=== PATIENT | female | born 1950 | race Caucasian/White ===

== ENCOUNTER → 2017-12-08 13:24 | Outpatient (CLI) | payer MEDICARE, OTHER, SELFPAY ==
--- NOTE | 2017-12-08 | DI.MG.S_ITS ---
BILATERAL DIGITAL SCREENING MAMMOGRAM 3D/2D WITH CAD: 12/08/2017 CLINICAL: Routine screening. Comparison is made to exams dated: 09/15/2016 mammogram, 09/04/2015 mammogram, and 08/25/2014 mammogram - [facility]. There are scattered fibroglandular elements in both breasts. Current study was also evaluated with a Computer Aided Detection (CAD) system. There is architectural distortion in the right breast middle depth medial region seen on the craniocaudal view only. Finding is seen only on tomography. No other significant masses, calcifications, or other findings are seen in either breast. IMPRESSION: INCOMPLETE: NEEDS ADDITIONAL IMAGING EVALUATION The architectural distortion in the right breast is indeterminate. Additional views with possible ultrasound are recommended. This exam was interpreted at Station ID: [id number]. NOTE: For mammograms, a report in lay terms will be sent to the patient. Approximately 15% of breast malignancies will not be visualized mammographically. In the management of a palpable breast mass, a negative mammogram must not discourage biopsy of a clinically suspicious lesion. Electronically Signed By: Dianne Emmanuel M.D. lk/:12/08/2017 14:24:10 letter sent: Additional Imaging Needed ACR BI-RADS Category 0: Incomplete [id number]
== END ==
PROVIDERS: Family Provider Nurse Practitioner Family; PCP Nurse Practitioner Family; Visit Provider Nurse Practitioner Family
DX: Z12.31 Encounter for screening mammogram for malignant neoplasm of breast (principal); R92.8 Other abnormal and inconclusive findings on diagnostic imaging of breast
CPT/HCPCS: 77063; 77067

== ENCOUNTER → 2017-12-28 14:38 | Outpatient (CLI) | payer MEDICARE, OTHER, SELFPAY ==
--- NOTE | 2017-12-28 | DI.MG.S_ITS ---
UNILATERAL RIGHT DIGITAL DIAGNOSTIC MAMMOGRAM 3D/2D WITH ADDITIONAL VIEWS: 12/28/2017 CLINICAL: Additional evaluation requested from prior study. Comparison is made to exams dated: 12/08/2017 mammogram - [facility], 09/15/2016 mammogram, and 09/04/2015 mammogram - [facility]. There are scattered fibroglandular elements in the right breast. There is a 5 mm oval low density mass with a circumscribed margin in the right breast anterior depth medial region seen on the craniocaudal view only. Finding is seen only on tomography. No other significant masses or calcifications are seen in the breast. IMPRESSION: INCOMPLETE: NEEDS ADDITIONAL IMAGING EVALUATION The 5 mm oval low density mass in the right breast is indeterminate. An ultrasound is recommended. This exam was interpreted at Station ID: [id number]. NOTE: For mammograms, a report in lay terms will be sent to the patient. Approximately 15% of breast malignancies will not be visualized mammographically. In the management of a palpable breast mass, a negative mammogram must not discourage biopsy of a clinically suspicious lesion. Electronically Signed By: Melquiades kaur/daija:12/28/2017 16:18:05 ACR BI-RADS Category 0: Incomplete [id number]
== END ==
PROVIDERS: Family Provider Nurse Practitioner Family; PCP Nurse Practitioner Family; Visit Provider Nurse Practitioner Family
DX: R92.8 Other abnormal and inconclusive findings on diagnostic imaging of breast (principal); N63.10 Unspecified lump in the right breast, unspecified quadrant
CPT/HCPCS: 77065; G0279

== ENCOUNTER → 2018-01-01 10:19 | Outpatient (CLI) | payer MEDICARE, OTHER, SELFPAY ==
--- NOTE | 2018-01-01 | DI.US.S_ITS ---
ULTRASOUND OF RIGHT BREAST: 01/01/2018 CLINICAL: Patient returns today to evaluate a focal asymmetry in the right breast. Comparison is made to exams dated: 12/28/2017 mammogram and 12/08/2017 mammogram - [facility]. Color flow ultrasound of the right breast was performed. Lipscomb scale images of the real-time examination were reviewed. Prior mammographic finding is no longer seen right breast. IMPRESSION: NEGATIVE There is no sonographic evidence of malignancy. A 1 year screening mammogram is recommended. This exam was interpreted at Station ID: [id number]. Electronically Signed By: Melquiades kaur/daija:01/01/2018 15:19:18 Entry: - 01/01/2018 15:19:18 letter sent: Normal Exam Ultrasound BI-RADS: 1 Negative
== END ==
PROVIDERS: Family Provider Nurse Practitioner Family; PCP Nurse Practitioner Family; Visit Provider Nurse Practitioner Family
DX: R92.8 Other abnormal and inconclusive findings on diagnostic imaging of breast (principal)
CPT/HCPCS: 76642

== ENCOUNTER → 2018-01-25 11:15 | Outpatient (CLI) | payer MEDICARE, OTHER, SELFPAY ==
[2018-01-25 13:44] LABS: Estimated Glomerular Filt Rate > 60.0 mL/min (>60)
== END ==
PROVIDERS: PCP Nurse Practitioner Family; Visit Provider Psychiatry & Neurology Neurology
DX: G35 Multiple sclerosis (principal)
CPT/HCPCS: 36415; 82565

== ENCOUNTER → 2018-01-26 16:23 | Outpatient (CLI) | payer MEDICARE, OTHER, SELFPAY ==
--- NOTE | 2018-01-26 | DI.MRI.S_ITS ---
PROCEDURE: MR THORACIC SPINE WO/W CON INDICATIONS: Multiple sclerosis. TECHNIQUE: Noncontrast sagittal T1 spin echo and T2 fast spin echo, sagittal STIR, axial T1 and T2 fast spin echo through the thoracic spine. After the administration of contrast, axial and sagittal T1 spin echo with fat saturation through the thoracic spine. COMPARISON: [facility], , MR CERVICAL SPINE WO/W CON, 01/26/2018, 16:56. FINDINGS: Image quality: Excellent. Alignment and curvature: There is normal bony alignment. Marrow: Marrow is of normal overall signal. No acute vertebral body compression fractures. Spinal cord: There is a focus of T2 hyperintensity in the lower cervical cord at the level of the C7. A possible T2 hyperintense lesion is noted in the thoracic cord at the level of T7-T8. Visualized thoracic cord is of normal signal and size. No definitive abnormal enhancement but motion artifacts on postcontrast images are present. Paraspinous soft tissues: No paravertebral masses or abnormal enhancement. Miscellaneous: There is degenerative disc disease with loss of disc height and posterior disc bulge. Central canal and foramina appear patent. IMPRESSION: 1. T2 hyperintense lesions at C7 and possibly T7-T8 consistent with multiple sclerosis. No definitive enhancing lesions. 3. Degenerative disc disease in the thoracic spine. No central canal stenosis. Dictated by: Lloyd Huerta M.D. on 01/29/2018 at 8:42 Transcribed by: ALLEN on 01/29/2018 at 8:45 Approved by: Lloyd Huerta M.D. on 01/29/2018 at 10:54
--- NOTE | 2018-01-26 | DI.MRI.S_ITS ---
PROCEDURE: MR HEAD/BRAIN WO/W CON INDICATIONS: 67-year-old woman with multiple sclerosis. TECHNIQUE: Noncontrast sagittal and axial FLAIR, axial and coronal T2 fast spin echo, axial VIBE, axial gradient echo, axial diffusion and ADC through the brain. After the administration of contrast, axial and coronal VIBE with fat saturation through the brain. COMPARISON: None. FINDINGS: Image quality: Excellent. CSF spaces: Ventricles are normal in size and shape. Basal cisterns are patent. No extra-axial fluid collections. Brain: There are multiple foci of T2/FLAIR hyperintensity in periventricular white matter involving corpus callosum with configuration/distribution consistent with multiple sclerosis. There is a white matter lesion in the upper cervical cord at level of C1. No enhancing lesions are present No intracranial bleeds or mass effects. Lipscomb-white matter interface appears intact. No abnormal intracranial enhancement. Diffusion weighted images show no acute ischemic insults. Brainstem appears normal. Normal intravascular flow voids are present. Skull and face: Calvarial marrow signal is normal. Orbits appear normal. Sinuses: Mastoids are clear. An air-fluid level is noted in the right sphenoid sinus. There is a mucous retention cyst in the left maxillary sinus. Mild mucosal thickening in the right ethmoid sinus. IMPRESSION: 1. Multiple foci of T2/FLAIR hyperintensity in periventricular white matter involving corpus callosum with configuration/distribution consistent with multiple sclerosis. No enhancing lesions are identified. 2. A white matter lesion in the upper cervical cord at level of C1 consistent with a MS plaque. 3. Paranasal sinus disease. Dictated by: Lloyd Huerta M.D. on 01/29/2018 at 8:34 Transcribed by: ALLEN on 01/29/2018 at 8:36 Approved by: Lloyd Huerta M.D. on 01/29/2018 at 10:34
--- NOTE | 2018-01-26 | DI.MRI.S_ITS ---
PROCEDURE: MR CERVICAL SPINE WO/W CON INDICATIONS: MS TECHNIQUE: Noncontrast sagittal T1 spin echo and T2 fast spin echo, sagittal STIR, sagittal PD fast spin echo, foraminal oblique sagittal T2 fast spin echo, axial gradient echo or T2 fast spin echo through the cervical spine. After the administration of contrast, sagittal and axial T1 spin echo with fat saturation through the cervical spine. COMPARISON: None. FINDINGS: Image quality: There are motion artifacts. Alignment and curvature: There is normal bony alignment. Marrow: Marrow demonstrates normal overall signal. Spinal cord: There are multiple foci of T2 hyperintensity involving the cervical cord at level of C1, C3-C4 and C7, consistent with MS plaques. There is a probable lesion at level C4-C5. On post contrast images, no abnormal intramedullary enhancement. No cerebellar tonsillar herniation. Paraspinous soft tissues: No paravertebral masses or suspicious enhancement. C2-C3: Preserved disc height. Mild disc desiccation. There is mild posterior disc bulge. The central canal is patent. No foraminal stenosis. C3-C4: Mild loss of disc height and disc desiccation. There is broad posterior disc bulge. Mild bilateral facet arthropathy. The central canal is patent. No foraminal stenosis. C4-C5: Moderate loss of disc height and disc desiccation. There is broad posterior disc bulge and disc ossified complex. Mild bilateral facet arthropathy. The central canal is mildly narrowed. Moderate to severe right and mild left foraminal stenosis. C5-C6: Meofoiby-gt-joddel loss of disc height and disc desiccation. There is broad posterior disc bulge and disc ossified complex. The central canal is mildly narrowed. Moderate right and mild left foraminal stenosis. C6-C7: Ahduedcw-ic-jpjjof loss of disc height and disc desiccation. There is broad posterior disc bulge and disc ossified complex. The central canal is mildly narrowed. Moderate foraminal stenosis bilaterally. C7-T1: Normal appearance. IMPRESSION: 1. Multiple MS plaques in the cervical cord at level of C1, C3-C4 and C7, and a probable mass plaque at C4-C5. No enhancing lesions are present. 2. Multilevel degenerative disc disease and facet arthropathy as described. 3. Mild central canal stenosis as described. 4. Multilevel foraminal stenosis as described. Dictated by: Lloyd Huerta M.D. on 01/29/2018 at 8:36 Transcribed by: ALLEN on 01/29/2018 at 8:42 Approved by: Lloyd Huerta M.D. on 01/29/2018 at 10:42
== END ==
PROVIDERS: Family Provider Nurse Practitioner Family; PCP Nurse Practitioner Family; Visit Provider Psychiatry & Neurology Neurology
DX: G35 Multiple sclerosis (principal); M47.9 Spondylosis, unspecified
CPT/HCPCS: 70553; 72156; 72157; A9579

== ENCOUNTER → 2018-02-01 09:38 | Outpatient (CLI) | payer MEDICARE, OTHER, SELFPAY | PROVIDERS: Family Provider Nurse Practitioner Family; PCP Nurse Practitioner Family; Visit Provider Nurse Practitioner Family | DX: R20.2 Paresthesia of skin (principal) | CPT/HCPCS: 95886; 95911 ==

== ENCOUNTER → 2018-04-16 11:31 | Outpatient (CLI) | payer MEDICARE, OTHER, SELFPAY ==
[2018-04-16 12:57] LABS: Vitamin D 25 Hydroxy (D3) 35.7 ng/mL (30.0-100.0)
== END ==
PROVIDERS: Family Provider Nurse Practitioner Family; PCP Family Medicine; Visit Provider Family Medicine
DX: G35 Multiple sclerosis (principal)
CPT/HCPCS: 36415; 82306

== ENCOUNTER → 2018-04-20 14:09 | Outpatient (CLI) | payer MEDICARE, OTHER, SELFPAY ==
--- NOTE | 2018-04-20 14:10 | DI.RAD.S_ITS ---
This blank DEXA report has been sent in error by the PACS system. The correct and complete report will be forthcoming in 1-2 days. Thank you for your patience and understanding. Dictated by: Sandro Callahan M.D. on 04/20/2018 at 14:56 Approved by: Sandro Callahan M.D. on 04/20/2018 at 14:56
== END ==
PROVIDERS: PCP Family Medicine; Visit Provider Family Medicine
DX: M85.851 Other specified disorders of bone density and structure, right thigh (principal); Z78.0 Asymptomatic menopausal state; Z87.891 Personal history of nicotine dependence
CPT/HCPCS: 77080

== ENCOUNTER → 2018-08-23 08:53 | Outpatient (CLI) | payer MEDICARE, OTHER, SELFPAY ==
[2018-08-23 09:21] LABS: Hematocrit 41.2 % (36-46); Hemoglobin 13.9 g/dL (12.0-16.0); Mean Corpuscular HGB Conc 33.7 % (30-36); Mean Corpuscular Hemoglobin 32.1 PG (26-34); Mean Corpuscular Volume 95.3 fL (80-100); Platelet Count 247 X10^3/uL (150-400); Red Blood Cell Count 4.33 X10^6/uL (4.0-5.2); Red Cell Distribution Width 13.8 % (11.6-14.8); White Blood Cell Count 9.4 X10^3/uL (4.5-11.0)
[2018-08-23 09:35] LABS: Alanine Aminotransferase 26 IU/L (9-52); Albumin 4.4 g/dL (3.5-5.0); Albumin Globulin Ratio 1.3 (1.0-2.8); Alkaline Phosphatase 94 U/L (38-126); Aspartate Aminotransferase 25 IU/L (14-36); Bilirubin Total 0.6 mg/dL (0.2-1.3); Blood Urea Nitrogen 18 mg/dL (7-17); Calcium 9.9 mg/dL (8.4-10.2); Carbon Dioxide 32 mmol/L (22-32); Chloride 99 mmol/L (98-107); Cholesterol 199 mg/dL (140-199); Estimated Glomerular Filt Rate > 60.0 mL/min (>60); Globulin 3.5 g/dL (1.7-4.1); Glucose 102 mg/dL (80-110); HDL Cholesterol 59 mg/dL (40-60); HEMOLYSIS < 15 (0-50); LDL Cholesterol Calculated 125 mg/dL (<100); Potassium 4.2 mmol/L (3.4-5.1); Sodium 139 mmol/L (137-145); Total Protein 7.9 g/dL (6.3-8.2); Triglycerides 76 mg/dL (35-150)
[2018-08-23 09:50] LABS: Neutrophils Absolute Manual 4700 /uL (3000-5900); RBC Morphology Normal Morphology; Total Cells Counted 100
[2018-08-23 10:36] LABS: Vitamin D 25 Hydroxy (D3) 33.5 ng/mL (30.0-100.0)
[2018-08-23 10:43] LABS: Thyroid Stimulating Hormone 1.84 uIU/mL (0.47-4.68)
== END ==
PROVIDERS: PCP Family Medicine; Visit Provider Family Medicine
DX: G35 Multiple sclerosis (principal); I10 Essential (primary) hypertension; Z86.19 Personal history of other infectious and parasitic diseases; M85.80 Other specified disorders of bone density and structure, unspecified site
CPT/HCPCS: 36415; 80053; 80061; 82306; 84443; 85025

== ENCOUNTER → 2018-10-17 14:43 | Outpatient (CLI) | payer MEDICARE, OTHER, SELFPAY ==
--- NOTE | 2018-10-17 | DI.US.S_ITS ---
PROCEDURE: US PELVIC COMPLETE INDICATIONS: ABDOMINAL BLOATING TECHNIQUE: Real-time scanning was performed of the pelvic organs, with image documentation. Additional endovaginal scanning was necessary due to incomplete visualization of the adnexal and endometrial structures by transabdominal scanning. COMPARISON: None. FINDINGS: Transabdominal scanning: There is a likely extrarenal pelvis seen on the left. The kidneys demonstrate potential nonobstructing stones, the largest on the right measuring 6 mm in the largest measuring 5 mm. No pathologic free abdominal or pelvic fluid. Endovaginal scanning: Uterus: Uterus is normal in size at 6.1 x 3.3 x 3.7 cm. The endometrium measures 5 mm in combined thickness. A trace amount of fluid can be seen along the endometrial stripe. There is a 1 cm likely intramural fibroid seen on the right anteriorly. Ovaries: The right ovary measures 2.4 x 1.4 x 1.2 cm. The left ovary measures 2.1 x 1 x 1.1 cm. within the left ovary, there are 2 hypoechoic structures seen, with the largest measuring up to 1.2 cm. These are attributed to small cysts or paraovarian cysts. No adnexal masses are seen. IMPRESSION: The endometrial stripe measures at the upper limits of normal for a postmenopausal woman at 5 mm. Likely benign cysts are seen involving the left ovary. Apparent bilateral nonobstructing kidney stones are seen. A prominent left extrarenal pelvis can be seen. Dictated by: Pablo Keller M.D. on 10/17/2018 at 16:32 Approved by: Pablo Keller M.D. on 10/17/2018 at 16:35
== END ==
PROVIDERS: PCP Internal Medicine; Visit Provider Internal Medicine
DX: R14.0 Abdominal distension (gaseous) (principal); N83.202 Unspecified ovarian cyst, left side; N20.0 Calculus of kidney
CPT/HCPCS: 76830; 76856

== ENCOUNTER → 2018-10-24 09:06 | Outpatient (CLI) | payer MEDICARE, OTHER, SELFPAY ==
--- NOTE | 2018-10-24 | DI.US.S_ITS ---
PROCEDURE: US RENAL COMPLETE INDICATIONS: HISTORY OF KIDNEY STONES TECHNIQUE: Real-time scanning was performed of the kidneys and bladder, with image documentation. COMPARISON: None. FINDINGS: Kidneys: Kidneys are normal in size. Right kidney measures 11.9 cm long; left kidney measures 10.9 cm long. Right renal cortical thickness is 1.0 cm; left renal cortical thickness is 1.4 cm. On the right, approximately 3 right renal calculi measuring up to 8mm in size at the inferior pole. No hydronephrosis. On the left, multiple, approximately 3 left renal calculi measuring up to 11 mm. Moderate left hydronephrosis. At the superior pole there is also a hyperechoic lesion measuring 1.4 x 1.3 x 1.4 cm demonstrating echogenic appearance and no definite intra-vascularity. Presumed left extrarenal pelvis. Bladder: Pre-void bladder volume is 170 mL. Post-void residual is 111 mL. Pre-void images demonstrate no intraluminal masses or stones. On pre-void images, both of the ureteral jets are noted with color Doppler interrogation. (Of note, ureteral jets may not be detectable in up to 25% of cases due to insufficient differences in specific gravity between ureteral and bladder urine). Miscellaneous: No free pelvic fluid. IMPRESSION: Multiple bilateral nephrolithiasis. Moderate left hydronephrosis. No evidence of right-sided urinary obstruction. Echogenic lesion involving upper pole left kidney, possibly angiomyolipoma although technically indeterminate and given the absence of any comparison studies recommend continued ultrasound surveillance in 6 months, to exclude malignant possibilities. Dictated by: Denys Fam M.D. on 10/24/2018 at 11:37 Approved by: Denys Fam M.D. on 10/24/2018 at 12:01
== END ==
PROVIDERS: PCP Internal Medicine; Visit Provider Urology
DX: N13.2 Hydronephrosis with renal and ureteral calculous obstruction (principal); Z87.442 Personal history of urinary calculi
CPT/HCPCS: 76770

== ENCOUNTER → 2018-10-29 13:10 | Outpatient (CLI) | payer MEDICARE, OTHER, SELFPAY ==
--- NOTE | 2018-10-29 13:32 | DI.CT.S_ITS ---
PROCEDURE: CT KIDNEY URETER BLADDER (KUB) INDICATIONS: Right flank pain TECHNIQUE: Noncontrast 5 mm thick sections acquired from the diaphragms to the symphysis. 5 mm thick coronal and sagittal reformats were then performed. For radiation dose reduction, the following was used: automated exposure control, adjustment of mA and/or kV according to patient size. COMPARISON: [facility], , RENAL COMPLETE, 10/24/2018, 9:25. FINDINGS: Image quality: Excellent. Lung bases: Lung bases are clear. Heart size is normal. Urinary system: Both kidneys are normal in size. There are bilateral nonobstructive kidney stones ranging in size from 2 mm to 6 mm involving the upper, middle third and lower third collecting systems of each kidney. The left kidney shows a mild hydronephrosis pattern but without hydroureter, and the appearance is suggestive of a chronic ureteropelvic junction stenosis as the underlying cause. No hydronephrosis or perinephric fat stranding. Both ureters appear non-dilated throughout their expected courses. Bladder wall thickness is normal; no calcified bladder stones. Other solid organs: Liver is normal in size. Gallbladder is partially contracted. Pancreas is normal in contours. Spleen is normal in size. No adrenal nodules. Peritoneum and bowel: Unenhanced bowel loops demonstrate normal wall thickness and caliber. No free fluid or air. Nodes and vessels: No retroperitoneal or mesenteric adenopathy by size criteria. Aorta and inferior vena cava are normal in caliber. Abdominal wall: No ventral hernias. Pelvis: No free pelvic fluid. No inguinal hernias or adenopathy. Bones: No suspicious bony lesions. No vertebral body compression fractures. IMPRESSION: Bilateral renal collecting system calculi are present none of which appear obstructed, ranging in size from 2 millimeters to 6 mm. These do not appear obstructive, and yet there is mild hydronephrosis involving the left kidney which by appearance is likely due to a ureteropelvic junction stenosis. Dictated by: Coleman Vera M.D. on 10/29/2018 at 14:33 Approved by: Coleman Vera M.D. on 10/29/2018 at 14:38
== END ==
PROVIDERS: PCP Internal Medicine; Visit Provider Urology
DX: N20.0 Calculus of kidney (principal); N13.30 Unspecified hydronephrosis; R10.9 Unspecified abdominal pain
CPT/HCPCS: 74176

== ENCOUNTER → 2018-11-22 15:31 | Outpatient (CLI) | payer MEDICARE, OTHER, SELFPAY | PROVIDERS: PCP Internal Medicine; Visit Provider Internal Medicine | DX: R14.0 Abdominal distension (gaseous) (principal) | CPT/HCPCS: 86677 ==

== ENCOUNTER → 2018-11-26 07:43 | Outpatient (CLI) | payer MEDICARE, OTHER, SELFPAY ==
--- NOTE | 2018-11-26 | DI.NM.S_ITS ---
PROCEDURE: NM GASTRIC EMPTYING STUDY RADIOPHARMACEUTICAL: 37 mCi Tc-99m sulfur colloid in an egg sandwich. INDICATIONS: ABDOMINAL BLOATING TECHNIQUE: A Tc-99m labeled sulfur colloid labeled egg sandwich or oatmeal was served to the patient. Anterior and posterior planar images of the abdomen were obtained at 0 minutes and 30 minutes, then at hourly intervals up to 4 hours. The patient was upright and ambulating during the interval. COMPARISON: [facility], CT, CT KIDNEY URETER BLADDER (KUB), 10/29/2018, 13:24. FINDINGS: The stomach has normal size, morphology, and position. There is normal emptying of solid gastric contents from the stomach by visual inspection. No gastroesophageal reflux is visualized. The percentage of tracer retained at specific time points are as follows: Time point Percent gastric retention Normal range 30 minutes 68% 70% or more 1 hour 30% 30% to 90% 2 hours 10% 60% or less IMPRESSION: 1. Normal gastric emptying study without evidence of gastroparesis. Dictated by: Kristopher Chawla M.D. on 11/26/2018 at 16:14 Approved by: Kristopher Chawla M.D. on 11/26/2018 at 16:15
== END ==
PROVIDERS: PCP Internal Medicine; Visit Provider Internal Medicine
DX: R14.0 Abdominal distension (gaseous) (principal)
CPT/HCPCS: 78264; A9541

== ENCOUNTER → 2018-11-29 08:09 | Outpatient (CLI) | payer MEDICARE, OTHER, SELFPAY | PROVIDERS: PCP Internal Medicine; Visit Provider Internal Medicine | DX: R19.7 Diarrhea, unspecified (principal) | CPT/HCPCS: 87493 ==

== ENCOUNTER → 2018-12-04 15:06 | Outpatient (CLI) | payer MEDICARE, OTHER, SELFPAY | PROVIDERS: PCP Internal Medicine; Visit Provider Internal Medicine | DX: R19.7 Diarrhea, unspecified (principal) | CPT/HCPCS: 36415; 83516 ==

== ENCOUNTER → 2018-12-05 08:51 | Outpatient (CLI) | payer MEDICARE, OTHER, SELFPAY ==
[2018-12-05 11:33] LABS: Occult Blood 1 Negative (Negative); Occult Blood 2 Negative (Negative); Occult Blood 3 Negative (Negative)
[2018-12-11 13:56] LABS: H. Pylori Antigen Stool NOT DETECTED
== END ==
PROVIDERS: PCP Internal Medicine; Visit Provider Internal Medicine
DX: A04.8 Other specified bacterial intestinal infections (principal); R19.7 Diarrhea, unspecified
CPT/HCPCS: 82270; 82710; 86677; 87045; 87177; 87205; 87493; 87899

== ENCOUNTER → 2018-12-24 13:06 | Outpatient (CLI) | payer MEDICARE, OTHER, SELFPAY ==
--- NOTE | 2018-12-24 | DI.MG.S_ITS ---
BILATERAL DIGITAL SCREENING MAMMOGRAM 3D/2D WITH CAD: 12/24/2018 CLINICAL: Routine screening. Comparison is made to exams dated: 12/28/2017 mammogram, 12/08/2017 mammogram - [facility], and 09/15/2016 mammogram - [facility]. There are scattered fibroglandular elements in both breasts. Current study was also evaluated with a Computer Aided Detection (CAD) system. No significant masses, calcifications, or other findings are seen in either breast. There has been no significant interval change. IMPRESSION: NEGATIVE There is no mammographic evidence of malignancy. A 1 year screening mammogram is recommended. This exam was interpreted at Station ID: [id number]. NOTE: For mammograms, a report in lay terms will be sent to the patient. Approximately 15% of breast malignancies will not be visualized mammographically. In the management of a palpable breast mass, a negative mammogram must not discourage biopsy of a clinically suspicious lesion. Electronically Signed By: Conner alas/daija:12/24/2018 16:24:33 letter sent: Normal Exam ACR BI-RADS Category 1: Negative [id number]
== END ==
PROVIDERS: PCP Internal Medicine; Visit Provider Internal Medicine
DX: Z12.31 Encounter for screening mammogram for malignant neoplasm of breast (principal)
CPT/HCPCS: 77063; 77067

== ENCOUNTER → 2019-04-11 09:11 | Outpatient (CLI) | payer MEDICARE, OTHER, SELFPAY ==
--- NOTE | 2019-04-11 | DI.US.S_ITS ---
PROCEDURE: US RENAL COMPLETE INDICATIONS: KIDNEY STONES TECHNIQUE: Real-time scanning was performed of the kidneys and bladder, with image documentation. COMPARISON: [facility], CT, CT KIDNEY URETER BLADDER (KUB), 10/29/2018, 13:24. [facility], US, US RENAL COMPLETE, 10/24/2018, 9:25. FINDINGS: Kidneys: Kidneys are normal in size. Right kidney measures 11.8 cm long; left kidney measures 11.3 cm long. Right renal cortical thickness is 1.1 cm; left renal cortical thickness is 1.5 cm. Renal cortical echotexture is normal. No hydronephrosis bilateral nonobstructing renal calcifications present largest measuring 7 mm on the right and 10 mm on the left. Cortical based echogenic mass again visualized in the superior pole of the left kidney not significantly changed measuring 1.7 x 1.4 x 1.6 cm compared to 1.4 x 1.3 x 1.4 cm on prior exam. No suspicious solid mass lesions. Bladder: Pre-void bladder volume is 309 mL. Post-void residual is 117 mL. Pre-void images demonstrate no intraluminal masses or stones. On pre-void images, bilateral ureteral jets are noted with color Doppler interrogation. (Of note, ureteral jets may not be detectable in up to 25% of cases due to insufficient differences in specific gravity between ureteral and bladder urine). Miscellaneous: No free pelvic fluid. IMPRESSION: 1. 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 2. Bilateral nonobstructing renal calcifications redemonstrated. Dictated by: Theo VENTURA Interpreted: Denys Fam MD on 04/11/2019 at 10:54 Approved by: Denys Fam M.D. on 04/11/2019 at 14:00
[2019-04-11 10:26] LABS: Add Manual Diff / Slide Review NO; Basophils Absolute Auto 100 /uL (0-100); Basophils Percent Auto 0.6 % (0-2); Eosinophils Absolute Auto 200 /uL (0-450); Eosinophils Percent Auto 2.5 % (2-4); Hematocrit 38.7 % (36-46); Hemoglobin 13.3 g/dL (12.0-16.0); Lymphocytes Absolute Auto 2100 /uL (1100-4500); Lymphocytes Percent Auto 26.9 % (25-40); Mean Corpuscular HGB Conc 34.4 % (30-36); Mean Corpuscular Hemoglobin 32.5 PG (26-34); Mean Corpuscular Volume 94.6 fL (80-100); Monocytes Absolute Auto 700 /uL (0-900); Monocytes Percent Auto 9.3 % (3-14); Neutrophils Absolute Auto 4700 /uL (1500-7000); Neutrophils Percent Auto 60.7 % (50-75); Platelet Count 228 X10^3/uL (150-400); Red Cell Distribution Width 13.2 % (11.6-14.8); White Blood Cell Count 7.8 X10^3/uL (4.5-11.0)
[2019-04-11 10:52] LABS: Alanine Aminotransferase 28 IU/L (9-52); Albumin 4.1 g/dL (3.5-5.0); Albumin Globulin Ratio 1.4 (1.0-2.8); Alkaline Phosphatase 100 U/L (38-126); Aspartate Aminotransferase 26 IU/L (14-36); Bilirubin Total 0.6 mg/dL (0.2-1.3); Blood Urea Nitrogen 28 mg/dL (7-17); Calcium 9.8 mg/dL (8.4-10.2); Carbon Dioxide 30 mmol/L (22-32); Chloride 101 mmol/L (98-107); Estimated Glomerular Filt Rate 55.5 mL/min (>60); Glucose 75 mg/dL (80-110); HEMOLYSIS < 15 (0-50); Potassium 4.4 mmol/L (3.4-5.1); Sodium 139 mmol/L (137-145); Total Protein 7.1 g/dL (6.3-8.2)
[2019-04-11 12:29] LABS: TSH w/ Reflex to FT4 1.51 uIU/mL (0.47-4.68)
== END ==
PROVIDERS: PCP Internal Medicine; Visit Provider Internal Medicine
DX: N20.0 Calculus of kidney (principal); N28.89 Other specified disorders of kidney and ureter; I10 Essential (primary) hypertension; E03.9 Hypothyroidism, unspecified; R14.0 Abdominal distension (gaseous); E66.9 Obesity, unspecified; Z68.35 Body mass index [BMI] 35.0-35.9, adult
CPT/HCPCS: 36415; 76770; 80053; 84443; 85025

== ENCOUNTER → 2019-06-07 07:45 | Outpatient (CLI) | payer MEDICARE, OTHER, SELFPAY ==
--- NOTE | 2019-06-07 08:43 | P.PCN_ITS ---
Cardiac Stress Test Report Referral & Results Date Patient Seen: 06/07/19 Time Patient Seen: 08:30 Requesting provider: Melany Albert Indication: Tachy arrhythmia Rest ECG: Sinus tachycardia Procedure Note: Today following both written and verbal informed consent the patient was exercised according to a standard [place] protocol patient went for a total of 6 minutes achieving a maximum heart rate of 135 maximum systolic blood pressure of 178. This is approximately 7 METs. Exercise was terminated at this point because of fatigue. Patient was also given Cardiolite through a previously started Hep-Lock IV by the nuclear reactor operator approximately 1 minute prior to the cessation of exercise. No signs or symptoms of angina. No change in rhythm. BIN 0% on sedentary scale. Impression: Low probability for ischemia. Will await perfusion imaging. Please note: Actual ECG tracings can be found in the PACS system.
--- NOTE | 2019-06-14 15:28 | DI.NM.S_ITS ---
DATE OF SERVICE: 06/07/2019 PROCEDURE: Exercise perfusion study. INDICATION: Shortness of breath, hypertension. RADIOPHARMACEUTICAL: 26.9 mCi technetium-99m Myoview IV was injected at stress, and 23.5 mCi technetium-99m Myoview IV was injected at rest. CARDIAC STRESS: Patient underwent exercise perfusion study under the supervision of an attending staff. She walked on [place] protocol for 6 minutes 4 seconds and achieved 99% of target heart rate, 7 METS of work load, normal blood pressure response, and functional aerobic impairment of 5%. Patient felt fatigued. No angina symptoms. Baseline EKG revealed sinus rhythm. Stress EKG did not reveal any convincing ischemic changes. There were no significant arrhythmias. Baseline artifact seen as repeated. RAW DATA: The breast shadow was seen. GATED STUDY: Resting LV ejection fraction 88% and stress LV ejection fraction 95% without any obvious wall motion abnormalities. Resting end-diastolic volume 80 mL. No transient ischemic dilatation. TID ratio 0.82, which is within normal limits. Lung/heart ratio 0.29, which is within normal limits. MYOCARDIAL PERFUSION SCAN: Stress supine, resting supine, and stress prone images were compared to each other. Resting supine images revealed minimally decreased perfusion of apex; however, stress supine and stress prone images revealed normal myocardial perfusion. CONCLUSION: I will call this study a normal myocardial perfusion study. No significant ischemic EKG changes. Patient walked on [place] protocol for 6 minutes and 4 seconds. Functional aerobic impairment +5%. No significant arrhythmias. Normal hemodynamic response. Overall, this is a low-risk myocardial perfusion study. Bettie Murdock - MANAGER BILINGUAL/fn/kv doc#: [id number]/job#: [id number] dd: 06/10/2019 16:44:00 dt: 06/11/2019 04:32:00 DICTATING MD/COPIES TO: Wallace Muller MD COPIES MNE: JESUS
== END ==
PROVIDERS: PCP Internal Medicine; Visit Provider Internal Medicine
DX: R00.0 Tachycardia, unspecified (principal)
CPT/HCPCS: 78452; 93016; 93017; 93018; A9502

== ENCOUNTER 2019-08-15 01:22 | Emergency (ER) | payer MEDICARE, OTHER, SELFPAY ==
[2019-08-15 01:25] VITALS: BP 152/89; PULSE 96; RESP 16; TEMP 36.5; O2SAT 97; BMI 36.8
--- NOTE | 2019-08-15 01:38 | ED.ALLEREA ---
HPI - Allergic Reaction General Chief complaint: Allergic Reaction Stated complaint: took medication/hive on left leg Time Seen by Provider: 08/15/19 01:38 Source: patient Mode of arrival: Family Vehicle History of Present Illness HPI narrative: 69-year-old woman with a history of intermittent headaches and hypertension. She has used butalbital Tylenol Cafergot compounds in the past with success to treat her headaches. She recently got a refill of this medication and noted that there is a substitution of some type. After taking the new medication at midnight tonight she noticed increasing itching and hives. Symptoms started within 15 minutes of taking the new medication. She developed moderate size hives over her left knee and some pruritus over her back and upper extremities. She did not have any breathing or respiratory difficulties nor any swelling of the tongue or lips. Related Data Home Medications Medication Instructions Recorded Confirmed Resmed Airsense 10 CPAP #1 ea 01/01/19 01/16/19 Previous Rx's Medication Instructions Recorded losartan 50 mg tablet 50 mg PO DAILY #90 tab 08/17/18 hydrocodone 5 mg-acetaminophen 325 1 tab PO Q6H PRN #7 tab 12/22/18 mg tablet Allergies Allergy/AdvReac Type Severity Reaction Status Date / Time butalbital Allergy Intermediate Hives Verified 08/15/19 01:48 IODINE CONTRAST Allergy Mild HIVES Uncoded 01/16/19 15:31 Review of Systems Review of Systems Narrative: Denies ? fever ? cough ? cold ? chills ? chest pain ? dyspnea ? orthopnea ? wheezing ? abdominal pain ? change to bowel or bladder habits ? nausea vomiting ? Patient History Medical History Allergic rhinitis (Chronic 1951) Ankle pain (Chronic 2009) Chronic back pain (Chronic Unknown) Colon polyps (Resolved 2011) Diverticular disease (Chronic 2011) Foot pain (Chronic ~2018) GERD (gastroesophageal reflux disease) (Chronic Unknown) Gout (Chronic ~1979) Hearing loss (Chronic 2009) Hemorrhoids (Chronic 2011) Hepatitis C (Resolved Unknown) Hypertension (Chronic 1989) Interstitial cystitis (Chronic Unknown) Kidney stones (Resolved 1979) Multiple sclerosis (Chronic 2006) Neck pain (Chronic 1999) Rubella (Resolved ~1952) Shoulder pain (Chronic ~2014) Sleep apnea (Chronic 2015) Thyroid nodule (Resolved 2003) Vertigo (Chronic 2015) Surgical History Anesthesia (Resolved) Hx of breast biopsy (Resolved 1999) Hx of lithotripsy (Resolved Unknown) Hx of tonsillectomy (Resolved Unknown) Family History Unknown No problems noted. Social History marital status: unmarried,single number of children: 0 household members: none lives independently: Yes caregiver/support person: No pets and animals: Yes education level: college Smoking Status: Never smoker second hand exposure: No alcohol intake: never substance use type: does not use Smoking Status: Never smoker alcohol intake frequency: 0-2 drinks per day Substance Use Type: does not use Exam Narrative Exam Narrative: General: Healthy appearing, in no acute distress. Able to give a complete and coherent history. Well-nourished well-developed HEENT: Moist mucous membranes, normal sclera with reactive pupils, Neck: No JVD, supple Respiratory: Lungs are clear to auscultation, no wheezing no rales no rhonchi. Full and symmetrical air movement Cardiac: Regular rate and rhythm no murmurs no bruits Abdomen: Soft nontender good bowel tones, no flank pain Skin: Warm and dry, no rashes. Hives have completely resolved at time of initial ER exam. She still has some pruritus to the hands and upper extremities without significant erythema Neurologic: Grossly neurologically intact with no obvious asymmetries or abnormalities Extremities: No trauma, well perfused Psych: Cooperative, appropriate insight and affect Initial Vital Signs Initial Vital Signs: Vital Signs Temperature 97.7 F 08/15/19 01:25 Pulse Rate 96 H 08/15/19 01:25 Respiratory Rate 16 08/15/19 01:25 Blood Pressure 152/89 H 08/15/19 01:25 Pulse Oximetry 97 08/15/19 01:25 Course Vital Signs Vital signs: Vital Signs - 8 hr 08/15/19 01:25 Temperature 97.7 F Pulse Rate 96 H Respiratory Rate 16 Blood Pressure 152/89 H Pulse Oximetry 97 MDM - Allergic Reaction Differential Diagnosis Differential diagnosis: Likely anaphylaxis, allergic reaction, angioedema, adverse reaction to drug and urticaria Medical Records Attestation: I reviewed the patient's medical records. [facility] Narrative Medical decision making narrative: Allergic reaction to butalbital substituted medication. Symptoms were mild self-limited and have resolved almost entirely at 2:00 a.m.. With shared decision-making, we opted to not treat with any additional medications to avoid any untoward side effects as she was improving dramatically. Reassurance is given, she is safe for home discharge Discharge Plan Departure Patient Disposition: Home Clinical Impression: Allergic reaction to drug Qualifiers: Encounter type: initial encounter Qualified Code(s): T78.40XA - Allergy, unspecified, initial encounter Instructions: DI for Adverse Drug Reaction -- Allergic Activity Restrictions/Additional Instructions: Thank you for coming in tonight. Even though your symptoms have significantly improved I think that the visit was very appropriate. Please consider butalbital as an allergy at this time. Let your other doctors know and please do not take any more of this medication Because your symptoms are so rapidly improving I am not going to suggest any additional medications such as Benadryl or steroids. You will need to talk to your primary care doctor about alternative medications to treat your headache not you can no longer take the butalbital If you notice that your getting worse, developed any shortness of breath, wheezing, chest tightness, feeling that your tongue or lips are swelling please call 911 and return to the emergency department for further evaluation I hope you get a good night's sleep Prescriptions: No Action hydrocodone-acetaminophen [[place]] 5-325 mg tablet 1 tab PO Q6H PRN (Reason: pain) Qty: 7 RF: 0 losartan 50 mg tablet 50 mg PO DAILY Qty: 90 RF: 1 (DME) Resmed Airsense 10 CPAP Qty: 1 RF: 0 Referrals: Melany Albert MD [Primary Care Provider] -
== END 2019-08-15 01:50 | disposition home or self-care (01) ==
PROVIDERS: Emergency Provider Emergency Medicine; PCP Internal Medicine
DX: T78.40XA Allergy, unspecified, initial encounter (principal)
CPT/HCPCS: 99281

== ENCOUNTER → 2019-08-19 10:55 | Outpatient (CLI) | payer MEDICARE, OTHER, SELFPAY ==
--- NOTE | 2019-08-19 | DI.RAD.S_ITS ---
PROCEDURE: XR ABDOMEN 1V INDICATIONS: KIDNEY STONES TECHNIQUE: One view of the abdomen acquired. COMPARISON: [facility], CT, CT KIDNEY URETER BLADDER (KUB), 10/29/2018, 13:24. FINDINGS: Surgical changes and devices: None. Bowel: Bowel gas pattern is normal. Soft tissues: No new suspicious abdominal calcifications, and overlying the expected position of the central renal pelvis on left and also the upper and lower third collecting system on the left and within the middle and lower thirds of the right renal collecting system area calcifications previously present on CT scanning 10/29/18 are again seen.. Visualized solid organ contours appear normal in size. Bones: No suspicious bony lesions. IMPRESSION: Bilateral renal collecting system calculi are likely stable over time considering differences in technique when comparing prior CT scan into the current plain film study. There is a calcification currently measuring approximately 7-8 mm overlying the expected renal pelvis area of the left kidney, and correlation with ultrasound may be warranted if left-sided urinary tract obstruction from this calculus is suspected clinically. Dictated by: Coleman Vera M.D. on 08/19/2019 at 13:07 Approved by: Coleman Vera M.D. on 08/19/2019 at 13:09
== END ==
PROVIDERS: Family Provider Internal Medicine; PCP Internal Medicine; Visit Provider Urology
DX: N20.0 Calculus of kidney (principal)
CPT/HCPCS: 74018

== ENCOUNTER → 2019-08-28 11:10 | Outpatient (CLI) | payer MEDICARE, OTHER, SELFPAY ==
--- NOTE | 2019-08-28 | DI.CT.S_ITS ---
PROCEDURE: CT ABDOMEN PELVIS WO/W CON INDICATIONS: Gross hematuria TECHNIQUE: Optional 5 mm thick noncontrast images acquired from the diaphragm to the symphysis pubis. After the administration of intravenous contrast, 5 mm thick images acquired from the diaphragm to the symphysis pubis after a 10-minute delay. 2 mm thick coronal and sagittal reformats were then performed of the kidneys and ureters. For radiation dose reduction, the following was used: automated exposure control, adjustment of mA and/or kV according to patient size. COMPARISON: [facility], CT, CT KIDNEY URETER BLADDER (KUB), 10/29/2018, 13:24. FINDINGS: Image quality: Excellent. Lung bases: Lung bases are clear. Heart size is normal. Urinary system: Both kidneys are normal in size, without hydronephrosis on pre-contrast images. There is nonobstructive bilateral nephrolithiasis, with scattered calculi measuring approximately 4-6 mm on the right, within the upper, mid and lower right kidney nondistended collecting system. There also is a larger calculus at the lower third collecting system of the left kidney measuring up to 9 mm and having an internal radiodensity of 610 Hounsfield units. No perinephric fat stranding. There is normal bilateral renal enhancement. Renal calyces appear normal in morphology when filled with contrast. Opacified portions of both ureters demonstrate normal caliber. Bladder wall thickness is normal. No calcified bladder stones. There is a duplex collecting system of the left kidney, with an extrarenal pelvis. Other solid organs: Liver is normal in size and enhancement. Gallbladder is partially contracted. Biliary system is non dilated. Pancreas enhances normally. Spleen is normal in size and enhancement. No adrenal nodules. Peritoneum and bowel: Bowel loops demonstrate normal wall thickness and caliber. No free fluid or air. Nodes and vessels: No retroperitoneal or mesenteric adenopathy by size criteria. Aorta and inferior vena cava are normal in size. Abdominal wall: No ventral hernias. Pelvis: No pathologic free pelvic fluid. No inguinal hernias or adenopathy. Bones: No suspicious bony lesions. No vertebral body compression fractures. IMPRESSION: Scattered renal collecting system calculi bilaterally, the largest of which is at the lower third collecting system of the left kidney, but no urinary tract obstruction is found. Incidental note is made of a duplex collecting system at the left kidney, uniting at the level of the left kidney and a single ureter extends inferiorly to the bladder level, normal in appearance, on the left. No ureteral stone is suspected, no bladder calculus is found. Through the urothelium and the renal cortex bilaterally no source of hematuria is seen. The patient experienced a sensation of shortness of breath during the early phase of contrast infusion for this study which was optimized for identifying source of urinary tract hemorrhage. This reduces the quality of imaging of the viscera to a mild degree but the study remains diagnostic for absence of identifiable urothelial or renal cortical mass. Dictated by: Coleman Vera M.D. on 08/28/2019 at 12:24 Approved by: Coleman Vera M.D. on 08/28/2019 at 12:32
== END ==
PROVIDERS: Family Provider Internal Medicine; PCP Internal Medicine; Referring Provider Urology; Visit Provider Urology
DX: R31.0 Gross hematuria (principal); N20.0 Calculus of kidney; R06.02 Shortness of breath
CPT/HCPCS: 74178; Q9967

== ENCOUNTER 2019-08-28 12:03 | Emergency (ER) | payer MEDICARE, OTHER, SELFPAY ==
[2019-08-28 12:04] VITALS: BP 204/124; PULSE 112; RESP 16; O2SAT 99
--- NOTE | 2019-08-28 12:08 | ED.ALLEREA ---
HPI - Allergic Reaction General Chief complaint: Allergic Reaction Stated complaint: Allergic Reaction Time Seen by Provider: 08/28/19 12:08 Source: patient Mode of arrival: Ambulatory Limitations: no limitations History of Present Illness HPI narrative: This is a 69-year-old female who comes to the emergency department with complaint of possible reaction. Patient was having an outpatient CT scan with IV dye to evaluate for painless hematuria. Patient has had a reaction to IV dye in the past had hives, she had a 2nd CT had pre treatment with oral prednisone and tolerated that without issue. Today patient had oral prednisone 50 mg at 10:30 a.m. last night, 4:30 a.m. and then again at 10:00 a.m. followed by 50 mg of oral Benadryl at 10:00 a.m.. Patient states she started to feel little dizzy and unwell and shaky and jittery in the waiting room and when they laid her down for the CT made her feel lightheaded. She stated that when they pushed the it felt warm and flushed and then she started to feel little tight in her throat and jaw she states that they then sat her up and her symptoms resolved within a few minutes. She does not feel like there is any swelling of the tongue or oropharynx. She has not had any rash or hives. She has not had any nausea or vomiting. She denies. She denies chest pain or shortness of breath. She denies any wheezing. She denies any other GI or urinary symptoms at this time. Patient states at this point she is feeling much better and close to normal. Patient does take medication for blood pressure she has had hematuria in the past secondary to kidney stones but had seen Urology and they had wanted her to get CT imaging as she did not pass a stone or have any pain at any point. She states since then hematuria has resolved. Related Data Home Medications Medication Instructions Recorded Confirmed Resmed Airsense 10 CPAP #1 ea 01/01/19 01/16/19 Previous Rx's Medication Instructions Recorded losartan 50 mg tablet 50 mg PO DAILY #90 tab 08/17/18 hydrocodone 5 mg-acetaminophen 325 1 tab PO Q6H PRN #7 tab 12/22/18 mg tablet Allergies Allergy/AdvReac Type Severity Reaction Status Date / Time butalbital Allergy Intermediate Hives Verified 08/15/19 01:48 IODINE CONTRAST Allergy Mild HIVES Uncoded 01/16/19 15:31 Review of Systems Review of Systems ROS Unobtainable: All systems reviewed & are unremarkable except as noted in HPI and below Patient History Medical History Allergic rhinitis (Chronic 1951) Ankle pain (Chronic 2010) Chronic back pain (Chronic Unknown) Colon polyps (Resolved 2011) Diverticular disease (Chronic 2011) Foot pain (Chronic ~2018) GERD (gastroesophageal reflux disease) (Chronic Unknown) Gout (Chronic ~1979) Hearing loss (Chronic 2009) Hemorrhoids (Chronic 2011) Hepatitis C (Resolved Unknown) Hypertension (Chronic 1989) Interstitial cystitis (Chronic Unknown) Kidney stones (Resolved 1979) Multiple sclerosis (Chronic 2006) Neck pain (Chronic 1999) Rubella (Resolved ~1952) Shoulder pain (Chronic ~2014) Sleep apnea (Chronic 2015) Thyroid nodule (Resolved 2003) Vertigo (Chronic 2014) Surgical History Anesthesia (Resolved) Hx of breast biopsy (Resolved 1999) Hx of lithotripsy (Resolved Unknown) Hx of tonsillectomy (Resolved Unknown) Social History marital status: unmarried,single number of children: 0 household members: none lives independently: Yes caregiver/support person: No pets and animals: Yes education level: college Smoking Status: Never smoker second hand exposure: No alcohol intake: never substance use type: does not use Smoking Status: Never smoker alcohol intake frequency: 0-2 drinks per day Substance Use Type: does not use Exam Narrative Exam Narrative: GEN: well nourished, well appearing female, alert and oriented x 3, patient appears to be in mild distress. HEENT: Atraumatic, pupils are equal round reactive to light, extraocular movements are intact, nares are clear. Throat is clear without any exudates, erythema, tonsillar enlargement or uvular deviation, no facial swelling, no swelling of the oropharynx or angioedema. HEART: Regular rate and rhythm without murmur, clicks, rubs. Pulses are equal in upper and lower extremities LUNGS:Lungs clear to auscultation, no wheezes, rales, crackles, chest moves symmetrically, no tachypnea, no accessory muscle use. ABD:bowel sounds normal, soft, non-tender, no guarding, rebound, rigidity, no masses noted, no hepatosplenomegaly :No CVA tenderness MSCL: Non-tender, no muscle atrophy, muscles strength 5/5 upper and lower extremities, full range of motion, normal gait NEURO:CN 2-12 intact, sensation normal SKIN: Rash, no erythema hives. Initial Vital Signs Initial Vital Signs: Vital Signs Pulse Rate 112 H 08/28/19 12:04 Respiratory Rate 16 08/28/19 12:04 Blood Pressure 204/124 H 08/28/19 12:04 Pulse Oximetry 99 08/28/19 12:04 Course Vital Signs Vital signs: Vital Signs - 8 hr 08/28/19 12:04 08/28/19 12:27 08/28/19 13:00 Pulse Rate 112 H 105 H 74 Respiratory Rate 16 18 17 Blood Pressure 204/124 H Blood Pressure [Left Wrist] 179/101 H 143/68 H Pulse Oximetry 99 98 99 MDM - Allergic Reaction MDM Narrative Medical decision making narrative: Discussed with patient may have been a medication reaction she was having symptoms before the CT but plan for observation her symptoms resolved shortly after the CT itself and she has not had any further symptoms or worsening issues. Her blood pressure is slowly improving along with her pulse. Discussed with patient strict return precautions of but my suspicion for allergic reaction is lower as she has not continued to have any symptoms and has not had any intervention. Discharge Plan Departure Patient Disposition: Home Clinical Impression: Medication reaction Discharge Date/Time: 08/28/19 13:19 Instructions: DI for Adverse Drug Reaction -- Other Activity Restrictions/Additional Instructions: Follow up with your physician in the next several days. I would recommend discussing with your physician about any future CT scans with iodine let them know about your experience today there is possibility that this was an allergic reaction although more likely a medication reaction from the medications taken earlier today. Continue home medications as prescribed. Return to the emergency department for recurrent or new symptoms, fevers greater 100.4 F, sudden severe headaches, lightheadedness, passing out, new chest pain or shortness of breath, persistent vomiting, new rashes or skin changes, swelling of the mouth, lips or oropharynx, hoarseness or voice change or any other new or concerning symptoms. Prescriptions: No Action hydrocodone-acetaminophen [[place]] 5-325 mg tablet 1 tab PO Q6H PRN (Reason: pain) Qty: 7 RF: 0 losartan 50 mg tablet 50 mg PO DAILY Qty: 90 RF: 1 (DME) Resmed Airsense 10 CPAP Qty: 1 RF: 0 Referrals: Melany Albert MD [Primary Care Provider] -
[2019-08-28 12:27] VITALS: BP 179/101; PULSE 105; RESP 18; O2SAT 98
[2019-08-28 13:00] VITALS: BP 143/68; PULSE 74; RESP 17; O2SAT 99
== END 2019-08-28 13:19 | disposition home or self-care (01) ==
PROVIDERS: Emergency Provider Emergency Medicine; Family Provider Internal Medicine; PCP Internal Medicine
DX: T78.40XA Allergy, unspecified, initial encounter (principal); T50.905A Adverse effect of unspecified drugs, medicaments and biological substances, initial encounter
CPT/HCPCS: 74178; 99282; 99284; Q9967

== ENCOUNTER → 2019-08-30 15:35 | Outpatient (ROUT) | payer MEDICARE, OTHER, SELFPAY | PROVIDERS: Family Provider Internal Medicine; PCP Internal Medicine; Visit Provider Internal Medicine | DX: R35.0 Frequency of micturition (principal); R31.0 Gross hematuria; N20.0 Calculus of kidney; R06.02 Shortness of breath | CPT/HCPCS: 87086 ==

== ENCOUNTER → 2020-01-16 16:31 | Outpatient (CLI) | payer MEDICARE, OTHER, SELFPAY ==
[2020-01-16 17:47] LABS: Add Manual Diff / Slide Review NO; Basophils Absolute Auto 0 /uL (0-100); Basophils Percent Auto 0.3 % (0-2); Eosinophils Absolute Auto 300 /uL (0-450); Eosinophils Percent Auto 2.6 % (2-4); Hematocrit 38.6 % (36-46); Hemoglobin 13.5 g/dL (12.0-16.0); Lymphocytes Absolute Auto 2500 /uL (1100-4500); Lymphocytes Percent Auto 23.6 % (25-40); Mean Corpuscular Hemoglobin 34.1 PG (26-34); Mean Corpuscular Volume 97.3 fL (80-100); Monocytes Absolute Auto 900 /uL (0-900); Monocytes Percent Auto 8.7 % (3-14); Neutrophils Absolute Auto 6900 /uL (1500-7000); Neutrophils Percent Auto 64.8 % (50-75); Platelet Count 241 X10^3/uL (150-400); Red Blood Cell Count 3.96 X10^6/uL (4.0-5.2); White Blood Cell Count 10.6 X10^3/uL (4.5-11.0)
[2020-01-16 17:51] LABS: Alanine Aminotransferase 25 IU/L (<35); Albumin 4.5 g/dL (3.5-5.0); Albumin Globulin Ratio 1.3 (1.0-2.8); Alkaline Phosphatase 104 U/L (38-126); Aspartate Aminotransferase 28 IU/L (14-36); BUN Creatinine Ratio 27.3 (6-22); Bilirubin Total 0.3 mg/dL (0.2-1.3); Blood Urea Nitrogen 24 mg/dL (7-17); Calcium 10.5 mg/dL (8.4-10.2); Carbon Dioxide 29 mmol/L (22-32); Chloride 100 mmol/L (98-107); Estimated Glomerular Filt Rate > 60.0 mL/min (>60); Globulin 3.4 g/dL (1.7-4.1); Glucose 115 mg/dL (80-110); HEMOLYSIS < 15 (0-50); Sodium 137 mmol/L (137-145); Total Protein 7.9 g/dL (6.3-8.2); Uric Acid 6.5 mg/dL (2.5-6.2)
[2020-01-16 18:07] LABS: Vitamin D 25 Hydroxy (D3) 31.4 ng/mL (30.0-100.0)
[2020-01-16 18:21] LABS: TSH w/ Reflex to FT4 1.74 uIU/mL (0.47-4.68)
[2020-01-17 08:36] LABS: SARS CoV19 IgG Negative (Negative)
== END ==
PROVIDERS: Family Provider Internal Medicine; PCP Internal Medicine; Referring Provider Internal Medicine; Visit Provider Internal Medicine
DX: G35 Multiple sclerosis (principal); E79.0 Hyperuricemia without signs of inflammatory arthritis and tophaceous disease; N20.0 Calculus of kidney; E55.9 Vitamin D deficiency, unspecified; Z03.818 Encounter for observation for suspected exposure to other biological agents ruled out; I10 Essential (primary) hypertension
CPT/HCPCS: 36415; 80053; 82306; 84443; 84550; 85025; 86769

== ENCOUNTER → 2020-02-18 15:17 | Outpatient (ROUT) | payer MEDICARE, OTHER, SELFPAY ==
[2020-02-18 15:37] LABS: BUN Creatinine Ratio 22.7 (6-22); Blood Urea Nitrogen 20 mg/dL (7-17); Calcium 10.5 mg/dL (8.4-10.2); Carbon Dioxide 32 mmol/L (22-32); Chloride 100 mmol/L (98-107); Estimated Glomerular Filt Rate > 60.0 mL/min (>60); Glucose 99 mg/dL (80-110); HEMOLYSIS < 15 (0-50); Potassium 3.9 mmol/L (3.4-5.1); Sodium 138 mmol/L (137-145); Uric Acid 5.4 mg/dL (2.5-6.2)
[2020-02-19 10:35] LABS: Ionized Calcium 5.3 mg/dL (4.5-5.6)
== END ==
PROVIDERS: Family Provider Internal Medicine; PCP Internal Medicine; Visit Provider Internal Medicine
DX: E79.0 Hyperuricemia without signs of inflammatory arthritis and tophaceous disease (principal); E83.52 Hypercalcemia
CPT/HCPCS: 80048; 82330; 84550

== ENCOUNTER → 2020-02-21 08:40 | Outpatient (CLI) | payer MEDICARE, OTHER, SELFPAY ==
--- NOTE | 2020-02-21 | DI.MG.S_ITS ---
BILATERAL DIGITAL DIAGNOSTIC MAMMOGRAM 3D/2D: 02/21/2020 CLINICAL: Left breast pain. Comparison is made to exams dated: 12/24/2018 mammogram, 12/08/2017 mammogram - [facility], and 09/15/2016 mammogram - [facility]. There are scattered fibroglandular elements in both breasts. No significant masses, calcifications, or other findings are seen in either breast. IMPRESSION: INCOMPLETE: NEEDS ADDITIONAL IMAGING EVALUATION There is no abnormality seen in the left breast to correspond with the pain in the upper outer quadrant, however, ultrasound is recommended. This exam was interpreted at Station ID: [id number]. NOTE: For mammograms, a report in lay terms will be sent to the patient. Approximately 15% of breast malignancies will not be visualized mammographically. In the management of a palpable breast mass, a negative mammogram must not discourage biopsy of a clinically suspicious lesion. Electronically Signed By: Kristopher contreras/daija:02/21/2020 09:15:32 ACR BI-RADS Category 0: Incomplete [id number]
--- NOTE | 2020-02-21 | DI.US.S_ITS ---
LIMITED ULTRASOUND OF LEFT BREAST: 02/21/2020 CLINICAL: Lt breast pain. Comparison is made to exams dated: 02/21/2020 mammogram, 12/24/2018 mammogram, 01/01/2018 ultrasound, and 12/08/2017 mammogram - [facility]. Real-time ultrasound of the left breast 2 o'clock region was performed on the area of interest. IMPRESSION: NEGATIVE There is no sonographic evidence of malignancy. There is no abnormality seen in the left breast to correspond with the pain at 2 o'clock, however, clinical followup is recommended. A 1 year screening mammogram is recommended. This exam was interpreted at Station ID: [id number]. Electronically Signed By: Kristopher contreras/daija:02/21/2020 10:30:56 letter sent: Clinical Evaluation Ultrasound BI-RADS: 1 Negative
== END ==
PROVIDERS: Family Provider Internal Medicine; PCP Internal Medicine; Referring Provider Internal Medicine; Visit Provider Internal Medicine
DX: R92.8 Other abnormal and inconclusive findings on diagnostic imaging of breast (principal); N64.4 Mastodynia
CPT/HCPCS: 76642; 77066; G0279

== ENCOUNTER → 2020-04-02 08:55 | Outpatient (CLI) | payer MEDICARE, OTHER, SELFPAY ==
[2020-04-03 07:19] LABS: Parathyroid Hormone Int 34 pg/mL (15-65)
[2020-04-03 10:55] LABS: Ionized Calcium 4.9 mg/dL (4.5-5.6)
== END ==
PROVIDERS: Family Provider Internal Medicine; PCP Internal Medicine; Referring Provider Internal Medicine; Visit Provider Internal Medicine
DX: E83.52 Hypercalcemia (principal)
CPT/HCPCS: 36415; 82330; 83970

== ENCOUNTER → 2020-04-13 07:18 | Outpatient (CLI) | payer MEDICARE, OTHER, SELFPAY ==
--- NOTE | 2020-04-13 | DI.US.S_ITS ---
PROCEDURE: US ABDOMEN COMPLETE INDICATIONS: PAIN; RENAL MASS. TECHNIQUE: Real-time scanning was performed of the abdominal and retroperitoneal organs, with image documentation. COMPARISON: [facility], CT, CT ABDOMEN PELVIS WO/W CON, 08/28/2019, 11:25. [facility], CT, CT KIDNEY URETER BLADDER (KUB), 10/29/2018, 13:24. [facility], CR, XR ABDOMEN 1V, 08/19/2019, 11:01. FINDINGS: Liver: The liver demonstrates normal size. The liver demonstrates generalized increased echogenicity. This decreases ultrasound sensitivity for detection of hepatic masses. Gallbladder: No findings of gallstones or sludge are seen. The gallbladder wall is not thickened, measuring 3 mm or less. No specific pericholecystic fluid is seen. The sonographic Bryant sign is negative. Biliary ducts: Intrahepatic bile ducts are non-dilated. Extrahepatic bile duct caliber measures less than 1 mm. Normal is 6-7 mm or less in diameter, or 10 mm or less post-cholecystectomy. Pancreas: Visualized portions of the pancreas are sonographically normal. Spleen: Spleen is normal in size and homogeneous in echotexture. Kidneys: Kidneys are normal in size and echotexture. Right kidney measures 11.9 cm long; left kidney measures 11 cm long. Bilateral nonobstructing renal stones are seen, which are better demonstrated on the prior CT examination. On the left, there is a nonobstructing stone seen within the renal pelvis of measures up to 1.6 cm. A prominent left renal pelvis can be seen. Moderate left-sided hydronephrosis is seen. Within the cortex of the left kidney, there is a 2.1 x 1.4 x 1.8 cm solid-appearing mass with increased echogenicity. Aorta: Visualized aorta is normal in caliber at less than 3 cm. Iliacs: Proximal common iliac arteries are normal in caliber at less than 2.5 cm. IVC: Intrahepatic inferior vena cava is patent. Miscellaneous: No free abdominal fluid. The prevoid bladder volume is 340 cc. The postvoid bladder volume is 184 cc. Bilateral ureteral jets are seen into the bladder. IMPRESSION: There is moderate left-sided hydronephrosis. Within the dilated left renal pelvis, there is a nonobstructing stone seen. Numerous nonobstructing bilateral renal stones are seen. These are better demonstrated by prior CT. There is a benign fat containing mass involving the cortex of the left kidney, which is also better demonstrated on prior CT. Both ureteral jets are seen into the bladder. Moderate postvoid residual, 184 cc. Dictated by: Pablo Keller M.D. on 04/13/2020 at 9:49 Approved by: Pablo eKller M.D. on 04/13/2020 at 9:55
== END ==
PROVIDERS: Family Provider Internal Medicine; PCP Internal Medicine; Referring Provider Internal Medicine; Visit Provider Internal Medicine
DX: N13.2 Hydronephrosis with renal and ureteral calculous obstruction (principal); N28.89 Other specified disorders of kidney and ureter; R14.0 Abdominal distension (gaseous); R10.11 Right upper quadrant pain
CPT/HCPCS: 76700

== ENCOUNTER → 2020-04-15 09:47 | Outpatient (CLI) | payer MEDICARE, OTHER, SELFPAY | PROVIDERS: Family Provider Internal Medicine; PCP Internal Medicine; Referring Provider Internal Medicine; Visit Provider Internal Medicine | DX: M85.851 Other specified disorders of bone density and structure, right thigh (principal); Z78.0 Asymptomatic menopausal state; Z87.891 Personal history of nicotine dependence | CPT/HCPCS: 77080 ==

== ENCOUNTER → 2020-04-23 15:27 | Outpatient (ROUT) | payer MEDICARE, OTHER, SELFPAY ==
[2020-04-23 15:57] LABS: Alanine Aminotransferase 27 IU/L (<35); Albumin 4.2 g/dL (3.5-5.0); Albumin Globulin Ratio 1.4 (1.0-2.8); Alkaline Phosphatase 106 U/L (38-126); Amylase 49 U/L (30-110); Aspartate Aminotransferase 29 IU/L (14-36); BUN Creatinine Ratio 23.6 (6-22); Bilirubin Total 0.6 mg/dL (0.2-1.3); Blood Urea Nitrogen 21 mg/dL (7-17); Carbon Dioxide 30 mmol/L (22-32); Chloride 100 mmol/L (98-107); Cholesterol 150 mg/dL (140-199); Estimated Glomerular Filt Rate > 60.0 mL/min (>60); Globulin 3.1 g/dL (1.7-4.1); Glucose 91 mg/dL (80-110); HDL Cholesterol 62 mg/dL (40-60); HEMOLYSIS < 15 (0-50); LDL Cholesterol Calculated 77 mg/dL (<100); Lipase 73 U/L (23-300); Sodium 137 mmol/L (137-145); Total Protein 7.3 g/dL (6.3-8.2); Triglycerides 53 mg/dL (35-150)
== END ==
PROVIDERS: Family Provider Internal Medicine; PCP Internal Medicine; Visit Provider Internal Medicine
DX: R10.11 Right upper quadrant pain (principal); R07.9 Chest pain, unspecified
CPT/HCPCS: 80053; 80061; 82150; 83690

== ENCOUNTER → 2020-04-27 07:38 | Outpatient (CLI) | payer MEDICARE, OTHER, SELFPAY ==
--- NOTE | 2020-04-27 | DI.RAD.S_ITS ---
PROCEDURE: XR THORACIC SPINE 3V INDICATIONS: Pain in thoracic spine TECHNIQUE: 3 views of the thoracic spine were acquired. COMPARISON: None. FINDINGS: Bones: No fractures or dislocations. No suspicious bony lesions. Twelve pairs of ribs are noted, and appear intact where visualized. Soft tissues: No paravertebral stripe thickening. IMPRESSION: Mild degenerative disc disease, no trauma found, no subluxation identified. Dictated by: Coleman Vera M.D. on 04/27/2020 at 9:03 Approved by: Coleman Vera M.D. on 04/27/2020 at 9:04
== END ==
PROVIDERS: Family Provider Internal Medicine; PCP Internal Medicine; Referring Provider Internal Medicine; Visit Provider Internal Medicine
DX: M51.34 Other intervertebral disc degeneration, thoracic region (principal)
CPT/HCPCS: 72072

== ENCOUNTER → 2020-10-29 15:02 | Outpatient (ROUT) | payer MEDICARE, OTHER, SELFPAY ==
[2020-10-29 15:55] LABS: Add Manual Diff / Slide Review NO; Basophils Absolute Auto 0 /uL (0-100); Basophils Percent Auto 0.6 % (0-2); Eosinophils Absolute Auto 100 /uL (0-450); Eosinophils Percent Auto 1.7 % (2-4); Hematocrit 37.4 % (36-46); Hemoglobin 12.7 g/dL (12.0-16.0); Lymphocytes Absolute Auto 2400 /uL (1100-4500); Lymphocytes Percent Auto 27.7 % (25-40); Mean Corpuscular Hemoglobin 33.2 PG (26-34); Mean Corpuscular Volume 97.6 fL (80-100); Monocytes Absolute Auto 800 /uL (0-900); Neutrophils Absolute Auto 5200 /uL (1500-7000); Platelet Count 234 X10^3/uL (150-400); Red Blood Cell Count 3.83 X10^6/uL (4.0-5.2); Red Cell Distribution Width 13.3 % (11.6-14.8); White Blood Cell Count 8.5 X10^3/uL (4.5-11.0)
[2020-10-29 16:04] LABS: Alanine Aminotransferase 24 IU/L (<35); Albumin Globulin Ratio 1.3 (1.0-2.8); Alkaline Phosphatase 94 U/L (38-126); Aspartate Aminotransferase 26 IU/L (14-36); BUN Creatinine Ratio 21.4 (6-22); Bilirubin Total 0.3 mg/dL (0.2-1.3); Blood Urea Nitrogen 22 mg/dL (7-17); Calcium 9.9 mg/dL (8.4-10.2); Carbon Dioxide 29 mmol/L (22-32); Chloride 102 mmol/L (98-107); Estimated Glomerular Filt Rate 53.3 mL/min (>60); Globulin 3.2 g/dL (1.7-4.1); Glucose 114 mg/dL (80-110); HEMOLYSIS < 15 (0-50); Potassium 4.3 mmol/L (3.4-5.1); Sodium 138 mmol/L (137-145); Total Protein 7.2 g/dL (6.3-8.2)
[2020-10-29 16:39] LABS: Cancer Antigen 125 < 5.5 U/mL (0-35)
== END ==
PROVIDERS: Family Provider Internal Medicine; PCP Student in an Organized Health Care Education/Training Program; Visit Provider Physician Assistant
DX: R14.0 Abdominal distension (gaseous) (principal); N28.89 Other specified disorders of kidney and ureter; E79.0 Hyperuricemia without signs of inflammatory arthritis and tophaceous disease; I10 Essential (primary) hypertension
CPT/HCPCS: 80053; 84550; 85025; 86304

== ENCOUNTER → 2020-11-10 08:11 | Outpatient (CLI) | payer MEDICARE, OTHER, SELFPAY ==
--- NOTE | 2020-11-10 | DI.US.S_ITS ---
PROCEDURE: US SOFT TISSUE HEAD AND NECK INDICATIONS: SUPRACLAVICAL MASS TECHNIQUE: Real-time scanning was performed of the neck region of interest, with image documentation. COMPARISON: None. FINDINGS: Scanning is performed at the area of clinical concern involving the right supraclavicular region. At this site, no masses are seen. No lipomas or fluid collections can be seen. No enlarged lymph nodes are seen. IMPRESSION: Negative ultrasound. If it would be helpful for clinical management decision making, please consider a dedicated neck protocol CT with IV contrast for further evaluation. Dictated by: Pablo Keller M.D. on 11/10/2020 at 8:20 Approved by: Pablo Keller M.D. on 11/10/2020 at 8:21
== END ==
PROVIDERS: Family Provider Internal Medicine; PCP Physician Assistant; Referring Provider Physician Assistant; Visit Provider Physician Assistant
DX: R22.1 Localized swelling, mass and lump, neck (principal)
CPT/HCPCS: 76536

== ENCOUNTER → 2020-11-19 08:14 | Outpatient (CLI) | payer MEDICARE, OTHER, SELFPAY ==
--- NOTE | 2020-11-19 | DI.MRI.S_ITS ---
PROCEDURE: MR ORBITS FACE NECK WO CON INDICATIONS: Localized swelling, mass and lump, neck TECHNIQUE: Noncontrast sagittal T1 spin echo, axial FLAIR, axial gradient echo, axial diffusion and ADC acquired through the brain. Coronal STIR, thin-slice axial T1 spin echo through the orbits. After the administration of contrast, thin-slice axial and coronal T1 spin echo with fat saturation through the orbits, axial T1 spin echo with fat saturation through the brain. COMPARISON: [facility], , US SOFT TISSUE HEAD AND NECK, 11/10/2020, 8:26. FINDINGS: Image quality: Excellent. Orbits: Globes are symmetrical. The optic nerves are normal in size, without abnormal signal or enhancement. No retrobulbar masses or fat abnormalities. The extra-ocular muscles are normal and symmetric in appearance. Lacrimal glands are normal. Optic chiasm is normal. Periorbital soft tissues appear normal. CSF spaces: Ventricles are normal in size and shape. Basal cisterns are patent. No extra-axial fluid collections. Brain: No intracranial bleeds or mass effects. No abnormal intracranial enhancement. Lipscomb-white matter interface is intact. Diffusion weighted images demonstrate no acute ischemic insults. Pituitary gland appears normal, without sellar or suprasellar masses. Brainstem appears normal. Normal intravascular flow voids are present. Skull, face and neck: Calvarial marrow is normal in signal. No enlarged lymph nodes identified. No mucosal-based masses identified. Oropharynx, nasopharynx and hypopharynx are normal in appearance. True and false vocal cords are normal. Vallecula and piriform sinuses are normal. Sinuses: Mucosal thickening noted in the right sphenoid sinus. The mastoids are clear. IMPRESSION: 1. No abnormal mass identified. 2. No soft tissue inflammation or abscess. 3. No lymphadenopathy based on size criteria. 4. Mucosal thickening in the right sphenoid sinus Dictated by: Tamanna Negrete MD, PhD on 11/19/2020 at 10:26 Approved by: Tamanna Negrete MD, PhD on 11/19/2020 at 10:37
== END ==
PROVIDERS: Family Provider Internal Medicine; PCP Physician Assistant; Referring Provider Physician Assistant; Visit Provider Physician Assistant
DX: R22.1 Localized swelling, mass and lump, neck (principal)
CPT/HCPCS: 70540

== ENCOUNTER 2020-11-20 09:15 | Emergency (ER) | payer MEDICARE, OTHER, SELFPAY ==
--- NOTE | 2020-11-20 09:17 | DI.RAD.S_ITS ---
PROCEDURE: XR CHEST 1V INDICATIONS: chest pain TECHNIQUE: One view of the chest was acquired. COMPARISON: None. FINDINGS: Surgical changes and devices: None. Lungs and pleura: Lungs are clear. No pleural effusions or pneumothorax. Mediastinum: Mediastinal contours appear normal. Heart size is normal. The aorta is tortuous Bones and chest wall: No suspicious bony lesions. Overlying soft tissues appear unremarkable. IMPRESSION: No acute cardiopulmonary abnormality Dictated by: Irving Gay M.D. on 11/20/2020 at 9:34 Approved by: Irving Gay M.D. on 11/20/2020 at 9:35
[2020-11-20 09:22] VITALS: BP 181/86; PULSE 97; RESP 12; TEMP 36.2; O2SAT 100; BMI 36.5
[2020-11-20 09:33] LABS: Add Manual Diff / Slide Review NO; Basophils Absolute Auto 100 /uL (0-100); Basophils Percent Auto 0.8 % (0-2); Eosinophils Absolute Auto 200 /uL (0-450); Eosinophils Percent Auto 2.2 % (2-4); Hematocrit 39.7 % (36-46); Hemoglobin 13.1 g/dL (12.0-16.0); Lymphocytes Absolute Auto 2300 /uL (1100-4500); Lymphocytes Percent Auto 21.8 % (25-40); Mean Corpuscular Hemoglobin 32.1 PG (26-34); Mean Corpuscular Volume 97.4 fL (80-100); Monocytes Absolute Auto 800 /uL (0-900); Monocytes Percent Auto 7.2 % (3-14); Neutrophils Absolute Auto 7100 /uL (1500-7000); Platelet Count 259 X10^3/uL (150-400); Red Blood Cell Count 4.08 X10^6/uL (4.0-5.2); Red Cell Distribution Width 13.6 % (11.6-14.8); White Blood Cell Count 10.5 X10^3/uL (4.5-11.0)
[2020-11-20 09:38] LABS: Prothrombin Time 11.1 SECONDS (10.1-12.7)
[2020-11-20 09:41] LABS: PTT Partial Thromboplastin Tim 33 SECONDS (26.4-36.2)
[2020-11-20 09:42] LABS: Alanine Aminotransferase 26 IU/L (<35); Albumin 4.4 g/dL (3.5-5.0); Albumin Globulin Ratio 1.2 (1.0-2.8); Alkaline Phosphatase 119 U/L (38-126); Aspartate Aminotransferase 29 IU/L (14-36); BUN Creatinine Ratio 27.1 (6-22); Bilirubin Total 0.7 mg/dL (0.2-1.3); Blood Urea Nitrogen 23 mg/dL (7-17); Calcium 9.9 mg/dL (8.4-10.2); Carbon Dioxide 26 mmol/L (22-32); Chloride 102 mmol/L (98-107); Creatine Kinase 54 U/L (30-135); Estimated Glomerular Filt Rate > 60.0 mL/min (>60); Globulin 3.7 g/dL (1.7-4.1); Glucose 111 mg/dL (80-110); HEMOLYSIS 18 (0-50); Lipase 49 U/L (23-300); Potassium 3.2 mmol/L (3.4-5.1); Sodium 138 mmol/L (137-145); Total Protein 8.1 g/dL (6.3-8.2)
[2020-11-20 09:54] LABS: Troponin I < 0.012 ng/mL (0.01-0.034)
--- NOTE | 2020-11-20 10:01 | ED_ITS ---
HPI - Chest Pain General Chief Complaint: Chest Pain Stated Complaint: pain in left shoulder/back/chest Time Seen by Provider: 11/20/20 10:01 Source: patient Mode of arrival: Ambulatory History of Present Illness HPI narrative: 70-year-old woman with a history of reflux and hypertension presents with left upper chest shoulder posterior scapula and axillary pain that started this morning. She got up was going about her usual activities and while she was making her coffee she noticed the pain beginning. It is worse with a deep breath and somewhat positional. Not associated with diaphoresis or dyspnea. She describes no fevers chills cough or recent upper respiratory infections. She does note that she has had some issues with her left shoulder secondary to phone use and positioning and this pain is entirely different from those complaints. She also describes an episode 6 days ago while she was watching TV when her Apple watch indicated that her heart rate was elevated. For approximately 3 hours her heart rate was 100-150 in a regular according to her Apple watch. She did notice that at the 150 rate she could feel the pa lpitations but otherwise the entire event was unremarkable and has not recurred. She reports having a similar episode a number of years ago associated with walking and had a cardiac workup at that time that was reportedly unremarkable. She describes no PE risk factors, immobilization, hormones, known cancers, prior episodes of blood clots. She has had no recent abdominal pain, vomiting, diarrhea, dysuria, flank pain, dizziness or near syncope. Related Data Home Medications Medication Instructions Recorded Confirmed Resmed Airsense 10 CPAP #1 ea 01/01/19 09/23/20 acyclovir 400 mg tablet 400 mg PO DAILY 09/23/20 09/23/20 allopurinol 100 mg tablet 300 mg PO DAILY tab 09/23/20 09/23/20 hydrochlorothiazide 25 mg tablet 25 mg PO DAILY 09/23/20 09/23/20 omeprazole 20 mg tablet,delayed 20 mg PO DAILY 09/23/20 09/23/20 release Previous Rx's Medication Instructions Recorded losartan 50 mg tablet 50 mg PO DAILY #90 tab 08/17/18 Allergies Allergy/AdvReac Type Severity Reaction Status Date / Time butalbital Allergy Intermediate Hives Verified 09/23/20 09:33 Iodinated Contrast Media Allergy Mild Hives Verified 09/23/20 09:33 Review of Systems Review of Systems Narrative: Remainder of complete review of systems is otherwise unremarkable except for that included in the HPI. Patient History Medical History Allergic rhinitis (1951) Ankle pain (2009) Carpal tunnel syndrome (~2018) Chicken pox (~1954) Chronic back pain (Unknown) Colon polyps (2011) Diverticular disease (2011) Foot pain (~2018) GERD (gastroesophageal reflux disease) (Unknown) Gout (~1979) Hearing loss (2009) Hemorrhoids (2011) Hepatitis C (~1979) History of hepatitis C virus infection (07/06/17) Hypertension (1989) Interstitial cystitis (Unknown) Kidney stones (1979) Multiple sclerosis (2006) Neck pain (1999) Osteopenia (~1999) Rubella (~1952) Sleep apnea (2015) Thyroid nodule (2003) Vertigo (2014) Surgical History Anesthesia Hx of breast biopsy (1999) Hx of lithotripsy (Unknown) Hx of tonsillectomy (Unknown) Family History Unknown No problems noted. Social History marital status: unmarried,single number of children: 0 household members: none lives independently: Yes caregiver/support person: No pets and animals: Yes education level: college Smoking Status: Never smoker second hand exposure: No alcohol intake: never substance use type: does not use Smoking Status: Never smoker alcohol intake frequency: 0-2 drinks per day Substance Use Type: does not use Exam Narrative Exam Narrative: General: Healthy appearing, in no acute distress. Able to give a complete and coherent history. Well-nourished well-developed HEENT: Moist mucous membranes, normal sclera with reactive pupils, Neck: No JVD, supple Respiratory: Lungs are clear to auscultation, no wheezing no rales no rhonchi. Full and symmetrical air movement Chest: Tenderness along the left sternal border to palpation. No reproducible tenderness with manipulation of ribcage. Tenderness with deep breathing. Cardiac: Regular rate and rhythm no murmurs no bruits Abdomen: Soft, nontender, good bowel tones, no flank pain Skin: Warm and dry, no rashes Neurologic: Grossly neurologically intact with no obvious asymmetries or abnormalities Extremities: No trauma, well perfused, no lower extremity edema Psych: Cooperative, appropriate insight and affect Initial Vital Signs Initial Vital Signs: Vital Signs Temperature 97.2 F L 11/20/20 09:22 Pulse Rate 97 H 11/20/20 09:22 Respiratory Rate 12 11/20/20 09:22 Blood Pressure 181/86 H 11/20/20 09:22 Pulse Oximetry 100 11/20/20 09:22 Course Orders Ordered: ED Orders 11/20/20 09:17 XR chest 1V Stat 11/20/20 09:20 Complete Blood Count AUTO DIFF Stat Comprehensive Metabolic Panel Stat Lipase Stat Partial Thromboplastin Time Stat Prothrombin Time INR Stat Troponin & CK Cardiac Panel Stat 11/20/20 09:23 EKG-12 Lead Stat Discontinued Medications Ketorolac Tromethamine (Ketorolac 30 Mg/Ml Vial) 15 mg IV NOW ONE Stop: 11/20/20 11:17 Last Admin: 11/20/20 11:24 Dose: 15 mg Documented by: MAL Vital Signs Vital signs: Vital Signs - 8 hr 11/20/20 09:22 11/20/20 11:47 Temperature 97.2 F L Pulse Rate 97 H 79 Respiratory Rate 12 18 Blood Pressure 181/86 H 160/89 H Pulse Oximetry 100 100 MDM - Chest Pain Medical Records Data Attestation: I reviewed the patient's medical records. Lab Data Attestation: I reviewed the patient's lab results. Result diagrams: 11/20/20 09:20 11/20/20 09:20 Labs: Lab Results 11/20/20 11/20/20 11/20/20 Range/Units 09:20 09:20 09:20 WBC 10.5 (4.5-11.0) X10^3/uL RBC 4.08 (4.0-5.2) X10^6/uL Hgb 13.1 (12.0-16.0) g/dL Hct 39.7 (36-46) % MCV 97.4 (80-100) fL MCH 32.1 (26-34) PG MCHC 33.0 (30-36) % RDW 13.6 (11.6-14.8) % Plt Count 259 (150-400) X10^3/uL Neut % (Auto) 68.0 (50-75) % Lymph % (Auto) 21.8 L (25-40) % [place] % (Auto) 7.2 (3-14) % Eos % (Auto) 2.2 (2-4) % Baso % (Auto) 0.8 (0-2) % Neut # (Auto) 7100 H (8657-0512) /uL Lymph # (Auto) 2300 (9721-1529) /uL [place] # (Auto) 800 (0-900) /uL Eos # (Auto) 200 (0-450) /uL Baso # (Auto) 100 (0-100) /uL PT 11.1 (10.1-12.7) SECONDS INR 1.0 (0.9-1.3) APTT 33 (26.4-36.2) SECONDS Sodium 138 (137-145) mmol/L Potassium 3.2 L (3.4-5.1) mmol/L Chloride 102 (98-107) mmol/L Carbon Dioxide 26 (22-32) mmol/L BUN 23 H (7-17) mg/dL Creatinine 0.85 (0.52-1.04) mg/dL Estimated GFR > 60.0 (>60) mL/min BUN/Creatinine Ratio 27.1 H (6-22) Glucose 111 H (80-110) mg/dL Calcium 9.9 (8.4-10.2) mg/dL Total Bilirubin 0.7 (0.2-1.3) mg/dL AST 29 (14-36) IU/L ALT 26 (<35) IU/L Alkaline Phosphatase 119 (38-126) U/L Total Creatine Kinase 54 (30-135) U/L CK-MB (CK-2) TNP CK-MB (CK-2) Rel Index TNP Troponin I < 0.012 (0.01-0.034) ng/mL Total Protein 8.1 (6.3-8.2) g/dL Albumin 4.4 (3.5-5.0) g/dL Globulin 3.7 (1.7-4.1) g/dL Albumin/Globulin Ratio 1.2 (1.0-2.8) Lipase 49 (23-300) U/L Imaging Data Chest x-ray: Radiologist's Impression: FINDINGS: Surgical changes and devices: None. Lungs and pleura: Lungs are clear. No pleural effusions or pneumothorax. Mediastinum: Mediastinal contours appear normal. Heart size is normal. The aorta is tortuous Bones and chest wall: No suspicious bony lesions. Overlying soft tissues appear unremarkable. IMPRESSION: No acute cardiopulmonary abnormality Dictated by: Irving Gay M.D. on 11/20/2020 at 9:34 MDM Narrative Medical decision making narrative: 70-year-old woman with left upper chest and shoulder girdle area pain developing this morning. Positional and pleuritic slightly improved with Toradol. No evidence of acute coronary syndrome, abdominal pain with suggest referred pain to the left shoulder, pneumothorax or pneumonia or pulmonary embolism. Patient is reassured and safe for home discharge Discharge Plan Departure Patient Disposition: Home Clinical Impression: Chest pain, musculoskeletal, Acute costochondritis Instructions: DI for Atypical Chest Pain, DI for Costochondritis Activity Restrictions/Additional Instructions: Thank you for coming in today There is no evidence of acute heart attack or heart attack like syndrome, no pneumonia no pneumothorax and no evidence of pulmonary embolism to explain the pain that you are experiencing. I suspect that there is a component of both pleuritic pain, inflammation around the lining of your lung that hurts when he breathes and costal chondritis. Costochondritis is inflammation along the joints where the ribs woke up to your breast bone Neither of these diagnoses are life-threatening and both will resolve spontaneously. It may take up to a week for the pain to completely subside. Using 400 mg of ibuprofen (2 ivat-hoy-fefyppf pills) and 1 Tylenol every 6 hours can be very helpful in controlling pain. If you have new or worsening symptoms please feel free to return to the ER Prescriptions: No Action losartan 50 mg tablet 50 mg PO DAILY Qty: 90 RF: 1 (DME) Resmed Airsense 10 CPAP Qty: 1 RF: 0 hydrochlorothiazide 25 mg tablet 25 mg PO DAILY RF: 0 allopurinol 100 mg tablet 300 mg PO DAILY RF: 0 acyclovir 400 mg tablet 400 mg PO DAILY RF: 0 omeprazole 20 mg tablet,delayed release (DR/EC) 20 mg PO DAILY RF: 0 Referrals: Daniela Stark PA-C [Primary Care Provider] -
[2020-11-20] MEDS: KETOROLAC 30 MG/ML VIAL 15 MG IV (11:24)
[2020-11-20 11:47] VITALS: BP 160/89; PULSE 79; RESP 18; O2SAT 100
== END 2020-11-20 11:48 | disposition home or self-care (01) ==
PROVIDERS: Emergency Provider Emergency Medicine; Family Provider Internal Medicine; PCP Physician Assistant
DX: R07.89 Other chest pain (principal); M94.0 Chondrocostal junction syndrome [Tietze]; R00.2 Palpitations
CPT/HCPCS: 36415; 71045; 80053; 82550; 83690; 84484; 85025; 85610; 85730; 93005; 96374; 99284; J1885

== ENCOUNTER → 2021-02-05 17:36 | Outpatient (CLI) | payer MEDICARE, OTHER, SELFPAY ==
[2021-02-05 17:54] LABS: Appearance Urine UA CLEAR; Bilirubin Urine UA NEGATIVE (NEGATIVE); Color Urine UA YELLOW; Glucose Urine UA NEGATIVE (Negative); Ketones Urine UA NEGATIVE (NEGATIVE); Leukocyte Esterase Urine UA NEGATIVE (NEGATIVE); Nitrite Urine UA NEGATIVE (Negative); Occult Blood Urine UA TRACE-INTACT (Negative); Protein Urine UA NEGATIVE (Negative); Specific Gravity Urine UA 1.015 (1.000-1.035); Urobilinogen Urine UA 0.2 E.U./dL (0.2)
[2021-02-05 18:03] LABS: pH Urine UA 5.5 (4.5-8.0)
[2021-02-05 18:12] LABS: Bacteria Urine Few (2-10); Culture Indicated Urine Cult Not Indicated; RBC Urine 1-5/HPF (0-5/HPF); Squamous Epithelial Cell Urine 5-10 /HPF (0-5/HPF); Transitional Epi Cells Urine 1-5/HPF (0-5/HPF); WBC Urine 1-5/HPF (0-5/HPF)
== END ==
PROVIDERS: Family Provider Internal Medicine; PCP Physician Assistant; Referring Provider Urology; Visit Provider Urology
DX: R39.9 Unspecified symptoms and signs involving the genitourinary system (principal); R33.9 Retention of urine, unspecified
CPT/HCPCS: 81001

== ENCOUNTER → 2021-05-29 08:09 | Outpatient (CLI) | payer MEDICARE, OTHER, SELFPAY ==
--- NOTE | 2021-05-29 08:10 | DI.MG.S_ITS ---
BILATERAL DIGITAL SCREENING MAMMOGRAM 3D/2D WITH CAD: 05/29/2021 CLINICAL: Routine screening. Comparison is made to exams dated: 02/21/2020 mammogram, 12/24/2018 mammogram, and 12/08/2017 mammogram - Located Within [facility]. There are scattered fibroglandular elements in both breasts. Current study was also evaluated with a Computer Aided Detection (CAD) system. No significant masses, calcifications, or other findings are seen in either breast. There has been no significant interval change. IMPRESSION: NEGATIVE There is no mammographic evidence of malignancy. A 1 year screening mammogram is recommended. This exam was interpreted at Station ID: [id number]. NOTE: For mammograms, a report in lay terms will be sent to the patient. Approximately 15% of breast malignancies will not be visualized mammographically. In the management of a palpable breast mass, a negative mammogram must not discourage biopsy of a clinically suspicious lesion. Electronically Signed By: Kristopher contreras/daija:05/31/2021 08:14:33 letter sent: Normal Exam ACR BI-RADS Category 1: Negative [id number]
== END ==
PROVIDERS: Family Provider Internal Medicine; PCP Physician Assistant; Referring Provider Physician Assistant; Visit Provider Physician Assistant
DX: Z12.31 Encounter for screening mammogram for malignant neoplasm of breast (principal)
CPT/HCPCS: 77063; 77067

== ENCOUNTER → 2021-06-08 07:39 | Outpatient (CLI) | payer MEDICARE, OTHER, SELFPAY ==
--- NOTE | 2021-06-08 | DI.CT.S_ITS ---
PROCEDURE: CT ABDOMEN PELVIS WO CON INDICATIONS: Calculus of kidney TECHNIQUE: After the administration of oral contrast, 5 mm thick sections acquired from the diaphragms to the symphysis. 5 mm coronal and sagittal reformats were performed. For radiation dose reduction, the following was used: automated exposure control, adjustment of mA and/or kV according to patient size. COMPARISON: US, US RENAL COMPLETE, 10/24/2018, 9:25. [facility], CT, CT KIDNEY URETER BLADDER (KUB), 10/29/2018, 13:24. US, US RENAL COMPLETE, 04/11/2019, 9:32. [facility], CT, CT ABDOMEN PELVIS WO/W CON, 08/28/2019, 11:25. FINDINGS: Image quality: Excellent. ABDOMEN: Lung bases: Lung bases are clear. Heart size is normal. Splck-kw-tcbkeaow size hiatal hernia. Solid organs: Liver is normal in size. Hepatic steatosis. Gallbladder is normal. Pancreas is normal in size. Spleen is normal in size. No adrenal nodules. Both kidneys are normal in size. There is a 01 cm fat containing nodule in the superior pole of the left kidney, demonstrating fat attenuation compatible with angiomyolipoma. Bilateral renal calculi. There is a 6 mm stone in the superior pole of the left kidney, obstructing a superior calyx which is dilated. There is also generalized left renal pelviectasis. Partial duplication of the left renal collecting system. There are 4-5 nonobstructive stones in left kidney measuring 1-6 mm. Approximately 8 stones are seen in right kidney measuring 2-6 mm. No right hydronephrosis. Peritoneum and bowel: Bowel loops demonstrate normal wall thickness and caliber. Appendix is normal. No free fluid or air. Nodes and vessels: No retroperitoneal or mesenteric adenopathy by size criteria. There is mesenteric stranding and numerous small mesenteric lymph nodes. Aorta and inferior vena cava are normal in size. Miscellaneous: Small fat containing hernia. PELVIS: Genitourinary: Uterus is normal. Ovaries are unremarkable. No pathological free-fluid in the cul-de-sac. Bladder wall thickness is normal. Miscellaneous: No inguinal hernias or adenopathy. Bones: Mild levocurvature. Moderate degenerative disc disease and severe facet arthropathy in lumbar spine. No suspicious bony lesions. No vertebral body compression fractures. IMPRESSION: 1. Nephrolithiasis bilaterally. 2. 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 There is a 6 mm stone which appears obstructing a superior pole calyx. Generalized renal pelviectasis is present in left kidney. Overall, the appearance is minimally changed from 08/28/2019. To evaluate renal obstruction, radionuclide renogram with Lasix may be helpful. 3. Multiple nonobstructive renal calculi bilaterally. 4. 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 5. Hepatic steatosis. 6. Yywgr-nb-xvldjklm size hiatal hernia. Dictated by: Lloyd Huerta M.D. on 06/08/2021 at 9:24 Approved by: Lloyd Huerta M.D. on 06/08/2021 at 9:42
== END ==
PROVIDERS: Family Provider Internal Medicine; PCP Physician Assistant; Referring Provider Urology; Visit Provider Urology
DX: N20.0 Calculus of kidney (principal); K76.0 Fatty (change of) liver, not elsewhere classified; K44.9 Diaphragmatic hernia without obstruction or gangrene; R59.0 Localized enlarged lymph nodes
CPT/HCPCS: 74176

== ENCOUNTER → 2021-07-09 14:22 | Outpatient (CLI) | payer MEDICARE, OTHER, SELFPAY ==
[2021-07-09 15:09] LABS: Add Manual Diff / Slide Review NO; Basophils Absolute Auto 0 /uL (0-100); Basophils Percent Auto 0.2 % (0-2); Eosinophils Absolute Auto 100 /uL (0-450); Eosinophils Percent Auto 1.1 % (2-4); Hemoglobin 13.1 g/dL (12.0-16.0); Lymphocytes Absolute Auto 2500 /uL (1100-4500); Mean Corpuscular HGB Conc 34.4 % (30-36); Mean Corpuscular Hemoglobin 32.7 PG (26-34); Mean Corpuscular Volume 95.1 fL (80-100); Monocytes Absolute Auto 800 /uL (0-900); Monocytes Percent Auto 9.1 % (3-14); Neutrophils Absolute Auto 4900 /uL (1500-7000); Neutrophils Percent Auto 59.6 % (50-75); Platelet Count 227 X10^3/uL (150-400); Red Blood Cell Count 3.99 X10^6/uL (4.0-5.2); Red Cell Distribution Width 13.5 % (11.6-14.8); White Blood Cell Count 8.3 X10^3/uL (4.5-11.0)
[2021-07-09 15:51] LABS: BUN Creatinine Ratio 20.2 (6-22); Blood Urea Nitrogen 18 mg/dL (7-17); Calcium 10.8 mg/dL (8.4-10.2); Carbon Dioxide 30 mmol/L (22-32); Chloride 101 mmol/L (98-107); Estimated Glomerular Filt Rate > 60.0 mL/min (>60); Glucose 102 mg/dL (80-110); HEMOLYSIS < 15 (0-50); Potassium 4.2 mmol/L (3.4-5.1); Sodium 138 mmol/L (137-145)
[2021-07-09 16:21] LABS: TSH w/ Reflex to FT4 2.33 uIU/mL (0.47-4.68)
== END ==
PROVIDERS: Family Provider Internal Medicine; PCP Physician Assistant; Referring Provider Internal Medicine; Visit Provider Internal Medicine
DX: R00.2 Palpitations (principal)
CPT/HCPCS: 36415; 80048; 84443; 85025

== ENCOUNTER → 2021-07-26 09:46 | Outpatient (CLI) | payer MEDICARE, OTHER, SELFPAY ==
--- NOTE | 2021-08-11 09:21 | P.HOLT.S_ITS ---
Certified Recreational Therapist Report Referral & Results Date Patient Seen: 07/26/21 Requesting provider: Oni Oconnor Indication: Palpitations Duration of monitoring (days): 6 Diary information: There were 2 patient triggered events and 1 patient diary entry. All 3 of these patient events were associated with sinus rhythm only Data: Minimum heart rate identified was 52 beats per minute at 02:23 on 08/01/2021 Maximum sinus heart rate was 141 beats per minute at 14:36 on 07/31/2021 Maximum overall heart rate was 193 beats per minute at 05:09 on 07/29/2021 during a run of nonsustained monomorphic ventricular tachycardia which was 6 beats in duration Less than 1% of identified beats were ventricular or supraventricular ectopic in origin, which would classify them as rare. There was the 1 run of ventricular tachycardia as above There was 1 run of SVT that was 5 beats in duration Impression: 6 day quality assurance monitor final demonstrating a single run of nonsustained monomorphic ventricular tachycardia as above Also 1 single run of SVT Patient events not associated with any dysrhythmia Clinical correlation suggested
== END ==
PROVIDERS: Family Provider Internal Medicine; PCP Physician Assistant; Referring Provider Internal Medicine; Visit Provider Internal Medicine
DX: R00.2 Palpitations (principal)
CPT/HCPCS: 93242; 93244

== ENCOUNTER → 2021-10-01 07:48 | Outpatient (CLI) | payer MEDICARE, OTHER, SELFPAY ==
--- NOTE | 2021-10-01 | DI.ECHO.S_ITS ---
[facility] +---------+ : : [address] : : : : [id number] : : : : Phone: [phone]+ Echocardiogram Report + + :Name: MARIA ISABEL BLANCO Study Date: 10/01/2021 Height: 25 in : :[facility] ReadingLocation: Weight: 443 lb : : Gender: Female BSA: 1.4 m2 : :: 1950 Age: 71 yrs BP: 142/86 mmHg: :Reason For Study: VTACH : : Performed By: Ebenezer Elena : :Referring: KARI PATEL : + + Interpretation Summary 1) Normal left ventricular thickness, size, wall motion, and systolic function (EF 60-65%). 2) Normal right ventricular size and function. 3) Diastolic parameters suggest a pseudonormalization pattern, consistent with probable elevated filling pressures. 4) There is mild aortic regurgitation. 5) No prior Echo available for comparison. Procedure: A two-dimensional transthoracic echocardiogram with color flow and Doppler was performed. The study quality was technically adequate. Images from the parasternal window were difficult to obtain and are suboptimal in quality. There is no prior echocardiogram noted for this patient. The patient was in normal sinus rhythm during the exam. The patient had occasional PVCs during the exam. Left Ventricle: The left ventricle is normal in size. There is normal left ventricular wall thickness. The ejection fraction is estimated to be 60-65%. There are no focal wall motion abnormalities. Diastolic parameters suggest a pseudonormalization pattern, consistent with probable elevated filling pressures. Right Ventricle: The right ventricle is normal in size and function. Atria: The left atrium is moderately dilated. Right atrial size is normal. There is no Doppler evidence for an atrial septal defect. Mitral Valve: There is mild mitral annular calcification. There is trace mitral regurgitation. Aortic Valve: The aortic valve is trileaflet. The aortic valve opens well. There is no aortic valve stenosis. There is mild aortic regurgitation. Tricuspid Valve: The tricuspid valve is normal in structure and function. No tricuspid regurgitation. Pulmonary artery pressures cannot be estimated because of the lack of a measurable TR jet velocity but the IVC suggests a CVP of around 3 mmHg. Pulmonic Valve: The pulmonic valve is not well visualized. There is trace pulmonic regurgitation. Great Vessels: The aortic root is normal size. The ascending aorta is at the upper limits of normal in size. The pulmonary artery is normal size. The IVC is of normal diameter and collapses greater than 50% with a sniff. This suggests a low right atrial pressure of 3 mm Hg. Pericardium/ Pleura There is no pericardial effusion. There is no pleural effusion. MMode/2D Measurements & Calculations LVIDd: 4.4 cm LVOT diam: 2.0 cm LVIDs: 2.4 cm Ao root diam: 3.4 cm FS: 46.6 % asc Aorta Diam: 3.6 cm IVSd: 0.75 cm Ao Arch Diam (Prox Trans): 2.5 cm LVPWd: 0.88 cm LV hensley. diameter/BSA (cm/m^2): 3.2 LV sys. diameter/BSA (cm/m^2): 1.7 LA A2 area: 20.4 cm2 RA long axis: 4.6 cm LA A4 area: 18.7 cm2 RA area: 14.3 cm2 LA length (vol): 5.6 cm RA vol: 37.6 ml LA vol: 57.8 ml RA : 27.3 ml/m2 LA vol index: 41.9 ml/m2 IVC diam: 1.4 cm TAPSE: 2.2 cm Doppler Measurements & Calculations Ao V2 max: 175.0 cm/sec LVOT Max Ray: 131.0 cm/sec Ao V2 mean: 137.5 cm/sec LV V1 max P.9 mmHg Ao max P.2 mmHg LV V1 VTI: 32.0 cm Ao mean P.0 mmHg WILVER(I,D): 2.4 cm2 Ao V2 VTI: 39.8 cm WILVER(V,D): 2.3 cm2 sev ratio: 0.81 WILVER indexed to BSA (cm^2/m^2): 1.8 AI P1/2t: 899.4 msec AI dec slope: 140.5 cm/sec2 MV E max ray: 86.9 cm/sec PA V2 max: 96.7 cm/sec MV A max ray: 102.4 cm/sec PA V2 mean: 67.9 cm/sec MV E/A: 0.85 PA mean P.0 mmHg Med Peak E' Ray: 5.5 cm/sec PA pr(Accel): 29.3 mmHg E/E' med: 15.8 Lat Peak E' Ray: 5.6 cm/sec E/E' lat: 15.5 E/e' average: 15.7 MV dec time: 0.19 sec SV(LVOT): 97.0 ml Reading Physician:11:03 AM
[2021-10-01 09:44] LABS: Add Manual Diff / Slide Review NO; Basophils Absolute Auto 0 /uL (0-100); Basophils Percent Auto 0.3 % (0-2); Eosinophils Absolute Auto 100 /uL (0-450); Eosinophils Percent Auto 0.8 % (2-4); Hematocrit 39.1 % (36-46); Lymphocytes Absolute Auto 1900 /uL (1100-4500); Lymphocytes Percent Auto 23.5 % (25-40); Mean Corpuscular HGB Conc 33.2 % (30-36); Mean Corpuscular Hemoglobin 32.2 PG (26-34); Monocytes Absolute Auto 700 /uL (0-900); Monocytes Percent Auto 8.3 % (3-14); Neutrophils Absolute Auto 5500 /uL (1500-7000); Neutrophils Percent Auto 67.1 % (50-75); Platelet Count 234 X10^3/uL (150-400); Red Blood Cell Count 4.03 X10^6/uL (4.0-5.2); Red Cell Distribution Width 13.1 % (11.6-14.8); White Blood Cell Count 8.1 X10^3/uL (4.5-11.0)
[2021-10-01 10:37] LABS: Magnesium 1.7 mg/dL (1.6-2.3)
[2021-10-01 11:50] LABS: TSH w/ Reflex to FT4 2.13 uIU/mL (0.47-4.68)
== END ==
PROVIDERS: Family Provider Internal Medicine; PCP Physician Assistant; Referring Provider Internal Medicine Cardiovascular Disease; Visit Provider Internal Medicine Cardiovascular Disease
DX: I10 Essential (primary) hypertension (principal); I47.2 Ventricular tachycardia; R00.2 Palpitations; I35.1 Nonrheumatic aortic (valve) insufficiency
CPT/HCPCS: 36415; 83735; 84443; 85025; 93306

== ENCOUNTER → 2021-10-26 09:01 | Outpatient (CLI) | payer MEDICARE, OTHER, SELFPAY ==
[2021-10-26 10:47] LABS: COVID19 -Nasal RAPID Negative (Negative)
== END ==
PROVIDERS: Family Provider Internal Medicine; PCP Physician Assistant; Visit Provider Family Medicine Sleep Medicine
DX: Z20.822 Contact with and (suspected) exposure to COVID-19 (principal)
CPT/HCPCS: 87635; C9803

== ENCOUNTER → 2021-10-28 15:12 | Outpatient (CLI) | payer MEDICARE, OTHER, SELFPAY ==
--- NOTE | 2021-10-28 | DI.NM.S_ITS ---
PROCEDURE: NM EXERCISE TREADMILL NON NUC COMPARISON: None. INDICATIONS: Ventricular tachycardia FINDINGS: The patient exercised for 4 minutes and 14 seconds reaching 4.5 METs, BIN +25%. Target heart rate achieved (108% of maximum predicted heart rate reached). Appropriate BP response to exercise. No angina during the study. No ST change with exercise. Rare PVCs present. IMPRESSION: Low risk, normal treadmill ECG only stress test with reduced exercise capacity (BIN +25%). Target heart rate reached. No angina during the study. Rare PVCs during the study. Dictated by: Chapis Patel MD on 10/28/2021 at 17:10 Approved by: Chapis Patel MD on 10/28/2021 at 17:12
--- NOTE | 2021-10-28 15:50 | PM.TREADMILL ---
Cardiac Stress Test Report Referral & Results Date Patient Seen: 10/28/21 Time Patient Seen: 15:50 Requesting provider: Chapis Patel Indication: Ventricular tachycardia Rest ECG: Sinus rhythm Procedure Note: Standard [place] protocol, 4:14 mins; 4.5 METS Reduced exercise capacity, BIN +25% Normal hemodynamic response to exercise; Accelerated heart rate response to minimal activity No chest pain or anginal symptoms No significant ST changes at peak exercise Rave PVCs Impression: Normal exercise stress test Please note: Actual ECG tracings can be found in the PACS system.
== END ==
PROVIDERS: Family Provider Internal Medicine; PCP Physician Assistant; Referring Provider Internal Medicine Cardiovascular Disease; Visit Provider Internal Medicine Cardiovascular Disease
DX: I47.2 Ventricular tachycardia (principal)
CPT/HCPCS: 93017

== ENCOUNTER → 2021-11-13 07:14 | Outpatient (CLI) | payer MEDICARE, OTHER, SELFPAY ==
[2021-11-13 09:58] LABS: Add Manual Diff / Slide Review NO; Basophils Absolute Auto 0 /uL (0-100); Basophils Percent Auto 0.3 % (0-2); Eosinophils Absolute Auto 100 /uL (0-450); Eosinophils Percent Auto 1.1 % (2-4); Hematocrit 37.9 % (36-46); Hemoglobin 13.2 g/dL (12.0-16.0); Lymphocytes Absolute Auto 2000 /uL (1100-4500); Lymphocytes Percent Auto 26.6 % (25-40); Mean Corpuscular HGB Conc 34.8 % (30-36); Mean Corpuscular Hemoglobin 33.1 PG (26-34); Mean Corpuscular Volume 95.1 fL (80-100); Monocytes Absolute Auto 600 /uL (0-900); Monocytes Percent Auto 8.2 % (3-14); Neutrophils Absolute Auto 4800 /uL (1500-7000); Neutrophils Percent Auto 63.8 % (50-75); Platelet Count 214 X10^3/uL (150-400); Red Blood Cell Count 3.99 X10^6/uL (4.0-5.2); Red Cell Distribution Width 12.8 % (11.6-14.8); White Blood Cell Count 7.5 X10^3/uL (4.5-11.0)
[2021-11-13 10:32] LABS: Alanine Aminotransferase 21 IU/L (<35); Albumin 4.5 g/dL (3.5-5.0); Albumin Globulin Ratio 1.5 (1.0-2.8); Alkaline Phosphatase 101 U/L (38-126); Aspartate Aminotransferase 23 IU/L (14-36); BUN Creatinine Ratio 26.4 (6-22); Bilirubin Total 0.7 mg/dL (0.2-1.3); Blood Urea Nitrogen 28 mg/dL (7-17); Calcium 9.9 mg/dL (8.4-10.2); Carbon Dioxide 29 mmol/L (22-32); Chloride 100 mmol/L (98-107); Estimated Glomerular Filt Rate 57 mL/min (>60); Globulin 3.1 g/dL (1.7-4.1); Glucose 97 mg/dL (80-110); HEMOLYSIS < 15 (0-50); Potassium 4.4 mmol/L (3.4-5.1); Sodium 139 mmol/L (137-145); Total Protein 7.6 g/dL (6.3-8.2)
[2021-11-15 15:40] LABS: Interpretation Negative (Negative)
== END ==
PROVIDERS: Family Provider Internal Medicine; PCP Physician Assistant; Referring Provider Internal Medicine Gastroenterology; Visit Provider Internal Medicine Gastroenterology
DX: R19.5 Other fecal abnormalities (principal); R14.0 Abdominal distension (gaseous)
CPT/HCPCS: 36415; 80053; 83013; 85025

== ENCOUNTER → 2021-11-15 09:16 | Outpatient (CLI) | payer MEDICARE, OTHER, SELFPAY ==
[2021-11-16 14:36] LABS: Fats, Neutral Normal (.); Fats, Total Normal (.)
== END ==
PROVIDERS: Family Provider Internal Medicine; PCP Physician Assistant; Referring Provider Internal Medicine Gastroenterology; Visit Provider Internal Medicine Gastroenterology
DX: R19.5 Other fecal abnormalities (principal)
CPT/HCPCS: 36415; 82705

== ENCOUNTER → 2021-11-22 08:03 | Outpatient (CLI) | payer MEDICARE, OTHER, SELFPAY ==
--- NOTE | 2021-11-22 | DI.US.S_ITS ---
PROCEDURE: US ABDOMEN LIMITED INDICATIONS: RUQ PAIN TECHNIQUE: Real-time scanning was performed of the abdominal and retroperitoneal organs, with image documentation. COMPARISON: [facility], US, US ABDOMEN COMPLETE, 04/13/2020, 7:31. FINDINGS: Liver: Normal size. Increased in echogenicity. Gallbladder: Nondilated. No stones or sludge. Normal gallbladder wall thickness. No pericholecystic fluid. Negative sonographic Bryant's sign. Biliary ducts: Intrahepatic bile ducts are non-dilated. Extrahepatic bile duct caliber measures 3 mm. Normal is 6-7 mm or less in diameter, or 10 mm or less post-cholecystectomy. Pancreas: Visualized portions of the pancreas are sonographically normal. IMPRESSION: 1. No acute cholecystitis. No gallstones. 2. Increased hepatic echogenicity most consistent with hepatic steatosis. Other forms of hepatocellular disease could have similar appearance. Dictated by: Vladislav Bennett M.D. on 11/22/2021 at 9:07 Approved by: Vladislav Bennett M.D. on 11/22/2021 at 9:10
== END ==
PROVIDERS: Family Provider Internal Medicine; PCP Physician Assistant; Referring Provider Internal Medicine Gastroenterology; Visit Provider Internal Medicine Gastroenterology
DX: R10.11 Right upper quadrant pain (principal)
CPT/HCPCS: 76705

== ENCOUNTER → 2021-11-27 07:32 | Outpatient (CLI) | payer MEDICARE, OTHER, SELFPAY ==
[2021-11-27 09:58] LABS: Prothrombin Time 11.2 SECONDS (10.1-12.7)
[2021-11-27 10:25] LABS: HEMOLYSIS < 15 (0-50); Iron 126 ug/dL (37-170)
[2021-11-27 10:36] LABS: Percent Iron Saturation 38 % (15-50); Total Iron Binding Capacity 334 ug/dL (265-497); Transferrin 248 mg/dL (206-381)
[2021-11-27 11:04] LABS: Ferritin 80 ng/mL (11-264)
[2021-11-30 11:50] LABS: Anti Mitochondrial ABY IGG 48.4 Units (0.0-20.0)
[2021-12-01 14:11] LABS: HBsAg Screen Negative (Negative); Hepatitis A Antibody IgM Negative (Negative); Hepatitis B Core Antibody IgM Negative (Negative); Hepatitis C Antibody >11.0 s/co ratio (0.0-0.9); Hepatitis C Quant HCV Not Detected IU/mL (.)
== END ==
PROVIDERS: Family Provider Internal Medicine; PCP Physician Assistant; Referring Provider Internal Medicine Gastroenterology; Visit Provider Internal Medicine Gastroenterology
DX: K74.60 Unspecified cirrhosis of liver (principal); K76.0 Fatty (change of) liver, not elsewhere classified
CPT/HCPCS: 36415; 80074; 82728; 83516; 83540; 83550; 85610

== ENCOUNTER → 2022-03-05 09:48 | Outpatient (CLI) | payer MEDICARE, OTHER, SELFPAY ==
--- NOTE | 2022-03-05 09:53 | DI.CT.S_ITS ---
PROCEDURE: CT KIDNEY URETER BLADDER (KUB) INDICATIONS: KUB TECHNIQUE: Axial sections were acquired from the lung bases to the pubic symphysis. Coronal and sagittal reformats were performed. For radiation dose reduction, the following was used: automated exposure control, adjustment of mA and/or kV according to patient size. COMPARISON: [facility], CT, CT ABDOMEN PELVIS WO CON, 06/08/2021, 8:02. [facility], CT, CT KIDNEY URETER BLADDER (KUB), 10/29/2018, 13:24. [facility], US, US ABDOMEN LIMITED, 11/22/2021, 8:23. FINDINGS: Image quality: Excellent. Lung bases: Unremarkable. There is a moderate hiatal hernia. Heart: No significant findings. URINARY: Right Kidney: There is no hydronephrosis. Several stones are seen within the right kidney, with the largest 3 measurin mm (600 Hounsfield units) 5 mm (600 Hounsfield units) 3 mm (350 Hounsfield units) Right Ureter: No hydroureter. Left Kidney: A portion of the right superior renal pelvis is dilated. Within this dilated pelvis, there is a stone seen that measures 7 mm and 450 Hounsfield units. Within the left kidney, there is an additional nonobstructing stone measuring 500 Hounsfield units and 6 mm. There is also a nonobstructing 7 mm stone inferiorly measuring 550 Hounsfield units. Along the lateral aspect of the left kidney, there is a fat containing lesion along the cortex measuring 11 mm. Left Ureter: No hydroureter. Bladder: Normal wall thickness. No stones. ABDOMEN: Liver: Diffuse fatty liver infiltration is noted. The liver is normal in size and demonstrates no suspicious lesions. Gallbladder: Unremarkable. Biliary ducts: Unremarkable. Pancreas: Unremarkable. Spleen: Unremarkable. Incidental note is made of an accessory splenule along the anterior of the primary spleen. Adrenal Glands: Unremarkable. Stomach and Bowel: Stomach, small bowel loops, and colon are unremarkable. A normal appendix is incidentally noted. Peritoneum: No abnormal intraperitoneal fluid. No free air. Ventral Wall: A mild periumbilical hernia is seen, containing fat. Abdominal Nodes: No enlarged retroperitoneal or mesenteric lymph nodes. Vessels: Aorta and inferior vena cava are normal in size. PELVIS: Pelvic Organs: The uterus appears normal for age. No adnexal masses are seen. Pelvic Nodes: Unremarkable. Miscellaneous: No inguinal hernias are seen. Bones: Age-appropriate bony degenerative changes are seen. IMPRESSION: On the left, there is a likely partially obstructing stone seen within a dilated portion of the left renal pelvis that measures 7 mm. The appearance is not significantly changed compared to 2020. Numerous nonobstructing bilateral renal stones are seen. There is no hydroureter. Incidental note is made of: Moderate hiatal hernia Fatty liver infiltration Accessory splenule Fat containing periumbilical hernia Normal appendix Dictated by: Pablo Keller M.D. on 03/05/2022 at 9:16 Approved by: Pablo Keller M.D. on 03/05/2022 at 9:23
== END ==
PROVIDERS: Family Provider Internal Medicine; PCP Internal Medicine; Referring Provider Urology; Visit Provider Urology
DX: N20.0 Calculus of kidney (principal); K44.9 Diaphragmatic hernia without obstruction or gangrene; K76.0 Fatty (change of) liver, not elsewhere classified; K42.9 Umbilical hernia without obstruction or gangrene
CPT/HCPCS: 74176

== ENCOUNTER 2022-05-03 08:15 | Outpatient (RCR) | payer MEDICARE, OTHER, SELFPAY ==
--- NOTE | 2022-03-02 10:26 | PT.OIE ---
Current Diagnoses Other chronic pain (03/02/22) Sacrococcygeal disorders, not elsewhere classified (03/02/22) Other abnormalities of gait and mobility (03/02/22) Past Medical History (Last Updated 02/18/22 @ 09:42 by Tanvir Worthy MD) Allergic rhinitis (1951) Ankle pain (2009) Carpal tunnel syndrome (~2018) Chicken pox (~1954) Chronic back pain (Unknown) Chronic SI joint pain Colon polyps (2011) Diverticular disease (2011) Essential hypertension Foot pain (~2017) GERD (gastroesophageal reflux disease) (Unknown) Gout (~1979) Hearing loss (2009) Hemorrhoids (2011) Hepatitis C (~1979) Herpesviral infection, unspecified History of hepatitis C virus infection (07/06/17) Hypertension (1989) Interstitial cystitis (Unknown) Kidney stones (1979) Mixed hyperlipidemia Multiple sclerosis (2006) Neck pain (1999) Obesity (BMI 30.0-34.9) Osteopenia (~1999) Primary biliary cirrhosis Rubella (~1952) Sleep apnea (2015) Thyroid nodule (2003) Vertigo (2014) Past Surgical History (Last Reviewed 02/18/22 @ 09:06 by Tanvir Worthy MD) Anesthesia Hx of breast biopsy (1999) Hx of lithotripsy (Unknown) Hx of tonsillectomy (Unknown) Visit Care Team Role Provider Type Tanvir Worthy MD Attending Provider Physician Family Provider Primary Care Provider Referring Provider Specialty: Internal Medicine Address: [address] [place] [address] Email: [email or web address] Physical Therapy Initial Evaluation PT-OP-A Visit Information Start: 03/01/22 18:12 Freq: Status: Active Protocol: Document 03/02/22 07:28 [facility] (Rec: 03/02/22 09:05 [facility] [id number]) Out-Patient Physical Therapy Visit Information Visit Information Visit Type Initial Evaluation Visit Start Time 08:20 Visit Stop Time 09:03 Total Visit Minutes 43 Visit Number 1 Number of CHIEF BUSINESS OFFICER Visits 0 PT-OP-B Current Condition Start: 03/01/22 18:12 Freq: Status: Active Protocol: Document 03/02/22 07:28 [facility] (Rec: 03/02/22 09:05 [facility] [id number]) Current Condition History of Current Condition Onset Date R LBP ~6-8 months (no injury), balance (7-8 years) Current Complaints balance, R SI pain History of Current Condition Pt reports R SI pain and today isn't too bad. Notes it normally hurts when she gets to her car after her walks. When its really bad, it can hurt to sit or move around, but she is still able to do what she needs to. Pt reports balance is an issue but is better the past 2 days as her condition changes. Denies recent falls. She has diagnosis of MS starting in 2009. She was drivign and got real lightheaded and they did a head CT at that time which showed a lot of spots and got the spinal tap and was diagonosised. She is followed by neurologist. Notes she does step to down steps and feels unstable going down curbs. She walks on flat paved trails and does not need AD. She used treking poles when doing forest [place] trails but mostly on flat trails. She does occasionally do [place]. Pt does have osteopenia and notes neck pain and back pain. Pt reports neck has been pretty good lately. She notices it more w/sleeping. Pt did have a few days that she felt like she was going to fall back. Pt reports vertigo w/turning L in bed and cannot lay on L side or w/head turned L. Notes spinning and sometimes nausea. Prior Treatments and Tests PT prior for balance which was helpful Treatment Goals Patient/Caregiver Goals Get rid of R LB pain, have decent balacne, be able to go down stairs reciprocally w/o rail, be able to go down curb feeling comfortable PT-OP-C Subjective Start: 03/01/22 18:12 Freq: Status: Active Protocol: Document 03/02/22 07:28 [facility] (Rec: 03/02/22 09:05 [facility] [id number]) Patient Questionnaires Oswestry Low Back Index Oswestry Score 50 OP-PT Pain Assessment Location LB Pain Location Details R side lumbosacral Intensity 6 Scale Used Numeric (0 - 10) Description Tender,With Movement Frequency Occasional Pain Duration minutes; occasionally lasts longer Variations/Patterns numbness R lat leg (30 year history) Pain Aggravating Factors Sitting Other Pain Aggravating Factors sit in car after walk, step up into car Other Pain Alleviating Factors goes away on its own PT-OP-D Balance Start: 03/01/22 18:12 Freq: Status: Active Protocol: Document 03/02/22 07:28 [facility] (Rec: 03/02/22 09:05 [facility] [id number]) Balance Tests Single Limb Standing Single Limb- Right 1 sec Single Limb- Left 1 sec PT-OP-E Functional Tests Start: 03/01/22 18:12 Freq: Status: Active Protocol: Document 03/02/22 07:28 [facility] (Rec: 03/02/22 09:05 [facility] [id number]) Functional Tests 30 Second Sit to Stand Test Score 9 Comments pushes back of leg sinto chair Dynamic Gait Index (DGI) Score 15/24 Five Times Sit to Stand Test Score 15 sec Comments pushes back of leg sinto chair Functional Gait Assessment Score 11/30 PT-OP-F Manual Assessment Start: 03/01/22 18:12 Freq: Status: Active Protocol: Document 03/02/22 07:28 [facility] (Rec: 03/02/22 09:05 [facility] [id number]) Manual Assessments Soft Tissue Assessment Soft Tissue Mobility Assessment tightness R QL & ES PT-OP-G Mobility & Gait Start: 03/01/22 18:12 Freq: Status: Active Protocol: Document 03/02/22 07:28 [facility] (Rec: 03/02/22 10:10 [facility] [id number]) OP Mobility Evaluation Bed Mobility Rolling cannot roll L d/t getting dizzy OP Gait Assessment Comments Gait Comments Pt amb w/hard foot strike B w/ excessive transverse plane motion & arms slgithly to side for balance often Stair Climbing Evaluation Comments Stair Climbing Comments recip up w/rail, step to down w/rail PT-OP-J Posture/Palpation/Skin Start: 03/01/22 18:12 Freq: Status: Active Protocol: Document 03/02/22 10:25 [facility] (Rec: 03/02/22 10:26 [facility] [id number]) Posture Evaluation Comments Posture Comments R LE ER in standing, R iliac crest higher, equal greater trochanters PT-OP-K Range of Motion Start: 03/01/22 18:12 Freq: Status: Active Protocol: Document 03/02/22 07:28 [facility] (Rec: 03/02/22 09:05 [facility] [id number]) Lumbar Spine Range of Motion Lumbar Spine Active Flexion 80 Extension 80 Lateral Flexion Left 80 Lateral Flexion Right 50 Comments percentage PT-OP-M Strength Start: 03/01/22 18:12 Freq: Status: Active Protocol: Document 03/02/22 07:28 [facility] (Rec: 03/02/22 09:05 [facility] [id number]) Hip Strength Hip Manual Muscle Testing Right Flexion (L2) 4- Good- Extension (S1) 3+ Fair+ Adduction 4- Good- External Rotation 4 Good Internal Rotation 4 Good Comments cannot lay on L side Left Flexion (L2) 3+ Fair+ Extension (S1) 3+ Fair+ External Rotation 4 Good Internal Rotation 4 Good Knee Strength Knee Manual Muscle Testing Right Flexion (S2) 5 Normal Extension (L3) 4 Good Left Flexion (S2) 5 Normal Extension (L3) 4 Good Ankle/Foot Strength Ankle and Foot Manual Muscle Testing Right Dorsiflexion (L4) 4 Good Left Dorsiflexion (L4) 4 Good PT-OP-Q Treatments Start: 03/01/22 18:12 Freq: Status: Active Protocol: Document 03/02/22 07:28 [facility] (Rec: 03/02/22 10:25 [facility] [id number]) Self-Care/Home Management Treatment Education Other Education Discussed balance deficits and why these issues are importance. Discussed how the rolling in bed w/dizziness could be vestibular and could be treated. Discussed strength deficits and edu on pelvis height difference possibly causing pain. PT-OP-T Assessment and Plan Start: 03/01/22 18:12 Freq: Status: Active Protocol: Document 03/02/22 07:28 [facility] (Rec: 03/02/22 09:05 [facility] [id number]) Physical Therapy Assessment Rehab Potential Rehabilitation Potential Good Evaluation Complexity Number of Personal Factors/Comorbidities 3 or More Number of Body Systems Impaired 4 or More Clinical Presentation at Evaluation Evolving Impairments Impairments Activity Tolerance,Balance, Functional Activities, Functional Mobility,Gait,Pain, Posture,ROM,Soft Tissue Mobility,Strength Goals balance Impairment DGI:15 FGA: 11 Short Term Goal (STG) Pt will imrpove score for DGI to to show dec risk for falls STG Duration 05/02/22 Retirement Goal (LTG) Pt will imrpove score for FGA to to show dec risk for falls LTG Duration 06/02/22 pain Retirement Goal (LTG) Pt will report LBP no more than 1-2/10 and no more often than 3x/week LTG Duration 06/02/22 sit to stand Retirement Goal (LTG) Pt will improve 30 sec sit to stand to at least 11 to show dec risk for falls LTG Duration 06/02 strength Short Term Goal (STG) Pt will be consistantly performing HEP for balacnea nd strengthening STG Duration 04/22/22 Retirement Goal (LTG) Pt will score at least 4+/5 on MMT of LEs and at least 3/5 on LPM to show improved stability in order to improve pt's ability to perform tasks safely in community. LTG Duration 06/02/22 steps Short Term Goal (STG) Pt will be able to step down a curb feeling safe w/o LOB. STG Duration 04/12/22 [employer] Medical Sergeant Goal (LTG) Pt will be able to go reciprocally up/down stairs w/ o rail. Assessment Summary Assessment Pt presents w/main c/o of balance affecting her ability to fully function but notes a recent onset of R LBP (around R sacrum) starting about 6 or more months ago w/o unknown onset. She has diagnosis of MS & osteopenia and has done PT for balance in the past w/good results. She has abnormalities of her gait, dec LE strength, impaired balance that likely has affected her back to lead to back pain. D/t uneven levels of pelvis, pain is likely stemming from SIJ dysfunction. Pt would benefit from skilled PT to wrok on balance,g ait, dec pain and LE strength. Pt also noted vertigo when rolling in bed and turning L whcih will require further assessment and treatment and pt would benefit from this in order to improve her balance and gait and dec fall risk. Physical Therapy Plan Frequency and Duration Frequency of Treatment 1-2x/week Duration of Treatment 3 months Plan of Care Start Date 03/02/22 Plan of Care End Date 06/02/22 Therapeutic Interventions Therapeutic Interventions Aquatic Therapy,Balance Training,Gait Training,Home Exercise Program,Joint Mobilizations,Manual Therapy, Neuromuscular Re-education, Orthotic/Prosthetic Management ,Patient/Caregiver Education, Self-Care/Home Management,Soft Tissue Mobilization,Taping, Therapeutic Activities, Therapeutic Exercises, Vestibular Rehabilitation Modalities Cold Pack/Ice Massage,Electric Stimulation,Hot Packs, Infrared Therapy,Traction- Mechanical,Ultrasound Next Visit Focus/Plan Next Note Type Treatment Note Next Visit Plan HEP: sidesteps resisted, tandem or semitandem at counter, squats over chair, supine pelvic tilts & bridges; start balacne work w/pt
--- NOTE | 2022-03-02 10:26 | PT.OPPOC ---
Addendum entered and electronically signed by Mayte Ash, PT 03/02/22 10:28: send POC Original Note: Physical, Occupational & Speech Therapy At [facility] Current Diagnoses Other chronic pain (03/02/22) Sacrococcygeal disorders, not elsewhere classified (03/02/22) Other abnormalities of gait and mobility (03/02/22) Visit Care Team Role Provider Type Tanvir Worthy MD Attending Provider Physician Family Provider Primary Care Provider Referring Provider Specialty: Internal Medicine Address: [address] [place] [address], [facility] Email: [email or web address] Plan Of Care PT-OP-T Assessment and Plan Start: 03/01/22 18:12 Freq: Status: Active Protocol: Document 03/02/22 07:28 [facility] (Rec: 03/02/22 09:05 [facility] [id number]) Physical Therapy Assessment Rehab Potential Rehabilitation Potential Good Evaluation Complexity Number of Personal Factors/Comorbidities 3 or More Number of Body Systems Impaired 4 or More Clinical Presentation at Evaluation Evolving Impairments Impairments Activity Tolerance,Balance, Functional Activities, Functional Mobility,Gait,Pain, Posture,ROM,Soft Tissue Mobility,Strength Goals balance Impairment DGI:15 FGA: 11 Short Term Goal (STG) Pt will imrpove score for DGI to to show dec risk for falls STG Duration 05/02/22 Detention Goal (LTG) Pt will imrpove score for FGA to to show dec risk for falls LTG Duration 06/02/22 pain Glycerin Operator Goal (LTG) Pt will report LBP no more than 1-2/10 and no more often than 3x/week LTG Duration 06/02/22 sit to stand Detention Goal (LTG) Pt will improve 30 sec sit to stand to at least 11 to show dec risk for falls LTG Duration 06/02 strength Short Term Goal (STG) Pt will be consistantly performing HEP for balacnea nd strengthening STG Duration 04/22/22 Detention Goal (LTG) Pt will score at least 4+/5 on MMT of LEs and at least 3/5 on LPM to show improved stability in order to improve pt's ability to perform tasks safely in community. LTG Duration 06/02/22 steps Short Term Goal (STG) Pt will be able to step down a curb feeling safe w/o LOB. STG Duration 04/12/22 Detention Goal (LTG) Pt will be able to go reciprocally up/down stairs w/ o rail. Assessment Summary Assessment Pt presents w/main c/o of balance affecting her ability to fully function but notes a recent onset of R LBP (around R sacrum) starting about 6 or more months ago w/o unknown onset. She has diagnosis of MS & osteopenia and has done PT for balance in the past w/good results. She has abnormalities of her gait, dec LE strength, impaired balance that likely has affected her back to lead to back pain. D/t uneven levels of pelvis, pain is likely stemming from SIJ dysfunction. Pt would benefit from skilled PT to wrok on balance,g ait, dec pain and LE strength. Pt also noted vertigo when rolling in bed and turning L whcih will require further assessment and treatment and pt would benefit from this in order to improve her balance and gait and dec fall risk. Physical Therapy Plan Frequency and Duration Frequency of Treatment 1-2x/week Duration of Treatment 3 months Plan of Care Start Date 03/02/22 Plan of Care End Date 06/02/22 Therapeutic Interventions Therapeutic Interventions Aquatic Therapy,Balance Training,Gait Training,Home Exercise Program,Joint Mobilizations,Manual Therapy, Neuromuscular Re-education, Orthotic/Prosthetic Management ,Patient/Caregiver Education, Self-Care/Home Management,Soft Tissue Mobilization,Taping, Therapeutic Activities, Therapeutic Exercises, Vestibular Rehabilitation Modalities Cold Pack/Ice Massage,Electric Stimulation,Hot Packs, Infrared Therapy,Traction- Mechanical,Ultrasound Next Visit Focus/Plan Next Note Type Treatment Note Next Visit Plan HEP: sidesteps resisted, tandem or semitandem at counter, squats over chair, supine pelvic tilts & bridges; start mary work w/pt Plan of Care Dates Plan of Care Start Date 03/02/22 Plan of Care End Date 06/02/22 Electronically Signed by: Mayte Ash, PT 03/02/22 [id number] If you are in agreement with this Plan of Care, please return a signed and dated copy. I have reviewed this Plan of Care and certify that the skilled therapy services above are required to meet the patient?s needs. Physician Signature Date Printed Name and Credentials Clinical Instructor Signature Printed Name and Credentials
--- NOTE | 2022-03-07 18:10 | PT.OTN ---
Current Diagnoses Other chronic pain (03/07/22) Sacrococcygeal disorders, not elsewhere classified (03/07/22) Other abnormalities of gait and mobility (03/07/22) Physical Therapy Treatment Note PT-OP-A Visit Information Start: 03/01/22 18:12 Freq: Status: Active Protocol: Document 03/07/22 17:29 [facility] (Rec: 03/07/22 18:10 [facility] [id number]) Out-Patient Physical Therapy Visit Information Visit Information Visit Type Treatment Note Visit Start Time 16:52 Visit Stop Time 17:37 Total Visit Minutes 45 Visit Number 2 Number of REEL WINDER Visits 0 PT-OP-B Current Condition Start: 03/01/22 18:12 Freq: Status: Active Protocol: Document 03/02/22 07:28 [facility] (Rec: 03/02/22 09:05 [facility] [id number]) Current Condition History of Current Condition Onset Date R LBP ~6-8 months (no injury), balance (7-8 years) Current Complaints balance, R SI pain History of Current Condition Pt reports R SI pain and today isn't too bad. Notes it normally hurts when she gets to her car after her walks. When its really bad, it can hurt to sit or move around, but she is still able to do what she needs to. Pt reports balance is an issue but is better the past 2 days as her condition changes. Denies recent falls. She has diagnosis of MS starting in 2009. She was drivign and got real lightheaded and they did a head CT at that time which showed a lot of spots and got the spinal tap and was diagonosised. She is followed by neurologist. Notes she does step to down steps and feels unstable going down curbs. She walks on flat paved trails and does not need AD. She used treking poles when doing forest land trails but mostly on flat trails. [place]. Pt does have osteopenia and notes neck pain and back pain. Pt reports neck has been pretty good lately. She notices it more w/sleeping. Pt did have a few days that she felt like she was going to fall back. Pt reports vertigo w/turning L in bed and cannot lay on L side or w/head turned L. Notes spinning and sometimes nausea. Prior Treatments and Tests PT prior for balance which was helpful Treatment Goals Patient/Caregiver Goals Get rid of R LB pain, have decent balacne, be able to go down stairs reciprocally w/o rail, be able to go down curb feeling comfortable PT-OP-C Subjective Start: 03/01/22 18:12 Freq: Status: Active Protocol: Document 03/07/22 17:29 [facility] (Rec: 03/07/22 18:10 [facility] [id number]) OP-PT Subjective Patient Comments Patient Comments Pt reports her R hip/back is bothering her today pretty bad . Notes it was bothering her walking yesterday. PT-OP-D Balance Start: 03/01/22 18:12 Freq: Status: Active Protocol: Document 03/02/22 07:28 [facility] (Rec: 03/02/22 09:05 [facility] [id number]) Balance Tests Single Limb Standing Single Limb- Right 1 sec Single Limb- Left 1 sec PT-OP-E Functional Tests Start: 03/01/22 18:12 Freq: Status: Active Protocol: Document 03/02/22 07:28 [facility] (Rec: 03/02/22 09:05 [facility] [id number]) Functional Tests 30 Second Sit to Stand Test Score 9 Comments pushes back of leg sinto chair Dynamic Gait Index (DGI) Score 15/24 Five Times Sit to Stand Test Score 15 sec Comments pushes back of leg sinto chair Functional Gait Assessment Score 11/30 PT-OP-F Manual Assessment Start: 03/01/22 18:12 Freq: Status: Active Protocol: Document 03/02/22 07:28 [facility] (Rec: 03/02/22 09:05 [facility] [id number]) Manual Assessments Soft Tissue Assessment Soft Tissue Mobility Assessment tightness R QL & ES PT-OP-G Mobility & Gait Start: 03/01/22 18:12 Freq: Status: Active Protocol: Document 03/02/22 07:28 [facility] (Rec: 03/02/22 10:10 [facility] [id number]) OP Mobility Evaluation Bed Mobility Rolling cannot roll L d/t getting dizzy OP Gait Assessment Comments Gait Comments Pt amb w/hard foot strike B w/ excessive transverse plane motion & arms slgithly to side for balance often Stair Climbing Evaluation Comments Stair Climbing Comments recip up w/rail, step to down w/rail PT-OP-J Posture/Palpation/Skin Start: 03/01/22 18:12 Freq: Status: Active Protocol: Document 03/02/22 07:28 [facility] (Rec: 03/02/22 10:26 [facility] [id number]) Posture Evaluation Comments Posture Comments R LE ER in standing, R iliac crest higher, equal greater trochanters PT-OP-K Range of Motion Start: 03/01/22 18:12 Freq: Status: Active Protocol: Document 03/02/22 07:28 [facility] (Rec: 03/02/22 09:05 [facility] [id number]) Lumbar Spine Range of Motion Lumbar Spine Active Flexion 80 Extension 80 Lateral Flexion Left 80 Lateral Flexion Right 50 Comments percentage PT-OP-M Strength Start: 03/01/22 18:12 Freq: Status: Active Protocol: Document 03/02/22 07:28 [facility] (Rec: 03/02/22 09:05 [facility] [id number]) Hip Strength Hip Manual Muscle Testing Right Flexion (L2) 4- Good- Extension (S1) 3+ Fair+ Adduction 4- Good- External Rotation 4 Good Internal Rotation 4 Good Comments cannot lay on L side Left Flexion (L2) 3+ Fair+ Extension (S1) 3+ Fair+ External Rotation 4 Good Internal Rotation 4 Good Knee Strength Knee Manual Muscle Testing Right Flexion (S2) 5 Normal Extension (L3) 4 Good Left Flexion (S2) 5 Normal Extension (L3) 4 Good Ankle/Foot Strength Ankle and Foot Manual Muscle Testing Right Dorsiflexion (L4) 4 Good Left Dorsiflexion (L4) 4 Good PT-OP-Q Treatments Start: 03/01/22 18:12 Freq: Status: Active Protocol: Document 03/07/22 17:29 [facility] (Rec: 03/07/22 18:10 [facility] [id number]) Therapeutic Exercises Supine Exercises stretch Supine Exercise Name piriformis Side bilateral Reps/Minutes 45 sec bridge Supine Exercise Name tilt w/glute squeeze Side bilateral Reps/Minutes 2 Comments stopped d/t HS cramping today pelvic tilts Reps/Minutes 12 Comments cues for breathing Standing Exercises sidesteps Side bilateral Equipment Used lvl 1 Reps/Minutes 20ft Comments cues for foot position, posture & dec dragging foot Manual Therapy Treatment Soft Tissue Mobilization lumbar Body Location R ES Mobilization Type Strumming Intensity/Depth Moderate Body Position Prone glutes Body Location R upper & lat glutes & piriformis Mobilization Type Rolling,Strumming Intensity/Depth Moderate Body Position Prone Comments w/AAROM hip IR/ER Joint Mobilizations innominate Joint R caudal FM sacrum Joint caudal L & L UPA FM hip Joint R Direction on axis ER FM & inf FM PT-OP-T Assessment and Plan Start: 03/01/22 18:12 Freq: Status: Active Protocol: Document 03/07/22 17:29 [facility] (Rec: 03/07/22 18:10 [facility] [id number]) Physical Therapy Assessment Goals balance Impairment DGI:15 FGA: 11 Short Term Goal (STG) Pt will imrpove score for DGI to to show dec risk for falls STG Duration 05/02/22 Flame Burner Goal (LTG) Pt will imrpove score for FGA to to show dec risk for falls LTG Duration 06/02/22 pain Flame Burner Goal (LTG) Pt will report LBP no more than 1-2/10 and no more often than 3x/week LTG Duration 06/02/22 sit to stand Skilled Nursing Goal (LTG) Pt will improve 30 sec sit to stand to at least 11 to show dec risk for falls LTG Duration 06/02 strength Short Term Goal (STG) Pt will be consistantly performing HEP for balacnea nd strengthening STG Duration 04/22/22 Flame Burner Goal (LTG) Pt will score at least 4+/5 on MMT of LEs and at least 3/5 on LPM to show improved stability in order to improve pt's ability to perform tasks safely in community. LTG Duration 06/02/22 steps Short Term Goal (STG) Pt will be able to step down a curb feeling safe w/o LOB. STG Duration 04/12/22 Flame Burner Goal (LTG) Pt will be able to go reciprocally up/down stairs w/ o rail. Assessment Summary Assessment Pt had significantly imrpoved pain in R hip after manual treatment today and went from c/o significant pain to reporting no pain. She had HS cramping w/bridges so held for now. HEP given and pt had no pain w/exercises given. Cues required w/sidesteps though Physical Therapy Plan Next Visit Focus/Plan Next Note Type Treatment Note Next Visit Plan review HEP, add tandem/semi tandem at counter, squats over chair, bridges if able, start balacne work, manual to dec pain
--- NOTE | 2022-03-10 09:01 | PT.OTN ---
Current Diagnoses Other chronic pain (03/10/22) Sacrococcygeal disorders, not elsewhere classified (03/10/22) Other abnormalities of gait and mobility (03/10/22) Physical Therapy Treatment Note PT-OP-A Visit Information Start: 03/01/22 18:12 Freq: Status: Active Protocol: Document 03/10/22 07:40 [facility] (Rec: 03/10/22 09:01 [facility] [id number]) Out-Patient Physical Therapy Visit Information Visit Information Visit Type Treatment Note Visit Start Time 08:18 Visit Stop Time 08:58 Total Visit Minutes 40 Visit Number 3 Number of MOVIE STAR Visits 0 PT-OP-B Current Condition Start: 03/01/22 18:12 Freq: Status: Active Protocol: Document 03/02/22 07:28 [facility] (Rec: 03/02/22 09:05 [facility] [id number]) Current Condition History of Current Condition Onset Date R LBP ~6-8 months (no injury), balance (7-8 years) Current Complaints balance, R SI pain History of Current Condition Pt reports R SI pain and today isn't too bad. Notes it normally hurts when she gets to her car after her walks. When its really bad, it can hurt to sit or move around, but she is still able to do what she needs to. Pt reports balance is an issue but is better the past 2 days as her condition changes. Denies recent falls. She has diagnosis of MS starting in 2009. She was drivign and got real lightheaded and they did a head CT at that time which showed a lot of spots and got the spinal tap and was diagonosised. She is followed by neurologist. Notes she does step to down steps and feels unstable going down curbs. She walks on flat paved trails and does not need AD. She used treking poles when doing forest land trails but mostly on flat trails. [place]. Pt does have osteopenia and notes neck pain and back pain. Pt reports neck has been pretty good lately. She notices it more w/sleeping. Pt did have a few days that she felt like she was going to fall back. Pt reports vertigo w/turning L in bed and cannot lay on L side or w/head turned L. Notes spinning and sometimes nausea. Prior Treatments and Tests PT prior for balance which was helpful Treatment Goals Patient/Caregiver Goals Get rid of R LB pain, have decent balacne, be able to go down stairs reciprocally w/o rail, be able to go down curb feeling comfortable PT-OP-C Subjective Start: 03/01/22 18:12 Freq: Status: Active Protocol: Document 03/10/22 07:40 [facility] (Rec: 03/10/22 09:01 [facility] [id number]) OP-PT Subjective Patient Comments Patient Comments Pt reports a little soreness. The next day was good but wed it got bad. yesterday she was really busy andd didnt get the exercises in. PT-OP-D Balance Start: 03/01/22 18:12 Freq: Status: Active Protocol: Document 03/02/22 07:28 [facility] (Rec: 03/02/22 09:05 [facility] [id number]) Balance Tests Single Limb Standing Single Limb- Right 1 sec Single Limb- Left 1 sec PT-OP-E Functional Tests Start: 03/01/22 18:12 Freq: Status: Active Protocol: Document 03/02/22 07:28 [facility] (Rec: 03/02/22 09:05 [facility] [id number]) Functional Tests 30 Second Sit to Stand Test Score 9 Comments pushes back of leg sinto chair Dynamic Gait Index (DGI) Score 15/24 Five Times Sit to Stand Test Score 15 sec Comments pushes back of leg sinto chair Functional Gait Assessment Score 11/30 PT-OP-F Manual Assessment Start: 03/01/22 18:12 Freq: Status: Active Protocol: Document 03/02/22 07:28 [facility] (Rec: 03/02/22 09:05 [facility] [id number]) Manual Assessments Soft Tissue Assessment Soft Tissue Mobility Assessment tightness R QL & ES PT-OP-G Mobility & Gait Start: 03/01/22 18:12 Freq: Status: Active Protocol: Document 03/02/22 07:28 [facility] (Rec: 03/02/22 10:10 [facility] [id number]) OP Mobility Evaluation Bed Mobility Rolling cannot roll L d/t getting dizzy OP Gait Assessment Comments Gait Comments Pt amb w/hard foot strike B w/ excessive transverse plane motion & arms slgithly to side for balance often Stair Climbing Evaluation Comments Stair Climbing Comments recip up w/rail, step to down w/rail PT-OP-J Posture/Palpation/Skin Start: 03/01/22 18:12 Freq: Status: Active Protocol: Document 03/02/22 07:28 [facility] (Rec: 03/02/22 10:26 [facility] [id number]) Posture Evaluation Comments Posture Comments R LE ER in standing, R iliac crest higher, equal greater trochanters PT-OP-K Range of Motion Start: 03/01/22 18:12 Freq: Status: Active Protocol: Document 03/02/22 07:28 [facility] (Rec: 03/02/22 09:05 [facility] [id number]) Lumbar Spine Range of Motion Lumbar Spine Active Flexion 80 Extension 80 Lateral Flexion Left 80 Lateral Flexion Right 50 Comments percentage PT-OP-M Strength Start: 03/01/22 18:12 Freq: Status: Active Protocol: Document 03/02/22 07:28 [facility] (Rec: 03/02/22 09:05 [facility] [id number]) Hip Strength Hip Manual Muscle Testing Right Flexion (L2) 4- Good- Extension (S1) 3+ Fair+ Adduction 4- Good- External Rotation 4 Good Internal Rotation 4 Good Comments cannot lay on L side Left Flexion (L2) 3+ Fair+ Extension (S1) 3+ Fair+ External Rotation 4 Good Internal Rotation 4 Good Knee Strength Knee Manual Muscle Testing Right Flexion (S2) 5 Normal Extension (L3) 4 Good Left Flexion (S2) 5 Normal Extension (L3) 4 Good Ankle/Foot Strength Ankle and Foot Manual Muscle Testing Right Dorsiflexion (L4) 4 Good Left Dorsiflexion (L4) 4 Good PT-OP-Q Treatments Start: 03/01/22 18:12 Freq: Status: Active Protocol: Document 03/10/22 07:40 [facility] (Rec: 03/10/22 09:01 [facility] [id number]) Gym Equipment Shuttle Balance blue clips Comments fwd: WBOS, NBOS, staggered stance B side: WBOS & NBOS Therapeutic Exercises Supine Exercises LTR Side bilateral Reps/Minutes 10 Comments cues for comfortable range & core use stretch Supine Exercise Name piriformis Side bilateral Reps/Minutes 45 sec pelvic tilts Reps/Minutes 12 Comments cues for breathing & pelvis only not upper body Standing Exercises squats Side bilateral Reps/Minutes 15 Comments over chair mini sidesteps Side bilateral Equipment Used lvl 1 Reps/Minutes 20ft Comments cues for foot position, posture & dec dragging foot Manual Therapy Treatment Soft Tissue Mobilization lumbar Body Location R ES/QL Mobilization Type Strumming Intensity/Depth Moderate Body Position Prone glutes Body Location R upper & lat glutes & piriformis Mobilization Type Rolling,Strumming Intensity/Depth Moderate Body Position Prone Comments w/AAROM hip IR/ER Neuro Re-Education Treatment Balance Activities tandem Details B trials PT-OP-T Assessment and Plan Start: 03/01/22 18:12 Freq: Status: Active Protocol: Document 03/10/22 07:40 [facility] (Rec: 03/10/22 09:01 [facility] [id number]) Physical Therapy Assessment Goals balance Impairment DGI:15 FGA: 11 Short Term Goal (STG) Pt will imrpove score for DGI to to show dec risk for falls STG Duration 05/02/22 Plastics Heat Welder Goal (LTG) Pt will imrpove score for FGA to to show dec risk for falls LTG Duration 06/02/22 pain Fpc Goal (LTG) Pt will report LBP no more than 1-2/10 and no more often than 3x/week LTG Duration 06/02/22 sit to stand Fpc Goal (LTG) Pt will improve 30 sec sit to stand to at least 11 to show dec risk for falls LTG Duration 06/02 strength Short Term Goal (STG) Pt will be consistantly performing HEP for balacnea nd strengthening STG Duration 04/22/22 Plastics Heat Welder Goal (LTG) Pt will score at least 4+/5 on MMT of LEs and at least 3/5 on LPM to show improved stability in order to improve pt's ability to perform tasks safely in community. LTG Duration 06/02/22 steps Short Term Goal (STG) Pt will be able to step down a curb feeling safe w/o LOB. STG Duration 04/12/22 Plastics Heat Welder Goal (LTG) Pt will be able to go reciprocally up/down stairs w/ o rail. Assessment Summary Assessment Pt requried a lot of cues w/ exercises for comfortable range and educated on the point of exercises. Challenged by balance activtiies. Physical Therapy Plan Next Visit Focus/Plan Next Note Type Treatment Note Next Visit Plan cont to review exercises as needed and advance strength, mobility and balance
--- NOTE | 2022-03-14 09:01 | PT.OTN ---
Current Diagnoses Other chronic pain (03/14/22) Sacrococcygeal disorders, not elsewhere classified (03/14/22) Other abnormalities of gait and mobility (03/14/22) Physical Therapy Treatment Note PT-OP-A Visit Information Start: 03/01/22 18:12 Freq: Status: Active Protocol: Document 03/14/22 08:16 AMB (Rec: 03/14/22 08:38 AMB [id number]) Out-Patient Physical Therapy Visit Information Visit Information Visit Type Treatment Note Visit Start Time 08:15 Visit Stop Time 09:00 Total Visit Minutes 45 Visit Number 4 PT-OP-B Current Condition Start: 03/01/22 18:12 Freq: Status: Active Protocol: Document 03/02/22 07:28 [facility] (Rec: 03/02/22 09:05 [facility] [id number]) Current Condition History of Current Condition Onset Date R LBP ~6-8 months (no injury), balance (7-8 years) Current Complaints balance, R SI pain History of Current Condition Pt reports R SI pain and today isn't too bad. Notes it normally hurts when she gets to her car after her walks. When its really bad, it can hurt to sit or move around, but she is still able to do what she needs to. Pt reports balance is an issue but is better the past 2 days as her condition changes. Denies recent falls. She has diagnosis of MS starting in 2009. She was drivign and got real lightheaded and they did a head CT at that time which showed a lot of spots and got the spinal tap and was diagonosised. She is followed by neurologist. Notes she does step to down steps and feels unstable going down curbs. She walks on flat paved trails and does not need AD. She used treking poles when doing forest land trails but mostly on flat trails. She [place]. Pt does have osteopenia and notes neck pain and back pain. Pt reports neck has been pretty good lately. She notices it more w/sleeping. Pt did have a few days that she felt like she was going to fall back. Pt reports vertigo w/turning L in bed and cannot lay on L side or w/head turned L. Notes spinning and sometimes nausea. Prior Treatments and Tests PT prior for balance which was helpful Treatment Goals Patient/Caregiver Goals Get rid of R LB pain, have decent balacne, be able to go down stairs reciprocally w/o rail, be able to go down curb feeling comfortable PT-OP-C Subjective Start: 03/01/22 18:12 Freq: Status: Active Protocol: Document 03/14/22 08:16 AMB (Rec: 03/14/22 08:38 AMB [id number]) OP-PT Subjective Patient Comments Patient Comments 7-8 years -- severe vertigo when on vacation had spinning, gave meclizine. 1 minute. Turning head to the left to look at TV increases dizziness . PT-OP-D Balance Start: 03/01/22 18:12 Freq: Status: Active Protocol: Document 03/02/22 07:28 [facility] (Rec: 03/02/22 09:05 [facility] [id number]) Balance Tests Single Limb Standing Single Limb- Right 1 sec Single Limb- Left 1 sec PT-OP-E Functional Tests Start: 03/01/22 18:12 Freq: Status: Active Protocol: Document 03/02/22 07:28 [facility] (Rec: 03/02/22 09:05 [facility] [id number]) Functional Tests 30 Second Sit to Stand Test Score 9 Comments pushes back of leg sinto chair Dynamic Gait Index (DGI) Score 15/24 Five Times Sit to Stand Test Score 15 sec Comments pushes back of leg sinto chair Functional Gait Assessment Score 11/30 PT-OP-F Manual Assessment Start: 03/01/22 18:12 Freq: Status: Active Protocol: Document 03/02/22 07:28 [facility] (Rec: 03/02/22 09:05 [facility] [id number]) Manual Assessments Soft Tissue Assessment Soft Tissue Mobility Assessment tightness R QL & ES PT-OP-G Mobility & Gait Start: 03/01/22 18:12 Freq: Status: Active Protocol: Document 03/02/22 07:28 [facility] (Rec: 03/02/22 10:10 [facility] [id number]) OP Mobility Evaluation Bed Mobility Rolling cannot roll L d/t getting dizzy OP Gait Assessment Comments Gait Comments Pt amb w/hard foot strike B w/ excessive transverse plane motion & arms slgithly to side for balance often Stair Climbing Evaluation Comments Stair Climbing Comments recip up w/rail, step to down w/rail PT-OP-J Posture/Palpation/Skin Start: 03/01/22 18:12 Freq: Status: Active Protocol: Document 03/02/22 07:28 [facility] (Rec: 03/02/22 10:26 [facility] [id number]) Posture Evaluation Comments Posture Comments R LE ER in standing, R iliac crest higher, equal greater trochanters PT-OP-K Range of Motion Start: 03/01/22 18:12 Freq: Status: Active Protocol: Document 03/02/22 07:28 [facility] (Rec: 03/02/22 09:05 [facility] [id number]) Lumbar Spine Range of Motion Lumbar Spine Active Flexion 80 Extension 80 Lateral Flexion Left 80 Lateral Flexion Right 50 Comments percentage PT-OP-M Strength Start: 03/01/22 18:12 Freq: Status: Active Protocol: Document 03/02/22 07:28 [facility] (Rec: 03/02/22 09:05 [facility] [id number]) Hip Strength Hip Manual Muscle Testing Right Flexion (L2) 4- Good- Extension (S1) 3+ Fair+ Adduction 4- Good- External Rotation 4 Good Internal Rotation 4 Good Comments cannot lay on L side Left Flexion (L2) 3+ Fair+ Extension (S1) 3+ Fair+ External Rotation 4 Good Internal Rotation 4 Good Knee Strength Knee Manual Muscle Testing Right Flexion (S2) 5 Normal Extension (L3) 4 Good Left Flexion (S2) 5 Normal Extension (L3) 4 Good Ankle/Foot Strength Ankle and Foot Manual Muscle Testing Right Dorsiflexion (L4) 4 Good Left Dorsiflexion (L4) 4 Good PT-OP-Q Treatments Start: 03/01/22 18:12 Freq: Status: Active Protocol: Document 03/14/22 08:55 AMB (Rec: 03/14/22 09:00 AMB [id number]) Canalithic Repositioning BPPV Treatment [place] Affected Canal(s) L Reps 1 PT-OP-T Assessment and Plan Start: 03/01/22 18:12 Freq: Status: Active Protocol: Document 03/14/22 08:55 AMB (Rec: 03/14/22 09:00 AMB [id number]) Physical Therapy Assessment Assessment Summary Assessment Pt showed torsional nystagmus with L Grayling-Hallpike, strong response. Only performed [place] maneuver once due to pt tolerance. Will reassess next week, gave handout on post manuever precautions. Physical Therapy Plan Next Visit Focus/Plan Next Note Type Treatment Note Next Visit Plan Recheck Ted blue to review exercises as needed and advance strength, mobility and balance
--- NOTE | 2022-03-16 10:30 | PT.OTN ---
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 Notes it normally hurts when she gets to her car after her walks. When its really bad, it can hurt to sit or move around, but she is still able to do what she needs to. Pt reports balance is an issue but is better the past 2 days as her condition changes. Denies recent falls. She has diagnosis of MS starting in 2009. She was drivign and got real lightheaded and they did a head CT at that time which showed a lot of spots and got the spinal tap and was diagonosised. She is followed by neurologist. Notes she does step to down steps and feels unstable going down curbs. She walks on flat paved trails and does not need AD. She used treking poles when doing forest land trails but mostly on flat trails. [place]. Pt does have osteopenia and notes neck pain and back pain. Pt reports neck has been pretty good lately. She notices it more w/sleeping. Pt did have a few days that she felt like she was going to fall back. Pt reports vertigo w/turning L in bed and cannot lay on L side or w/head turned L. Notes spinning and sometimes nausea. Prior Treatments and Tests PT prior for balance which was helpful Treatment Goals Patient/Caregiver Goals Get rid of R LB pain, have decent balacne, be able to go down stairs reciprocally w/o rail, be able to go down curb feeling comfortable PT-OP-C Subjective Start: 03/01/22 18:12 Freq: Status: Active Protocol: Document 03/16/22 09:47 SP (Rec: 03/16/22 10:34 SP [id number]) OP-PT Subjective Patient Comments Patient Comments Pt reported dizziness got little better after last tx, did as instructed propping upright and posturing mobility . She kept low brandon ADLs as instructed. PT-OP-D Balance Start: 03/01/22 18:12 Freq: Status: Active Protocol: Document 03/02/22 07:28 [facility] (Rec: 03/02/22 09:05 [facility] [id number]) Balance Tests Single Limb Standing Single Limb- Right 1 sec Single Limb- Left 1 sec PT-OP-E Functional Tests Start: 03/01/22 18:12 Freq: Status: Active Protocol: Document 03/02/22 07:28 [facility] (Rec: 03/02/22 09:05 [facility] [id number]) Functional Tests 30 Second Sit to Stand Test Score 9 Comments pushes back of leg sinto chair Dynamic Gait Index (DGI) Score 15/24 Five Times Sit to Stand Test Score 15 sec Comments pushes back of leg sinto chair Functional Gait Assessment Score 11/30 PT-OP-F Manual Assessment Start: 03/01/22 18:12 Freq: Status: Active Protocol: Document 03/02/22 07:28 [facility] (Rec: 03/02/22 09:05 [facility] [id number]) Manual Assessments Soft Tissue Assessment Soft Tissue Mobility Assessment tightness R QL & ES PT-OP-G Mobility & Gait Start: 03/01/22 18:12 Freq: Status: Active Protocol: Document 03/02/22 07:28 [facility] (Rec: 03/02/22 10:10 [facility] [id number]) OP Mobility Evaluation Bed Mobility Rolling cannot roll L d/t getting dizzy OP Gait Assessment Comments Gait Comments Pt amb w/hard foot strike B w/ excessive transverse plane motion & arms slgithly to side for balance often Stair Climbing Evaluation Comments Stair Climbing Comments recip up w/rail, step to down w/rail PT-OP-J Posture/Palpation/Skin Start: 03/01/22 18:12 Freq: Status: Active Protocol: Document 03/02/22 07:28 [facility] (Rec: 03/02/22 10:26 [facility] [id number]) Posture Evaluation Comments Posture Comments R LE ER in standing, R iliac crest higher, equal greater trochanters PT-OP-K Range of Motion Start: 03/01/22 18:12 Freq: Status: Active Protocol: Document 03/02/22 07:28 [facility] (Rec: 03/02/22 09:05 [facility] [id number]) Lumbar Spine Range of Motion Lumbar Spine Active Flexion 80 Extension 80 Lateral Flexion Left 80 Lateral Flexion Right 50 Comments percentage PT-OP-M Strength Start: 03/01/22 18:12 Freq: Status: Active Protocol: Document 03/02/22 07:28 [facility] (Rec: 03/02/22 09:05 [facility] [id number]) Hip Strength Hip Manual Muscle Testing Right Flexion (L2) 4- Good- Extension (S1) 3+ Fair+ Adduction 4- Good- External Rotation 4 Good Internal Rotation 4 Good Comments cannot lay on L side Left Flexion (L2) 3+ Fair+ Extension (S1) 3+ Fair+ External Rotation 4 Good Internal Rotation 4 Good Knee Strength Knee Manual Muscle Testing Right Flexion (S2) 5 Normal Extension (L3) 4 Good Left Flexion (S2) 5 Normal Extension (L3) 4 Good Ankle/Foot Strength Ankle and Foot Manual Muscle Testing Right Dorsiflexion (L4) 4 Good Left Dorsiflexion (L4) 4 Good PT-OP-Q Treatments Start: 03/01/22 18:12 Freq: Status: Active Protocol: Document 03/16/22 09:47 SP (Rec: 03/16/22 10:34 SP [id number]) Therapeutic Exercises Sitting Exercises self STMs Side bilateral Equipment Used rolling pin, racq ball, theracane Comments good feedback respond lessen back/R hip tightness QL stretch Sitting Exercise Name added to HEP- give HO next tx already printed Side right Resistance R>L Reps/Minutes 30 x3 Comments wt shift L, LUE WB on L leg- good stretch R LB piriformis stretch Sitting Exercise Name added to HEP IR and ER Resistance R>L Reps/Minutes 30 x3 Comments good feedback stretch Manual Therapy Treatment Soft Tissue Mobilization lumbar Body Location R ES/QL Mobilization Type Strumming Intensity/Depth Moderate Body Position Prone Comments manual and instruction on self use ball on wall home glutes Body Location R upper & lat glutes & piriformis Mobilization Type Rolling,Strumming Intensity/Depth Moderate Body Position Prone Comments manual and instruction on self use ball on wall home Self-Care/Home Management Treatment Education Patient Education Body Mechanics,Home Exercise Program,Pain Management, Posture Other Education Discussion use pillows side and back sleeping: between BLEs, BUEs, under later superior ribcage for spinal alignment support in hopes reduce tingling in arm and back pain Initiated theracane UT, interscap, ball wall glut, PF, ES, rolling pin quad, HS, calf ITB to reduce hip/ back tension- good feedback response get and do at home. PT-OP-T Assessment and Plan Start: 03/01/22 18:12 Freq: Status: Active Protocol: Document 03/16/22 09:47 SP (Rec: 03/16/22 10:34 SP [id number]) Physical Therapy Assessment Goals balance Impairment DGI:15 FGA: 11 Short Term Goal (STG) Pt will imrpove score for DGI to to show dec risk for falls STG Duration 05/02/22 Prison Goal (LTG) Pt will imrpove score for FGA to to show dec risk for falls LTG Duration 06/02/22 pain Prison Goal (LTG) Pt will report LBP no more than 1-2/10 and no more often than 3x/week LTG Duration 06/02/22 sit to stand Lens Assistant Goal (LTG) Pt will improve 30 sec sit to stand to at least 11 to show dec risk for falls LTG Duration 06/02 strength Short Term Goal (STG) Pt will be consistantly performing HEP for balacnea nd strengthening STG Duration 04/22/22 Lens Assistant Goal (LTG) Pt will score at least 4+/5 on MMT of LEs and at least 3/5 on LPM to show improved stability in order to improve pt's ability to perform tasks safely in community. LTG Duration 06/02/22 steps Short Term Goal (STG) Pt will be able to step down a curb feeling safe w/o LOB. STG Duration 04/12/22 Lens Assistant Goal (LTG) Pt will be able to go reciprocally up/down stairs w/ o rail. Assessment Summary Assessment Pt responded well to manual, initiated stretching and self STMs for self care to reduce back/ hip tension with good feedback response this tx. GIve QL stretch HO forgot print before left. Pt reported able to move less tension pain leaving. She was still little dizzy transitioning from prone to sitting. Physical Therapy Plan Frequency and Duration Frequency of Treatment 1-2x/week Duration of Treatment 3 months Plan of Care Start Date 03/02/22 Plan of Care End Date 06/02/22 Therapeutic Interventions Therapeutic Interventions Aquatic Therapy,Balance Training,Gait Training,Home Exercise Program,Joint Mobilizations,Manual Therapy, Neuromuscular Re-education, Orthotic/Prosthetic Management ,Patient/Caregiver Education, Self-Care/Home Management,Soft Tissue Mobilization,Taping, Therapeutic Activities, Therapeutic Exercises, Vestibular Rehabilitation Modalities Cold Pack/Ice Massage,Electric Stimulation,Hot Packs, Infrared Therapy,Traction- Mechanical,Ultrasound Next Visit Focus/Plan Next Note Type Treatment Note Next Visit Plan Next tx: [place] Inquire manual/ self STM response after last tx. POC: cont to review exercises as needed and advance strength , mobility and balance
--- NOTE | 2022-03-23 11:01 | PT.OTN ---
Current Diagnoses Other chronic pain (03/23/22) Sacrococcygeal disorders, not elsewhere classified (03/23/22) Other abnormalities of gait and mobility (03/23/22) Physical Therapy Treatment Note PT-OP-A Visit Information Start: 03/01/22 18:12 Freq: Status: Active Protocol: Document 03/23/22 10:33 AMB (Rec: 03/23/22 10:58 AMB [id number]) Out-Patient Physical Therapy Visit Information Visit Information Visit Type Treatment Note Visit Start Time 10:30 Visit Stop Time 11:15 Total Visit Minutes 45 Visit Number 6 PT-OP-B Current Condition Start: 03/01/22 18:12 Freq: Status: Active Protocol: Document 03/02/22 07:28 LR (Rec: 03/02/22 09:05 [facility] [id number]) Current Condition History of Current Condition Onset Date R LBP ~6-8 months (no injury), balance (7-8 years) Current Complaints balance, R SI pain History of Current Condition Pt reports R SI pain and today isn't too bad. Notes it normally hurts when she gets to her car after her walks. When its really bad, it can hurt to sit or move around, but she is still able to do what she needs to. Pt reports balance is an issue but is better the past 2 days as her condition changes. Denies recent falls. She has diagnosis of MS starting in 2009. She was drivign and got real lightheaded and they did a head CT at that time which showed a lot of spots and got the spinal tap and was diagonosised. She is followed by neurologist. Notes she does step to down steps and feels unstable going down curbs. She walks on flat paved trails and does not need AD. She used treking poles when doing forest land trails but mostly on flat trails. She [place]. Pt does have osteopenia and notes neck pain and back pain. Pt reports neck has been pretty good lately. She notices it more w/sleeping. Pt did have a few days that she felt like she was going to fall back. Pt reports vertigo w/turning L in bed and cannot lay on L side or w/head turned L. Notes spinning and sometimes nausea. Prior Treatments and Tests PT prior for balance which was helpful Treatment Goals Patient/Caregiver Goals Get rid of R LB pain, have decent balacne, be able to go down stairs reciprocally w/o rail, be able to go down curb feeling comfortable PT-OP-C Subjective Start: 03/01/22 18:12 Freq: Status: Active Protocol: Document 03/23/22 10:33 AMB (Rec: 03/23/22 10:58 AMB [id number]) OP-PT Subjective Patient Comments Patient Comments Pt reports after second night lying flat on the pillow had increased dizziness, otherwise feeling ok. PT-OP-D Balance Start: 03/01/22 18:12 Freq: Status: Active Protocol: Document 03/02/22 07:28 [facility] (Rec: 03/02/22 09:05 [facility] [id number]) Balance Tests Single Limb Standing Single Limb- Right 1 sec Single Limb- Left 1 sec PT-OP-E Functional Tests Start: 03/01/22 18:12 Freq: Status: Active Protocol: Document 03/02/22 07:28 [facility] (Rec: 03/02/22 09:05 [facility] [id number]) Functional Tests 30 Second Sit to Stand Test Score 9 Comments pushes back of leg sinto chair Dynamic Gait Index (DGI) Score 15/24 Five Times Sit to Stand Test Score 15 sec Comments pushes back of leg sinto chair Functional Gait Assessment Score 11/30 PT-OP-F Manual Assessment Start: 03/01/22 18:12 Freq: Status: Active Protocol: Document 03/02/22 07:28 [facility] (Rec: 03/02/22 09:05 [facility] [id number]) Manual Assessments Soft Tissue Assessment Soft Tissue Mobility Assessment tightness R QL & ES PT-OP-G Mobility & Gait Start: 03/01/22 18:12 Freq: Status: Active Protocol: Document 03/02/22 07:28 [facility] (Rec: 03/02/22 10:10 [facility] [id number]) OP Mobility Evaluation Bed Mobility Rolling cannot roll L d/t getting dizzy OP Gait Assessment Comments Gait Comments Pt amb w/hard foot strike B w/ excessive transverse plane motion & arms slgithly to side for balance often Stair Climbing Evaluation Comments Stair Climbing Comments recip up w/rail, step to down w/rail PT-OP-J Posture/Palpation/Skin Start: 03/01/22 18:12 Freq: Status: Active Protocol: Document 03/02/22 07:28 [facility] (Rec: 03/02/22 10:26 [facility] [id number]) Posture Evaluation Comments Posture Comments R LE ER in standing, R iliac crest higher, equal greater trochanters PT-OP-K Range of Motion Start: 03/01/22 18:12 Freq: Status: Active Protocol: Document 03/02/22 07:28 [facility] (Rec: 03/02/22 09:05 [facility] [id number]) Lumbar Spine Range of Motion Lumbar Spine Active Flexion 80 Extension 80 Lateral Flexion Left 80 Lateral Flexion Right 50 Comments percentage PT-OP-M Strength Start: 03/01/22 18:12 Freq: Status: Active Protocol: Document 03/02/22 07:28 [facility] (Rec: 03/02/22 09:05 [facility] [id number]) Hip Strength Hip Manual Muscle Testing Right Flexion (L2) 4- Good- Extension (S1) 3+ Fair+ Adduction 4- Good- External Rotation 4 Good Internal Rotation 4 Good Comments cannot lay on L side Left Flexion (L2) 3+ Fair+ Extension (S1) 3+ Fair+ External Rotation 4 Good Internal Rotation 4 Good Knee Strength Knee Manual Muscle Testing Right Flexion (S2) 5 Normal Extension (L3) 4 Good Left Flexion (S2) 5 Normal Extension (L3) 4 Good Ankle/Foot Strength Ankle and Foot Manual Muscle Testing Right Dorsiflexion (L4) 4 Good Left Dorsiflexion (L4) 4 Good PT-OP-Q Treatments Start: 03/01/22 18:12 Freq: Status: Active Protocol: Document 03/23/22 10:33 AMB (Rec: 03/23/22 10:58 AMB [id number]) Canalithic Repositioning BPPV Treatment [place] Affected Canal(s) L Reps 1 Comments No nystagmus with first position, so sat back up and was strongly dizzy, so commpleted [place], not as strong as last visit, but still enough to be positive. PT-OP-T Assessment and Plan Start: 03/01/22 18:12 Freq: Status: Active Protocol: Document 03/23/22 10:33 AMB (Rec: 03/23/22 10:58 AMB [id number]) Physical Therapy Assessment Assessment Summary Assessment Pt tolerated one repetition, less nystagmus than last visit , but subjectively feeling dizzy when turning to the left . Physical Therapy Plan Next Visit Focus/Plan Next Note Type Treatment Note Next Visit Plan Recheck [place], if negative, check all canals
--- NOTE | 2022-03-30 10:17 | PT.OTN ---
Current Diagnoses Other chronic pain (03/30/22) Sacrococcygeal disorders, not elsewhere classified (03/30/22) Other abnormalities of gait and mobility (03/30/22) Physical Therapy Treatment Note PT-OP-A Visit Information Start: 03/01/22 18:12 Freq: Status: Active Protocol: Document 03/30/22 10:05 AMB (Rec: 03/30/22 10:17 AMB [id number]) Out-Patient Physical Therapy Visit Information Visit Information Visit Type Treatment Note Visit Start Time 09:45 Visit Stop Time 10:10 Total Visit Minutes 25 Visit Number 7 PT-OP-B Current Condition Start: 03/01/22 18:12 Freq: Status: Active Protocol: Document 03/02/22 07:28 LR (Rec: 03/02/22 09:05 [facility] [id number]) Current Condition History of Current Condition Onset Date R LBP ~6-8 months (no injury), balance (7-8 years) Current Complaints balance, R SI pain History of Current Condition Pt reports R SI pain and today isn't too bad. Notes it normally hurts when she gets to her car after her walks. When its really bad, it can hurt to sit or move around, but she is still able to do what she needs to. Pt reports balance is an issue but is better the past 2 days as her condition changes. Denies recent falls. She has diagnosis of MS starting in 2009. She was drivign and got real lightheaded and they did a head CT at that time which showed a lot of spots and got the spinal tap and was diagonosised. She is followed by neurologist. Notes she does step to down steps and feels unstable going down curbs. She walks on flat paved trails and does not need AD. She used treking poles when doing forest [place] trails but mostly on flat trails. [place]. Pt does have osteopenia and notes neck pain and back pain. Pt reports neck has been pretty good lately. She notices it more w/sleeping. Pt did have a few days that she felt like she was going to fall back. Pt reports vertigo w/turning L in bed and cannot lay on L side or w/head turned L. Notes spinning and sometimes nausea. Prior Treatments and Tests PT prior for balance which was helpful Treatment Goals Patient/Caregiver Goals Get rid of R LB pain, have decent balacne, be able to go down stairs reciprocally w/o rail, be able to go down curb feeling comfortable PT-OP-C Subjective Start: 03/01/22 18:12 Freq: Status: Active Protocol: Document 03/30/22 10:05 AMB (Rec: 03/30/22 10:17 AMB [id number]) OP-PT Subjective Patient Comments Patient Comments Pt reports no dizziness since last visit. PT-OP-D Balance Start: 03/01/22 18:12 Freq: Status: Active Protocol: Document 03/02/22 07:28 [facility] (Rec: 03/02/22 09:05 [facility] [id number]) Balance Tests Single Limb Standing Single Limb- Right 1 sec Single Limb- Left 1 sec PT-OP-E Functional Tests Start: 03/01/22 18:12 Freq: Status: Active Protocol: Document 03/02/22 07:28 [facility] (Rec: 03/02/22 09:05 [facility] [id number]) Functional Tests 30 Second Sit to Stand Test Score 9 Comments pushes back of leg sinto chair Dynamic Gait Index (DGI) Score 15/24 Five Times Sit to Stand Test Score 15 sec Comments pushes back of leg sinto chair Functional Gait Assessment Score 11/30 PT-OP-F Manual Assessment Start: 03/01/22 18:12 Freq: Status: Active Protocol: Document 03/02/22 07:28 [facility] (Rec: 03/02/22 09:05 [facility] [id number]) Manual Assessments Soft Tissue Assessment Soft Tissue Mobility Assessment tightness R QL & ES PT-OP-G Mobility & Gait Start: 03/01/22 18:12 Freq: Status: Active Protocol: Document 03/02/22 07:28 [facility] (Rec: 03/02/22 10:10 [facility] [id number]) OP Mobility Evaluation Bed Mobility Rolling cannot roll L d/t getting dizzy OP Gait Assessment Comments Gait Comments Pt amb w/hard foot strike B w/ excessive transverse plane motion & arms slgithly to side for balance often Stair Climbing Evaluation Comments Stair Climbing Comments recip up w/rail, step to down w/rail PT-OP-J Posture/Palpation/Skin Start: 03/01/22 18:12 Freq: Status: Active Protocol: Document 03/02/22 07:28 [facility] (Rec: 03/02/22 10:26 [facility] [id number]) Posture Evaluation Comments Posture Comments R LE ER in standing, R iliac crest higher, equal greater trochanters PT-OP-K Range of Motion Start: 03/01/22 18:12 Freq: Status: Active Protocol: Document 03/02/22 07:28 [facility] (Rec: 03/02/22 09:05 [facility] [id number]) Lumbar Spine Range of Motion Lumbar Spine Active Flexion 80 Extension 80 Lateral Flexion Left 80 Lateral Flexion Right 50 Comments percentage PT-OP-M Strength Start: 03/01/22 18:12 Freq: Status: Active Protocol: Document 03/02/22 07:28 [facility] (Rec: 03/02/22 09:05 [facility] [id number]) Hip Strength Hip Manual Muscle Testing Right Flexion (L2) 4- Good- Extension (S1) 3+ Fair+ Adduction 4- Good- External Rotation 4 Good Internal Rotation 4 Good Comments cannot lay on L side Left Flexion (L2) 3+ Fair+ Extension (S1) 3+ Fair+ External Rotation 4 Good Internal Rotation 4 Good Knee Strength Knee Manual Muscle Testing Right Flexion (S2) 5 Normal Extension (L3) 4 Good Left Flexion (S2) 5 Normal Extension (L3) 4 Good Ankle/Foot Strength Ankle and Foot Manual Muscle Testing Right Dorsiflexion (L4) 4 Good Left Dorsiflexion (L4) 4 Good PT-OP-Q Treatments Start: 03/01/22 18:12 Freq: Status: Active Protocol: Document 03/30/22 10:05 AMB (Rec: 03/30/22 10:17 AMB [id number]) Neuro Re-Education Treatment Other Activities 1 Details Recheck posterior and horizontal canals bilaterally Reps/Duration 20 min Comments All negative; pt education in possible return of BPPV in distant future, 30-50% cases relapse. PT-OP-T Assessment and Plan Start: 03/01/22 18:12 Freq: Status: Active Protocol: Document 03/30/22 10:05 AMB (Rec: 03/30/22 10:17 AMB [id number]) Physical Therapy Assessment Assessment Summary Assessment Pt negative to all positional testing, reports has had no dizziness or spinning since last visit, will continue with PT for pain/strength/balance, but vestibular should be fine , did educate pt that BPPV can return. Physical Therapy Plan Next Visit Focus/Plan Next Note Type Treatment Note Next Visit Plan Inquire manual/ self STM response after last tx. POC: cont to review exercises as needed and advance strength , mobility and balance
--- NOTE | 2022-04-04 16:03 | PT.OTN ---
Current Diagnoses Other chronic pain (04/04/22) Sacrococcygeal disorders, not elsewhere classified (04/04/22) Other abnormalities of gait and mobility (04/04/22) Physical Therapy Treatment Note PT-OP-A Visit Information Start: 03/01/22 18:12 Freq: Status: Active Protocol: Document 04/04/22 15:20 [facility] (Rec: 04/04/22 16:03 [facility] [id number]) Out-Patient Physical Therapy Visit Information Visit Information Visit Type Treatment Note Visit Start Time 15:20 Visit Stop Time 16:00 Total Visit Minutes 40 Visit Number 8 Number of MANAGER OF SECURITY Visits 0 PT-OP-B Current Condition Start: 03/01/22 18:12 Freq: Status: Active Protocol: Document 03/02/22 07:28 [facility] (Rec: 03/02/22 09:05 [facility] [id number]) Current Condition History of Current Condition Onset Date R LBP ~6-8 months (no injury), balance (7-8 years) Current Complaints balance, R SI pain History of Current Condition Pt reports R SI pain and today isn't too bad. Notes it normally hurts when she gets to her car after her walks. When its really bad, it can hurt to sit or move around, but she is still able to do what she needs to. Pt reports balance is an issue but is better the past 2 days as her condition changes. Denies recent falls. She has diagnosis of MS starting in 2009. She was drivign and got real lightheaded and they did a head CT at that time which showed a lot of spots and got the spinal tap and was diagonosised. She is followed by neurologist. Notes she does step to down steps and feels unstable going down curbs. She walks on flat paved trails and does not need AD. She used treking poles when doing forest land trails but mostly on flat trails. [place]. Pt does have osteopenia and notes neck pain and back pain. Pt reports neck has been pretty good lately. She notices it more w/sleeping. Pt did have a few days that she felt like she was going to fall back. Pt reports vertigo w/turning L in bed and cannot lay on L side or w/head turned L. Notes spinning and sometimes nausea. Prior Treatments and Tests PT prior for balance which was helpful Treatment Goals Patient/Caregiver Goals Get rid of R LB pain, have decent balacne, be able to go down stairs reciprocally w/o rail, be able to go down curb feeling comfortable PT-OP-C Subjective Start: 03/01/22 18:12 Freq: Status: Active Protocol: Document 04/04/22 15:20 [facility] (Rec: 04/04/22 16:03 [facility] [id number]) OP-PT Subjective Patient Comments Patient Comments Due to the smoke, pt reports she has not been doing as much outside so back is doing okay PT-OP-D Balance Start: 03/01/22 18:12 Freq: Status: Active Protocol: Document 03/02/22 07:28 [facility] (Rec: 03/02/22 09:05 [facility] [id number]) Balance Tests Single Limb Standing Single Limb- Right 1 sec Single Limb- Left 1 sec PT-OP-E Functional Tests Start: 03/01/22 18:12 Freq: Status: Active Protocol: Document 03/02/22 07:28 [facility] (Rec: 03/02/22 09:05 [facility] [id number]) Functional Tests 30 Second Sit to Stand Test Score 9 Comments pushes back of leg sinto chair Dynamic Gait Index (DGI) Score 15/24 Five Times Sit to Stand Test Score 15 sec Comments pushes back of leg sinto chair Functional Gait Assessment Score 11/30 PT-OP-F Manual Assessment Start: 03/01/22 18:12 Freq: Status: Active Protocol: Document 03/02/22 07:28 [facility] (Rec: 03/02/22 09:05 [facility] [id number]) Manual Assessments Soft Tissue Assessment Soft Tissue Mobility Assessment tightness R QL & ES PT-OP-G Mobility & Gait Start: 03/01/22 18:12 Freq: Status: Active Protocol: Document 03/02/22 07:28 [facility] (Rec: 03/02/22 10:10 [facility] [id number]) OP Mobility Evaluation Bed Mobility Rolling cannot roll L d/t getting dizzy OP Gait Assessment Comments Gait Comments Pt amb w/hard foot strike B w/ excessive transverse plane motion & arms slgithly to side for balance often Stair Climbing Evaluation Comments Stair Climbing Comments recip up w/rail, step to down w/rail PT-OP-J Posture/Palpation/Skin Start: 03/01/22 18:12 Freq: Status: Active Protocol: Document 03/02/22 07:28 [facility] (Rec: 03/02/22 10:26 [facility] [id number]) Posture Evaluation Comments Posture Comments R LE ER in standing, R iliac crest higher, equal greater trochanters PT-OP-K Range of Motion Start: 03/01/22 18:12 Freq: Status: Active Protocol: Document 03/02/22 07:28 [facility] (Rec: 03/02/22 09:05 [facility] [id number]) Lumbar Spine Range of Motion Lumbar Spine Active Flexion 80 Extension 80 Lateral Flexion Left 80 Lateral Flexion Right 50 Comments percentage PT-OP-M Strength Start: 03/01/22 18:12 Freq: Status: Active Protocol: Document 03/02/22 07:28 [facility] (Rec: 03/02/22 09:05 [facility] [id number]) Hip Strength Hip Manual Muscle Testing Right Flexion (L2) 4- Good- Extension (S1) 3+ Fair+ Adduction 4- Good- External Rotation 4 Good Internal Rotation 4 Good Comments cannot lay on L side Left Flexion (L2) 3+ Fair+ Extension (S1) 3+ Fair+ External Rotation 4 Good Internal Rotation 4 Good Knee Strength Knee Manual Muscle Testing Right Flexion (S2) 5 Normal Extension (L3) 4 Good Left Flexion (S2) 5 Normal Extension (L3) 4 Good Ankle/Foot Strength Ankle and Foot Manual Muscle Testing Right Dorsiflexion (L4) 4 Good Left Dorsiflexion (L4) 4 Good PT-OP-Q Treatments Start: 03/01/22 18:12 Freq: Status: Active Protocol: Document 04/04/22 15:20 [facility] (Rec: 04/04/22 16:03 [facility] [id number]) Gym Equipment Shuttle Balance blue clips Details EC WBOS & NBOS Comments fwd: WBOS, NBOS, staggered stance B side: WBOS & NBOS Therapeutic Ball seated Ball Size/Color 65fm Body Position seated Comments 1. attempted tilts and circles but painful 2. seated marches w/cues for posture x12 3. seated sit backs x12 Therapeutic Exercises Sitting Exercises QL stretch Sitting Exercise Name handout given Side bilateral Reps/Minutes 30 Comments wt shift L, LUE WB on L leg- good stretch R LB Standing Exercises resisted walk Side bilateral Equipment Used lvl 1 Reps/Minutes 20ft squats Standing Exercise Name cues for knee and hip position Side bilateral Reps/Minutes 15 Comments over chair mini sidesteps Side bilateral Equipment Used lvl 1 Reps/Minutes 20ft Neuro Re-Education Treatment Balance Activities carioca Reps/Duration 20ft B EC Details fwd/back walk Reps/Duration 20ft foam Details head turns Equipment blue foam Comments WBOs, NBOS, staggered stance B tilt board Details fwd/back & side/side wt shifts tandem Details fwd walk Reps/Duration 20ft PT-OP-T Assessment and Plan Start: 03/01/22 18:12 Freq: Status: Active Protocol: Document 04/04/22 15:20 [facility] (Rec: 04/04/22 16:03 [facility] [id number]) Physical Therapy Assessment Goals balance Impairment DGI:15 FGA: 11 Short Term Goal (STG) Pt will imrpove score for DGI to to show dec risk for falls STG Duration 05/02/22 Burr Picker Goal (LTG) Pt will imrpove score for FGA to to show dec risk for falls LTG Duration 06/02/22 pain [facility] Goal (LTG) Pt will report LBP no more than 1-2/10 and no more often than 3x/week LTG Duration 06/02/22 sit to stand [facility] Goal (LTG) Pt will improve 30 sec sit to stand to at least 11 to show dec risk for falls LTG Duration 06/02 strength Short Term Goal (STG) Pt will be consistantly performing HEP for balacnea nd strengthening STG Duration 04/22/22 Burr Picker Goal (LTG) Pt will score at least 4+/5 on MMT of LEs and at least 3/5 on LPM to show improved stability in order to improve pt's ability to perform tasks safely in community. LTG Duration 06/02/22 steps Short Term Goal (STG) Pt will be able to step down a curb feeling safe w/o LOB. STG Duration 04/12/22 [facility]iary Goal (LTG) Pt will be able to go reciprocally up/down stairs w/ o rail. Assessment Summary Assessment Pt did well with balance activities today showing improved stability overall likely d/t improvement from BPPV treatment. Physical Therapy Plan Frequency and Duration Frequency of Treatment 1-2x/week Duration of Treatment 3 months Plan of Care Start Date 03/02/22 Plan of Care End Date 06/02/22 Next Visit Focus/Plan Next Note Type Treatment Note Next Visit Plan Inquire manual/ self STM response after last tx. POC: cont to review exercises as needed and advance strength , mobility and balance
--- NOTE | 2022-04-06 16:05 | PT.OTN ---
Current Diagnoses Other chronic pain (04/06/22) Sacrococcygeal disorders, not elsewhere classified (04/06/22) Other abnormalities of gait and mobility (04/06/22) Physical Therapy Treatment Note PT-OP-A Visit Information Start: 03/01/22 18:12 Freq: Status: Active Protocol: Document 04/06/22 15:45 [facility] (Rec: 04/06/22 16:05 [facility] [id number]) Out-Patient Physical Therapy Visit Information Visit Information Visit Type Treatment Note Visit Start Time 15:23 Visit Stop Time 16:03 Total Visit Minutes 40 Visit Number 9 Number of JOB SPECIFICATION WRITER Visits 0 PT-OP-B Current Condition Start: 03/01/22 18:12 Freq: Status: Active Protocol: Document 03/02/22 07:28 [facility] (Rec: 03/02/22 09:05 [facility] [id number]) Current Condition History of Current Condition Onset Date R LBP ~6-8 months (no injury), balance (7-8 years) Current Complaints balance, R SI pain History of Current Condition Pt reports R SI pain and today isn't too bad. Notes it normally hurts when she gets to her car after her walks. When its really bad, it can hurt to sit or move around, but she is still able to do what she needs to. Pt reports balance is an issue but is better the past 2 days as her condition changes. Denies recent falls. She has diagnosis of MS starting in 2009. She was drivign and got real lightheaded and they did a head CT at that time which showed a lot of spots and got the spinal tap and was diagonosised. She is followed by neurologist. Notes she does step to down steps and feels unstable going down curbs. She walks on flat paved trails and does not need AD. She used treking poles when doing forest land trails but mostly on flat trails. [place]. Pt does have osteopenia and notes neck pain and back pain. Pt reports neck has been pretty good lately. She notices it more w/sleeping. Pt did have a few days that she felt like she was going to fall back. Pt reports vertigo w/turning L in bed and cannot lay on L side or w/head turned L. Notes spinning and sometimes nausea. Prior Treatments and Tests PT prior for balance which was helpful Treatment Goals Patient/Caregiver Goals Get rid of R LB pain, have decent balacne, be able to go down stairs reciprocally w/o rail, be able to go down curb feeling comfortable PT-OP-C Subjective Start: 03/01/22 18:12 Freq: Status: Active Protocol: Document 04/06/22 15:45 [facility] (Rec: 04/06/22 16:05 [facility] [id number]) OP-PT Subjective Patient Comments Patient Comments Pt reports back feeling pretty good PT-OP-D Balance Start: 03/01/22 18:12 Freq: Status: Active Protocol: Document 03/02/22 07:28 [facility] (Rec: 03/02/22 09:05 [facility] [id number]) Balance Tests Single Limb Standing Single Limb- Right 1 sec Single Limb- Left 1 sec PT-OP-E Functional Tests Start: 03/01/22 18:12 Freq: Status: Active Protocol: Document 03/02/22 07:28 [facility] (Rec: 03/02/22 09:05 [facility] [id number]) Functional Tests 30 Second Sit to Stand Test Score 9 Comments pushes back of leg sinto chair Dynamic Gait Index (DGI) Score 15/24 Five Times Sit to Stand Test Score 15 sec Comments pushes back of leg sinto chair Functional Gait Assessment Score 11/30 PT-OP-F Manual Assessment Start: 03/01/22 18:12 Freq: Status: Active Protocol: Document 03/02/22 07:28 [facility] (Rec: 03/02/22 09:05 [facility] [id number]) Manual Assessments Soft Tissue Assessment Soft Tissue Mobility Assessment tightness R QL & ES PT-OP-G Mobility & Gait Start: 03/01/22 18:12 Freq: Status: Active Protocol: Document 03/02/22 07:28 [facility] (Rec: 03/02/22 10:10 [facility] [id number]) OP Mobility Evaluation Bed Mobility Rolling cannot roll L d/t getting dizzy OP Gait Assessment Comments Gait Comments Pt amb w/hard foot strike B w/ excessive transverse plane motion & arms slgithly to side for balance often Stair Climbing Evaluation Comments Stair Climbing Comments recip up w/rail, step to down w/rail PT-OP-J Posture/Palpation/Skin Start: 03/01/22 18:12 Freq: Status: Active Protocol: Document 03/02/22 07:28 [facility] (Rec: 03/02/22 10:26 [facility] [id number]) Posture Evaluation Comments Posture Comments R LE ER in standing, R iliac crest higher, equal greater trochanters PT-OP-K Range of Motion Start: 03/01/22 18:12 Freq: Status: Active Protocol: Document 03/02/22 07:28 [facility] (Rec: 03/02/22 09:05 [facility] [id number]) Lumbar Spine Range of Motion Lumbar Spine Active Flexion 80 Extension 80 Lateral Flexion Left 80 Lateral Flexion Right 50 Comments percentage PT-OP-M Strength Start: 03/01/22 18:12 Freq: Status: Active Protocol: Document 03/02/22 07:28 [facility] (Rec: 03/02/22 09:05 [facility] [id number]) Hip Strength Hip Manual Muscle Testing Right Flexion (L2) 4- Good- Extension (S1) 3+ Fair+ Adduction 4- Good- External Rotation 4 Good Internal Rotation 4 Good Comments cannot lay on L side Left Flexion (L2) 3+ Fair+ Extension (S1) 3+ Fair+ External Rotation 4 Good Internal Rotation 4 Good Knee Strength Knee Manual Muscle Testing Right Flexion (S2) 5 Normal Extension (L3) 4 Good Left Flexion (S2) 5 Normal Extension (L3) 4 Good Ankle/Foot Strength Ankle and Foot Manual Muscle Testing Right Dorsiflexion (L4) 4 Good Left Dorsiflexion (L4) 4 Good PT-OP-Q Treatments Start: 03/01/22 18:12 Freq: Status: Active Protocol: Document 04/06/22 15:45 [facility] (Rec: 04/06/22 16:05 [facility] [id number]) Gym Equipment Shuttle Balance blue clips Details head turns WBOS & NBOS Comments fwd: WBOS, NBOS, staggered stance B side: WBOS & NBOS Neuro Re-Education Treatment Balance Activities SLS Details toe taps B 12 in step hrdles Equipment 6 hurdles Comments fwd recip x8 sidestepx2 B bosu Details blue side Comments 1.balance 2.mini squat w/1 finger B 3. marches B carioca Reps/Duration 20ft B EC Details fwd/back walk Reps/Duration 50ft foam Details EC Equipment blue foam Comments WBOs, NBOS, staggered stance B tilt board Details fwd/back & side/side wt shifts tandem Details fwd walk Reps/Duration 20ft PT-OP-T Assessment and Plan Start: 03/01/22 18:12 Freq: Status: Active Protocol: Document 04/06/22 15:45 [facility] (Rec: 04/06/22 16:05 [facility] [id number]) Physical Therapy Assessment Assessment Summary Assessment Pt did better with balance activities today including balance baord but is still challenged by uneven surfaces and eyes closed activities. no c/o back pain Physical Therapy Plan Next Visit Focus/Plan Next Note Type Progress Note Next Visit Plan kris lugo
--- NOTE | 2022-04-12 13:50 | PT.OTN ---
Current Diagnoses Other chronic pain (04/12/22) Sacrococcygeal disorders, not elsewhere classified (04/12/22) Other abnormalities of gait and mobility (04/12/22) Physical Therapy Treatment Note PT-OP-A Visit Information Start: 03/01/22 18:12 Freq: Status: Active Protocol: Document 04/12/22 13:01 [facility] (Rec: 04/12/22 13:49 [facility] [id number]) Out-Patient Physical Therapy Visit Information Visit Information Visit Type Progress Note Visit Note 08/02 Visit Start Time 13:02 Visit Stop Time 13:55 Total Visit Minutes 53 Visit Number 10 Number of MALL PLANT CARETAKER Visits 0 PT-OP-B Current Condition Start: 03/01/22 18:12 Freq: Status: Active Protocol: Document 03/02/22 07:28 [facility] (Rec: 03/02/22 09:05 [facility] [id number]) Current Condition History of Current Condition Onset Date R LBP ~6-8 months (no injury), balance (7-8 years) Current Complaints balance, R SI pain History of Current Condition Pt reports R SI pain and today isn't too bad. Notes it normally hurts when she gets to her car after her walks. When its really bad, it can hurt to sit or move around, but she is still able to do what she needs to. Pt reports balance is an issue but is better the past 2 days as her condition changes. Denies recent falls. She has diagnosis of MS starting in 2009. She was drivign and got real lightheaded and they did a head CT at that time which showed a lot of spots and got the spinal tap and was diagonosised. She is followed by neurologist. Notes she does step to down steps and feels unstable going down curbs. She walks on flat paved trails and does not need AD. She used treking poles when doing forest land trails but mostly on flat trails. [place]. Pt does have osteopenia and notes neck pain and back pain. Pt reports neck has been pretty good lately. She notices it more w/sleeping. Pt did have a few days that she felt like she was going to fall back. Pt reports vertigo w/turning L in bed and cannot lay on L side or w/head turned L. Notes spinning and sometimes nausea. Prior Treatments and Tests PT prior for balance which was helpful Treatment Goals Patient/Caregiver Goals Get rid of R LB pain, have decent balacne, be able to go down stairs reciprocally w/o rail, be able to go down curb feeling comfortable PT-OP-C Subjective Start: 03/01/22 18:12 Freq: Status: Active Protocol: Document 04/12/22 13:01 [facility] (Rec: 04/12/22 13:49 [facility] [id number]) OP-PT Subjective Patient Comments Patient Comments Back hasn't been bothering her Patient Reported Progress Improving PT-OP-D Balance Start: 03/01/22 18:12 Freq: Status: Active Protocol: Document 03/02/22 07:28 [facility] (Rec: 03/02/22 09:05 [facility] [id number]) Balance Tests Single Limb Standing Single Limb- Right 1 sec Single Limb- Left 1 sec PT-OP-E Functional Tests Start: 03/01/22 18:12 Freq: Status: Active Protocol: Document 04/12/22 13:01 [facility] (Rec: 04/12/22 13:49 [facility] [id number]) Functional Tests 30 Second Sit to Stand Test Score 14 Dynamic Gait Index (DGI) Score 24 Five Times Sit to Stand Test Score 10 sec Functional Gait Assessment Score 30 PT-OP-F Manual Assessment Start: 03/01/22 18:12 Freq: Status: Active Protocol: Document 03/02/22 07:28 [facility] (Rec: 03/02/22 09:05 [facility] [id number]) Manual Assessments Soft Tissue Assessment Soft Tissue Mobility Assessment tightness R QL & ES PT-OP-G Mobility & Gait Start: 03/01/22 18:12 Freq: Status: Active Protocol: Document 03/02/22 07:28 [facility] (Rec: 03/02/22 10:10 [facility] [id number]) OP Mobility Evaluation Bed Mobility Rolling cannot roll L d/t getting dizzy OP Gait Assessment Comments Gait Comments Pt amb w/hard foot strike B w/ excessive transverse plane motion & arms slgithly to side for balance often Stair Climbing Evaluation Comments Stair Climbing Comments recip up w/rail, step to down w/rail PT-OP-J Posture/Palpation/Skin Start: 03/01/22 18:12 Freq: Status: Active Protocol: Document 04/12/22 13:01 [facility] (Rec: 04/12/22 13:49 [facility] [id number]) Posture Evaluation [facility] Postural Classification System Lumbar Protective Mechanism Left AP 0 Lumbar Protective Mechanism Right AP 1 Lumbar Protective Mechanism Left PA 1 Lumbar Protective Mechanism Right PA 0 PT-OP-K Range of Motion Start: 03/01/22 18:12 Freq: Status: Active Protocol: Document 03/02/22 07:28 [facility] (Rec: 03/02/22 09:05 [facility] [id number]) Lumbar Spine Range of Motion Lumbar Spine Active Flexion 80 Extension 80 Lateral Flexion Left 80 Lateral Flexion Right 50 Comments percentage PT-OP-M Strength Start: 03/01/22 18:12 Freq: Status: Active Protocol: Document 04/12/22 13:01 [facility] (Rec: 04/12/22 13:49 [facility] [id number]) Hip Strength Hip Manual Muscle Testing Right Flexion (L2) 4 Good Extension (S1) 3+ Fair+ Adduction 4+ Good+ External Rotation 4 Good Internal Rotation 5 Normal Left Flexion (L2) 4- Good- Extension (S1) 4 Good Abduction 4 Good External Rotation 4 Good Internal Rotation 4+ Good+ Comments pt too concerned to lay on L side Knee Strength Knee Manual Muscle Testing Right Flexion (S2) 5 Normal Extension (L3) 4+ Good+ Left Flexion (S2) 5 Normal Extension (L3) 4 Good Ankle/Foot Strength Ankle and Foot Manual Muscle Testing Right Dorsiflexion (L4) 5 Normal Plantarflexion (S1) 5 Normal Left Dorsiflexion (L4) 5 Normal Plantarflexion (S1) 5 Normal Comments PF tested seated PT-OP-Q Treatments Start: 03/01/22 18:12 Freq: Status: Active Protocol: Document 04/12/22 13:01 [facility] (Rec: 04/12/22 13:49 [facility] [id number]) Therapeutic Exercises Supine Exercises stretch Supine Exercise Name 1. active HS stretch 2. figure 4 3.piriformis Side right Reps/Minutes 1. 15 2. 30 sec 3. 30 sec Sitting Exercises QL stretch Sitting Exercise Name started but stopped d/t pain piriformis stretch Side right Reps/Minutes 30 sec Comments good feedback stretch Standing Exercises stretch Standing Exercise Name radha pose at counter Side bilateral Reps/Minutes 30 sec step down Standing Exercise Name 1 finger hold Side bilateral Equipment Used 4 in Reps/Minutes 10 ea step up Side bilateral Equipment Used 6 in step no rail Reps/Minutes 10 ea squats Standing Exercise Name cues for knee and hip position Side bilateral Reps/Minutes 15 Comments over chair mini PT-OP-R Modalities Start: 03/01/22 18:12 Freq: Status: Active Protocol: Document 04/12/22 13:01 [facility] (Rec: 04/12/22 13:50 [facility] [id number]) Hot Pack/Cold Pack Treatment Cold Pack Location LB Patient Position Hooklying Treatment Duration (minutes) 10 PT-OP-T Assessment and Plan Start: 03/01/22 18:12 Freq: Status: Active Protocol: Document 04/12/22 13:01 [facility] (Rec: 04/12/22 13:49 [facility] [id number]) Physical Therapy Assessment Goals balance Impairment DGI:15 FGA: 11 Short Term Goal (STG) Pt will imrpove score for DGI to to show dec risk for falls STG Duration achieved to Prison Goal (LTG) Pt will imrpove score for FGA to to show dec risk for falls 04/12- LTG Duration 06/02/22 pain Prison Goal (LTG) Pt will report LBP no more than 1-2/10 and no more often than 3x/week 04/12-09/02 about 1 time a week for past 1 week LTG Duration 06/02 sit to stand Prison Goal (LTG) Pt will improve 30 sec sit to stand to at least 11 to show dec risk for falls LTG Duration achieved 04/12 to 14 strength Short Term Goal (STG) Pt will be consistantly performing HEP for balacnea nd strengthening 04/12-doing them about 3-4 days a week STG Duration 04/23 Prison Goal (LTG) Pt will score at least 4+/5 on MMT of LEs and at least 3/5 on LPM to show improved stability in order to improve pt's ability to perform tasks safely in community. 04/12-improved LTG Duration 06/02/22 steps Short Term Goal (STG) Pt will be able to step down a curb feeling safe w/o LOB. 04/12 still feels off balance STG Duration 04/12/22 Senior Production Supervisor Goal (LTG) Pt will be able to go reciprocally up/down stairs w/ o rail. 04/12-can recip w/rail in clinic-does step to down at home LTG Duration 06/02 Assessment Summary Assessment Pt showed good progress with pain, balance and stability. with improvement of BPPV and work on stenght and balance. She did have back pain start after doing squats today and required cues for no back movement during squat. Physical Therapy Plan Frequency and Duration Frequency of Treatment 1-2x/week Duration of Treatment 3 months Plan of Care Start Date 03/02/22 Plan of Care End Date 06/02/22 Next Visit Focus/Plan Next Note Type Treatment Note Next Visit Plan advance balance& core stability
--- NOTE | 2022-04-22 09:30 | PT-IP ANOTE ---
No show-- called and left voicemail with date time of next appointment.
--- NOTE | 2022-04-25 08:12 | PT.OTN ---
Current Diagnoses Other chronic pain (04/25/22) Sacrococcygeal disorders, not elsewhere classified (04/25/22) Other abnormalities of gait and mobility (04/25/22) Physical Therapy Treatment Note PT-OP-A Visit Information Start: 03/01/22 18:12 Freq: Status: Active Protocol: Document 04/25/22 07:29 [facility] (Rec: 04/25/22 08:03 [facility] [id number]) Out-Patient Physical Therapy Visit Information Visit Information Visit Type Treatment Note Visit Note 09/02 Visit Start Time 07:30 Visit Stop Time 08:15 Total Visit Minutes 45 Visit Number 11 PT-OP-B Current Condition Start: 03/01/22 18:12 Freq: Status: Active Protocol: Document 03/02/22 07:28 [facility] (Rec: 03/02/22 09:05 [facility] [id number]) Current Condition History of Current Condition Onset Date R LBP ~6-8 months (no injury), balance (7-8 years) Current Complaints balance, R SI pain History of Current Condition Pt reports R SI pain and today isn't too bad. Notes it normally hurts when she gets to her car after her walks. When its really bad, it can hurt to sit or move around, but she is still able to do what she needs to. Pt reports balance is an issue but is better the past 2 days as her condition changes. Denies recent falls. She has diagnosis of MS starting in 2009. She was drivign and got real lightheaded and they did a head CT at that time which showed a lot of spots and got the spinal tap and was diagonosised. She is followed by neurologist. Notes she does step to down steps and feels unstable going down curbs. She walks on flat paved trails and does not need AD. She used treking poles when doing forest land trails but mostly on flat trails. [place]. Pt does have osteopenia and notes neck pain and back pain. Pt reports neck has been pretty good lately. She notices it more w/sleeping. Pt did have a few days that she felt like she was going to fall back. Pt reports vertigo w/turning L in bed and cannot lay on L side or w/head turned L. Notes spinning and sometimes nausea. Prior Treatments and Tests PT prior for balance which was helpful Treatment Goals Patient/Caregiver Goals Get rid of R LB pain, have decent balacne, be able to go down stairs reciprocally w/o rail, be able to go down curb feeling comfortable PT-OP-C Subjective Start: 03/01/22 18:12 Freq: Status: Active Protocol: Document 04/25/22 07:29 [facility] (Rec: 04/25/22 08:03 AMB [id number]) OP-PT Subjective Patient Comments Patient Comments Back has been bothering her since last PT session, blames the squats, hasn't been doing exercises because she's been letting it rest. Has been flared up with movement walking etc. PT-OP-D Balance Start: 03/01/22 18:12 Freq: Status: Active Protocol: Document 03/02/22 07:28 [facility] (Rec: 03/02/22 09:05 [facility] [id number]) Balance Tests Single Limb Standing Single Limb- Right 1 sec Single Limb- Left 1 sec PT-OP-E Functional Tests Start: 03/01/22 18:12 Freq: Status: Active Protocol: Document 04/12/22 13:01 [facility] (Rec: 04/12/22 13:49 [facility] [id number]) Functional Tests 30 Second Sit to Stand Test Score 14 Dynamic Gait Index (DGI) Score 24 Five Times Sit to Stand Test Score 10 sec Functional Gait Assessment Score 1830 PT-OP-F Manual Assessment Start: 03/01/22 18:12 Freq: Status: Active Protocol: Document 03/02/22 07:28 [facility] (Rec: 03/02/22 09:05 [facility] [id number]) Manual Assessments Soft Tissue Assessment Soft Tissue Mobility Assessment tightness R QL & ES PT-OP-G Mobility & Gait Start: 03/01/22 18:12 Freq: Status: Active Protocol: Document 03/02/22 07:28 [facility] (Rec: 03/02/22 10:10 [facility] [id number]) OP Mobility Evaluation Bed Mobility Rolling cannot roll L d/t getting dizzy OP Gait Assessment Comments Gait Comments Pt amb w/hard foot strike B w/ excessive transverse plane motion & arms slgithly to side for balance often Stair Climbing Evaluation Comments Stair Climbing Comments recip up w/rail, step to down w/rail PT-OP-J Posture/Palpation/Skin Start: 03/01/22 18:12 Freq: Status: Active Protocol: Document 04/12/22 13:01 [facility] (Rec: 04/12/22 13:49 [facility] [id number]) Posture Evaluation [facility] Postural Classification System Lumbar Protective Mechanism Left AP 0 Lumbar Protective Mechanism Right AP 1 Lumbar Protective Mechanism Left PA 1 Lumbar Protective Mechanism Right PA 0 PT-OP-K Range of Motion Start: 03/01/22 18:12 Freq: Status: Active Protocol: Document 03/02/22 07:28 [facility] (Rec: 03/02/22 09:05 [facility] [id number]) Lumbar Spine Range of Motion Lumbar Spine Active Flexion 80 Extension 80 Lateral Flexion Left 80 Lateral Flexion Right 50 Comments percentage PT-OP-M Strength Start: 03/01/22 18:12 Freq: Status: Active Protocol: Document 04/12/22 13:01 [facility] (Rec: 04/12/22 13:49 [facility] [id number]) Hip Strength Hip Manual Muscle Testing Right Flexion (L2) 4 Good Extension (S1) 3+ Fair+ Adduction 4+ Good+ External Rotation 4 Good Internal Rotation 5 Normal Left Flexion (L2) 4- Good- Extension (S1) 4 Good Abduction 4 Good External Rotation 4 Good Internal Rotation 4+ Good+ Comments pt too concerned to lay on L side Knee Strength Knee Manual Muscle Testing Right Flexion (S2) 5 Normal Extension (L3) 4+ Good+ Left Flexion (S2) 5 Normal Extension (L3) 4 Good Ankle/Foot Strength Ankle and Foot Manual Muscle Testing Right Dorsiflexion (L4) 5 Normal Plantarflexion (S1) 5 Normal Left Dorsiflexion (L4) 5 Normal Plantarflexion (S1) 5 Normal Comments PF tested seated PT-OP-Q Treatments Start: 03/01/22 18:12 Freq: Status: Active Protocol: Document 04/25/22 07:29 AM[facility] (Rec: 04/25/22 08:03 AMB [id number]) Therapeutic Exercises Sidelying Exercises clamshell Side right Reps/Minutes 2x10 Comments some dizziness with L sidelying Standing Exercises standing hamstring stretch Reps/Minutes 30x2 stretch Standing Exercise Name radha pose at counter Side bilateral Reps/Minutes 30 sec sidesteps Side bilateral Equipment Used lvl 2 Reps/Minutes 20ft Neuro Re-Education Treatment Other Activities Alex Szymanski Details 2 Comments due to pt still having uncomfortable feeling in sidelying but not full vertigo , no nystagmus seen PT-OP-R Modalities Start: 03/01/22 18:12 Freq: Status: Active Protocol: Document 04/12/22 13:01 [facility] (Rec: 04/12/22 13:50 [facility] [id number]) Hot Pack/Cold Pack Treatment Cold Pack Location LB Patient Position Hooklying Treatment Duration (minutes) 10 PT-OP-T Assessment and Plan Start: 03/01/22 18:12 Freq: Status: Active Protocol: Document 04/25/22 07:29 [facility] (Rec: 04/25/22 08:03 AMB [id number]) Physical Therapy Assessment Goals balance Impairment DGI:15 FGA: 11 Short Term Goal (STG) Pt will imrpove score for DGI to to show dec risk for falls STG Duration achieved to Prison Goal (LTG) Pt will imrpove score for FGA to to show dec risk for falls 04/12- LTG Duration 06/02/22 pain Prison Goal (LTG) Pt will report LBP no more than 1-210 and no more often than 3x/week 04/12-09/02 about 1 time a week for past 1 week LTG Duration 06/02 sit to stand Outgoing Inspector Goal (LTG) Pt will improve 30 sec sit to stand to at least 11 to show dec risk for falls LTG Duration achieved 04/12 to 14 strength Short Term Goal (STG) Pt will be consistantly performing HEP for balacnea nd strengthening 04/12-doing them about 3-4 days a week STG Duration 04/23 Outgoing Inspector Goal (LTG) Pt will score at least 4+/5 on MMT of LEs and at least 3/5 on LPM to show improved stability in order to improve pt's ability to perform tasks safely in community. 04/12-improved LTG Duration 06/02/22 steps Short Term Goal (STG) Pt will be able to step down a curb feeling safe w/o LOB. 04/12 still feels off balance STG Duration 04/12/22 Outgoing Inspector Goal (LTG) Pt will be able to go reciprocally up/down stairs w/ o rail. 04/12-can recip w/rail in clinic-does step to down at home LTG Duration 06/02 Assessment Summary Assessment R hip abductor fatigued quickly with exercises. Pt states willing to do standing hamstring and sit to stand at home, but not interested in squats due to increase in pain . Physical Therapy Plan Next Visit Focus/Plan Next Note Type Treatment Note Next Visit Plan advance balance& core stability
--- NOTE | 2022-04-27 09:48 | PT.OTN ---
Current Diagnoses Other chronic pain (04/27/22) Sacrococcygeal disorders, not elsewhere classified (04/27/22) Other abnormalities of gait and mobility (04/27/22) Physical Therapy Treatment Note PT-OP-A Visit Information Start: 03/01/22 18:12 Freq: Status: Active Protocol: Document 04/27/22 08:57 AMB (Rec: 04/27/22 09:37 AMB [id number]) Out-Patient Physical Therapy Visit Information Visit Information Visit Type Treatment Note Visit Note 09/02 Visit Start Time 09:00 Visit Stop Time 09:45 Total Visit Minutes 45 Visit Number 12 PT-OP-B Current Condition Start: 03/01/22 18:12 Freq: Status: Active Protocol: Document 03/02/22 07:28 LR (Rec: 03/02/22 09:05 LR [id number]) Current Condition History of Current Condition Onset Date R LBP ~6-8 months (no injury), balance (7-8 years) Current Complaints balance, R SI pain History of Current Condition Pt reports R SI pain and today isn't too bad. Notes it normally hurts when she gets to her car after her walks. When its really bad, it can hurt to sit or move around, but she is still able to do what she needs to. Pt reports balance is an issue but is better the past 2 days as her condition changes. Denies recent falls. She has diagnosis of MS starting in 2009. She was drivign and got real lightheaded and they did a head CT at that time which showed a lot of spots and got the spinal tap and was diagonosised. She is followed by neurologist. Notes she does step to down steps and feels unstable going down curbs. She walks on flat paved trails and does not need AD. She used treking poles when doing forest land trails but mostly on flat trails. [place]. Pt does have osteopenia and notes neck pain and back pain. Pt reports neck has been pretty good lately. She notices it more w/sleeping. Pt did have a few days that she felt like she was going to fall back. Pt reports vertigo w/turning L in bed and cannot lay on L side or w/head turned L. Notes spinning and sometimes nausea. Prior Treatments and Tests PT prior for balance which was helpful Treatment Goals Patient/Caregiver Goals Get rid of R LB pain, have decent balacne, be able to go down stairs reciprocally w/o rail, be able to go down curb feeling comfortable PT-OP-C Subjective Start: 03/01/22 18:12 Freq: Status: Active Protocol: Document 04/27/22 08:57 AMB (Rec: 04/27/22 09:37 AMB [id number]) OP-PT Subjective Patient Comments Patient Comments Low back continues to be a little sore from squats, but getting better, has been working on sit to stands at home and that doesn't seem to be bothersome. PT-OP-D Balance Start: 03/01/22 18:12 Freq: Status: Active Protocol: Document 03/02/22 07:28 [facility] (Rec: 03/02/22 09:05 [facility] [id number]) Balance Tests Single Limb Standing Single Limb- Right 1 sec Single Limb- Left 1 sec PT-OP-E Functional Tests Start: 03/01/22 18:12 Freq: Status: Active Protocol: Document 04/12/22 13:01 [facility] (Rec: 04/12/22 13:49 [facility] [id number]) Functional Tests 30 Second Sit to Stand Test Score 14 Dynamic Gait Index (DGI) Score 20/24 Five Times Sit to Stand Test Score 10 sec Functional Gait Assessment Score 18/30 PT-OP-F Manual Assessment Start: 03/01/22 18:12 Freq: Status: Active Protocol: Document 03/02/22 07:28 [facility] (Rec: 03/02/22 09:05 [facility] [id number]) Manual Assessments Soft Tissue Assessment Soft Tissue Mobility Assessment tightness R QL & ES PT-OP-G Mobility & Gait Start: 03/01/22 18:12 Freq: Status: Active Protocol: Document 03/02/22 07:28 [facility] (Rec: 03/02/22 10:10 [facility] [id number]) OP Mobility Evaluation Bed Mobility Rolling cannot roll L d/t getting dizzy OP Gait Assessment Comments Gait Comments Pt amb w/hard foot strike B w/ excessive transverse plane motion & arms slgithly to side for balance often Stair Climbing Evaluation Comments Stair Climbing Comments recip up w/rail, step to down w/rail PT-OP-J Posture/Palpation/Skin Start: 03/01/22 18:12 Freq: Status: Active Protocol: Document 04/12/22 13:01 [facility] (Rec: 04/12/22 13:49 [facility] [id number]) Posture Evaluation [facility] Postural Classification System Lumbar Protective Mechanism Left AP 0 Lumbar Protective Mechanism Right AP 1 Lumbar Protective Mechanism Left PA 1 Lumbar Protective Mechanism Right PA 0 PT-OP-K Range of Motion Start: 03/01/22 18:12 Freq: Status: Active Protocol: Document 03/02/22 07:28 [facility] (Rec: 03/02/22 09:05 [facility] [id number]) Lumbar Spine Range of Motion Lumbar Spine Active Flexion 80 Extension 80 Lateral Flexion Left 80 Lateral Flexion Right 50 Comments percentage PT-OP-M Strength Start: 03/01/22 18:12 Freq: Status: Active Protocol: Document 04/12/22 13:01 [facility] (Rec: 04/12/22 13:49 [facility] [id number]) Hip Strength Hip Manual Muscle Testing Right Flexion (L2) 4 Good Extension (S1) 3+ Fair+ Adduction 4+ Good+ External Rotation 4 Good Internal Rotation 5 Normal Left Flexion (L2) 4- Good- Extension (S1) 4 Good Abduction 4 Good External Rotation 4 Good Internal Rotation 4+ Good+ Comments pt too concerned to lay on L side Knee Strength Knee Manual Muscle Testing Right Flexion (S2) 5 Normal Extension (L3) 4+ Good+ Left Flexion (S2) 5 Normal Extension (L3) 4 Good Ankle/Foot Strength Ankle and Foot Manual Muscle Testing Right Dorsiflexion (L4) 5 Normal Plantarflexion (S1) 5 Normal Left Dorsiflexion (L4) 5 Normal Plantarflexion (S1) 5 Normal Comments PF tested seated PT-OP-Q Treatments Start: 03/01/22 18:12 Freq: Status: Active Protocol: Document 04/27/22 08:57 AMB (Rec: 04/27/22 09:37 AMB [id number]) Gym Equipment Shuttle Balance blue clips Details head turns WBOS & NBOS Comments fwd: WBOS, NBOS, staggered stance B side: WBOS & NBOS Therapeutic Exercises Supine Exercises bridge Supine Exercise Name bridge Side bilateral Reps/Minutes 2x10 Standing Exercises standing hamstring stretch Reps/Minutes 30x2 step down Side bilateral Equipment Used 4 in Reps/Minutes 10 ea step up Side bilateral Equipment Used 6 in step light rail Reps/Minutes 10 ea sidesteps Side bilateral Equipment Used lvl 2 Reps/Minutes 20ft PT-OP-R Modalities Start: 03/01/22 18:12 Freq: Status: Active Protocol: Document 04/12/22 13:01 LR (Rec: 04/12/22 13:50 [facility] [id number]) Hot Pack/Cold Pack Treatment Cold Pack Location LB Patient Position Hooklying Treatment Duration (minutes) 10 PT-OP-T Assessment and Plan Start: 03/01/22 18:12 Freq: Status: Active Protocol: Document 04/27/22 08:57 AMB (Rec: 04/27/22 09:37 AMB [id number]) Physical Therapy Assessment Goals balance Impairment DGI:15 FGA: 11 Short Term Goal (STG) Pt will imrpove score for DGI to to show dec risk for falls STG Duration achieved to [facility] Goal (LTG) Pt will imrpove score for FGA to to show dec risk for falls 04/12- LTG Duration 06/02/22 pain Lineworker Goal (LTG) Pt will report LBP no more than 1-210 and no more often than 3x/week 04/12-09/02 about 1 time a week for past 1 week LTG Duration 06/02 sit to stand [facility] Goal (LTG) Pt will improve 30 sec sit to stand to at least 11 to show dec risk for falls LTG Duration achieved 04/12 to 14 strength Short Term Goal (STG) Pt will be consistantly performing HEP for balacnea nd strengthening 04/12-doing them about 3-4 days a week STG Duration 04/23 [facility] Goal (LTG) Pt will score at least 4+/5 on MMT of LEs and at least 3/5 on LPM to show improved stability in order to improve pt's ability to perform tasks safely in community. 04/12-improved LTG Duration 06/02/22 steps Short Term Goal (STG) Pt will be able to step down a curb feeling safe w/o LOB. 04/12 still feels off balance STG Duration 04/12/22 Lineworker Goal (LTG) Pt will be able to go reciprocally up/down stairs w/ o rail. 04/12-can recip w/rail in clinic-does step to down at home LTG Duration 06/02 Assessment Summary Assessment Pt doing well after flare of low back pain, descending stairs without railing remains challenging, hilario when controlling descent with R LE. Physical Therapy Plan Next Visit Focus/Plan Next Note Type Treatment Note Next Visit Plan advance balance& core stability
--- NOTE | 2022-05-03 10:41 | PT.OTN ---
Current Diagnoses Other chronic pain (05/03/22) Sacrococcygeal disorders, not elsewhere classified (05/03/22) Other abnormalities of gait and mobility (05/03/22) Physical Therapy Treatment Note PT-OP-A Visit Information Start: 03/01/22 18:12 Freq: Status: Active Protocol: Document 05/03/22 08:23 [facility] (Rec: 05/03/22 10:41 [facility] [id number]) Out-Patient Physical Therapy Visit Information Visit Information Visit Type Treatment Note Visit Note 09/30 Visit Start Time 08:21 Visit Stop Time 09:00 Total Visit Minutes 39 Visit Number 13 Number of ROLLER TURNER Visits 0 PT-OP-B Current Condition Start: 03/01/22 18:12 Freq: Status: Active Protocol: Document 03/02/22 07:28 [facility] (Rec: 03/02/22 09:05 [facility] [id number]) Current Condition History of Current Condition Onset Date R LBP ~6-8 months (no injury), balance (7-8 years) Current Complaints balance, R SI pain History of Current Condition Pt reports R SI pain and today isn't too bad. Notes it normally hurts when she gets to her car after her walks. When its really bad, it can hurt to sit or move around, but she is still able to do what she needs to. Pt reports balance is an issue but is better the past 2 days as her condition changes. Denies recent falls. She has diagnosis of MS starting in 2009. She was drivign and got real lightheaded and they did a head CT at that time which showed a lot of spots and got the spinal tap and was diagonosised. She is followed by neurologist. Notes she does step to down steps and feels unstable going down curbs. She walks on flat paved trails and does not need AD. She used treking poles when doing forest land trails but mostly on flat trails. She [place]. Pt does have osteopenia and notes neck pain and back pain. Pt reports neck has been pretty good lately. She notices it more w/sleeping. Pt did have a few days that she felt like she was going to fall back. Pt reports vertigo w/turning L in bed and cannot lay on L side or w/head turned L. Notes spinning and sometimes nausea. Prior Treatments and Tests PT prior for balance which was helpful Treatment Goals Patient/Caregiver Goals Get rid of R LB pain, have decent balacne, be able to go down stairs reciprocally w/o rail, be able to go down curb feeling comfortable PT-OP-C Subjective Start: 03/01/22 18:12 Freq: Status: Active Protocol: Document 05/03/22 08:23 [facility] (Rec: 05/03/22 10:41 [facility] [id number]) OP-PT Subjective Patient Comments Patient Comments Pt reports back pain has been up/down. PT-OP-D Balance Start: 03/01/22 18:12 Freq: Status: Active Protocol: Document 03/02/22 07:28 [facility] (Rec: 03/02/22 09:05 [facility] [id number]) Balance Tests Single Limb Standing Single Limb- Right 1 sec Single Limb- Left 1 sec PT-OP-E Functional Tests Start: 03/01/22 18:12 Freq: Status: Active Protocol: Document 04/12/22 13:01 [facility] (Rec: 04/12/22 13:49 [facility] [id number]) Functional Tests 30 Second Sit to Stand Test Score 14 Dynamic Gait Index (DGI) Score 24 Five Times Sit to Stand Test Score 10 sec Functional Gait Assessment Score 30 PT-OP-F Manual Assessment Start: 03/01/22 18:12 Freq: Status: Active Protocol: Document 03/02/22 07:28 [facility] (Rec: 03/02/22 09:05 [facility] [id number]) Manual Assessments Soft Tissue Assessment Soft Tissue Mobility Assessment tightness R QL & ES PT-OP-G Mobility & Gait Start: 03/01/22 18:12 Freq: Status: Active Protocol: Document 03/02/22 07:28 [facility] (Rec: 03/02/22 10:10 [facility] [id number]) OP Mobility Evaluation Bed Mobility Rolling cannot roll L d/t getting dizzy OP Gait Assessment Comments Gait Comments Pt amb w/hard foot strike B w/ excessive transverse plane motion & arms slgithly to side for balance often Stair Climbing Evaluation Comments Stair Climbing Comments recip up w/rail, step to down w/rail PT-OP-J Posture/Palpation/Skin Start: 03/01/22 18:12 Freq: Status: Active Protocol: Document 04/12/22 13:01 [facility] (Rec: 04/12/22 13:49 [facility] [id number]) Posture Evaluation [facility] Postural Classification System Lumbar Protective Mechanism Left AP 0 Lumbar Protective Mechanism Right AP 1 Lumbar Protective Mechanism Left PA 1 Lumbar Protective Mechanism Right PA 0 PT-OP-K Range of Motion Start: 03/01/22 18:12 Freq: Status: Active Protocol: Document 03/02/22 07:28 [facility] (Rec: 03/02/22 09:05 [facility] [id number]) Lumbar Spine Range of Motion Lumbar Spine Active Flexion 80 Extension 80 Lateral Flexion Left 80 Lateral Flexion Right 50 Comments percentage PT-OP-M Strength Start: 03/01/22 18:12 Freq: Status: Active Protocol: Document 04/12/22 13:01 [facility] (Rec: 04/12/22 13:49 [facility] [id number]) Hip Strength Hip Manual Muscle Testing Right Flexion (L2) 4 Good Extension (S1) 3+ Fair+ Adduction 4+ Good+ External Rotation 4 Good Internal Rotation 5 Normal Left Flexion (L2) 4- Good- Extension (S1) 4 Good Abduction 4 Good External Rotation 4 Good Internal Rotation 4+ Good+ Comments pt too concerned to lay on L side Knee Strength Knee Manual Muscle Testing Right Flexion (S2) 5 Normal Extension (L3) 4+ Good+ Left Flexion (S2) 5 Normal Extension (L3) 4 Good Ankle/Foot Strength Ankle and Foot Manual Muscle Testing Right Dorsiflexion (L4) 5 Normal Plantarflexion (S1) 5 Normal Left Dorsiflexion (L4) 5 Normal Plantarflexion (S1) 5 Normal Comments PF tested seated PT-OP-Q Treatments Start: 03/01/22 18:12 Freq: Status: Active Protocol: Document 05/03/22 08:23 [facility] (Rec: 05/03/22 10:41 [facility] [id number]) Gym Equipment Shuttle Balance blue clips Details head turns Comments fwd: WBOS, NBOS, staggered stance B side: WBOS & NBOS Therapeutic Exercises Sitting Exercises piriformis stretch Side bilateral Reps/Minutes 30 sec Comments good feedback stretch Standing Exercises standing hamstring stretch Standing Exercise Name step Side bilateral Reps/Minutes 45 sec ea stretch Standing Exercise Name radha pose at counter Side bilateral Reps/Minutes 30 sec step down Side bilateral Equipment Used 4 in Reps/Minutes 10 ea step up Side bilateral Equipment Used 6 in step light rail Reps/Minutes 10 ea sidesteps Side bilateral Equipment Used lvl 2 Reps/Minutes 20ft Neuro Re-Education Treatment Balance Activities FGA Details SLS Comments 1. B trials 2. alt toe taps Bx15 tandem Details B trials PT-OP-R Modalities Start: 03/01/22 18:12 Freq: Status: Active Protocol: Document 04/12/22 13:01 [facility] (Rec: 04/12/22 13:50 [facility] [id number]) Hot Pack/Cold Pack Treatment Cold Pack Location LB Patient Position Hooklying Treatment Duration (minutes) 10 PT-OP-T Assessment and Plan Start: 03/01/22 18:12 Freq: Status: Active Protocol: Document 05/03/22 08:23 [facility] (Rec: 05/03/22 10:41 [facility] [id number]) Physical Therapy Assessment Goals balance Impairment DGI:15 FGA: 11 Short Term Goal (STG) Pt will imrpove score for DGI to to show dec risk for falls STG Duration achieved to [employer] Goal (LTG) Pt will imrpove score for FGA to to show dec risk for falls 04/12- LTG Duration achieved to pain [employer] Goal (LTG) Pt will report LBP no more than 1-2/10 and no more often than 3x/week 04/12-09/02 about 1 time a week for past 1 week LTG Duration depends on activity-weeding inc pain sit to stand [facility] Goal (LTG) Pt will improve 30 sec sit to stand to at least 11 to show dec risk for falls LTG Duration achieved 04/12 to 14 strength Short Term Goal (STG) Pt will be consistantly performing HEP for balacnea nd strengthening 04/12-doing them about 3-4 days a week STG Duration achieved [employer] Goal (LTG) Pt will score at least 4+/5 on MMT of LEs and at least 3/5 on LPM to show improved stability in order to improve pt's ability to perform tasks safely in community. 04/12-improved LTG Duration still dec but improved steps Short Term Goal (STG) Pt will be able to step down a curb feeling safe w/o LOB. 04/12 still feels off balance STG Duration some days feels okay [facility] Goal (LTG) Pt will be able to go reciprocally up/down stairs w/ o rail. 04/12-can recip w/rail in clinic-does step to down at home LTG Duration needs rail down Assessment Summary Assessment Pt has made good progress towards goals and is doing well with HEP. She is improving w/balance and has HEP to cont to work on this at home. Back pain has been up/ down and mostly gets irridated whens eh has to do a lot of bending over/squatting like gardening but it recovers okay . Pt is DC d/t meeting most goals and pt indep w/HEP Physical Therapy Plan Discharge Physical Therapy Discharge Reasons Goals Met
== END 2022-05-04 12:39 | disposition home or self-care (01) ==
LOC: PHYS 08:15
PROVIDERS: Family Provider Internal Medicine; PCP Internal Medicine; Referring Provider Internal Medicine; Visit Provider Internal Medicine
DX: R26.89 Other abnormalities of gait and mobility (principal); M53.3 Sacrococcygeal disorders, not elsewhere classified; G89.29 Other chronic pain
CPT/HCPCS: 95992; 97110; 97112; 97113; 97140; 97162; 97535

== ENCOUNTER → 2022-06-03 13:08 | Outpatient (CLI) | payer MEDICARE, OTHER, SELFPAY ==
--- NOTE | 2022-06-03 | DI.RAD.S_ITS ---
PROCEDURE: XR HAND RT 2V INDICATIONS: Pain in right hand TECHNIQUE: 2 views of the hand(s) acquired. COMPARISON: None. FINDINGS: Bones: No fractures or dislocations. Carpal bones are normally aligned. No suspicious bony lesions. Minimal diffuse interphalangeal joint space narrowing with minimal periarticular osteophyte formation. Soft tissues: No suspicious soft tissue calcifications. IMPRESSION: Minimal interphalangeal joint degeneration Dictated by: Theo Neumann RRA Interpreted: Bradley Piña MD on 06/03/2022 at 13:48 Transcribed by: AVRIL on 06/03/2022 at 13:49 Approved by: Kasandra Asif M.D. on 06/20/2022 at 16:53
--- NOTE | 2022-06-03 | DI.MG.S_ITS ---
BILATERAL DIGITAL SCREENING MAMMOGRAM 3D/2D WITH CAD: 06/03/2022 CLINICAL: Routine screening. Comparison is made to exams dated: 05/29/2021 mammogram, 02/21/2020 mammogram, and 12/24/2018 mammogram - [facility]. There are scattered areas of fibroglandular density in both breasts (category b / 25%-50% glandular tissue). Current study was also evaluated with a Computer Aided Detection (CAD) system. No significant masses, calcifications, or other findings are seen in either breast. There has been no significant interval change. IMPRESSION: NEGATIVE There is no mammographic evidence of malignancy. A 1 year screening mammogram is recommended. Based on the Tyrer Cuzick model (a risk assessment model) the patient's lifetime risk is 5.5% and her 10 year risk is 3.2%. According to the ACR, ACS, and NCCN guidelines, an annual breast MRI exam along with mammogram is recommended if the patient's lifetime risk is 20% or greater. This exam was interpreted at Station ID: [id number]. NOTE: For mammograms, a report in lay terms will be sent to the patient. Approximately 15% of breast malignancies will not be visualized mammographically. In the management of a palpable breast mass, a negative mammogram must not discourage biopsy of a clinically suspicious lesion. Electronically Signed By: Mitchel monahan/daija:06/03/2022 17:30:13 letter sent: Normal Exam ACR BI-RADS Category 1: Negative [id number]
== END ==
PROVIDERS: Family Provider Internal Medicine; PCP Internal Medicine; Referring Provider Orthopaedic Surgery; Visit Provider Internal Medicine
DX: M79.641 Pain in right hand (principal); Z12.31 Encounter for screening mammogram for malignant neoplasm of breast
CPT/HCPCS: 73120; 77063; 77067

== ENCOUNTER 2022-07-29 14:26 | Emergency (ER) | payer MEDICARE, OTHER, SELFPAY ==
[2022-07-29 14:50] VITALS: BP 159/87; PULSE 102; RESP 16; TEMP 36.3; O2SAT 95; BMI 36.3
--- NOTE | 2022-07-29 14:57 | DI.RAD.S_ITS ---
PROCEDURE: XR CHEST 1V INDICATIONS: chest pain TECHNIQUE: One view of the chest was acquired. COMPARISON: [facility], CR, XR CHEST 1V, 11/20/2020, 9:23. FINDINGS: Surgical changes and devices: None. Lungs and pleura: Lungs are clear. No pleural effusions or pneumothorax. Mediastinum: Mediastinal contours appear normal. Heart size is normal. Bones and chest wall: No suspicious bony lesions. Overlying soft tissues appear unremarkable. IMPRESSION: Normal for age, source of current chest pain symptoms is not seen. Dictated by: Coleman Vera M.D. on 07/29/2022 at 15:47 Approved by: Coleman Vera M.D. on 07/29/2022 at 15:47
[2022-07-29 15:12] LABS: Add Manual Diff / Slide Review NO; Basophils Absolute Auto 100 /uL (0-100); Basophils Percent Auto 0.9 % (0-2); Eosinophils Absolute Auto 100 /uL (0-450); Eosinophils Percent Auto 1.4 % (2-4); Hematocrit 37.2 % (36-46); Hemoglobin 12.5 g/dL (12.0-16.0); Lymphocytes Absolute Auto 2500 /uL (1100-4500); Mean Corpuscular HGB Conc 33.5 % (30-36); Mean Corpuscular Hemoglobin 32.1 PG (26-34); Mean Corpuscular Volume 95.6 fL (80-100); Monocytes Absolute Auto 800 /uL (0-900); Monocytes Percent Auto 8.8 % (3-14); Neutrophils Absolute Auto 5400 /uL (1500-7000); Neutrophils Percent Auto 60.9 % (50-75); Platelet Count 233 X10^3/uL (150-400); Red Cell Distribution Width 12.6 % (11.6-14.8); White Blood Cell Count 8.9 X10^3/uL (4.5-11.0)
[2022-07-29 15:24] LABS: INR 0.9 (0.9-1.3); Prothrombin Time 10.7 SECONDS (10.1-12.7)
[2022-07-29 15:26] LABS: PTT Partial Thromboplastin Tim 30 SECONDS (26-36)
[2022-07-29 15:32] LABS: Alanine Aminotransferase 31 IU/L (<35); Albumin 4.3 g/dL (3.5-5.0); Albumin Globulin Ratio 1.2 (1.0-2.8); Alkaline Phosphatase 122 U/L (38-126); Aspartate Aminotransferase 26 IU/L (14-36); BUN Creatinine Ratio 19.8 (6-22); Bilirubin Total 0.4 mg/dL (0.2-1.3); Blood Urea Nitrogen 24 mg/dL (7-17); Calcium 9.6 mg/dL (8.4-10.2); Carbon Dioxide 30 mmol/L (22-32); Chloride 101 mmol/L (98-107); Creatine Kinase 61 U/L (30-135); Estimated Glomerular Filt Rate 48 mL/min (>60); Globulin 3.5 g/dL (1.7-4.1); Glucose 102 mg/dL (80-110); HEMOLYSIS < 15 (0-50); Lipase 71 U/L (23-300); Magnesium 1.8 mg/dL (1.6-2.3); Potassium 3.9 mmol/L (3.4-5.1); Sodium 137 mmol/L (137-145); Total Protein 7.8 g/dL (6.3-8.2)
[2022-07-29 15:43] LABS: Troponin I < 0.012 ng/mL (0.01-0.034)
[2022-07-29 19:18] LABS: Creatine Kinase 53 U/L (30-135)
[2022-07-29 19:31] LABS: Troponin I < 0.012 ng/mL (0.01-0.034)
[2022-07-29 20:54] VITALS: BP 174/83; PULSE 82; RESP 20; O2SAT 97
--- NOTE | 2022-07-29 21:09 | ED.CHESTPAIN ---
HPI - Chest Pain General Chief Complaint: Chest Pain Stated Complaint: Chest pains while walking Time Seen by Provider: 07/29/22 20:58 Source: patient Mode of arrival: Ambulatory Limitations: no limitations History of Present Illness HPI narrative: 72-year-old female who is here for evaluation of right-sided stabbing chest discomfort that is localized to her right upper chest while walking today. She is no prior history of heart disease. Does have high blood pressure. Had a stress test 1 year ago because she was having palpitations at that time and also had a Holter monitor but was told that everything with her heart looked to be okay. She does have a dialysis patient care technician that she follows up with on a yearly basis. She normally walks several miles each day. Today she was walking her normal route when she got the right-sided chest discomfort. It did improve after she stopped walking. She is currently asymptomatic. No problems breathing. Not worse with palpation or movement of her arm. Did not radiate from the right side of her chest. Related Data Home Medications Medication Instructions Recorded Confirmed Resmed Airsense 10 CPAP #1 ea 01/01/19 05/04/22 hydrochlorothiazide 25 mg tablet 25 mg PO DAILY 09/23/20 05/04/22 omeprazole 20 mg tablet,delayed 20 mg PO DAILY PRN 05/04/22 05/04/22 release tamsulosin 0.4 mg capsule 0.4 mg PO DAILY PRN 05/04/22 05/04/22 ursodiol 300 mg capsule 300 mg PO TID PBC 05/04/22 05/04/22 Previous Rx's Medication Instructions Recorded losartan 50 mg tablet 50 mg PO DAILY #90 tabs 08/17/18 acyclovir 400 mg tablet 400 mg PO TID PRN herpes #30 tabs 02/18/22 Allergies Allergy/AdvReac Type Severity Reaction Status Date / Time butalbital Allergy Intermediate Hives Verified 07/29/22 14:55 Iodinated Contrast Media Allergy Mild Hives Verified 07/29/22 14:55 Review of Systems Constitutional Constitutional: Reports system reviewed and no additional complaints, except as documented Cardiovascular Cardiovascular: Reports system reviewed and no additional complaints, except as documented Respiratory Respiratory: Reports system reviewed and no additional complaints, except as documented Gastrointestinal Gastrointestinal: Reports system reviewed and no additional complaints, except as documented Integumentary/Breasts Skin/Breast: Reports system reviewed and no additional complaints, except as documented Hematologic/Lymphatic On Anticoagulants: No Patient History Medical History Allergic rhinitis (1951) Ankle pain (2009) Carpal tunnel syndrome (~2018) Chicken pox (~1954) Chronic back pain (Unknown) Chronic SI joint pain Colon polyps (2011) Diverticular disease (2011) Essential hypertension Foot pain (~2017) GERD (gastroesophageal reflux disease) (Unknown) Gout (~1979) Hearing loss (2009) Hemorrhoids (2011) Hepatitis C (~1979) Herpesviral infection, unspecified History of colonic polyps History of hepatitis C virus infection (07/06/17) Hypertension (1989) Interstitial cystitis (Unknown) Kidney stones (1979) Medicare annual wellness visit, initial Mixed hyperlipidemia Multiple sclerosis (2006) Neck pain (1999) Obesity (BMI 30.0-34.9) Osteopenia (~1999) Primary biliary cirrhosis Right carpal tunnel syndrome Rubella (~1952) Sleep apnea (2015) Thyroid nodule (2003) Vertigo (2014) Surgical History Anesthesia Hx of breast biopsy (1999) Hx of lithotripsy (Unknown) Hx of tonsillectomy (Unknown) Family History Unknown No problems noted. Social History marital status: unmarried,single number of children: 0 household members: none lives independently: Yes caregiver/support person: No pets and animals: Yes education level: college Smoking Status: Never smoker second hand exposure: No alcohol intake: never substance use type: does not use Smoking Status: Never smoker alcohol intake frequency: 0-2 drinks per day Substance Use Type: does not use Exam Initial Vital Signs Initial Vital Signs: Vital Signs Temperature 97.3 F L 07/29/22 14:50 Pulse Rate 102 H 07/29/22 14:50 Respiratory Rate 16 07/29/22 14:50 Blood Pressure 159/87 H 07/29/22 14:50 Pulse Oximetry 95 07/29/22 14:50 Oxygen Delivery Method 07/29/22 14:50 HENMT Head: normal to inspection and normocephalic Chest Chest: No crepitus and No tenderness Resp Effort & Inspection: normal respiratory effort, not labored and not tachypneic Auscultation: clear to auscultation bilaterally Cardio Rate: regular rate Rhythm: regular rhythm GI Inspection: normal to inspection Neuro General: patient alert, patient awake and moves all extremities Extrem General: capillary refill normal Psych Appearance: grossly normal and well kempt Scores HEART Score Heart Score history: Slightly Suspicious Heart Score EKG: Normal Heart Score Age: > or = 65 years old Heart Score risk factors: 1-2 risk factors Heart Score troponin: < or = to normal limit Heart Score Total: 3 Course Orders Ordered: ED Orders 07/29/22 15:03 EKG-12 Lead Stat 07/29/22 15:05 Complete Blood Count AUTO DIFF Stat Comprehensive Metabolic Panel Stat Lipase Stat Magnesium Stat Partial Thromboplastin Time Stat Prothrombin Time INR Stat Troponin & CK Cardiac Panel Stat 07/29/22 18:56 Troponin & CK Cardiac Panel Stat Vital Signs Vital signs: Vital Signs - 8 hr 07/29/22 20:54 Pulse Rate 82 Respiratory Rate 20 Blood Pressure 174/83 H Pulse Oximetry 97 Oxygen Delivery Method Room Air MDM - Chest Pain Lab Data Attestation: I reviewed the patient's lab results. Result diagrams: 07/29/22 15:05 07/29/22 15:05 Labs: Lab Results 07/29/22 07/29/22 07/29/22 Range/Units 15:05 15:05 15:05 WBC 8.9 (4.5-11.0) X10^3/uL RBC 3.90 L (4.0-5.2) X10^6/uL Hgb 12.5 (12.0-16.0) g/dL Hct 37.2 (36-46) % MCV 95.6 (80-100) fL MCH 32.1 (26-34) PG MCHC 33.5 (30-36) % RDW 12.6 (11.6-14.8) % Plt Count 233 (150-400) X10^3/uL Neut % (Auto) 60.9 (50-75) % Lymph % (Auto) 28.0 (25-40) % [place] % (Auto) 8.8 (3-14) % Eos % (Auto) 1.4 L (2-4) % Baso % (Auto) 0.9 (0-2) % Neut # (Auto) 5400 (9326-6472) /uL Lymph # (Auto) 2500 (7366-0370) /uL [place] # (Auto) 800 (0-900) /uL Eos # (Auto) 100 (0-450) /uL Baso # (Auto) 100 (0-100) /uL PT 10.7 (10.1-12.7) SECONDS INR 0.9 (0.9-1.3) APTT 30 (26-36) SECONDS Sodium 137 (137-145) mmol/L Potassium 3.9 (3.4-5.1) mmol/L Chloride 101 (98-107) mmol/L Carbon Dioxide 30 (22-32) mmol/L BUN 24 H (7-17) mg/dL Creatinine 1.21 H (0.52-1.04) mg/dL Estimated GFR 48 L (>60) mL/min BUN/Creatinine Ratio 19.8 (6-22) Glucose 102 (80-110) mg/dL Calcium 9.6 (8.4-10.2) mg/dL Magnesium 1.8 (1.6-2.3) mg/dL Total Bilirubin 0.4 (0.2-1.3) mg/dL AST 26 (14-36) IU/L ALT 31 (<35) IU/L Alkaline Phosphatase 122 (38-126) U/L Total Creatine Kinase 61 (30-135) U/L CK-MB (CK-2) TNP CK-MB (CK-2) Rel Index TNP Troponin I < 0.012 (0.01-0.034) ng/mL Total Protein 7.8 (6.3-8.2) g/dL Albumin 4.3 (3.5-5.0) g/dL Globulin 3.5 (1.7-4.1) g/dL Albumin/Globulin Ratio 1.2 (1.0-2.8) Lipase 71 (23-300) U/L 07/29/22 Range/Units 18:56 WBC (4.5-11.0) X10^3/uL RBC (4.0-5.2) X10^6/uL Hgb (12.0-16.0) g/dL Hct (36-46) % MCV (80-100) fL MCH (26-34) PG MCHC (30-36) % RDW (11.6-14.8) % Plt Count (150-400) X10^3/uL Neut % (Auto) (50-75) % Lymph % (Auto) (25-40) % [place] % (Auto) (3-14) % Eos % (Auto) (2-4) % Baso % (Auto) (0-2) % Neut # (Auto) (8440-4523) /uL Lymph # (Auto) (1595-8975) /uL [place] # (Auto) (0-900) /uL Eos # (Auto) (0-450) /uL Baso # (Auto) (0-100) /uL PT (10.1-12.7) SECONDS INR (0.9-1.3) APTT (26-36) SECONDS Sodium (137-145) mmol/L Potassium (3.4-5.1) mmol/L Chloride (98-107) mmol/L Carbon Dioxide (22-32) mmol/L BUN (7-17) mg/dL Creatinine (0.52-1.04) mg/dL Estimated GFR (>60) mL/min BUN/Creatinine Ratio (6-22) Glucose (80-110) mg/dL Calcium (8.4-10.2) mg/dL Magnesium (1.6-2.3) mg/dL Total Bilirubin (0.2-1.3) mg/dL AST (14-36) IU/L ALT (<35) IU/L Alkaline Phosphatase (38-126) U/L Total Creatine Kinase 53 (30-135) U/L CK-MB (CK-2) TNP CK-MB (CK-2) Rel Index TNP Troponin I < 0.012 (0.01-0.034) ng/mL Total Protein (6.3-8.2) g/dL Albumin (3.5-5.0) g/dL Globulin (1.7-4.1) g/dL Albumin/Globulin Ratio (1.0-2.8) Lipase (23-300) U/L Imaging Data Chest x-ray: Radiologist's Impression: [address] [address] XRay Report Signed Patient: Bettie Murdock MR#: [id number] : 1950 Acct:[id number] Age/Sex: 72 / F Date of Service: 07/29/22 Loc: ED Accession Number: [id number] ?? Procedure: XR chest 1V Ordering Provider: Melvina Barnes D.O. PROCEDURE:? XR CHEST 1V ? INDICATIONS:? chest pain ? TECHNIQUE:? One view of the chest was acquired.? ? COMPARISON:? [facility], CR, XR CHEST 1V, 11/20/2020, 9:23. ? FINDINGS:? ? Surgical changes and devices:? None.? ? Lungs and pleura:? Lungs are clear.? No pleural effusions or pneumothorax.? ? Mediastinum:? Mediastinal contours appear normal.? Heart size is normal.? ? Bones and chest wall:? No suspicious bony lesions.? Overlying soft tissues appear unremarkable.? ? IMPRESSION:? Normal for age, source of current chest pain symptoms is not seen. ? ? Dictated by: Coleman Vera M.D. on 07/29/2022 at 15:47 ? ? Approved by: Coleman Vera M.D. on 07/29/2022 at 15:47?? ECG Data Attestation: I personally reviewed and interpreted this ECG as follows: Interpretation: Initial EKG Sinus rhythm Ventricular rate of 90 Left axis deviation Normal QRS Normal QTC No ST T wave changes Repeat EKG Sinus rhythm Ventricular rate 92 Unchanged from prior EKG MDM Narrative Medical decision making narrative: Patient has a low risk heart score. I do feel that ACS is unlikely given the nature of her presenting symptoms which is sharp fairly pinpoint right-sided upper chest discomfort. She is currently asymptomatic. Troponins are negative x2. Chest x-ray is unremarkable. Will have patient contact her primary doctor/dialysis patient care technician for a follow-up to discuss further risk stratification testing. She was given return precautions. She expressed understanding and agreement. Discharge Plan Departure Patient Disposition: Home Clinical Impression: Atypical chest pain, Hypertension Instructions: High Blood Pressure, DI for Atypical Chest Pain Activity Restrictions/Additional Instructions: Recommend that you continue to take all of your medications as directed. Contact your primary doctor or your dialysis patient care technician for a follow-up to discuss the indications for a stress test. Return to the emergency department for any new symptoms. Prescriptions: No Action losartan 50 mg tablet 50 mg PO DAILY Qty: 90 1RF (DME) Resmed Airsense 10 CPAP Qty: 1 Dose Instruction: As directed Label Comments: Pressure: 5-15 cmH2O DME: [facility] Rx Instructions: As directed acyclovir 400 mg tablet 400 mg PO TID PRN (Reason: herpes) Qty: 30 2RF ursodiol 300 mg capsule 300 mg PO TID tamsulosin 0.4 mg capsule 0.4 mg PO DAILY PRN Label Comments: TAKE 1 CAPSULE BY MOUTH AT BEDTIME. TAKE IF YOU FEEL LIKE YOU ARE PASSING A KIDNEY STONE hydrochlorothiazide 25 mg tablet 25 mg PO DAILY omeprazole 20 mg tablet,delayed release (DR/EC) 20 mg PO DAILY PRN Referrals: Tanvir Worthy MD [Primary Care Provider] - Stand Alone Forms: Patient Portal/API
--- NOTE | 2022-07-29 21:30 | PC.NURSE ---
Pt reports walking with sudden onset chest pain. Now completely resolved.
== END 2022-07-29 21:33 | disposition home or self-care (01) ==
PROVIDERS: Emergency Medicine; Emergency Provider Emergency Medicine; Family Provider Internal Medicine; PCP Internal Medicine
DX: R07.89 Other chest pain (principal); I10 Essential (primary) hypertension
CPT/HCPCS: 36415; 71045; 80053; 82550; 83690; 83735; 84484; 85025; 85610; 85730; 93005; 93010; 99283; 99284

== ENCOUNTER → 2022-09-07 15:12 | Outpatient (CLI) | payer MEDICARE, OTHER, SELFPAY ==
[2022-09-07 17:05] LABS: Alanine Aminotransferase 27 IU/L (<35); Albumin 4.1 g/dL (3.5-5.0); Albumin Globulin Ratio 1.4 (1.0-2.8); Alkaline Phosphatase 126 U/L (38-126); Aspartate Aminotransferase 25 IU/L (14-36); Bilirubin Total 0.5 mg/dL (0.2-1.3); Bilirubin Unconjugated 0.2 mg/dL (0.0-1.1); HEMOLYSIS < 15 (0-50); Total Protein 7.1 g/dL (6.3-8.2)
== END ==
PROVIDERS: Family Provider Internal Medicine; PCP Internal Medicine; Referring Provider Internal Medicine Gastroenterology; Visit Provider Internal Medicine Gastroenterology
DX: K74.3 Primary biliary cirrhosis (principal)
CPT/HCPCS: 36415; 80076

== ENCOUNTER → 2023-04-13 16:23 | Outpatient (CLI) | payer MEDICARE, OTHER, SELFPAY ==
--- NOTE | 2023-04-13 | DI.MRI.S_ITS ---
PROCEDURE: MR CERVICAL SPINE WO CON INDICATIONS: MS TECHNIQUE: Noncontrast sagittal T1 spin echo and T2 fast spin echo, sagittal STIR, foraminal oblique sagittal T2 fast spin echo, and axial gradient echo or T2 fast spin echo through the cervical spine. COMPARISON: [facility], MR, MR CERVICAL SPINE WO/W CON, 01/26/2018, 16:56. FINDINGS: Image quality: Excellent. Alignment and Curvature: There is normal bony alignment. Bone Marrow: Degenerative endplate changes C4-5 Spinal Cord: Multifocal white matter hyperintensities noted in the cord most prominently at the C1 level centrally, but also at C3-4 on the left urbano cord and C6-7 in the dorsal columns. No change from the exam. Paraspinous Soft Tissues: No paravertebral masses. Prevertebral soft tissues are normal in thickness. At the disc levels, mild disc space narrowing and posterior osteophytes result in mild central stenosis C3-4, C5-6 and C6-7 IMPRESSION: 1. Stable spinal cord matter plaques, consistent with history of multiple sclerosis. 2. Mild stable multilevel degenerative disc disease without significant central stenosis throughout the exam Approved by: Raúl Hummel M.D. on 04/14/2023 at 14:06
--- NOTE | 2023-04-13 | DI.MRI.S_ITS ---
PROCEDURE: MR THORACIC SPINE WO CON INDICATIONS: MS TECHNIQUE: Noncontrast sagittal T1 spine echo and T2 fast spin echo, sagittal STIR, and T2 fast spin echo through the thoracic spine. COMPARISON: [facility], , MR THORACIC SPINE WO/W CON, 01/26/2018, 17:12. FINDINGS: Image quality: Excellent. Alignment and Curvature: There is normal bony alignment. Bone Marrow: Marrow is of normal overall signal. No acute vertebral body compression fractures. Spinal Cord: Visualized spinal cord is normal in size and signal. Paraspinous Soft Tissues: No paravertebral masses. Miscellaneous: On axial images, central canal and foramina appear widely patent at all scanned levels. Mild disc space midthoracic spine IMPRESSION: Previously described white matter plaques in prior exam are not well depicted on the current exam. No new lesions or volume loss. Mild degenerative disc disease in the mid thoracic spine Approved by: Raúl Hummel M.D. on 04/14/2023 at 14:13
== END ==
PROVIDERS: Family Provider Internal Medicine; PCP Internal Medicine; Referring Provider Internal Medicine; Visit Provider Internal Medicine
DX: G35 Multiple sclerosis (principal); M50.30 Other cervical disc degeneration, unspecified cervical region; M51.34 Other intervertebral disc degeneration, thoracic region
CPT/HCPCS: 72141; 72146

== ENCOUNTER → 2023-05-12 13:07 | Outpatient (CLI) | payer MEDICARE, OTHER, SELFPAY ==
[2023-05-12 14:40] LABS: Hematocrit 36.9 % (36-46); Hemoglobin 12.7 g/dL (12.0-16.0); Mean Corpuscular HGB Conc 34.5 % (30-36); Mean Corpuscular Hemoglobin 32.7 PG (26-34); Mean Corpuscular Volume 94.7 fL (80-100); Platelet Count 236 X10^3/uL (150-400); Red Blood Cell Count 3.89 X10^6/uL (4.0-5.2); Red Cell Distribution Width 12.6 % (11.6-14.8); White Blood Cell Count 7.6 X10^3/uL (4.5-11.0)
[2023-05-12 15:15] LABS: Alanine Aminotransferase 24 IU/L (<35); Albumin 4.4 g/dL (3.5-5.0); Albumin Globulin Ratio 1.3 (1.0-2.8); Alkaline Phosphatase 132 U/L (38-126); Aspartate Aminotransferase 29 IU/L (14-36); BUN Creatinine Ratio 22.5 (6-22); Bilirubin Total 0.8 mg/dL (0.2-1.3); Blood Urea Nitrogen 18 mg/dL (7-17); Calcium 10.3 mg/dL (8.4-10.2); Carbon Dioxide 28 mmol/L (22-32); Chloride 97 mmol/L (98-107); Cholesterol 190 mg/dL (140-199); Estimated Glomerular Filt Rate > 60 mL/min (>60); Globulin 3.5 g/dL (1.7-4.1); Glucose 84 mg/dL (80-110); HDL Cholesterol 67 mg/dL (40-60); HEMOLYSIS < 15 (0-50); LDL Cholesterol Calculated 110 mg/dL (<100); Potassium 4.2 mmol/L (3.4-5.1); Sodium 135 mmol/L (137-145); Total Protein 7.9 g/dL (6.3-8.2); Triglycerides 67 mg/dL (35-150)
[2023-05-12 15:44] LABS: TSH w/ Reflex to FT4 1.03 uIU/mL (0.47-4.68)
== END ==
PROVIDERS: Family Provider Internal Medicine; PCP Internal Medicine; Referring Provider Internal Medicine; Visit Provider Internal Medicine
DX: E78.2 Mixed hyperlipidemia (principal); I10 Essential (primary) hypertension; K74.3 Primary biliary cirrhosis
CPT/HCPCS: 36415; 80053; 80061; 84443; 85027

== ENCOUNTER → 2023-05-18 14:51 | Outpatient (CLI) | payer MEDICARE, OTHER, SELFPAY | PROVIDERS: Family Provider Internal Medicine; PCP Internal Medicine; Referring Provider Family Medicine; Visit Provider Family Medicine | DX: Z23 Encounter for immunization (principal) | CPT/HCPCS: 90471; 90662 ==

== ENCOUNTER → 2023-06-30 11:14 | Outpatient (CLI) | payer MEDICARE, OTHER, SELFPAY ==
--- NOTE | 2023-06-30 | DI.MG.S_ITS ---
BILATERAL DIGITAL SCREENING MAMMOGRAM 3D/2D WITH CAD: 06/30/2023 CLINICAL: Routine screening. Comparison is made to exams dated: 06/03/2022 mammogram, 05/29/2021 mammogram, and 02/21/2020 [facility]. There are scattered areas of fibroglandular density in both breasts (category b / 25%-50% glandular tissue). Current study was also evaluated with a Computer Aided Detection (CAD) system. No significant masses, calcifications, or other findings are seen in either breast. There has been no significant interval change. IMPRESSION: NEGATIVE There is no mammographic evidence of malignancy. A 1 year screening mammogram is recommended. Based on the Tyrer Cuzick model (a risk assessment model) the patient's lifetime risk is 4.9% and her 10 year risk is 3.4%. According to the ACR, ACS, and NCCN guidelines, an annual breast MRI exam along with mammogram is recommended if the patient's lifetime risk is 20% or greater. This exam was interpreted at Station ID: [id number]. NOTE: For mammograms, a report in lay terms will be sent to the patient. Approximately 15% of breast malignancies will not be visualized mammographically. In the management of a palpable breast mass, a negative mammogram must not discourage biopsy of a clinically suspicious lesion. Electronically Signed By: Susana Santo M.D., PH.D alejandro/daija:07/01/2023 01:12:20 letter sent: Normal Exam ACR BI-RADS Category 1: Negative [id number]
== END ==
PROVIDERS: Family Provider Internal Medicine; PCP Internal Medicine; Referring Provider Internal Medicine; Visit Provider Internal Medicine
DX: Z12.31 Encounter for screening mammogram for malignant neoplasm of breast (principal)
CPT/HCPCS: 77063; 77067

== ENCOUNTER → 2023-08-22 09:17 | Outpatient (CLI) | payer MEDICARE, OTHER, SELFPAY ==
--- NOTE | 2023-08-22 09:19 | DI.RAD.S_ITS ---
PROCEDURE: XR LUMBAR SPINE 6V W BENDING INDICATIONS: low back pain TECHNIQUE: 7 views of the lumbar spine acquired, including flexion and extension views. COMPARISON: None. FINDINGS: Bones: By nonrib-bearing vertebrae are present. There is mild levoscoliosis of thoracolumbar spine with apex at L2 level. Degenerative endplate changes are noted throughout lumbar spine. 4 mm anterolisthesis of L3 on L4 is seen. No vertebral body compression fractures. No suspicious bony lesions. Oblique views shows no pars defects. Soft tissues: Overlying bowel gas pattern is normal. No suspicious soft tissue calcifications. Flexion/extension: There is decreased range of motion, with preserved lumbar spine alignment. IMPRESSION: 1. Mild levoscoliosis of thoracolumbar spine as above. No acute compression fracture. 4 mm anterolisthesis of L3 on L4. 2. Degenerative disc disease throughout lumbar spine. Decreased range of motion on lateral flexion and extension views, with preserved lumbar spine alignment. No gross pars defects. Dictated by: Sandro Callahan M.D. on 08/22/2023 at 13:26 Approved by: Sandro Callahan M.D. on 08/22/2023 at 13:29
--- NOTE | 2023-08-22 09:19 | DI.RAD.S_ITS ---
PROCEDURE: XR PELVIS 1-2V INDICATIONS: low back pain TECHNIQUE: 1 view(s) of the pelvis acquired. COMPARISON: None. FINDINGS: Bones: No fractures or dislocations. Right worse than left bilateral hip joint osteoarthritic changes are seen. No evidence of avascular necrosis of femoral head. No suspicious bony lesions. Mild levoscoliosis of visualized lumbar spine is seen centered at L2 level. Soft tissues: Visualized bowel gas pattern is normal. No suspicious soft tissue calcifications. IMPRESSION: Mild scoliosis as above. Right worse than left bilateral hip joint osteoarthritis. No pelvic or hip fracture. No evidence of avascular necrosis. Dictated by: Sandro Callahan M.D. on 08/22/2023 at 13:29 Approved by: Sandro Callahan M.D. on 08/22/2023 at 13:53
== END ==
PROVIDERS: Family Provider Internal Medicine; PCP Internal Medicine; Referring Provider Internal Medicine; Visit Provider Internal Medicine
DX: M47.816 Spondylosis without myelopathy or radiculopathy, lumbar region (principal); M43.16 Spondylolisthesis, lumbar region; M41.9 Scoliosis, unspecified; M53.3 Sacrococcygeal disorders, not elsewhere classified; M16.0 Bilateral primary osteoarthritis of hip; M54.50 Low back pain, unspecified; G89.29 Other chronic pain
CPT/HCPCS: 72114; 72170

== ENCOUNTER → 2023-09-06 15:02 | Outpatient (CLI) | payer MEDICARE, OTHER, SELFPAY ==
[2023-09-06 15:58] LABS: Alanine Aminotransferase 21 IU/L (<35); Albumin 4.5 g/dL (3.5-5.0); Albumin Globulin Ratio 1.2 (1.0-2.8); Alkaline Phosphatase 102 U/L (38-126); Aspartate Aminotransferase 37 IU/L (14-36); BUN Creatinine Ratio 24.3 (6-22); Bilirubin Total 0.6 mg/dL (0.2-1.3); Blood Urea Nitrogen 27 mg/dL (7-17); Calcium 10.2 mg/dL (8.4-10.2); Carbon Dioxide 27 mmol/L (22-32); Chloride 100 mmol/L (98-107); Estimated Glomerular Filt Rate 53 mL/min (>60); Globulin 3.8 g/dL (1.7-4.1); Glucose 100 mg/dL (80-110); HEMOLYSIS 20 (0-50); Potassium 4.5 mmol/L (3.4-5.1); Sodium 138 mmol/L (137-145); Total Protein 8.3 g/dL (6.3-8.2)
[2023-09-06 16:47] LABS: Vitamin B12 801 pg/mL (239-931)
== END ==
PROVIDERS: Family Provider Internal Medicine; PCP Internal Medicine; Referring Provider Physician Assistant; Visit Provider Physician Assistant
DX: G62.9 Polyneuropathy, unspecified (principal); M54.50 Low back pain, unspecified; G35 Multiple sclerosis; G89.29 Other chronic pain
CPT/HCPCS: 36415; 80053; 82607

== ENCOUNTER → 2023-09-07 15:50 | Outpatient (CLI) | payer MEDICARE, OTHER, SELFPAY ==
[2023-09-07 18:35] LABS: Add Manual Diff / Slide Review NO; Basophils Absolute Auto 0 /uL (0-100); Basophils Percent Auto 0.2 % (0-2); Eosinophils Absolute Auto 100 /uL (0-450); Eosinophils Percent Auto 1.3 % (2-4); Hematocrit 38.5 % (36-46); Hemoglobin 13.3 g/dL (12.0-16.0); Lymphocytes Absolute Auto 2200 /uL (1100-4500); Lymphocytes Percent Auto 23.9 % (25-40); Mean Corpuscular HGB Conc 34.6 % (30-36); Mean Corpuscular Hemoglobin 32.7 PG (26-34); Mean Corpuscular Volume 94.6 fL (80-100); Monocytes Absolute Auto 700 /uL (0-900); Monocytes Percent Auto 7.4 % (3-14); Neutrophils Absolute Auto 6300 /uL (1500-7000); Neutrophils Percent Auto 67.2 % (50-75); Platelet Count 235 X10^3/uL (150-400); Red Blood Cell Count 4.07 X10^6/uL (4.0-5.2); Red Cell Distribution Width 12.5 % (11.6-14.8); White Blood Cell Count 9.4 X10^3/uL (4.5-11.0)
[2023-09-13 16:08] LABS: ANA Screen, IFA Negative (.)
== END ==
PROVIDERS: Family Provider Internal Medicine; PCP Internal Medicine; Referring Provider Physician Assistant; Visit Provider Physician Assistant
DX: R21 Rash and other nonspecific skin eruption (principal)
CPT/HCPCS: 36415; 85025; 86038

== ENCOUNTER → 2023-09-08 09:15 | Outpatient (CLI) | payer MEDICARE, OTHER, SELFPAY ==
--- NOTE | 2023-09-08 09:16 | DI.MRI.S_ITS ---
PROCEDURE: MR LUMBAR SPINE WO CON INDICATIONS: lumbar pain TECHNIQUE: Noncontrast sagittal T1 spin echo and T2 fast echo, sagittal STIR, and T2 fast spin echo through the lumbar spine. In cases with scoliosis, additional coronal T2 fast spin echo may be performed. COMPARISON: None. FINDINGS: Image quality: Excellent. Alignment and Curvature: There is normal bony alignment. Bone Marrow: Marrow is of normal overall signal. An intraosseous hemangioma is present within L1. No acute vertebral body compression fractures. Spinal Cord: Conus medullaris terminates at the L1 level. Visualized cord demonstrates normal signal and size. Paraspinous Soft Tissues: No paravertebral masses. T12-L1: Mild disc desiccation. No canal stenosis. No foraminal stenosis. L1-L2: There is a right paracentral 0.7 x 0.4 by 0.7 cm disc protrusion which narrows the right lateral recess. Moderate right and mild left foraminal stenosis. No canal stenosis. Moderate bilateral facet and ligamentum flavum hypertrophy. L2-L3: Mild disc desiccation and height loss. Broad-based disc bulge. Moderate facet and ligamentum flavum hypertrophy. Moderate canal stenosis. Mild left and moderate right foraminal stenosis. L3-L4: Mild disc desiccation and height loss. Severe facet ligamentum flavum hypertrophy. Severe canal stenosis. Mild bilateral neural foraminal stenosis. L4-L5: Moderate disc desiccation and height loss. Vacuum disc phenomenon. Severe facet ligamentum flavum hypertrophy. Severe canal stenosis. Mild right foraminal narrowing. There is a small posterior focal high-intensity zone. L5-S1: Disc height is preserved. Severe facet ligamentum flavum hypertrophy. No canal stenosis. No foraminal stenosis. IMPRESSION: 1. Right paracentral L1-2 disc protrusion which narrows the right lateral recess. 2. Moderate right foraminal stenosis at L1-2 and L2-3. 3. Broad-based disc bulges and facet and ligamentum flavum hypertrophy with resultant moderate canal stenosis at L2-3 and severe canal stenosis at L3-4 and L4-5. 4. 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 Dictated by: Dianne Emmanuel M.D. on 09/08/2023 at 10:49 Approved by: Dianne Emmanuel M.D. on 09/08/2023 at 11:00
== END ==
LOC: MRI 09:15
PROVIDERS: Family Provider Internal Medicine; PCP Internal Medicine; Referring Provider Internal Medicine; Visit Provider Internal Medicine
DX: M51.16 Intervertebral disc disorders with radiculopathy, lumbar region (principal); M47.26 Other spondylosis with radiculopathy, lumbar region; M47.27 Other spondylosis with radiculopathy, lumbosacral region; G89.29 Other chronic pain
CPT/HCPCS: 72148

== ENCOUNTER 2023-09-10 15:59 | Emergency (ER) | payer MEDICARE, OTHER, SELFPAY ==
[2023-09-10 16:05] VITALS: BP 199/98; PULSE 110; RESP 18; TEMP 36.7; O2SAT 99; BMI 35.8
--- NOTE | 2023-09-10 16:12 | DI.RAD.S_ITS ---
PROCEDURE: XR CHEST 1V INDICATIONS: chest pain TECHNIQUE: One view of the chest was acquired. COMPARISON: [facility], CR, XR CHEST 1V, 07/29/2022, 15:02. FINDINGS: Surgical changes and devices: None. Lungs and pleura: Lungs are clear. No pleural effusions or pneumothorax. Mediastinum: Mediastinal contours appear normal. Heart size is normal. Bones and chest wall: No suspicious bony lesions. Overlying soft tissues appear unremarkable. IMPRESSION: No acute cardiopulmonary abnormality is seen. Approved by: Susana Santo M.D. on 09/10/2023 at 17:42
[2023-09-10 16:18] VITALS: BP 171/93; PULSE 102; O2SAT 99
[2023-09-10 16:30] VITALS: BP 168/92; PULSE 92; RESP 19; O2SAT 100
--- NOTE | 2023-09-10 16:36 | PC.NURSE ---
Pt reports recent low back strain after physical therapy.
--- NOTE | 2023-09-10 16:40 | ED.CHESTPAIN ---
HPI - Chest Pain General Chief Complaint: Chest Pain Stated Complaint: Left arm and back pain. Chest pain Time Seen by Provider: 09/10/23 16:34 Source: patient Mode of arrival: Ambulatory Limitations: no limitations History of Present Illness HPI narrative: Patient 73-year-old female history of hypertension chronic low back pain, multiple sclerosis, presenting today with left-sided back pain. She reports in her thoracic area she gets these tight spasming gripping sensations last for about a minute and then released. She has been taking baclofen which he normally does for her chronic low back pain he is taken some Tylenol as well. She feels like it is finally helping. She feels like it grounds foreman around into her front but comes from her back. She has previously had kidney stones this is not feel like a kidney stone. She has not have any shortness of breath or palpitations. It has not really reproducible with movement but sometimes with palpation although not currently. She has no known coronary artery disease. Related Data Home Medications Medication Instructions Recorded Confirmed Resmed Airsense 10 CPAP #1 ea 01/01/19 09/06/23 omeprazole 20 mg tablet,delayed 20 mg PO DAILY PRN 05/04/22 09/06/23 release tamsulosin 0.4 mg capsule 0.4 mg PO DAILY PRN 05/04/22 09/06/23 ursodiol 300 mg capsule 300 mg PO TID PBC 05/04/22 09/06/23 fluorouracil 5 % topical cream 1 applic topical BID 08/05/22 09/06/23 mupirocin 2 % topical ointment 1 applic topical BID 08/05/22 09/06/23 Previous Rx's Medication Instructions Recorded hydrochlorothiazide 25 mg tablet 25 mg PO DAILY #90 tabs 02/13/23 losartan 50 mg tablet 50 mg PO BID #180 tabs 04/07/23 acyclovir 400 mg tablet 400 mg PO TID PRN herpes #30 tabs 06/12/23 baclofen 5 mg tablet 5 mg PO TID #20 tabs 08/29/23 amlodipine 2.5 mg tablet 2.5 mg PO DAILY #30 tabs 09/06/23 baclofen 10 mg tablet 10 mg PO TID #90 tabs 09/06/23 Allergies Allergy/AdvReac Type Severity Reaction Status Date / Time meloxicam Allergy Severe Diarrhea Verified 09/10/23 16:06 butalbital Allergy Intermediate Hives Verified 09/10/23 16:06 Iodinated Contrast Media Allergy Mild Hives Verified 09/10/23 16:06 adhesive tape AdvReac Mild skin Verified 09/10/23 16:06 irritation Patient History Medical History (Updated 09/10/23 @ 18:19 by Melvina Barnes DO) Chronic low back pain Right carpal tunnel syndrome History of colonic polyps Obesity (BMI 30.0-34.9) Herpesviral infection, 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 Mixed hyperlipidemia Essential hypertension Osteopenia (~1999) Carpal tunnel syndrome (~2018) Chicken pox (~1954) Gout (~1979) Foot pain (~2017) Rubella (~1952) Chronic back pain (Unknown) Neck pain (1999) Ankle pain (2009) Allergic rhinitis (1951) Sleep apnea (2015) Interstitial cystitis (Unknown) GERD (gastroesophageal reflux disease) (Unknown) Hearing loss (2009) Vertigo (2014) Kidney stones (1979) Multiple sclerosis (2006) Thyroid nodule (2003) Hepatitis C (~1979) Hypertension (1989) Colon polyps (2011) Diverticular disease (2011) Hemorrhoids (2011) History of hepatitis C virus infection (07/06/17) Surgical History Anesthesia Hx of breast biopsy (1999) Hx of tonsillectomy (Unknown) Hx of lithotripsy (Unknown) Family History Unknown No problems noted. Social History marital status: unmarried,single number of children: 0 household members: none lives independently: Yes caregiver/support person: No pets and animals: Yes education level: college Smoking Status: Never smoker second hand exposure: No alcohol intake: never substance use type: does not use Smoking Status: Never smoker alcohol intake frequency: 0-2 drinks per day Substance Use Type: does not use Exam Initial Vital Signs Initial Vital Signs: Vital Signs Temperature 98.1 F 09/10/23 16:05 Pulse Rate 110 H 09/10/23 16:05 Respiratory Rate 18 09/10/23 16:05 Blood Pressure 199/98 H 09/10/23 16:05 Pulse Oximetry 99 09/10/23 16:05 Oxygen Delivery Method Room Air 09/10/23 16:05 GENERAL: Alert pleasant 73-year-old female and in no acute distress. CARDIOVASCULAR: Regular rate and rhythm without murmurs, rubs or gallops. RESPIRATORY: Breath sounds equal bilaterally, no wheezes rales or rhonchi. ABDOMEN: Soft, nontender. Normoactive bowel sounds all 4 quadrants. No guarding or rebound. BACK: No vertebral tenderness no thoracic pain no left scapula pain : No CVA tenderness EXTREMITIES: Normal range of motion, no clubbing or edema. Neurovascularly intact NEUROLOGICAL: Alert and oriented x4.Normal gait and speech. SKIN: Warm, dry, no laceration, no petechiae, no rashes or lesions. Scores HEART Score Heart Score history: Slightly Suspicious Heart Score EKG: Normal Heart Score Age: > or = 65 years old Heart Score risk factors: 1-2 risk factors Heart Score troponin: < or = to normal limit Heart Score Total: 3 Course Orders Ordered: ED Orders 09/10/23 16:12 XR chest 1V Stat EKG-12 Lead Stat 09/10/23 16:25 Complete Blood Count AUTO DIFF Stat Comprehensive Metabolic Panel Stat Lipase Stat Magnesium Stat PTT Partial Thromboplastin Martinez Stat Prothrombin Time INR Stat Troponin & CK Cardiac Panel Stat Discontinued Medications Ketorolac Tromethamine (Ketorolac 30 Mg/Ml Vial) 15 mg IV NOW ONE Stop: 09/10/23 17:55 Last Admin: 09/10/23 18:15 Dose: 15 mg Vital Signs Vital signs: Vital Signs - 8 hr 09/10/23 16:05 09/10/23 16:18 09/10/23 16:18 Temperature 98.1 F Pulse Rate 110 H 102 H Respiratory Rate 18 Blood Pressure 199/98 H 171/93 H Pulse Oximetry 99 99 Oxygen Delivery Method Room Air 09/10/23 16:30 09/10/23 16:30 09/10/23 17:00 Temperature Pulse Rate 92 H Respiratory Rate 19 Blood Pressure 168/92 H 157/93 H Pulse Oximetry 100 Oxygen Delivery Method 09/10/23 17:00 09/10/23 17:30 09/10/23 17:30 Temperature Pulse Rate 85 77 Respiratory Rate 17 20 Blood Pressure 159/90 H Pulse Oximetry 100 99 Oxygen Delivery Method Room Air Room Air MDM - Chest Pain Lab Data 09/10/23 16:25 09/10/23 16:25 Labs: Lab Results 09/10/23 Range/Units 16:25 WBC 10.2 (4.5-11.0) X10^3/uL RBC 4.13 (4.0-5.2) X10^6/uL Hgb 13.3 (12.0-16.0) g/dL Hct 39.2 (36-46) % MCV 94.9 (80-100) fL MCH 32.3 (26-34) PG MCHC 34.0 (30-36) % RDW 12.6 (11.6-14.8) % Plt Count 242 (150-400) X10^3/uL Neut % (Auto) 61.2 (50-75) % Lymph % (Auto) 27.8 (25-40) % [place] % (Auto) 9.3 (3-14) % Eos % (Auto) 0.9 L (2-4) % Baso % (Auto) 0.8 (0-2) % Neut # (Auto) 6300 (4857-7523) /uL Lymph # (Auto) 2800 (0845-0047) /uL [place] # (Auto) 1000 H (0-900) /uL Eos # (Auto) 100 (0-450) /uL Baso # (Auto) 100 (0-100) /uL PT 11.0 (9.4-12.5) SECONDS INR 1.0 (0.9-1.3) APTT 35 (25.1-36.5) SECONDS Sodium 137 (137-145) mmol/L Potassium 3.7 (3.4-5.1) mmol/L Chloride 101 (98-107) mmol/L Carbon Dioxide 25 (22-32) mmol/L BUN 38 H (7-17) mg/dL Creatinine 1.11 H (0.52-1.04) mg/dL Estimated GFR 53 L (>60) mL/min BUN/Creatinine Ratio 34.2 H (6-22) Glucose 136 H (80-110) mg/dL Calcium 10.0 (8.4-10.2) mg/dL Magnesium 1.8 (1.6-2.3) mg/dL Total Bilirubin 0.4 (0.2-1.3) mg/dL AST 21 (14-36) IU/L ALT 21 (<35) IU/L Alkaline Phosphatase 110 (38-126) U/L Total Creatine Kinase 43 (30-135) U/L Troponin I < 0.012 (0.01-0.034) ng/mL Total Protein 8.2 (6.3-8.2) g/dL Albumin 4.6 (3.5-5.0) g/dL Globulin 3.6 (1.7-4.1) g/dL Albumin/Globulin Ratio 1.3 (1.0-2.8) Lipase 85 (23-300) U/L Imaging Data Chest x-ray: Radiologist's Impression: PROCEDURE: XR CHEST 1V INDICATIONS: chest pain TECHNIQUE: One view of the chest was acquired. COMPARISON: [facility], , XR CHEST 1V, 07/29/2022, 15:02. FINDINGS: Surgical changes and devices: None. Lungs and pleura: Lungs are clear. No pleural effusions or pneumothorax. Mediastinum: Mediastinal contours appear normal. Heart size is normal. Bones and chest wall: No suspicious bony lesions. Overlying soft tissues appear unremarkable. IMPRESSION: No acute cardiopulmonary abnormality is seen. Approved by: Susana Santo M.D. on 09/10/2023 at 17:42 ECG Data Attestation: I personally reviewed and interpreted this ECG as follows: Interpretation: Sinus rhythm rate 90 GA interval 148 QRS 92 QTC 462 no changes no T-wave inversions MDM Narrative Medical decision making narrative: Patient is 73-year-old female history of low back pain and spasm presents today with left-sided back pain and chest pain. It sounds like it spasms comes from the back goes all around to the chest lasts for a couple of seconds. It comes and goes in his been doing it regularly all day. She is having relief with baclofen which she takes for her lower back as well. It was reproducible prior to her arrival to ED however I am not able to reproduce it now. Blood work reviewed no clinical significant abnormality, creatinine remains stable 1 point 1 wishes similar to 4 days prior however it was 0.8 in April 2023 Chest x-ray reviewed no abnormalities Patient is describing spasming gripping pain radiating from her left thoracic around to her chest. This seems to be musculoskeletal rather than cardiac in nature. She has a heart score of 3. She is ambulatory to the restroom without any sort of complication. She has requesting an anti-inflammatory. She reports that she is anaphylaxis to meloxicam but has previously taken ibuprofen without any problem however she was told not to take ibuprofen because of her stomach. She has not having any pain now. Recommend outpatient follow-up. Discharge Plan Departure Patient Disposition: Home Clinical Impression: Muscle spasm Instructions: DI for Muscle Spasm Activity Restrictions/Additional Instructions: *You have been diagnosed with muscle spasm *What to do: At this time I do think having muscle spasm. I hope it gets better for you recommend light activity heating pad or ice. Follow up with Dr. Worthy may require further cardiac testing *Continue to take medications as directed Tylenol 1000 mg every 6 hours if needed for [id number] pain Continue baclofen as previously prescribed *Follow up with your primary care provider in 2-3 days or call [phone] *Return to ER if you should have increasing pain chest pain shortness of breath palpitations dizziness lightheadedness or any new, worsening or concerning symptoms Prescriptions: No Action (DME) Resmed Airsense 10 CPAP Qty: 1 Dose Instruction: As directed Patient Comments: Pressure: 5-15 cmH2O DME: [facility] Rx Instructions: As directed hydrochlorothiazide 25 mg tablet 25 mg PO DAILY Qty: 90 2RF losartan 50 mg tablet 50 mg PO BID Qty: 180 3RF acyclovir 400 mg tablet 400 mg PO TID PRN (Reason: herpes) Qty: 30 2RF baclofen 5 mg tablet 5 mg PO TID Qty: 20 2RF ursodiol 300 mg capsule 300 mg PO TID tamsulosin 0.4 mg capsule 0.4 mg PO DAILY PRN Patient Comments: TAKE 1 CAPSULE BY MOUTH AT BEDTIME. TAKE IF YOU FEEL LIKE YOU ARE PASSING A KIDNEY STONE fluorouracil 5 % cream 1 applic topical BID mupirocin 2 % ointment 1 applic topical BID Patient Comments: APPLY THIN LAYER TWICE DAILY TO SPOT ON LEG FOR 7 DAYS baclofen 10 mg tablet 10 mg PO TID Qty: 90 0RF amlodipine 2.5 mg tablet 2.5 mg PO DAILY Qty: 30 1RF omeprazole 20 mg tablet,delayed release (DR/EC) 20 mg PO DAILY PRN Referrals: Tanvir Worthy MD [Primary Care Provider] - Stand Alone Forms: Patient Portal/API
[2023-09-10 16:44] LABS: Add Manual Diff / Slide Review NO; Basophils Absolute Auto 100 /uL (0-100); Basophils Percent Auto 0.8 % (0-2); Eosinophils Absolute Auto 100 /uL (0-450); Eosinophils Percent Auto 0.9 % (2-4); Hematocrit 39.2 % (36-46); Hemoglobin 13.3 g/dL (12.0-16.0); Lymphocytes Absolute Auto 2800 /uL (1100-4500); Lymphocytes Percent Auto 27.8 % (25-40); Mean Corpuscular Hemoglobin 32.3 PG (26-34); Mean Corpuscular Volume 94.9 fL (80-100); Monocytes Absolute Auto 1000 /uL (0-900); Monocytes Percent Auto 9.3 % (3-14); Neutrophils Absolute Auto 6300 /uL (1500-7000); Neutrophils Percent Auto 61.2 % (50-75); Platelet Count 242 X10^3/uL (150-400); Red Blood Cell Count 4.13 X10^6/uL (4.0-5.2); Red Cell Distribution Width 12.6 % (11.6-14.8); White Blood Cell Count 10.2 X10^3/uL (4.5-11.0)
[2023-09-10 16:45] LABS: PTT Partial Thromboplastin Tim 35 SECONDS (25.1-36.5)
[2023-09-10 16:48] LABS: Alanine Aminotransferase 21 IU/L (<35); Albumin 4.6 g/dL (3.5-5.0); Albumin Globulin Ratio 1.3 (1.0-2.8); Alkaline Phosphatase 110 U/L (38-126); Aspartate Aminotransferase 21 IU/L (14-36); BUN Creatinine Ratio 34.2 (6-22); Bilirubin Total 0.4 mg/dL (0.2-1.3); Blood Urea Nitrogen 38 mg/dL (7-17); Carbon Dioxide 25 mmol/L (22-32); Chloride 101 mmol/L (98-107); Creatine Kinase 43 U/L (30-135); Estimated Glomerular Filt Rate 53 mL/min (>60); Globulin 3.6 g/dL (1.7-4.1); Glucose 136 mg/dL (80-110); HEMOLYSIS < 15 (0-50); Lipase 85 U/L (23-300); Magnesium 1.8 mg/dL (1.6-2.3); Potassium 3.7 mmol/L (3.4-5.1); Sodium 137 mmol/L (137-145); Total Protein 8.2 g/dL (6.3-8.2)
[2023-09-10 16:59] LABS: Troponin I < 0.012 ng/mL (0.01-0.034)
[2023-09-10 17:00] VITALS: BP 157/93; PULSE 85; RESP 17; O2SAT 100
[2023-09-10 17:30] VITALS: BP 159/90; PULSE 77; RESP 20; O2SAT 99
[2023-09-10] MEDS: KETOROLAC 30 MG/ML VIAL 15 MG IV (18:15)
[2023-09-10 18:46] VITALS: BP 156/88; PULSE 74; RESP 16; O2SAT 100
== END 2023-09-10 18:47 | disposition home or self-care (01) ==
PROVIDERS: Emergency Provider Emergency Medicine; Family Provider Internal Medicine; PCP Internal Medicine
DX: M62.830 Muscle spasm of back (principal); R07.9 Chest pain, unspecified
CPT/HCPCS: 36415; 71045; 80053; 82550; 83690; 83735; 84484; 85025; 85610; 85730; 93005; 96374; 99284; J1885

== ENCOUNTER 2023-12-07 11:15 | Outpatient (RCR) | payer MEDICARE, OTHER, SELFPAY ==
--- NOTE | 2023-09-22 17:00 | PT.OIE ---
Current Diagnoses Other chronic pain (09/22/23) Pain in left shoulder (09/22/23) Stiffness of other specified joint, not elsewhere classified (09/22/23) Sacrococcygeal disorders, not elsewhere classified (09/22/23) Cervicalgia (09/22/23) Low back pain, unspecified (09/22/23) Past Medical History (Last Updated 09/12/23 @ 16:05 by Venkata Rock MD) Allergic rhinitis (1951) Ankle pain (2009) Annular tear of lumbar disc Carpal tunnel syndrome (~2018) Chicken pox (~1954) Chronic back pain (Unknown) Chronic low back pain Chronic SI joint pain Colon polyps (2011) Diverticular disease (2011) Essential hypertension Foot pain (~2017) GERD (gastroesophageal reflux disease) (Unknown) Gout (~1979) Hearing loss (2009) Hemorrhoids (2011) Hepatitis C (~1979) Herpesviral infection, unspecified History of colonic polyps History of hepatitis C virus infection (07/06/17) Hypertension (1989) Interstitial cystitis (Unknown) Kidney stones (1979) Lumbar foraminal stenosis Lumbar spinal stenosis Lumbar spondylosis Mixed hyperlipidemia Multiple sclerosis (2006) Neck pain (1999) Obesity (BMI 30.0-34.9) Osteopenia (~1999) Primary biliary cirrhosis Right carpal tunnel syndrome Rubella (~1952) Sleep apnea (2015) Thyroid nodule (2003) Vertigo (2014) Past Surgical History (Last Reviewed 09/12/23 @ 16:04 by Venkata Rock MD) Anesthesia Hx of breast biopsy (1999) Hx of lithotripsy (Unknown) Hx of tonsillectomy (Unknown) Visit Care Team Role Provider Type Tanvir Worthy MD Attending Provider Physician Family Provider Primary Care Provider Referring Provider Specialty: Internal Medicine Address: [address] [place] [address], [facility] Email: [email or web address] Physical Therapy Initial Evaluation PT-OP-A Visit Information Start: 09/22/23 14:58 Freq: Status: Active Protocol: Document 09/22/23 12:00 DCW (Rec: 09/22/23 15:12 DCW [id number]) Out-Patient Physical Therapy Visit Information Visit Information Visit Type Initial Evaluation Visit Start Time 12:00 Visit Stop Time 12:45 Visit Number 1 Number of [employer] Visits 0 Evaluation Information Evaluation Date 09/22/23 PT-OP-B Current Condition Start: 09/22/23 14:58 Freq: Status: Active Protocol: Document 09/22/23 12:00 DCW (Rec: 09/22/23 15:12 DCW [id number]) Current Condition History of Current Condition Onset Date Multi-year history, worse last two months Current Complaints Low back pain, neck pain, shoulder pain History of Current Condition Pt is a 73 year old female presenting with a multi-year history of low back and neck pain. Pt has been treated at this clinic for her low back pain ~2 years ago. Pt reports that at the beginning of July, she was seen at a different clinic for her back, and by the time she got in, she was actually relatively pain-free. Unfortunately, she was given a few home exercises that severely flared-up her back pain and has been in severe pain ever since. Reports she has barely moved the last two months. Today is actually the first day she has been somewhat functional since it started. Was unable to sleep in her bed, or even get a shower because she wasn' t able to step over the side of the tub. Does have a history of bilateral LE radicular symptoms including burning and pain in her thighs , as well as muscle spasms in her glutes. Recent MRI notes multiple areas of concern (see below). Also notes common cervical pain, has difficulty turning her head, experiences a lot of pain and tightness along the back of her head/ neck. Prior Treatments and Tests Lumbar MRI: IMPRESSION: 1. Right paracentral L1-2 disc protrusion which narrows the right lateral recess. 2. Moderate right foraminal stenosis at L1-2 and L2-3. 3. Broad-based disc bulges and facet and ligamentum flavum hypertrophy with resultant moderate canal stenosis at L2- 3 and severe canal stenosis at L3-4 and L4-5. 4. 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 per Dianne Emmanuel M.D. on Treatment Goals Patient/Caregiver Goals I just want to get my life back. PT-OP-C Subjective Start: 09/22/23 14:58 Freq: Status: Active Protocol: Document 09/22/23 12:00 DCW (Rec: 09/22/23 15:12 DCW [id number]) OP-PT Subjective Patient Comments Patient Comments I've got pain everywhere, but my back has been worse for the last two months than it ever has been before. Patient Questionnaires Oswestry Low Back Index Oswestry Score 1545 = 33.33% PT-OP-F Manual Assessment Start: 09/22/23 15:12 Freq: Status: Active Protocol: Document 09/22/23 12:00 DCW (Rec: 09/22/23 17:00 DCW [id number]) Manual Assessments Soft Tissue Assessment Soft Tissue Mobility Assessment Tenderness to palpation 3/4 wincing and withdraw: B Suboccipitals, B lumbar paraspinals, B hamstrings, B piriformis PT-OP-J Posture/Palpation/Skin Start: 09/22/23 14:58 Freq: Status: Active Protocol: Document 09/22/23 12:00 DCW (Rec: 09/22/23 15:12 DCW [id number]) Posture Evaluation Position Sitting Evaluation View Lateral Head/C-Spine Posture Forward Head PT-OP-K Range of Motion Start: 09/22/23 14:58 Freq: Status: Active Protocol: Document 09/22/23 12:00 DCW (Rec: 09/22/23 17:00 DCW [id number]) Cervical Spine Range of Motion Cervical Spine Active Degrees Testing Position Sitting Flexion 65 Extension 45 Rotation Left 40 Rotation Right 60 Lateral Flexion Left 35 Lateral Flexion Right 35 PT-OP-L Special Tests Start: 09/22/23 14:58 Freq: Status: Active Protocol: Document 09/22/23 12:00 DCW (Rec: 09/22/23 17:00 DCW [id number]) Special Tests Lumbar Spine Special Tests Straight Leg Raise Test Results B hamstring tightness Slump Test Results Negative Hip Special Tests SUSY Test Results B ipsilateral anterior hip pain PT-OP-Q Treatments Start: 09/22/23 14:58 Freq: Status: Active Protocol: Document 09/22/23 12:00 DCW (Rec: 09/22/23 15:14 DCW [id number]) Therapeutic Exercises Supine Exercises Piriformis Supine Exercise Name Knee to opposite shoulder Side bilateral Chin tucks Supine Exercise Name Chin tucks Manual Therapy Treatment Soft Tissue Mobilization Suboccipitals Body Location B suboccipitals Mobilization Type Sustained Pressure,Trigger Point Release Intensity/Depth Moderate Body Position Supine PT-OP-T Assessment and Plan Start: 09/22/23 14:58 Freq: Status: Active Protocol: Document 09/22/23 12:00 DC (Rec: 09/22/23 17:00 [facility] [id number]) Physical Therapy Assessment Rehab Potential Rehabilitation Potential Fair Evaluation Complexity Number of Personal Factors/Comorbidities 3 or More Number of Body Systems Impaired 4 or More Clinical Presentation at Evaluation Evolving Impairments Impairments Activity Tolerance,Functional Activities,Functional Mobility ,Pain,Posture,ROM,Soft Tissue Mobility,Strength,Tone Goals Two Impairment Pt experiences increased pain with B cerviacl rotation, L>R Mcfp Goal (LTG) Pt to demonstrate increased pain-free ROM of left cervical rotation to 60? in order to improve ability to look for traffic while driving LTG Duration 11/22/23 One Impairment Pt does not have an approrpiate home exercise program Short Term Goal (STG) Pt to be independent and compliant with an appropriate HEP STG Duration 10/23/23 Assessment Summary Assessment Pt presents with signs and symptoms consistent with referring diagnosis of low back/chronic pain, likely associated with known disc protrusions, severe stenosis, and annular fibrosis tear. Pt does appear to be in a relatively acute phase of protective muscle spasming throughout hips, low back, and cervical spine. Limits mobility, gait, and ROM. Sleep is disturbed by pain in neck and left shoulder. Due to recent attempts at physical therapy elsewhere resulting in severe flare-up of symptoms, tried to take it fairly easy on her during initial evaluation today. Going forward, attempt to focus on gentle mobility and strengthening, as well as flexibility/stretching in pain -free positions and improving overall posture. Physical Therapy Plan Frequency and Duration Frequency of Treatment 2x/Week Plan of Care Start Date 09/22/23 Plan of Care End Date 11/22/23 Therapeutic Interventions Therapeutic Interventions Balance Training,Home Exercise Program,Joint Mobilizations, Manual Therapy,Neuromuscular Re-education,Patient/Caregiver Education,Self-Care/Home Management,Soft Tissue Mobilization,Therapeutic Activities,Therapeutic Exercises Modalities Cold Pack/Ice Massage,Electric Stimulation,Hot Packs, Ultrasound Next Visit Focus/Plan Next Note Type Treatment Note Next Visit Plan Gentle strengthening, stretching, STM as tolerated
--- NOTE | 2023-09-22 17:01 | PT.OPPOC ---
Physical, Occupational & Speech Therapy At [facility] Current Diagnoses Other chronic pain (09/22/23) Pain in left shoulder (09/22/23) Stiffness of other specified joint, not elsewhere classified (09/22/23) Sacrococcygeal disorders, not elsewhere classified (09/22/23) Cervicalgia (09/22/23) Low back pain, unspecified (09/22/23) Visit Care Team Role Provider Type Tanvir Worthy MD Attending Provider Physician Family Provider Primary Care Provider Referring Provider Specialty: Internal Medicine Address: [address] [place] [address] Email: [email or web address] Plan Of Care PT-OP-T Assessment and Plan Start: 09/22/23 14:58 Freq: Status: Active Protocol: Document 09/22/23 12:00 DCW (Rec: 09/22/23 17:00 DCW [id number]) Physical Therapy Assessment Rehab Potential Rehabilitation Potential Fair Evaluation Complexity Number of Personal Factors/Comorbidities 3 or More Number of Body Systems Impaired 4 or More Clinical Presentation at Evaluation Evolving Impairments Impairments Activity Tolerance,Functional Activities,Functional Mobility ,Pain,Posture,ROM,Soft Tissue Mobility,Strength,Tone Goals Two Impairment Pt experiences increased pain with B cerviacl rotation, L>R Mcc Goal (LTG) Pt to demonstrate increased pain-free ROM of left cervical rotation to 60? in order to improve ability to look for traffic while driving LTG Duration 11/22/23 One Impairment Pt does not have an approrpiate home exercise program Short Term Goal (STG) Pt to be independent and compliant with an appropriate HEP STG Duration 10/23/23 Assessment Summary Assessment Pt presents with signs and symptoms consistent with referring diagnosis of low back/chronic pain, likely associated with known disc protrusions, severe stenosis, and annular fibrosis tear. Pt does appear to be in a relatively acute phase of protective muscle spasming throughout hips, low back, and cervical spine. Limits mobility, gait, and ROM. Sleep is disturbed by pain in neck and left shoulder. Due to recent attempts at physical therapy elsewhere resulting in severe flare-up of symptoms, tried to take it fairly easy on her during initial evaluation today. Going forward, attempt to focus on gentle mobility and strengthening, as well as flexibility/stretching in pain -free positions and improving overall posture. Physical Therapy Plan Frequency and Duration Frequency of Treatment 2x/Week Plan of Care Start Date 09/22/23 Plan of Care End Date 11/22/23 Therapeutic Interventions Therapeutic Interventions Balance Training,Home Exercise Program,Joint Mobilizations, Manual Therapy,Neuromuscular Re-education,Patient/Caregiver Education,Self-Care/Home Management,Soft Tissue Mobilization,Therapeutic Activities,Therapeutic Exercises Modalities Cold Pack/Ice Massage,Electric Stimulation,Hot Packs, Ultrasound Next Visit Focus/Plan Next Note Type Treatment Note Next Visit Plan Gentle strengthening, stretching, STM as tolerated Plan of Care Dates Plan of Care Start Date 09/22/23 Plan of Care End Date 11/22/23 Electronically Signed by: Jed Arriaza, PT 09/22/23 [id number] If you are in agreement with this Plan of Care, please return a signed and dated copy. I have reviewed this Plan of Care and certify that the skilled therapy services above are required to meet the patient?s needs. Physician Signature Date Printed Name and Credentials Clinical Instructor Signature Printed Name and Credentials
--- NOTE | 2023-09-27 16:55 | PT.OTN ---
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 Pt scott been treated at this clinic for her low back pain ~2 years ago. Pt reports that at the beginning of July, she was seen at a different clinic for her back, and by the time she got in, she was actually relatively pain-free. Unfortunately, she was given a few home exercises that severely flared-up her back pain and has been in severe pain ever since. Reports she has barely moved the last two months. Today is actually the first day she has been somewhat functional since it started. Was unable to sleep in her bed, or even get a shower because she wasn' t able to step over the side of the tub. Does have a history of bilateral LE radicular symptoms including burning and pain in her thighs , as well as muscle spasms in her glutes. Recent MRI notes multiple areas of concern (see below). Also notes common cervical pain, has difficulty turning her head, experiences a lot of pain and tightness along the back of her head/ neck. Prior Treatments and Tests Lumbar MRI: IMPRESSION: 1. Right paracentral L1-2 disc protrusion which narrows the right lateral recess. 2. Moderate right foraminal stenosis at L1-2 and L2-3. 3. Broad-based disc bulges and facet and ligamentum flavum hypertrophy with resultant moderate canal stenosis at L2- 3 and severe canal stenosis at L3-4 and L4-5. 4. 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 per Dianne Emmanuel M.D. on Treatment Goals Patient/Caregiver Goals I just want to get my life back. PT-OP-C Subjective Start: 09/22/23 14:58 Freq: Status: Active Protocol: Document 09/27/23 13:01 SW (Rec: 09/27/23 13:56 SW [id number]) OP-PT Subjective Patient Comments Patient Comments Pt reports able to step into shower for first time in months. PT-OP-F Manual Assessment Start: 09/22/23 15:12 Freq: Status: Active Protocol: Document 09/22/23 12:00 DCW (Rec: 09/22/23 17:00 DCW [id number]) Manual Assessments Soft Tissue Assessment Soft Tissue Mobility Assessment Tenderness to palpation 3/4 wincing and withdraw: B Suboccipitals, B lumbar paraspinals, B hamstrings, B piriformis PT-OP-J Posture/Palpation/Skin Start: 09/22/23 14:58 Freq: Status: Active Protocol: Document 09/22/23 12:00 DCW (Rec: 09/22/23 15:12 DCW [id number]) Posture Evaluation Position Sitting Evaluation View Lateral Head/C-Spine Posture Forward Head PT-OP-K Range of Motion Start: 09/22/23 14:58 Freq: Status: Active Protocol: Document 09/22/23 12:00 DCW (Rec: 09/22/23 17:00 DCW [id number]) Cervical Spine Range of Motion Cervical Spine Active Degrees Testing Position Sitting Flexion 65 Extension 45 Rotation Left 40 Rotation Right 60 Lateral Flexion Left 35 Lateral Flexion Right 35 PT-OP-L Special Tests Start: 09/22/23 14:58 Freq: Status: Active Protocol: Document 09/22/23 12:00 DCW (Rec: 09/22/23 17:00 DCW [id number]) Special Tests Lumbar Spine Special Tests Straight Leg Raise Test Results B hamstring tightness Slump Test Results Negative Hip Special Tests SUSY Test Results B ipsilateral anterior hip pain PT-OP-Q Treatments Start: 09/22/23 14:58 Freq: Status: Active Protocol: Document 09/27/23 13:01 (Rec: 09/27/23 13:56 [id number]) Therapeutic Exercises Supine Exercises LTR Supine Exercise Name LTR Diaphragmatic Breathing Comments Verbal/tactile cues to facilitate diaphragmatic breathing TA Supine Exercise Name Core stabiliztion Piriformis Supine Exercise Name Knee to opposite shoulder Side bilateral Chin tucks Supine Exercise Name Chin tucks Self-Care/Home Management Treatment Education Patient Education Home Exercise Program,Pain Management Other Education Extended time for education with exercises this session. Educated pt on progressions/ regressions in PT. Educated pt on modalities for pain control and inflammation, educated on effects of heat vs ice and the physiological effects. PT-OP-T Assessment and Plan Start: 09/22/23 14:58 Freq: Status: Active Protocol: Document 09/27/23 13:01 (Rec: 09/27/23 13:56 [id number]) Physical Therapy Assessment Goals Two Impairment Pt experiences increased pain with B cerviacl rotation, L>R Group Home Goal (LTG) Pt to demonstrate increased pain-free ROM of left cervical rotation to 60? in order to improve ability to look for traffic while driving LTG Duration 11/22/23 One Impairment Pt does not have an approrpiate home exercise program Short Term Goal (STG) Pt to be independent and compliant with an appropriate HEP STG Duration 10/23/23 Assessment Summary Assessment Extended time on pt education this session. Initiated diaphragmatic breathing this session to assist with pt pain and calm the system, pt shallow breathing with accessory mms, required verbal /tactile cueing to facilitate activation of diaphragm. Inititiated LTR for gentle mobility, and gentle core strengthening. Pt hesitant with new exercises d/t past PT experience at a different clinic. Encouraged feedback throughout session, plan to followup on pt tolerance next session and progress as able. Physical Therapy Plan Frequency and Duration Frequency of Treatment 2x/Week Plan of Care Start Date 09/22/23 Plan of Care End Date 11/22/23 Therapeutic Interventions Therapeutic Interventions Balance Training,Home Exercise Program,Joint Mobilizations, Manual Therapy,Neuromuscular Re-education,Patient/Caregiver Education,Self-Care/Home Management,Soft Tissue Mobilization,Therapeutic Activities,Therapeutic Exercises Modalities Cold Pack/Ice Massage,Electric Stimulation,Hot Packs, Ultrasound Next Visit Focus/Plan Next Note Type Treatment Note Next Visit Plan Gentle strengthening, stretching, STM as tolerated
--- NOTE | 2023-10-02 11:26 | PT.OTN ---
Current Diagnoses Other chronic pain (10/02/23) Pain in left shoulder (10/02/23) Stiffness of other specified joint, not elsewhere classified (10/02/23) Sacrococcygeal disorders, not elsewhere classified (10/02/23) Cervicalgia (10/02/23) Low back pain, unspecified (10/02/23) Physical Therapy Treatment Note PT-OP-A Visit Information Start: 09/22/23 14:58 Freq: Status: Active Protocol: Document 10/02/23 10:34 SP (Rec: 10/02/23 11:19 SP [id number]) Out-Patient Physical Therapy Visit Information Visit Information Visit Type Treatment Note Visit Start Time 10:34 Visit Stop Time 11:26 Visit Number 3 Number of FREELANCE WEB DESIGNER Visits 2 Evaluation Information Evaluation Date 09/22/23 PT-OP-B Current Condition Start: 09/22/23 14:58 Freq: Status: Active Protocol: Document 09/22/23 12:00 DCW (Rec: 09/22/23 15:12 DCW [id number]) Current Condition History of Current Condition Onset Date Multi-year history, worse last two months Current Complaints Low back pain, neck pain, shoulder pain History of Current Condition Pt is a 73 year old female presenting with a multi-year history of low back and neck pain. Pt scott been treated at this clinic for her low back pain ~2 years ago. Pt reports that at the beginning of July, she was seen at a different clinic for her back, and by the time she got in, she was actually relatively pain-free. Unfortunately, she was given a few home exercises that severely flared-up her back pain and has been in severe pain ever since. Reports she has barely moved the last two months. Today is actually the first day she has been somewhat functional since it started. Was unable to sleep in her bed, or even get a shower because she wasn' t able to step over the side of the tub. Does have a history of bilateral LE radicular symptoms including burning and pain in her thighs , as well as muscle spasms in her glutes. Recent MRI notes multiple areas of concern (see below). Also notes common cervical pain, has difficulty turning her head, experiences a lot of pain and tightness along the back of her head/ neck. Prior Treatments and Tests Lumbar MRI: IMPRESSION: 1. Right paracentral L1-2 disc protrusion which narrows the right lateral recess. 2. Moderate right foraminal stenosis at L1-2 and L2-3. 3. Broad-based disc bulges and facet and ligamentum flavum hypertrophy with resultant moderate canal stenosis at L2- 3 and severe canal stenosis at L3-4 and L4-5. 4. 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 per Dianne Emmanuel M.D. on Treatment Goals Patient/Caregiver Goals I just want to get my life back. PT-OP-C Subjective Start: 09/22/23 14:58 Freq: Status: Active Protocol: Document 10/02/23 10:34 SP (Rec: 10/02/23 11:19 SP [id number]) OP-PT Subjective Patient Comments Patient Comments She reports hasn't been in the right space of mind, little depressed so hasn't done her exercises, will try better. She states feels ok after txs and back doing ok today. She stated chin tuck exercises helping her neck alot. She reported her balance isn't as good as would like but seeing improvements getting around home. PT-OP-F Manual Assessment Start: 09/22/23 15:12 Freq: Status: Active Protocol: Document 09/22/23 12:00 DCW (Rec: 09/22/23 17:00 DCW [id number]) Manual Assessments Soft Tissue Assessment Soft Tissue Mobility Assessment Tenderness to palpation 3/4 wincing and withdraw: B Suboccipitals, B lumbar paraspinals, B hamstrings, B piriformis PT-OP-J Posture/Palpation/Skin Start: 09/22/23 14:58 Freq: Status: Active Protocol: Document 09/22/23 12:00 DCW (Rec: 09/22/23 15:12 DCW [id number]) Posture Evaluation Position Sitting Evaluation View Lateral Head/C-Spine Posture Forward Head PT-OP-K Range of Motion Start: 09/22/23 14:58 Freq: Status: Active Protocol: Document 09/22/23 12:00 DCW (Rec: 09/22/23 17:00 DCW [id number]) Cervical Spine Range of Motion Cervical Spine Active Degrees Testing Position Sitting Flexion 65 Extension 45 Rotation Left 40 Rotation Right 60 Lateral Flexion Left 35 Lateral Flexion Right 35 PT-OP-L Special Tests Start: 09/22/23 14:58 Freq: Status: Active Protocol: Document 09/22/23 12:00 DCW (Rec: 09/22/23 17:00 DCW [id number]) Special Tests Lumbar Spine Special Tests Straight Leg Raise Test Results B hamstring tightness Slump Test Results Negative Hip Special Tests SUSY Test Results B ipsilateral anterior hip pain PT-OP-Q Treatments Start: 09/22/23 14:58 Freq: Status: Active Protocol: Document 10/02/23 10:34 SP (Rec: 10/02/23 11:19 SP [id number]) Therapeutic Exercises Supine Exercises Core March Supine Exercise Name added to HEP: single only Side bilateral Resistance AROM alternate Reps/Minutes 2x10 Comments cued TA draw in, maintain 90 deg hip/knee lift/lower-pnfree - unable seq DL LTR Supine Exercise Name LTR-HEP reviewed Reps/Minutes x10 Comments cued TA fac, good slow mobility, no pelvic lift Diaphragmatic Breathing Supine Exercise Name HEP reviewed Reps/Minutes 10 reps Comments good form, discussed for fac abdominal/ribcage mobility and calming overall TA Supine Exercise Name Core stabiliztion- HEP reviewed Reps/Minutes 10SH x5 Comments TA draw in, ed support LS, allow breath Piriformis Supine Exercise Name Knee to opposite shoulder-HEP reviewed Side bilateral Equipment Used ankle over opp knee Reps/Minutes 3 repsx 15 SH Comments cued breath, pnfree range Chin tucks Supine Exercise Name Chin tucks hold, lift ( unweight head from pillow) Reps/Minutes 5 SH x5, x5 reps Comments reports pnfree Standing Exercises hipabd Standing Exercise Name trialed post chaya- hold 10/02 Side bilateral Equipment Used BUE rail support Reps/Minutes 3 reps each Comments ed/cues for TA, tall posture- limited reps due to back irritation shld ext Standing Exercise Name added to HEP Side bilateral Resistance Tb #1 pulling back to side seam pants Reps/Minutes 2x10 Comments cued tall, scap retraction &CS neutral tuck, elbows straight - reported pnfr Therapeutic Activity Therapeutic Activity log roll technique Reps/Minutes 3 reps- improved UE support vs sit straight up Comments ed supine>SL>transition to sit and reverse, less strain in back/neck - no pain either way Neuro Re-Education Treatment Balance Activities chaya Details trialed near rail- pt nervous because balance isn't very good Equipment near rail & FIBREGLASS GUN HAND CG/ Min A Reps/Duration 10 ft 1 lap Comments demonstrated weakess SLS LE advancement step to patterning , cued tall posturing/TA to allow wt shift COG over SL MARCI - R foot caught chaya x1 Rail and Mod A recovery- reported back feeling irritated so stopped. PT-OP-T Assessment and Plan Start: 09/22/23 14:58 Freq: Status: Active Protocol: Document 10/02/23 10:34 SP (Rec: 10/02/23 11:19 SP [id number]) Physical Therapy Assessment Goals Two Impairment Pt experiences increased pain with B cerviacl rotation, L>R Intermediate Goal (LTG) Pt to demonstrate increased pain-free ROM of left cervical rotation to 60? in order to improve ability to look for traffic while driving LTG Duration 11/22/23 One Impairment Pt does not have an approrpiate home exercise program Short Term Goal (STG) Pt to be independent and compliant with an appropriate HEP STG Duration 10/23/23 Assessment Summary Assessment Pt improved TA engagement during supine review, tactile and VCs PPT back toward vegetable ii farmworker feedback over abdomen for self feedback. Pt was ableto incorporate TA single leg march, cued slow lift/lower transition, pnfree reported. Pt demonstrates midline even gait with no added effort to maintain through gym so FREELANCE WEB DESIGNER recommended trial chaya stepping with ed use rail and added contact suppport FIBREGLASS GUN HAND CG/ MIn, with cues for alignment corrections success stability. Pt's R foot caught chaya, recovered rail support with added Min/Mod A. Instructed use of diaphramatic breath for back support due to c/o irritated her LB. Post breath trialed hip abd but didn't help pain reduction. SUggested CP and seated rest before leaving, pt declined and stated I will just do at home . She started to taking steps to leave but R foot caught carpet LOB forward and use rail support recovered. Pt seemed very anxious and upset, FREELANCE WEB DESIGNER again suggested CP and seated rest, pt willing. Pt responded well to CP for pain reducation and she reported more balanced walking out with welcomed FREELANCE WEB DESIGNER Aide with her for safety. FREELANCE WEB DESIGNER will call and follow up response to tx later in day/tomorrow. Future sessions will slow progress standing AROM activity with rail support and review TA fac education for back support and confidence. Physical Therapy Plan Frequency and Duration Frequency of Treatment 2x/Week Plan of Care Start Date 09/22/23 Plan of Care End Date 11/22/23 Therapeutic Interventions Therapeutic Interventions Balance Training,Home Exercise Program,Joint Mobilizations, Manual Therapy,Neuromuscular Re-education,Patient/Caregiver Education,Self-Care/Home Management,Soft Tissue Mobilization,Therapeutic Activities,Therapeutic Exercises Modalities Cold Pack/Ice Massage,Electric Stimulation,Hot Packs, Ultrasound Next Visit Focus/Plan Next Note Type Treatment Note Next Visit Plan Check HEP and response to hip abd/chaya stepping and HEP and modalities post last tx. Pt requested minimizing more than 2 therapists for carryover care more confident and progression. POC: Gentle strengthening, stretching, STM as tolerated
--- NOTE | 2023-10-03 16:12 | PT-OP ANOTE ---
EXPLOSIVES HANDLER called pt, she reported her LB started to feel better. She reports mentioned wasn't having a good day yesterday and it made it harder to attend and be more confident with activities in PT. She stated made more PT appts but not wanting to have more than 2 therapist: Darin and Celena but our schedules were busy. She was thinking about taking a week or so off while waiting for more appts with these therapists. EXPLOSIVES HANDLER stated speak with PT Darin tomorrow's appt and can ask to be on Celena's waiting list for cxl. Will talk further about gap in appts vs current 3rd therapist. Pt feels comfortable with ther ex performed yesterday supine, just needs to be more attentive to self health and performing HEP at home as well for carryover mobility strength support for balance confidence.
--- NOTE | 2023-10-04 12:54 | PT.OTN ---
Current Diagnoses Other chronic pain (10/04/23) Pain in left shoulder (10/04/23) Stiffness of other specified joint, not elsewhere classified (10/04/23) Sacrococcygeal disorders, not elsewhere classified (10/04/23) Cervicalgia (10/04/23) Low back pain, unspecified (10/04/23) Physical Therapy Treatment Note PT-OP-A Visit Information Start: 09/22/23 14:58 Freq: Status: Active Protocol: Document 10/04/23 12:00 DCW (Rec: 10/04/23 12:54 DCW [id number]) Out-Patient Physical Therapy Visit Information Visit Information Visit Type Treatment Note Visit Start Time 12:00 Visit Stop Time 12:45 Visit Number 4 Number of CLIENT CARE SPECIALIST Visits 0 Evaluation Information Evaluation Date 09/22/23 PT-OP-B Current Condition Start: 09/22/23 14:58 Freq: Status: Active Protocol: Document 09/22/23 12:00 DCW (Rec: 09/22/23 15:12 DCW [id number]) Current Condition History of Current Condition Onset Date Multi-year history, worse last two months Current Complaints Low back pain, neck pain, shoulder pain History of Current Condition Pt is a 73 year old female presenting with a multi-year history of low back and neck pain. Pt scott been treated at this clinic for her low back pain ~2 years ago. Pt reports that at the beginning of July, she was seen at a different clinic for her back, and by the time she got in, she was actually relatively pain-free. Unfortunately, she was given a few home exercises that severely flared-up her back pain and has been in severe pain ever since. Reports she has barely moved the last two months. Today is actually the first day she has been somewhat functional since it started. Was unable to sleep in her bed, or even get a shower because she wasn' t able to step over the side of the tub. Does have a history of bilateral LE radicular symptoms including burning and pain in her thighs , as well as muscle spasms in her glutes. Recent MRI notes multiple areas of concern (see below). Also notes common cervical pain, has difficulty turning her head, experiences a lot of pain and tightness along the back of her head/ neck. Prior Treatments and Tests Lumbar MRI: IMPRESSION: 1. Right paracentral L1-2 disc protrusion which narrows the right lateral recess. 2. Moderate right foraminal stenosis at L1-2 and L2-3. 3. Broad-based disc bulges and facet and ligamentum flavum hypertrophy with resultant moderate canal stenosis at L2- 3 and severe canal stenosis at L3-4 and L4-5. 4. 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 per Dianne Emmanuel M.D. on Treatment Goals Patient/Caregiver Goals I just want to get my life back. PT-OP-C Subjective Start: 09/22/23 14:58 Freq: Status: Active Protocol: Document 10/04/23 12:00 DCW (Rec: 10/04/23 12:54 DCW [id number]) OP-PT Subjective Patient Comments Patient Comments Pt notes she feels like shes getting better, although does admit to stabbing pains in my hips. PT-OP-F Manual Assessment Start: 09/22/23 15:12 Freq: Status: Active Protocol: Document 09/22/23 12:00 DCW (Rec: 09/22/23 17:00 DCW [id number]) Manual Assessments Soft Tissue Assessment Soft Tissue Mobility Assessment Tenderness to palpation 3/4 wincing and withdraw: B Suboccipitals, B lumbar paraspinals, B hamstrings, B piriformis PT-OP-J Posture/Palpation/Skin Start: 09/22/23 14:58 Freq: Status: Active Protocol: Document 09/22/23 12:00 DCW (Rec: 09/22/23 15:12 DCW [id number]) Posture Evaluation Position Sitting Evaluation View Lateral Head/C-Spine Posture Forward Head PT-OP-K Range of Motion Start: 09/22/23 14:58 Freq: Status: Active Protocol: Document 09/22/23 12:00 DCW (Rec: 09/22/23 17:00 DCW [id number]) Cervical Spine Range of Motion Cervical Spine Active Degrees Testing Position Sitting Flexion 65 Extension 45 Rotation Left 40 Rotation Right 60 Lateral Flexion Left 35 Lateral Flexion Right 35 PT-OP-L Special Tests Start: 09/22/23 14:58 Freq: Status: Active Protocol: Document 09/22/23 12:00 DCW (Rec: 09/22/23 17:00 DCW [id number]) Special Tests Lumbar Spine Special Tests Straight Leg Raise Test Results B hamstring tightness Slump Test Results Negative Hip Special Tests SUSY Test Results B ipsilateral anterior hip pain PT-OP-Q Treatments Start: 09/22/23 14:58 Freq: Status: Active Protocol: Document 10/04/23 12:00 DCW (Rec: 10/04/23 12:54 DCW [id number]) Therapeutic Exercises Supine Exercises UT stretch Supine Exercise Name Upper Trap stretch Side right Manual Therapy Treatment Soft Tissue Mobilization Lumbar Body Location Lumbar Paraspinal Mobilization Type Strumming,Sustained Pressure Body Position Sitting Scalenes Body Location R Scalenes Mobilization Type Strumming,Sustained Pressure Body Position Hooklying Upper Trap Body Location R UT Mobilization Type Strumming,Sustained Pressure, Trigger Point Release Body Position Hooklying Suboccipitals Body Location B suboccipitals Mobilization Type Sustained Pressure,Trigger Point Release Intensity/Depth Moderate Body Position Supine Neuro Re-Education Treatment Balance Activities Foam Details NBOS (Head turns, EO/EC) Surface AirEx Tandem Details Tandem Stance Equipment // bars PT-OP-T Assessment and Plan Start: 09/22/23 14:58 Freq: Status: Active Protocol: Document 10/04/23 12:00 DCW (Rec: 10/04/23 12:54 DCW [id number]) Physical Therapy Assessment Impairments Impairments Activity Tolerance,Functional Activities,Functional Mobility ,Pain,Posture,ROM,Soft Tissue Mobility,Strength,Tone Goals Two Impairment Pt experiences increased pain with B cerviacl rotation, L>R Tax Evaluator Goal (LTG) Pt to demonstrate increased pain-free ROM of left cervical rotation to 60? in order to improve ability to look for traffic while driving LTG Duration 11/22/23 One Impairment Pt does not have an appropriate home exercise program Short Term Goal (STG) Pt to be independent and compliant with an appropriate HEP STG Duration 10/23/23 Assessment Summary Assessment Pt noted difficulty with HEP as provided, prefers more of a flow sheet that she can just work through 2x/day. This was provided for her, with chin tucks, piriformis stretch, LTR , and PPT. Continued with balance activities to help with core and hip stabilization to improve strength and assist pt stability in standing. Physical Therapy Plan Frequency and Duration Frequency of Treatment 2x/Week Plan of Care Start Date 09/22/23 Plan of Care End Date 11/22/23 Therapeutic Interventions Therapeutic Interventions Balance Training,Home Exercise Program,Joint Mobilizations, Manual Therapy,Neuromuscular Re-education,Patient/Caregiver Education,Self-Care/Home Management,Soft Tissue Mobilization,Therapeutic Activities,Therapeutic Exercises Modalities Cold Pack/Ice Massage,Electric Stimulation,Hot Packs, Ultrasound Next Visit Focus/Plan Next Note Type Treatment Note Next Visit Plan Check HEP and response to hip abd/chaya stepping and HEP and modalities post last tx. Pt requested minimizing more than 2 therapists for carryover care more confident and progression. POC: Gentle strengthening, stretching, STM as tolerated
--- NOTE | 2023-10-24 12:44 | PT.OTN ---
Current Diagnoses Other chronic pain (10/24/23) Pain in left shoulder (10/24/23) Stiffness of other specified joint, not elsewhere classified (10/24/23) Sacrococcygeal disorders, not elsewhere classified (10/24/23) Cervicalgia (10/24/23) Low back pain, unspecified (10/24/23) Physical Therapy Treatment Note PT-OP-A Visit Information Start: 09/22/23 14:58 Freq: Status: Active Protocol: Document 10/24/23 12:00 DCW (Rec: 10/24/23 12:44 DCW [id number]) Out-Patient Physical Therapy Visit Information Visit Information Visit Type Treatment Note Visit Start Time 12:00 Visit Stop Time 12:45 Visit Number 5 Number of DECOMMISSIONING WELL SITE MANAGER Visits 0 Evaluation Information Evaluation Date 09/22/23 PT-OP-B Current Condition Start: 09/22/23 14:58 Freq: Status: Active Protocol: Document 09/22/23 12:00 DCW (Rec: 09/22/23 15:12 DCW [id number]) Current Condition History of Current Condition Onset Date Multi-year history, worse last two months Current Complaints Low back pain, neck pain, shoulder pain History of Current Condition Pt is a 73 year old female presenting with a multi-year history of low back and neck pain. Pt scott been treated at this clinic for her low back pain ~2 years ago. Pt reports that at the beginning of July, she was seen at a different clinic for her back, and by the time she got in, she was actually relatively pain-free. Unfortunately, she was given a few home exercises that severely flared-up her back pain and has been in severe pain ever since. Reports she has barely moved the last two months. Today is actually the first day she has been somewhat functional since it started. Was unable to sleep in her bed, or even get a shower because she wasn' t able to step over the side of the tub. Does have a history of bilateral LE radicular symptoms including burning and pain in her thighs , as well as muscle spasms in her glutes. Recent MRI notes multiple areas of concern (see below). Also notes common cervical pain, has difficulty turning her head, experiences a lot of pain and tightness along the back of her head/ neck. Prior Treatments and Tests Lumbar MRI: IMPRESSION: 1. Right paracentral L1-2 disc protrusion which narrows the right lateral recess. 2. Moderate right foraminal stenosis at L1-2 and L2-3. 3. Broad-based disc bulges and facet and ligamentum flavum hypertrophy with resultant moderate canal stenosis at L2- 3 and severe canal stenosis at L3-4 and L4-5. 4. 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 per Dianne Emmanuel M.D. on Treatment Goals Patient/Caregiver Goals I just want to get my life back. PT-OP-C Subjective Start: 09/22/23 14:58 Freq: Status: Active Protocol: Document 10/24/23 12:00 DCW (Rec: 10/24/23 12:44 DCW [id number]) OP-PT Subjective Patient Comments Patient Comments Low back is not what I'd call normal, but it's better. Notes her cervical spine is much worse, waking her up 3-4x /night over the past four days . PT-OP-F Manual Assessment Start: 09/22/23 15:12 Freq: Status: Active Protocol: Document 09/22/23 12:00 DCW (Rec: 09/22/23 17:00 DCW [id number]) Manual Assessments Soft Tissue Assessment Soft Tissue Mobility Assessment Tenderness to palpation 3/4 wincing and withdraw: B Suboccipitals, B lumbar paraspinals, B hamstrings, B piriformis PT-OP-J Posture/Palpation/Skin Start: 09/22/23 14:58 Freq: Status: Active Protocol: Document 09/22/23 12:00 DCW (Rec: 09/22/23 15:12 DCW [id number]) Posture Evaluation Position Sitting Evaluation View Lateral Head/C-Spine Posture Forward Head PT-OP-K Range of Motion Start: 09/22/23 14:58 Freq: Status: Active Protocol: Document 09/22/23 12:00 DCW (Rec: 09/22/23 17:00 DCW [id number]) Cervical Spine Range of Motion Cervical Spine Active Degrees Testing Position Sitting Flexion 65 Extension 45 Rotation Left 40 Rotation Right 60 Lateral Flexion Left 35 Lateral Flexion Right 35 PT-OP-L Special Tests Start: 09/22/23 14:58 Freq: Status: Active Protocol: Document 09/22/23 12:00 DCW (Rec: 09/22/23 17:00 DCW [id number]) Special Tests Lumbar Spine Special Tests Straight Leg Raise Test Results B hamstring tightness Slump Test Results Negative Hip Special Tests SUSY Test Results B ipsilateral anterior hip pain PT-OP-Q Treatments Start: 09/22/23 14:58 Freq: Status: Active Protocol: Document 10/24/23 12:00 DCW (Rec: 10/24/23 12:44 [facility] [id number]) Therapeutic Exercises Supine Exercises UT stretch Supine Exercise Name Upper Trap stretch Side right Manual Therapy Treatment Soft Tissue Mobilization Scalenes Body Location R Scalenes Mobilization Type Strumming,Sustained Pressure Body Position Hooklying Upper Trap Body Location R UT Mobilization Type Strumming,Sustained Pressure, Trigger Point Release Body Position Hooklying Suboccipitals Body Location B suboccipitals Mobilization Type Sustained Pressure,Trigger Point Release Intensity/Depth Moderate Body Position Supine PT-OP-T Assessment and Plan Start: 09/22/23 14:58 Freq: Status: Active Protocol: Document 10/24/23 12:00 DCW (Rec: 10/24/23 12:44 [facility] [id number]) Physical Therapy Assessment Impairments Impairments Activity Tolerance,Functional Activities,Functional Mobility ,Pain,Posture,ROM,Soft Tissue Mobility,Strength,Tone Goals Two Impairment Pt experiences increased pain with B cerviacl rotation, L>R Agriculture Teacher Goal (LTG) Pt to demonstrate increased pain-free ROM of left cervical rotation to 60? in order to improve ability to look for traffic while driving LTG Duration 11/22/23 One Impairment Pt does not have an approrpiate home exercise program Short Term Goal (STG) Pt to be independent and compliant with an appropriate HEP STG Duration 10/23/23 Assessment Summary Assessment Spent most of today focusing on c-spine due to complaints of ongoing pain and sleep disruption. Very good response , pt notes significant improvement in ROM and pain levels following session today . Reviewed UT stretch for HEP Physical Therapy Plan Frequency and Duration Frequency of Treatment 2x/Week Plan of Care Start Date 09/22/23 Plan of Care End Date 11/22/23 Therapeutic Interventions Therapeutic Interventions Balance Training,Home Exercise Program,Joint Mobilizations, Manual Therapy,Neuromuscular Re-education,Patient/Caregiver Education,Self-Care/Home Management,Soft Tissue Mobilization,Therapeutic Activities,Therapeutic Exercises Modalities Cold Pack/Ice Massage,Electric Stimulation,Hot Packs, Ultrasound Next Visit Focus/Plan Next Note Type Treatment Note Next Visit Plan Check HEP and response to hip abd/chaya stepping and HEP and modalities post last tx. Pt requested minimizing more than 2 therapists for carryover care more confident and progression. POC: Gentle strengthening, stretching, STM as tolerated
--- NOTE | 2023-10-27 14:29 | PT.OTN ---
Current Diagnoses Other chronic pain (10/27/23) Pain in left shoulder (10/27/23) Stiffness of other specified joint, not elsewhere classified (10/27/23) Sacrococcygeal disorders, not elsewhere classified (10/27/23) Cervicalgia (10/27/23) Low back pain, unspecified (10/27/23) Physical Therapy Treatment Note PT-OP-A Visit Information Start: 09/22/23 14:58 Freq: Status: Active Protocol: Document 10/27/23 13:45 DCW (Rec: 10/27/23 14:29 DCW [id number]) Out-Patient Physical Therapy Visit Information Visit Information Visit Type Treatment Note Visit Start Time 13:45 Visit Stop Time 14:30 Visit Number 6 Number of PARTS ADVISOR Visits 0 Evaluation Information Evaluation Date 09/22/23 PT-OP-B Current Condition Start: 09/22/23 14:58 Freq: Status: Active Protocol: Document 09/22/23 12:00 DCW (Rec: 09/22/23 15:12 DCW [id number]) Current Condition History of Current Condition Onset Date Multi-year history, worse last two months Current Complaints Low back pain, neck pain, shoulder pain History of Current Condition Pt is a 73 year old female presenting with a multi-year history of low back and neck pain. Pt scott been treated at this clinic for her low back pain ~2 years ago. Pt reports that at the beginning of July, she was seen at a different clinic for her back, and by the time she got in, she was actually relatively pain-free. Unfortunately, she was given a few home exercises that severely flared-up her back pain and has been in severe pain ever since. Reports she has barely moved the last two months. Today is actually the first day she has been somewhat functional since it started. Was unable to sleep in her bed, or even get a shower because she wasn' t able to step over the side of the tub. Does have a history of bilateral LE radicular symptoms including burning and pain in her thighs , as well as muscle spasms in her glutes. Recent MRI notes multiple areas of concern (see below). Also notes common cervical pain, has difficulty turning her head, experiences a lot of pain and tightness along the back of her head/ neck. Prior Treatments and Tests Lumbar MRI: IMPRESSION: 1. Right paracentral L1-2 disc protrusion which narrows the right lateral recess. 2. Moderate right foraminal stenosis at L1-2 and L2-3. 3. Broad-based disc bulges and facet and ligamentum flavum hypertrophy with resultant moderate canal stenosis at L2- 3 and severe canal stenosis at L3-4 and L4-5. 4. 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 per Dianne Emmanuel M.D. on Treatment Goals Patient/Caregiver Goals I just want to get my life back. PT-OP-C Subjective Start: 09/22/23 14:58 Freq: Status: Active Protocol: Document 10/27/23 13:45 DCW (Rec: 10/27/23 14:29 DCW [id number]) OP-PT Subjective Patient Comments Patient Comments My neck is doing a lot better , but it seems to have moved down to my shoulders. PT-OP-F Manual Assessment Start: 09/22/23 15:12 Freq: Status: Active Protocol: Document 09/22/23 12:00 DCW (Rec: 09/22/23 17:00 DCW [id number]) Manual Assessments Soft Tissue Assessment Soft Tissue Mobility Assessment Tenderness to palpation 3/4 wincing and withdraw: B Suboccipitals, B lumbar paraspinals, B hamstrings, B piriformis PT-OP-J Posture/Palpation/Skin Start: 09/22/23 14:58 Freq: Status: Active Protocol: Document 09/22/23 12:00 DCW (Rec: 09/22/23 15:12 DCW [id number]) Posture Evaluation Position Sitting Evaluation View Lateral Head/C-Spine Posture Forward Head PT-OP-K Range of Motion Start: 09/22/23 14:58 Freq: Status: Active Protocol: Document 09/22/23 12:00 DCW (Rec: 09/22/23 17:00 DCW [id number]) Cervical Spine Range of Motion Cervical Spine Active Degrees Testing Position Sitting Flexion 65 Extension 45 Rotation Left 40 Rotation Right 60 Lateral Flexion Left 35 Lateral Flexion Right 35 PT-OP-L Special Tests Start: 09/22/23 14:58 Freq: Status: Active Protocol: Document 09/22/23 12:00 DCW (Rec: 09/22/23 17:00 DCW [id number]) Special Tests Lumbar Spine Special Tests Straight Leg Raise Test Results B hamstring tightness Slump Test Results Negative Hip Special Tests SUSY Test Results B ipsilateral anterior hip pain PT-OP-Q Treatments Start: 09/22/23 14:58 Freq: Status: Active Protocol: Document 10/27/23 13:45 DCW (Rec: 10/27/23 14:29 DCW [id number]) Therapeutic Exercises Sitting Exercises Upper Trap Sitting Exercise Name Upper Trap Stretch Self-STM Sitting Exercise Name Thera-cane, Tennis ball Comments Thoracic muscles, Upper Trap Manual Therapy Treatment Soft Tissue Mobilization Parascapular Body Location R Parascapulars Mobilization Type Strumming,Sustained Pressure, Trigger Point Release Body Position Hooklying Upper Trap Body Location R UT Mobilization Type Strumming,Sustained Pressure, Trigger Point Release Body Position Hooklying Nerve Glides Medial Nerve Medial nerve floss Comments Increased pain down R arm PT-OP-T Assessment and Plan Start: 09/22/23 14:58 Freq: Status: Active Protocol: Document 10/27/23 13:45 DCW (Rec: 10/27/23 14:29 DCW [id number]) Physical Therapy Assessment Impairments Impairments Activity Tolerance,Functional Activities,Functional Mobility ,Pain,Posture,ROM,Soft Tissue Mobility,Strength,Tone Goals Two Impairment Pt experiences increased pain with B cerviacl rotation, L>R [facility] Goal (LTG) Pt to demonstrate increased pain-free ROM of left cervical rotation to 60? in order to improve ability to look for traffic while driving LTG Duration 11/22/23 One Impairment Pt does not have an approrpiate home exercise program Short Term Goal (STG) Pt to be independent and compliant with an appropriate HEP STG Duration 10/23/23 Assessment Summary Assessment Showing good improvements to neck ROM, left rotation increased to 65, right rotation to 70. Reviewed stretching,as well as pointers for self-STM today. Physical Therapy Plan Frequency and Duration Frequency of Treatment 2x/Week Plan of Care Start Date 09/22/23 Plan of Care End Date 11/22/23 Therapeutic Interventions Therapeutic Interventions Balance Training,Home Exercise Program,Joint Mobilizations, Manual Therapy,Neuromuscular Re-education,Patient/Caregiver Education,Self-Care/Home Management,Soft Tissue Mobilization,Therapeutic Activities,Therapeutic Exercises Modalities Cold Pack/Ice Massage,Electric Stimulation,Hot Packs, Ultrasound Next Visit Focus/Plan Next Note Type Treatment Note Next Visit Plan Check HEP and response to hip abd/chaya stepping and HEP and modalities post last tx. Pt requested minimizing more than 2 therapists for carryover care more confident and progression. POC: Gentle strengthening, stretching, STM as tolerated
--- NOTE | 2023-11-02 12:45 | PT.OTN ---
Current Diagnoses Other chronic pain (11/02/23) Pain in left shoulder (11/02/23) Stiffness of other specified joint, not elsewhere classified (11/02/23) Sacrococcygeal disorders, not elsewhere classified (11/02/23) Cervicalgia (11/02/23) Low back pain, unspecified (11/02/23) Physical Therapy Treatment Note PT-OP-A Visit Information Start: 09/22/23 14:58 Freq: Status: Active Protocol: Document 11/02/23 12:00 DCW (Rec: 11/02/23 12:45 DCW [id number]) Out-Patient Physical Therapy Visit Information Visit Information Visit Type Treatment Note Visit Start Time 12:00 Visit Stop Time 12:45 Visit Number 7 Number of POST ANESTHESIA ROOM NURSE Visits 0 Evaluation Information Evaluation Date 09/22/23 PT-OP-B Current Condition Start: 09/22/23 14:58 Freq: Status: Active Protocol: Document 09/22/23 12:00 DCW (Rec: 09/22/23 15:12 DCW [id number]) Current Condition History of Current Condition Onset Date Multi-year history, worse last two months Current Complaints Low back pain, neck pain, shoulder pain History of Current Condition Pt is a 73 year old female presenting with a multi-year history of low back and neck pain. Pt scott been treated at this clinic for her low back pain ~2 years ago. Pt reports that at the beginning of July, she was seen at a different clinic for her back, and by the time she got in, she was actually relatively pain-free. Unfortunately, she was given a few home exercises that severely flared-up her back pain and has been in severe pain ever since. Reports she has barely moved the last two months. Today is actually the first day she has been somewhat functional since it started. Was unable to sleep in her bed, or even get a shower because she wasn' t able to step over the side of the tub. Does have a history of bilateral LE radicular symptoms including burning and pain in her thighs , as well as muscle spasms in her glutes. Recent MRI notes multiple areas of concern (see below). Also notes common cervical pain, has difficulty turning her head, experiences a lot of pain and tightness along the back of her head/ neck. Prior Treatments and Tests Lumbar MRI: IMPRESSION: 1. Right paracentral L1-2 disc protrusion which narrows the right lateral recess. 2. Moderate right foraminal stenosis at L1-2 and L2-3. 3. Broad-based disc bulges and facet and ligamentum flavum hypertrophy with resultant moderate canal stenosis at L2- 3 and severe canal stenosis at L3-4 and L4-5. 4. 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 per Dianne Emmanuel M.D. on Treatment Goals Patient/Caregiver Goals I just want to get my life back. PT-OP-C Subjective Start: 09/22/23 14:58 Freq: Status: Active Protocol: Document 11/02/23 12:00 DCW (Rec: 11/02/23 12:45 DCW [id number]) OP-PT Subjective Patient Comments Patient Comments Neck is much much better, shoulder much much better, back, I think I tweaked it a little this morning. Notes she was able to get out and walk for an extended distance for the first time in a while, going more than two miles. PT-OP-F Manual Assessment Start: 09/22/23 15:12 Freq: Status: Active Protocol: Document 09/22/23 12:00 DCW (Rec: 09/22/23 17:00 DCW [id number]) Manual Assessments Soft Tissue Assessment Soft Tissue Mobility Assessment Tenderness to palpation 3/4 wincing and withdraw: B Suboccipitals, B lumbar paraspinals, B hamstrings, B piriformis PT-OP-J Posture/Palpation/Skin Start: 09/22/23 14:58 Freq: Status: Active Protocol: Document 09/22/23 12:00 DCW (Rec: 09/22/23 15:12 DCW [id number]) Posture Evaluation Position Sitting Evaluation View Lateral Head/C-Spine Posture Forward Head PT-OP-K Range of Motion Start: 09/22/23 14:58 Freq: Status: Active Protocol: Document 09/22/23 12:00 DCW (Rec: 09/22/23 17:00 DCW [id number]) Cervical Spine Range of Motion Cervical Spine Active Degrees Testing Position Sitting Flexion 65 Extension 45 Rotation Left 40 Rotation Right 60 Lateral Flexion Left 35 Lateral Flexion Right 35 PT-OP-L Special Tests Start: 09/22/23 14:58 Freq: Status: Active Protocol: Document 09/22/23 12:00 DCW (Rec: 09/22/23 17:00 DCW [id number]) Special Tests Lumbar Spine Special Tests Straight Leg Raise Test Results B hamstring tightness Slump Test Results Negative Hip Special Tests SUSY Test Results B ipsilateral anterior hip pain PT-OP-Q Treatments Start: 09/22/23 14:58 Freq: Status: Active Protocol: Document 11/02/23 12:00 DCW (Rec: 11/02/23 12:45 WIW [id number]) Gym Equipment Shuttle Balance Red Details WBOS Therapeutic Exercises Sitting Exercises Piriformis Sitting Exercise Name Seated figure-4 stretch Side bilateral Standing Exercises Resisted Ambulation Standing Exercise Name Resisted side-stepping Resistance [place] Pallof Press Standing Exercise Name Pallof Press Side bilateral Resistance Green Manual Therapy Treatment Soft Tissue Mobilization Lumbar Body Location R Lumbar Paraspinal Mobilization Type Strumming,Sustained Pressure Body Position Sitting Neuro Re-Education Treatment Balance Activities SLS Details SLS Equipment // bars Foam Details Stride stance Surface AirEx PT-OP-T Assessment and Plan Start: 09/22/23 14:58 Freq: Status: Active Protocol: Document 11/02/23 12:00 DCW (Rec: 11/02/23 12:45 WIW [id number]) Physical Therapy Assessment Impairments Impairments Activity Tolerance,Functional Activities,Functional Mobility ,Pain,Posture,ROM,Soft Tissue Mobility,Strength,Tone Goals Two Impairment Pt experiences increased pain with B cerviacl rotation, L>R Penitentiary Goal (LTG) Pt to demonstrate increased pain-free ROM of left cervical rotation to 60? in order to improve ability to look for traffic while driving LTG Duration 11/22/23 One Impairment Pt does not have an approrpiate home exercise program Short Term Goal (STG) Pt to be independent and compliant with an appropriate HEP STG Duration 10/23/23 Assessment Summary Assessment Making good progress overall with pain levels and stiffness in neck, shoulders, and low back. Continues to struggle some with core stabilization to help with low back bracing. Addition of some balance challenges today to help with core strengthening. Physical Therapy Plan Frequency and Duration Frequency of Treatment 2x/Week Plan of Care Start Date 09/22/23 Plan of Care End Date 11/22/23 Therapeutic Interventions Therapeutic Interventions Balance Training,Home Exercise Program,Joint Mobilizations, Manual Therapy,Neuromuscular Re-education,Patient/Caregiver Education,Self-Care/Home Management,Soft Tissue Mobilization,Therapeutic Activities,Therapeutic Exercises Modalities Cold Pack/Ice Massage,Electric Stimulation,Hot Packs, Ultrasound Next Visit Focus/Plan Next Note Type Treatment Note Next Visit Plan Check HEP and response to hip abd/chaya stepping and HEP and modalities post last tx. Pt requested minimizing more than 2 therapists for carryover care more confident and progression. POC: Gentle strengthening, stretching, STM as tolerated
--- NOTE | 2023-11-06 15:14 | PT.OTN ---
Current Diagnoses Other chronic pain (11/06/23) Pain in left shoulder (11/06/23) Stiffness of other specified joint, not elsewhere classified (11/06/23) Sacrococcygeal disorders, not elsewhere classified (11/06/23) Cervicalgia (11/06/23) Low back pain, unspecified (11/06/23) Physical Therapy Treatment Note PT-OP-A Visit Information Start: 09/22/23 14:58 Freq: Status: Active Protocol: Document 11/06/23 14:30 DCW (Rec: 11/06/23 15:13 DCW [id number]) Out-Patient Physical Therapy Visit Information Visit Information Visit Type Treatment Note Visit Start Time 14:30 Visit Stop Time 15:15 Visit Number 8 Number of ASSISTANT TRACK COACH Visits 0 Evaluation Information Evaluation Date 09/22/23 PT-OP-B Current Condition Start: 09/22/23 14:58 Freq: Status: Active Protocol: Document 09/22/23 12:00 DCW (Rec: 09/22/23 15:12 DCW [id number]) Current Condition History of Current Condition Onset Date Multi-year history, worse last two months Current Complaints Low back pain, neck pain, shoulder pain History of Current Condition Pt is a 73 year old female presenting with a multi-year history of low back and neck pain. Pt scott been treated at this clinic for her low back pain ~2 years ago. Pt reports that at the beginning of July, she was seen at a different clinic for her back, and by the time she got in, she was actually relatively pain-free. Unfortunately, she was given a few home exercises that severely flared-up her back pain and has been in severe pain ever since. Reports she has barely moved the last two months. Today is actually the first day she has been somewhat functional since it started. Was unable to sleep in her bed, or even get a shower because she wasn' t able to step over the side of the tub. Does have a history of bilateral LE radicular symptoms including burning and pain in her thighs , as well as muscle spasms in her glutes. Recent MRI notes multiple areas of concern (see below). Also notes common cervical pain, has difficulty turning her head, experiences a lot of pain and tightness along the back of her head/ neck. Prior Treatments and Tests Lumbar MRI: IMPRESSION: 1. Right paracentral L1-2 disc protrusion which narrows the right lateral recess. 2. Moderate right foraminal stenosis at L1-2 and L2-3. 3. Broad-based disc bulges and facet and ligamentum flavum hypertrophy with resultant moderate canal stenosis at L2- 3 and severe canal stenosis at L3-4 and L4-5. 4. 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 per Dianne Emmanuel M.D. on Treatment Goals Patient/Caregiver Goals I just want to get my life back. PT-OP-C Subjective Start: 09/22/23 14:58 Freq: Status: Active Protocol: Document 11/06/23 14:30 DCW (Rec: 11/06/23 15:14 DCW [id number]) OP-PT Subjective Patient Comments Patient Comments Pt notes her neck, shoulder, and back are all feeling quite a bit better, but is still occasionally getting radicular pain in right LE. PT-OP-F Manual Assessment Start: 09/22/23 15:12 Freq: Status: Active Protocol: Document 09/22/23 12:00 DCW (Rec: 09/22/23 17:00 DCW [id number]) Manual Assessments Soft Tissue Assessment Soft Tissue Mobility Assessment Tenderness to palpation 3/4 wincing and withdraw: B Suboccipitals, B lumbar paraspinals, B hamstrings, B piriformis PT-OP-J Posture/Palpation/Skin Start: 09/22/23 14:58 Freq: Status: Active Protocol: Document 09/22/23 12:00 DCW (Rec: 09/22/23 15:12 DCW [id number]) Posture Evaluation Position Sitting Evaluation View Lateral Head/C-Spine Posture Forward Head PT-OP-K Range of Motion Start: 09/22/23 14:58 Freq: Status: Active Protocol: Document 09/22/23 12:00 DCW (Rec: 09/22/23 17:00 DCW [id number]) Cervical Spine Range of Motion Cervical Spine Active Degrees Testing Position Sitting Flexion 65 Extension 45 Rotation Left 40 Rotation Right 60 Lateral Flexion Left 35 Lateral Flexion Right 35 PT-OP-L Special Tests Start: 09/22/23 14:58 Freq: Status: Active Protocol: Document 09/22/23 12:00 DCW (Rec: 09/22/23 17:00 DCW [id number]) Special Tests Lumbar Spine Special Tests Straight Leg Raise Test Results B hamstring tightness Slump Test Results Negative Hip Special Tests SUSY Test Results B ipsilateral anterior hip pain PT-OP-Q Treatments Start: 09/22/23 14:58 Freq: Status: Active Protocol: Document 11/06/23 14:30 DCW (Rec: 11/06/23 15:13 [facility] [id number]) Gym Equipment Shuttle Balance Red Details WBOS, Staggered Therapeutic Exercises Standing Exercises Resisted Ambulation Standing Exercise Name Resisted side-stepping, Forward, Backward Resistance Green loop Manual Therapy Treatment Soft Tissue Mobilization Lumbar Body Location R Lumbar Paraspinal Mobilization Type Strumming,Sustained Pressure Body Position Sitting Neuro Re-Education Treatment Balance Activities BOSU Details DL BOSU stance Surface Blue BOSU SLS Details SLS Equipment // bars Foam Details Stride stance Surface AirEx PT-OP-T Assessment and Plan Start: 09/22/23 14:58 Freq: Status: Active Protocol: Document 11/06/23 14:30 DCW (Rec: 11/06/23 15:13 DC [id number]) Physical Therapy Assessment Impairments Impairments Activity Tolerance,Functional Activities,Functional Mobility ,Pain,Posture,ROM,Soft Tissue Mobility,Strength,Tone Goals Two Impairment Pt experiences increased pain with B cervical rotation, L>R Fdc Goal (LTG) Pt to demonstrate increased pain-free ROM of left cervical rotation to 60? in order to improve ability to look for traffic while driving LTG Duration 11/22/23 One Impairment Pt does not have an appropriate home exercise program Short Term Goal (STG) Pt to be independent and compliant with an appropriate HEP STG Duration 10/23/23 Assessment Summary Assessment continue to add core stabilization and strengthening through balance challenges to improve core bracing. Pt noted increased ability on Shuttle Balance, but did note some radicular symptoms in right leg. Continue to focus on mobility, tone management, and strengthening. Physical Therapy Plan Frequency and Duration Frequency of Treatment 2x/Week Plan of Care Start Date 09/22/23 Plan of Care End Date 11/22/23 Therapeutic Interventions Therapeutic Interventions Balance Training,Home Exercise Program,Joint Mobilizations, Manual Therapy,Neuromuscular Re-education,Patient/Caregiver Education,Self-Care/Home Management,Soft Tissue Mobilization,Therapeutic Activities,Therapeutic Exercises Modalities Cold Pack/Ice Massage,Electric Stimulation,Hot Packs, Ultrasound Next Visit Focus/Plan Next Note Type Treatment Note Next Visit Plan Check HEP and response to hip abd/chaya stepping and HEP and modalities post last tx. Pt requested minimizing more than 2 therapists for carryover care more confident and progression. POC: Gentle strengthening, stretching, STM as tolerated
--- NOTE | 2023-11-09 14:29 | PT.OTN ---
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 Pt scott been treated at this clinic for her low back pain ~2 years ago. Pt reports that at the beginning of July, she was seen at a different clinic for her back, and by the time she got in, she was actually relatively pain-free. Unfortunately, she was given a few home exercises that severely flared-up her back pain and has been in severe pain ever since. Reports she has barely moved the last two months. Today is actually the first day she has been somewhat functional since it started. Was unable to sleep in her bed, or even get a shower because she wasn' t able to step over the side of the tub. Does have a history of bilateral LE radicular symptoms including burning and pain in her thighs , as well as muscle spasms in her glutes. Recent MRI notes multiple areas of concern (see below). Also notes common cervical pain, has difficulty turning her head, experiences a lot of pain and tightness along the back of her head/ neck. Prior Treatments and Tests Lumbar MRI: IMPRESSION: 1. Right paracentral L1-2 disc protrusion which narrows the right lateral recess. 2. Moderate right foraminal stenosis at L1-2 and L2-3. 3. Broad-based disc bulges and facet and ligamentum flavum hypertrophy with resultant moderate canal stenosis at L2- 3 and severe canal stenosis at L3-4 and L4-5. 4. 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 per Dianne Emmanuel M.D. on Treatment Goals Patient/Caregiver Goals I just want to get my life back. PT-OP-C Subjective Start: 09/22/23 14:58 Freq: Status: Active Protocol: Document 11/09/23 13:49 SP (Rec: 11/09/23 14:32 SP [id number]) OP-PT Subjective Patient Comments Patient Comments Pt reports shld, back fine since last tx manual. PT-OP-F Manual Assessment Start: 09/22/23 15:12 Freq: Status: Active Protocol: Document 09/22/23 12:00 DCW (Rec: 09/22/23 17:00 DCW [id number]) Manual Assessments Soft Tissue Assessment Soft Tissue Mobility Assessment Tenderness to palpation 3/4 wincing and withdraw: B Suboccipitals, B lumbar paraspinals, B hamstrings, B piriformis PT-OP-J Posture/Palpation/Skin Start: 09/22/23 14:58 Freq: Status: Active Protocol: Document 09/22/23 12:00 DCW (Rec: 09/22/23 15:12 DCW [id number]) Posture Evaluation Position Sitting Evaluation View Lateral Head/C-Spine Posture Forward Head PT-OP-K Range of Motion Start: 09/22/23 14:58 Freq: Status: Active Protocol: Document 09/22/23 12:00 DCW (Rec: 09/22/23 17:00 DCW [id number]) Cervical Spine Range of Motion Cervical Spine Active Degrees Testing Position Sitting Flexion 65 Extension 45 Rotation Left 40 Rotation Right 60 Lateral Flexion Left 35 Lateral Flexion Right 35 PT-OP-L Special Tests Start: 09/22/23 14:58 Freq: Status: Active Protocol: Document 09/22/23 12:00 DCW (Rec: 09/22/23 17:00 DCW [id number]) Special Tests Lumbar Spine Special Tests Straight Leg Raise Test Results B hamstring tightness Slump Test Results Negative Hip Special Tests SUSY Test Results B ipsilateral anterior hip pain PT-OP-Q Treatments Start: 09/22/23 14:58 Freq: Status: Active Protocol: Document 11/09/23 13:49 SP (Rec: 11/09/23 14:32 SP [id number]) Gym Equipment Shuttle Recovery bilateral squat Details knee alignment with mid foot Resistance 62# 1 navy Reps/Time 2x10 Therapeutic Exercises Standing Exercises Resisted Ambulation Standing Exercise Name Resisted side-stepping, Forward, Backward Resistance Green loop Equipment Used //bars Reps/Minutes 2 laps Comments LOB x1 //bar recover, due to L LE caught floor L side step- impr DF/knee fl Gait Training Gait Activity dynamic gait Description HTs Device Used 0 Treatment Focus midline stability (reduction lat wt shift), even matt, foot clearance Comments cued normal stepping sunday, maintain midline head turns, occ over wt shift on RLE during L HT recovers self. Neuro Re-Education Treatment Balance Activities SLS Details SLS Equipment // bars Comments RLE 3-5 sec LLE 5, 10 sec Cued tall, core/scap fac over stance LE Foam Details Stride stance Surface large blue> airex last stride EC Equipment //bars Comments 1. WBOS: EC 30 sec 2. NBOS: EC 30 sec 3. stride: HTs: challenge L back, EC: L fwd 30 sec, R fwd blue foam stable; airex 30 sec each post more unsteady but no LOB Cues tall, rhomboid & core fac over BLE less unsteady. PT-OP-T Assessment and Plan Start: 09/22/23 14:58 Freq: Status: Active Protocol: Document 11/09/23 13:49 SP (Rec: 11/09/23 14:32 SP [id number]) Physical Therapy Assessment Goals Two Impairment Pt experiences increased pain with B cervical rotation, L>R Felt Puller Goal (LTG) Pt to demonstrate increased pain-free ROM of left cervical rotation to 60? in order to improve ability to look for traffic while driving LTG Duration 11/22/23 One Impairment Pt does not have an appropriate home exercise program Short Term Goal (STG) Pt to be independent and compliant with an appropriate HEP STG Duration 10/23/23 Assessment Summary Assessment Pt improved LLE SLS with cuing and reps post balance activities. She noted increased HR 110bpm during balance/dynamic gait, pre gait , seated rest reduced to 92 bpm. Pt improved LLE clearance and reduction lateral wt shift as session progressed. Pt pleased with increased time balance reported doing. Physical Therapy Plan Frequency and Duration Frequency of Treatment 2x/Week Plan of Care Start Date 09/22/23 Plan of Care End Date 11/22/23 Therapeutic Interventions Therapeutic Interventions Balance Training,Home Exercise Program,Joint Mobilizations, Manual Therapy,Neuromuscular Re-education,Patient/Caregiver Education,Self-Care/Home Management,Soft Tissue Mobilization,Therapeutic Activities,Therapeutic Exercises Modalities Cold Pack/Ice Massage,Electric Stimulation,Hot Packs, Ultrasound Next Visit Focus/Plan Next Note Type Treatment Note Next Visit Plan *Minimizing more than 2 therapists for carryover care more confident and progression . POC: Gentle strengthening, stretching, STM as tolerated
--- NOTE | 2023-11-14 15:11 | PT.OTN ---
Current Diagnoses Other chronic pain (11/14/23) Pain in left shoulder (11/14/23) Stiffness of other specified joint, not elsewhere classified (11/14/23) Sacrococcygeal disorders, not elsewhere classified (11/14/23) Cervicalgia (11/14/23) Low back pain, unspecified (11/14/23) Physical Therapy Treatment Note PT-OP-A Visit Information Start: 09/22/23 14:58 Freq: Status: Active Protocol: Document 11/14/23 14:30 DCW (Rec: 11/14/23 15:11 DCW [id number]) Out-Patient Physical Therapy Visit Information Visit Information Visit Type Progress Note Visit Start Time 14:30 Visit Stop Time 15:15 Visit Number 10 Number of FISHERIES DIRECTOR Visits 0 Evaluation Information Evaluation Date 09/22/23 PT-OP-B Current Condition Start: 09/22/23 14:58 Freq: Status: Active Protocol: Document 09/22/23 12:00 DCW (Rec: 09/22/23 15:12 DCW [id number]) Current Condition History of Current Condition Onset Date Multi-year history, worse last two months Current Complaints Low back pain, neck pain, shoulder pain History of Current Condition Pt is a 73 year old female presenting with a multi-year history of low back and neck pain. Pt had been treated at this clinic for her low back pain ~2 years ago. Pt reports that at the beginning of July, she was seen at a different clinic for her back, and by the time she got in, she was actually relatively pain-free. Unfortunately, she was given a few home exercises that severely flared-up her back pain and has been in severe pain ever since. Reports she has barely moved the last two months. Today is actually the first day she has been somewhat functional since it started. Was unable to sleep in her bed, or even get a shower because she wasn' t able to step over the side of the tub. Does have a history of bilateral LE radicular symptoms including burning and pain in her thighs , as well as muscle spasms in her glutes. Recent MRI notes multiple areas of concern (see below). Also notes common cervical pain, has difficulty turning her head, experiences a lot of pain and tightness along the back of her head/ neck. Prior Treatments and Tests Lumbar MRI: IMPRESSION: 1. Right paracentral L1-2 disc protrusion which narrows the right lateral recess. 2. Moderate right foraminal stenosis at L1-2 and L2-3. 3. Broad-based disc bulges and facet and ligamentum flavum hypertrophy with resultant moderate canal stenosis at L2- 3 and severe canal stenosis at L3-4 and L4-5. 4. 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 per Dianne Emmanuel M.D. on Treatment Goals Patient/Caregiver Goals I just want to get my life back. PT-OP-C Subjective Start: 09/22/23 14:58 Freq: Status: Active Protocol: Document 11/14/23 14:30 DCW (Rec: 11/14/23 15:11 DCW [id number]) OP-PT Subjective Patient Comments Patient Comments Pt feeling like her hip and shoulder feeling much better overall, however with longer distance walking, still fatiguing very quickly and hip weakness resulting in decreased balance and worsening foot clearance. PT-OP-D Balance Start: 11/14/23 14:40 Freq: Status: Active Protocol: Document 11/14/23 14:30 DCW (Rec: 11/14/23 14:54 DCW [id number]) Balance Tests Single Limb Standing Single Limb- Right 4.09 Single Limb- Left 2.12 Tandem Tandem Standing R:32.31 - assistance to position, L:35.52 - assist PT-OP-E Functional Tests Start: 11/14/23 14:40 Freq: Status: Active Protocol: Document 11/14/23 14:30 DCW (Rec: 11/14/23 14:54 DCW [id number]) Functional Tests 30 Second Sit to Stand Test Score x12 Timed Up and Go (TUG) Score 14.31 TUG Impairment Rating 40 to <60% Impaired (Score 14- 15) PT-OP-F Manual Assessment Start: 09/22/23 15:12 Freq: Status: Active Protocol: Document 11/14/23 14:30 DCW (Rec: 11/14/23 14:40 DCW [id number]) Manual Assessments Soft Tissue Assessment Soft Tissue Mobility Assessment Tenderness to palpation 1/4 complaint of pain: B Suboccipitals, B lumbar paraspinals, B hamstrings, B piriformis PT-OP-J Posture/Palpation/Skin Start: 09/22/23 14:58 Freq: Status: Active Protocol: Document 11/14/23 14:30 DCW (Rec: 11/14/23 14:40 DCW [id number]) Posture Evaluation Position Sitting Evaluation View Lateral Head/C-Spine Posture Neutral Position PT-OP-K Range of Motion Start: 09/22/23 14:58 Freq: Status: Active Protocol: Document 11/14/23 14:30 DCW (Rec: 11/14/23 14:40 DCW [id number]) Cervical Spine Range of Motion Cervical Spine Active Degrees Testing Position Sitting Flexion 70 Extension 50 Rotation Left 70 Rotation Right 70 Lateral Flexion Left 50 Lateral Flexion Right 50 PT-OP-L Special Tests Start: 09/22/23 14:58 Freq: Status: Active Protocol: Document 11/14/23 14:30 DCW (Rec: 11/14/23 14:40 DCW [id number]) Special Tests Lumbar Spine Special Tests Straight Leg Raise Test Results B hamstring tightness Hip Special Tests SUSY Test Results B ipsilateral anterior hip pain PT-OP-Q Treatments Start: 09/22/23 14:58 Freq: Status: Active Protocol: Document 11/14/23 14:30 DCW (Rec: 11/14/23 15:11 DCW [id number]) Gym Equipment Shuttle Recovery Unilateral Squats Resistance 37# bilateral squat Details knee alignment with mid foot Resistance 62# 1 navy Reps/Time x20 Therapeutic Activity Therapeutic Activity Sit-Stand Comments 30 second Sit-Stand, TUG Neuro Re-Education Treatment Balance Activities SLS Details SLS Equipment // bars Tandem Details Tandem Stance Equipment // bars PT-OP-T Assessment and Plan Start: 09/22/23 14:58 Freq: Status: Active Protocol: Document 11/14/23 14:30 DCW (Rec: 11/14/23 15:11 DCW [id number]) Physical Therapy Assessment Goals Three Impairment Decreased foot clearance during activity News Librarian Goal (LTG) Pt to report ability to ambulate three miles without catching foot to decrease falls risk and demonstrate improved LTG Duration 12/14/23 Two Impairment Pt experiences increased pain with B cervical rotation, L>R News Librarian Goal (LTG) Pt to demonstrate increased pain-free ROM of left cervical rotation to 60? in order to improve ability to look for traffic while driving LTG Duration Met One Impairment Pt does not have an appropriate home exercise program Short Term Goal (STG) Pt to be independent and compliant with an appropriate HEP STG Duration 12/05/23 Assessment Summary Assessment Pt feeling much better overall through neck and shoulder, however still having some impairment through her hip and low back. Most frequently exhibited by decreased activity tolerance resulting in decreased foot clearance// foot drag when out walking. Will likely benefit from continued therapy focusing on improving activity tolerance and hip strength/stability to improve gait and balance during distance walking. Physical Therapy Plan Frequency and Duration Frequency of Treatment 2x/Week Plan of Care Start Date 11/14/23 Plan of Care End Date 12/14/23 Therapeutic Interventions Therapeutic Interventions Balance Training,Home Exercise Program,Joint Mobilizations, Manual Therapy,Neuromuscular Re-education,Patient/Caregiver Education,Self-Care/Home Management,Soft Tissue Mobilization,Therapeutic Activities,Therapeutic Exercises Modalities Cold Pack/Ice Massage,Electric Stimulation,Hot Packs, Ultrasound Next Visit Focus/Plan Next Note Type Treatment Note Next Visit Plan *Minimizing more than 2 therapists for carryover care more confident and progression . POC: Gentle strengthening, stretching, STM as tolerated
--- NOTE | 2023-11-14 15:12 | PT.OPPOC ---
Physical, Occupational & Speech Therapy At [facility] Current Diagnoses Other chronic pain (11/14/23) Pain in left shoulder (11/14/23) Stiffness of other specified joint, not elsewhere classified (11/14/23) Sacrococcygeal disorders, not elsewhere classified (11/14/23) Cervicalgia (11/14/23) Low back pain, unspecified (11/14/23) Visit Care Team Role Provider Type Tanvir Worthy MD Attending Provider Physician Family Provider Primary Care Provider Referring Provider Specialty: Internal Medicine Address: [address] [place] [address] Email: [email or web address] Plan Of Care PT-OP-T Assessment and Plan Start: 09/22/23 14:58 Freq: Status: Active Protocol: Document 11/14/23 14:30 DCW (Rec: 11/14/23 15:11 DCW [id number]) Physical Therapy Assessment Goals Three Impairment Decreased foot clearance during activity Fashion Director Party Plan Sales Goal (LTG) Pt to report ability to ambulate three miles without catching foot to decrease falls risk and demonstrate improved LTG Duration 12/14/23 Two Impairment Pt experiences increased pain with B cervical rotation, L>R Custodial Goal (LTG) Pt to demonstrate increased pain-free ROM of left cervical rotation to 60? in order to improve ability to look for traffic while driving LTG Duration Met One Impairment Pt does not have an appropriate home exercise program Short Term Goal (STG) Pt to be independent and compliant with an appropriate HEP STG Duration 12/05/23 Assessment Summary Assessment Pt feeling much better overall through neck and shoulder, however still having some impairment through her hip and low back. Most frequently exhibited by decreased activity tolerance resulting in decreased foot clearance/ foot drag when out walking. Will likely benefit from continued therapy focusing on improving activity tolerance and hip strength/stability to improve gait and balance during distance walking. Physical Therapy Plan Frequency and Duration Frequency of Treatment 2x/Week Plan of Care Start Date 11/14/23 Plan of Care End Date 12/14/23 Therapeutic Interventions Therapeutic Interventions Balance Training,Home Exercise Program,Joint Mobilizations, Manual Therapy,Neuromuscular Re-education,Patient/Caregiver Education,Self-Care/Home Management,Soft Tissue Mobilization,Therapeutic Activities,Therapeutic Exercises Modalities Cold Pack/Ice Massage,Electric Stimulation,Hot Packs, Ultrasound Next Visit Focus/Plan Next Note Type Treatment Note Next Visit Plan *Minimizing more than 2 therapists for carryover care more confident and progression . POC: Gentle strengthening, stretching, STM as tolerated Plan of Care Dates Plan of Care Start Date 11/14/23 Plan of Care End Date 12/14/23 Electronically Signed by: Jed Arriaza, PT 11/14/23 [id number] If you are in agreement with this Plan of Care, please return a signed and dated copy. I have reviewed this Plan of Care and certify that the skilled therapy services above are required to meet the patient?s needs. Physician Signature Date Printed Name and Credentials Clinical Instructor Signature Printed Name and Credentials
--- NOTE | 2023-11-16 14:27 | PT.OTN ---
Current Diagnoses Other chronic pain (11/16/23) Pain in left shoulder (11/16/23) Stiffness of other specified joint, not elsewhere classified (11/16/23) Sacrococcygeal disorders, not elsewhere classified (11/16/23) Cervicalgia (11/16/23) Low back pain, unspecified (11/16/23) Physical Therapy Treatment Note PT-OP-A Visit Information Start: 09/22/23 14:58 Freq: Status: Active Protocol: Document 11/16/23 13:45 DCW (Rec: 11/16/23 14:27 DCW [id number]) Out-Patient Physical Therapy Visit Information Visit Information Visit Type Treatment Note Visit Start Time 13:45 Visit Stop Time 14:30 Visit Number 11 Number of CHIEF PSYCHOLOGY Visits 0 Evaluation Information Evaluation Date 09/22/23 PT-OP-B Current Condition Start: 09/22/23 14:58 Freq: Status: Active Protocol: Document 09/22/23 12:00 DCW (Rec: 09/22/23 15:12 DCW [id number]) Current Condition History of Current Condition Onset Date Multi-year history, worse last two months Current Complaints Low back pain, neck pain, shoulder pain History of Current Condition Pt is a 73 year old female presenting with a multi-year history of low back and neck pain. Pt had been treated at this clinic for her low back pain ~2 years ago. Pt reports that at the beginning of July, she was seen at a different clinic for her back, and by the time she got in, she was actually relatively pain-free. Unfortunately, she was given a few home exercises that severely flared-up her back pain and has been in severe pain ever since. Reports she has barely moved the last two months. Today is actually the first day she has been somewhat functional since it started. Was unable to sleep in her bed, or even get a shower because she wasn' t able to step over the side of the tub. Does have a history of bilateral LE radicular symptoms including burning and pain in her thighs , as well as muscle spasms in her glutes. Recent MRI notes multiple areas of concern (see below). Also notes common cervical pain, has difficulty turning her head, experiences a lot of pain and tightness along the back of her head/ neck. Prior Treatments and Tests Lumbar MRI: IMPRESSION: 1. Right paracentral L1-2 disc protrusion which narrows the right lateral recess. 2. Moderate right foraminal stenosis at L1-2 and L2-3. 3. Broad-based disc bulges and facet and ligamentum flavum hypertrophy with resultant moderate canal stenosis at L2- 3 and severe canal stenosis at L3-4 and L4-5. 4. 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 per Dianne Emmanuel M.D. on Treatment Goals Patient/Caregiver Goals I just want to get my life back. PT-OP-C Subjective Start: 09/22/23 14:58 Freq: Status: Active Protocol: Document 11/16/23 13:45 DCW (Rec: 11/16/23 14:27 DCW [id number]) OP-PT Subjective Patient Comments Patient Comments Driving over here I had some stapping pains in my knee, but that cleared up. PT-OP-D Balance Start: 11/14/23 14:40 Freq: Status: Active Protocol: Document 11/14/23 14:30 DCW (Rec: 11/14/23 14:54 DCW [id number]) Balance Tests Single Limb Standing Single Limb- Right 4.09 Single Limb- Left 2.12 Tandem Tandem Standing R:32.31 - assistance to position, L:35.52 - assist PT-OP-E Functional Tests Start: 11/14/23 14:40 Freq: Status: Active Protocol: Document 11/14/23 14:30 DCW (Rec: 11/14/23 14:54 DCW [id number]) Functional Tests 30 Second Sit to Stand Test Score x12 Timed Up and Go (TUG) Score 14.31 TUG Impairment Rating 40 to <60% Impaired (Score 14- 15) PT-OP-F Manual Assessment Start: 09/22/23 15:12 Freq: Status: Active Protocol: Document 11/14/23 14:30 DCW (Rec: 11/14/23 14:40 DCW [id number]) Manual Assessments Soft Tissue Assessment Soft Tissue Mobility Assessment Tenderness to palpation 1/4 complaint of pain: B Suboccipitals, B lumbar paraspinals, B hamstrings, B piriformis PT-OP-J Posture/Palpation/Skin Start: 09/22/23 14:58 Freq: Status: Active Protocol: Document 11/14/23 14:30 DCW (Rec: 11/14/23 14:40 DCW [id number]) Posture Evaluation Position Sitting Evaluation View Lateral Head/C-Spine Posture Neutral Position PT-OP-K Range of Motion Start: 09/22/23 14:58 Freq: Status: Active Protocol: Document 11/14/23 14:30 DCW (Rec: 11/14/23 14:40 DCW [id number]) Cervical Spine Range of Motion Cervical Spine Active Degrees Testing Position Sitting Flexion 70 Extension 50 Rotation Left 70 Rotation Right 70 Lateral Flexion Left 50 Lateral Flexion Right 50 PT-OP-L Special Tests Start: 09/22/23 14:58 Freq: Status: Active Protocol: Document 11/14/23 14:30 DCW (Rec: 11/14/23 14:40 DCW [id number]) Special Tests Lumbar Spine Special Tests Straight Leg Raise Test Results B hamstring tightness Hip Special Tests SUSY Test Results B ipsilateral anterior hip pain PT-OP-Q Treatments Start: 09/22/23 14:58 Freq: Status: Active Protocol: Document 11/16/23 13:45 DCW (Rec: 11/16/23 14:27 DCW [id number]) Gym Equipment Shuttle Recovery Unilateral Squats Resistance 37# bilateral squat Details sharp pain in R knee Resistance 62# 2 navy Reps/Time x20 Therapeutic Exercises Supine Exercises Hamstring Stretch Supine Exercise Name Hamstring stretch Side right ITB Supine Exercise Name ITB stretch Side right Manual Therapy Treatment Soft Tissue Mobilization ITB Body Location R ITB Body Position Hooklying Lumbar Body Location R Lumbar Paraspinal Mobilization Type Strumming,Sustained Pressure Body Position Sitting Joint Mobilizations Patella Joint R patella Direction Inf/Sup, Med/Lat Grade III Body Position Supine PT-OP-T Assessment and Plan Start: 09/22/23 14:58 Freq: Status: Active Protocol: Document 11/16/23 13:45 DCW (Rec: 11/16/23 14:27 DCW [id number]) Physical Therapy Assessment Impairments Impairments Activity Tolerance,Functional Activities,Functional Mobility ,Pain,Posture,ROM,Soft Tissue Mobility,Strength,Tone Goals Three Impairment Decreased foot clearance during activity Senior Living Goal (LTG) Pt to report ability to ambulate three miles without catching foot to decrease falls risk and demonstrate improved LTG Duration 12/14/23 Two Impairment Pt experiences increased pain with B cervical rotation, L>R Senior Living Goal (LTG) Pt to demonstrate increased pain-free ROM of left cervical rotation to 60? in order to improve ability to look for traffic while driving LTG Duration Met One Impairment Pt does not have an appropriate home exercise program Short Term Goal (STG) Pt to be independent and compliant with an appropriate HEP STG Duration 12/05/23 Assessment Summary Assessment Good response to ITB/Hamstring stretching, pt noted that her stabbing pain in her knee was resolved between stretching and patellar mobs. Physical Therapy Plan Frequency and Duration Frequency of Treatment 2x/Week Plan of Care Start Date 11/14/23 Plan of Care End Date 12/14/23 Therapeutic Interventions Therapeutic Interventions Balance Training,Home Exercise Program,Joint Mobilizations, Manual Therapy,Neuromuscular Re-education,Patient/Caregiver Education,Self-Care/Home Management,Soft Tissue Mobilization,Therapeutic Activities,Therapeutic Exercises Modalities Cold Pack/Ice Massage,Electric Stimulation,Hot Packs, Ultrasound Next Visit Focus/Plan Next Note Type Treatment Note Next Visit Plan *Minimizing more than 2 therapists for carryover care more confident and progression . POC: Gentle strengthening, stretching, STM as tolerated
--- NOTE | 2023-11-30 12:50 | PT.OTN ---
Current Diagnoses Other chronic pain (11/30/23) Pain in left shoulder (11/30/23) Stiffness of other specified joint, not elsewhere classified (11/30/23) Sacrococcygeal disorders, not elsewhere classified (11/30/23) Cervicalgia (11/30/23) Low back pain, unspecified (11/30/23) Physical Therapy Treatment Note PT-OP-A Visit Information Start: 09/22/23 14:58 Freq: Status: Active Protocol: Document 11/30/23 12:05 DCW (Rec: 11/30/23 12:50 DCW [id number]) Out-Patient Physical Therapy Visit Information Visit Information Visit Type Treatment Note Visit Start Time 12:05 Visit Stop Time 12:45 Visit Number 12 Number of CLINIC OFFICE MANAGER Visits 0 PT-OP-B Current Condition Start: 09/22/23 14:58 Freq: Status: Active Protocol: Document 09/22/23 12:00 DCW (Rec: 09/22/23 15:12 DCW [id number]) Current Condition History of Current Condition Onset Date Multi-year history, worse last two months Current Complaints Low back pain, neck pain, shoulder pain History of Current Condition Pt is a 73 year old female presenting with a multi-year history of low back and neck pain. Pt had been treated at this clinic for her low back pain ~2 years ago. Pt reports that at the beginning of July, she was seen at a different clinic for her back, and by the time she got in, she was actually relatively pain-free. Unfortunately, she was given a few home exercises that severely flared-up her back pain and has been in severe pain ever since. Reports she has barely moved the last two months. Today is actually the first day she has been somewhat functional since it started. Was unable to sleep in her bed, or even get a shower because she wasn' t able to step over the side of the tub. Does have a history of bilateral LE radicular symptoms including burning and pain in her thighs , as well as muscle spasms in her glutes. Recent MRI notes multiple areas of concern (see below). Also notes common cervical pain, has difficulty turning her head, experiences a lot of pain and tightness along the back of her head/ neck. Prior Treatments and Tests Lumbar MRI: IMPRESSION: 1. Right paracentral L1-2 disc protrusion which narrows the right lateral recess. 2. Moderate right foraminal stenosis at L1-2 and L2-3. 3. Broad-based disc bulges and facet and ligamentum flavum hypertrophy with resultant moderate canal stenosis at L2- 3 and severe canal stenosis at L3-4 and L4-5. 4. 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 per Dianne Emmanuel M.D. on Treatment Goals Patient/Caregiver Goals I just want to get my life back. PT-OP-C Subjective Start: 09/22/23 14:58 Freq: Status: Active Protocol: Document 11/30/23 12:05 DCW (Rec: 11/30/23 12:49 DCW [id number]) OP-PT Subjective Patient Comments Patient Comments Hip and leg feeling much better, therapy has alleviated that problem, left shoulder is still the last remaining problem, but I don't know how much we can do about that. PT-OP-D Balance Start: 11/14/23 14:40 Freq: Status: Active Protocol: Document 11/14/23 14:30 DCW (Rec: 11/14/23 14:54 DCW [id number]) Balance Tests Single Limb Standing Single Limb- Right 4.09 Single Limb- Left 2.12 Tandem Tandem Standing R:32.31 - assistance to position, L:35.52 - assist PT-OP-E Functional Tests Start: 11/14/23 14:40 Freq: Status: Active Protocol: Document 11/14/23 14:30 DCW (Rec: 11/14/23 14:54 DCW [id number]) Functional Tests 30 Second Sit to Stand Test Score x12 Timed Up and Go (TUG) Score 14.31 TUG Impairment Rating 40 to <60% Impaired (Score 14- 15) PT-OP-F Manual Assessment Start: 09/22/23 15:12 Freq: Status: Active Protocol: Document 11/14/23 14:30 DCW (Rec: 11/14/23 14:40 DCW [id number]) Manual Assessments Soft Tissue Assessment Soft Tissue Mobility Assessment Tenderness to palpation 1/4 complaint of pain: B Suboccipitals, B lumbar paraspinals, B hamstrings, B piriformis PT-OP-J Posture/Palpation/Skin Start: 09/22/23 14:58 Freq: Status: Active Protocol: Document 11/14/23 14:30 DCW (Rec: 11/14/23 14:40 DCW [id number]) Posture Evaluation Position Sitting Evaluation View Lateral Head/C-Spine Posture Neutral Position PT-OP-K Range of Motion Start: 09/22/23 14:58 Freq: Status: Active Protocol: Document 11/14/23 14:30 DCW (Rec: 11/14/23 14:40 DCW [id number]) Cervical Spine Range of Motion Cervical Spine Active Degrees Testing Position Sitting Flexion 70 Extension 50 Rotation Left 70 Rotation Right 70 Lateral Flexion Left 50 Lateral Flexion Right 50 PT-OP-L Special Tests Start: 09/22/23 14:58 Freq: Status: Active Protocol: Document 11/14/23 14:30 DCW (Rec: 11/14/23 14:40 DCW [id number]) Special Tests Lumbar Spine Special Tests Straight Leg Raise Test Results B hamstring tightness Hip Special Tests SUSY Test Results B ipsilateral anterior hip pain PT-OP-Q Treatments Start: 09/22/23 14:58 Freq: Status: Active Protocol: Document 11/30/23 12:05 DCW (Rec: 11/30/23 12:49 DCW [id number]) Manual Therapy Treatment Soft Tissue Mobilization Parascapular Body Location R Parascapulars Mobilization Type Strumming,Sustained Pressure, Trigger Point Release Body Position Hooklying Upper Trap Body Location R UT Mobilization Type Strumming,Sustained Pressure, Trigger Point Release Body Position Hooklying Suboccipitals Body Location B suboccipitals Mobilization Type Sustained Pressure,Trigger Point Release Intensity/Depth Moderate Body Position Supine PT-OP-T Assessment and Plan Start: 09/22/23 14:58 Freq: Status: Active Protocol: Document 11/30/23 12:05 DCW (Rec: 11/30/23 12:49 DCW [id number]) Physical Therapy Assessment Assessment Summary Assessment Spent time today focusing on lingering shoulder pain, good response to STM. Feeling like PT is going well, feels more comfortable with independent HEP. Pt will likely discharge following last scheduled visit next week. Physical Therapy Plan Frequency and Duration Frequency of Treatment 2x/Week Plan of Care Start Date 11/14/23 Plan of Care End Date 12/14/23 Therapeutic Interventions Therapeutic Interventions Balance Training,Home Exercise Program,Joint Mobilizations, Manual Therapy,Neuromuscular Re-education,Patient/Caregiver Education,Self-Care/Home Management,Soft Tissue Mobilization,Therapeutic Activities,Therapeutic Exercises Modalities Cold Pack/Ice Massage,Electric Stimulation,Hot Packs, Ultrasound Next Visit Focus/Plan Next Note Type Discharge Summary Next Visit Plan *Minimizing more than 2 therapists for carryover care more confident and progression . POC: Gentle strengthening, stretching, STM as tolerated
--- NOTE | 2023-12-07 11:51 | PT.OTN ---
Current Diagnoses Other chronic pain (12/07/23) Pain in left shoulder (12/07/23) Stiffness of other specified joint, not elsewhere classified (12/07/23) Sacrococcygeal disorders, not elsewhere classified (12/07/23) Cervicalgia (12/07/23) Low back pain, unspecified (12/07/23) Physical Therapy Treatment Note PT-OP-A Visit Information Start: 09/22/23 14:58 Freq: Status: Active Protocol: Document 12/07/23 11:15 DCW (Rec: 12/07/23 11:51 DCW [id number]) Out-Patient Physical Therapy Visit Information Visit Information Visit Type Discharge Summary Visit Start Time 11:15 Visit Stop Time 11:45 Visit Number 13 Number of AUTOMATIC MOLD SANDER Visits 0 Evaluation Information Evaluation Date 09/22/23 PT-OP-B Current Condition Start: 09/22/23 14:58 Freq: Status: Active Protocol: Document 09/22/23 12:00 DCW (Rec: 09/22/23 15:12 DCW [id number]) Current Condition History of Current Condition Onset Date Multi-year history, worse last two months Current Complaints Low back pain, neck pain, shoulder pain History of Current Condition Pt is a 73 year old female presenting with a multi-year history of low back and neck pain. Pt had been treated at this clinic for her low back pain ~2 years ago. Pt reports that at the beginning of July, she was seen at a different clinic for her back, and by the time she got in, she was actually relatively pain-free. Unfortunately, she was given a few home exercises that severely flared-up her back pain and has been in severe pain ever since. Reports she has barely moved the last two months. Today is actually the first day she has been somewhat functional since it started. Was unable to sleep in her bed, or even get a shower because she wasn' t able to step over the side of the tub. Does have a history of bilateral LE radicular symptoms including burning and pain in her thighs , as well as muscle spasms in her glutes. Recent MRI notes multiple areas of concern (see below). Also notes common cervical pain, has difficulty turning her head, experiences a lot of pain and tightness along the back of her head/ neck. Prior Treatments and Tests Lumbar MRI: IMPRESSION: 1. Right paracentral L1-2 disc protrusion which narrows the right lateral recess. 2. Moderate right foraminal stenosis at L1-2 and L2-3. 3. Broad-based disc bulges and facet and ligamentum flavum hypertrophy with resultant moderate canal stenosis at L2- 3 and severe canal stenosis at L3-4 and L4-5. 4. 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 per Dianne Emmanuel M.D. on Treatment Goals Patient/Caregiver Goals I just want to get my life back. PT-OP-C Subjective Start: 09/22/23 14:58 Freq: Status: Active Protocol: Document 12/07/23 11:15 DCW (Rec: 12/07/23 11:51 DCW [id number]) OP-PT Subjective Patient Comments Patient Comments Shoulder is still a little more flared up, but it always hurts. PT-OP-D Balance Start: 11/14/23 14:40 Freq: Status: Active Protocol: Document 12/07/23 11:15 DCW (Rec: 12/07/23 11:25 DCW [id number]) Balance Tests Single Limb Standing Single Limb- Right 9.97 Single Limb- Left 7.84 PT-OP-E Functional Tests Start: 11/14/23 14:40 Freq: Status: Active Protocol: Document 11/14/23 14:30 DCW (Rec: 11/14/23 14:54 DCW [id number]) Functional Tests 30 Second Sit to Stand Test Score x12 Timed Up and Go (TUG) Score 14.31 TUG Impairment Rating 40 to <60% Impaired (Score 14- 15) PT-OP-F Manual Assessment Start: 09/22/23 15:12 Freq: Status: Active Protocol: Document 11/14/23 14:30 DCW (Rec: 11/14/23 14:40 DCW [id number]) Manual Assessments Soft Tissue Assessment Soft Tissue Mobility Assessment Tenderness to palpation 1/4 complaint of pain: B Suboccipitals, B lumbar paraspinals, B hamstrings, B piriformis PT-OP-J Posture/Palpation/Skin Start: 09/22/23 14:58 Freq: Status: Active Protocol: Document 11/14/23 14:30 DCW (Rec: 11/14/23 14:40 DCW [id number]) Posture Evaluation Position Sitting Evaluation View Lateral Head/C-Spine Posture Neutral Position PT-OP-K Range of Motion Start: 09/22/23 14:58 Freq: Status: Active Protocol: Document 11/14/23 14:30 DCW (Rec: 11/14/23 14:40 DCW [id number]) Cervical Spine Range of Motion Cervical Spine Active Degrees Testing Position Sitting Flexion 70 Extension 50 Rotation Left 70 Rotation Right 70 Lateral Flexion Left 50 Lateral Flexion Right 50 PT-OP-L Special Tests Start: 09/22/23 14:58 Freq: Status: Active Protocol: Document 11/14/23 14:30 DCW (Rec: 11/14/23 14:40 DCW [id number]) Special Tests Lumbar Spine Special Tests Straight Leg Raise Test Results B hamstring tightness Hip Special Tests SUSY Test Results B ipsilateral anterior hip pain PT-OP-Q Treatments Start: 09/22/23 14:58 Freq: Status: Active Protocol: Document 12/07/23 11:15 DCW (Rec: 12/07/23 11:51 DCW [id number]) Manual Therapy Treatment Soft Tissue Mobilization Parascapular Body Location B Parascapulars Mobilization Type Strumming,Sustained Pressure, Trigger Point Release Body Position Hooklying Upper Trap Body Location B UT Mobilization Type Strumming,Sustained Pressure, Trigger Point Release Body Position Hooklying Suboccipitals Body Location B suboccipitals Mobilization Type Sustained Pressure,Trigger Point Release Intensity/Depth Moderate Body Position Supine PT-OP-T Assessment and Plan Start: 09/22/23 14:58 Freq: Status: Active Protocol: Document 12/07/23 11:15 DCW (Rec: 12/07/23 11:51 DCW [id number]) Physical Therapy Assessment Goals Three Impairment Decreased foot clearance during activity Nutrition Tech Goal (LTG) Pt to report ability to ambulate three miles without catching foot to decrease falls risk and demonstrate improved LTG Duration 12/14/23 Two Impairment Pt experiences increased pain with B cervical rotation, L>R Nutrition Tech Goal (LTG) Pt to demonstrate increased pain-free ROM of left cervical rotation to 60? in order to improve ability to look for traffic while driving LTG Duration Met One Impairment Pt does not have an appropriate home exercise program Short Term Goal (STG) Pt to be independent and compliant with an appropriate HEP STG Duration Met Assessment Summary Assessment Pt doing well overall, has met all initial goals. Still has some lingering shoulder pain, but feels comfortable at this time with discharge to independent [facility]. Pt interested in joining local gym for continued strengthening. Physical Therapy Plan Frequency and Duration Frequency of Treatment 2x/Week Plan of Care Start Date 11/14/23 Plan of Care End Date 12/14/23 Therapeutic Interventions Therapeutic Interventions Balance Training,Home Exercise Program,Joint Mobilizations, Manual Therapy,Neuromuscular Re-education,Patient/Caregiver Education,Self-Care/Home Management,Soft Tissue Mobilization,Therapeutic Activities,Therapeutic Exercises Modalities Cold Pack/Ice Massage,Electric Stimulation,Hot Packs, Ultrasound Discharge Physical Therapy Discharge Reasons Goals Met Next Visit Focus/Plan Next Note Type Discharge Summary
== END 2023-12-12 10:46 | disposition home or self-care (01) ==
LOC: PHYS 11:15
PROVIDERS: Family Provider Internal Medicine; PCP Internal Medicine; Referring Provider Internal Medicine; Visit Provider Internal Medicine
DX: M54.50 Low back pain, unspecified (principal); M53.3 Sacrococcygeal disorders, not elsewhere classified; G89.29 Other chronic pain; M54.2 Cervicalgia; M25.512 Pain in left shoulder; M25.69 Stiffness of other specified joint, not elsewhere classified
CPT/HCPCS: 97110; 97112; 97140; 97162; 97530; 97535

== ENCOUNTER → 2024-01-11 09:05 | Outpatient (CLI) | payer MEDICARE, OTHER, SELFPAY ==
--- NOTE | 2024-01-11 09:07 | DI.RAD.S_ITS ---
PROCEDURE: XR CHEST 2V INDICATIONS: left upper back pain TECHNIQUE: 2 views of the chest were acquired. COMPARISON: Located Within [facility], CR, XR CHEST 1V, 09/10/2023, 16:35. Located Within [facility], CR, XR CHEST 1V, 07/29/2022, 15:02. FINDINGS: Surgical changes and devices: None. Lungs and pleura: Lungs are clear. No pleural effusions or pneumothorax. Mediastinum: Aortic tortuosity. Cardiac size is within normal limits. Bones and chest wall: No suspicious bony abnormalities. Soft tissues appear unremarkable. IMPRESSION: No acute cardiopulmonary abnormality is seen. Approved by: Mitchel Castillo M.D. on 01/11/2024 at 13:50
== END ==
PROVIDERS: Family Provider Internal Medicine; PCP Internal Medicine; Referring Provider Internal Medicine; Visit Provider Internal Medicine
DX: S29.012A Strain of muscle and tendon of back wall of thorax, initial encounter (principal); X58.XXXA Exposure to other specified factors, initial encounter
CPT/HCPCS: 71046

== ENCOUNTER → 2024-03-15 15:40 | Outpatient (CLI) | payer MEDICARE, OTHER, SELFPAY ==
[2024-03-15 16:38] LABS: Add Manual Diff / Slide Review NO; Basophils Absolute Auto 0 /uL (0-100); Basophils Percent Auto 0.2 % (0-2); Eosinophils Absolute Auto 100 /uL (0-450); Eosinophils Percent Auto 1.3 % (2-4); Hematocrit 36.8 % (36-46); Hemoglobin 12.4 g/dL (12.0-16.0); Lymphocytes Absolute Auto 2300 /uL (1100-4500); Lymphocytes Percent Auto 23.9 % (25-40); Mean Corpuscular HGB Conc 33.7 % (30-36); Mean Corpuscular Hemoglobin 31.9 PG (26-34); Mean Corpuscular Volume 94.7 fL (80-100); Monocytes Absolute Auto 700 /uL (0-900); Monocytes Percent Auto 7.7 % (3-14); Neutrophils Absolute Auto 6400 /uL (1500-7000); Neutrophils Percent Auto 66.9 % (50-75); Platelet Count 228 X10^3/uL (150-400); Red Blood Cell Count 3.88 X10^6/uL (4.0-5.2); Red Cell Distribution Width 13.1 % (11.6-14.8); White Blood Cell Count 9.5 X10^3/uL (4.5-11.0)
[2024-03-15 16:43] LABS: Alanine Aminotransferase 21 IU/L (<35); Albumin Globulin Ratio 1.2 (1.0-2.8); Alkaline Phosphatase 123 U/L (38-126); Aspartate Aminotransferase 22 IU/L (14-36); BUN Creatinine Ratio 25.6 (6-22); Bilirubin Total 0.4 mg/dL (0.2-1.3); Blood Urea Nitrogen 23 mg/dL (7-17); Calcium 9.5 mg/dL (8.4-10.2); Carbon Dioxide 29 mmol/L (22-32); Chloride 101 mmol/L (98-107); Estimated Glomerular Filt Rate > 60 mL/min (>60); Globulin 3.4 g/dL (1.7-4.1); Glucose 147 mg/dL (80-110); HEMOLYSIS < 15 (0-50); Potassium 3.5 mmol/L (3.4-5.1); Sodium 138 mmol/L (137-145); Total Protein 7.4 g/dL (6.3-8.2)
== END ==
PROVIDERS: Family Provider Internal Medicine; PCP Internal Medicine; Referring Provider Internal Medicine Gastroenterology; Visit Provider Internal Medicine Gastroenterology
DX: K74.3 Primary biliary cirrhosis (principal)
CPT/HCPCS: 36415; 80053; 85025

== ENCOUNTER → 2024-05-16 11:59 | Outpatient (CLI) | payer MEDICARE, OTHER, SELFPAY ==
--- NOTE | 2024-05-16 12:00 | DI.US.S_ITS ---
PROCEDURE: US PERIPH VENOUS LOW EXTREM BI INDICATIONS: Soft tissue swelling, please evaluate for venous thrombosis, Dominguez's cyst TECHNIQUE: Real-time imaging, as well as color and pulse Doppler interrogation, were performed of the deep veins of both legs from the inguinal ligament to the popliteal fossa, with documentation of the visualized calf veins. COMPARISON: None. FINDINGS: Right: The common femoral, femoral, popliteal, and the visualized calf veins are normally compressible, and free of intraluminal thrombus. Color and pulse Doppler demonstrate normal phasic intravascular flow. There is normal augmentation response to distal compression maneuver. Left: The common femoral, femoral, popliteal, and the visualized calf veins are normally compressible, and free of intraluminal thrombus. Color and pulse Doppler demonstrate normal phasic intravascular flow. There is normal augmentation response to distal compression maneuver. No Dominguez's cyst can be seen on either side. IMPRESSION: No findings of deep venous thrombosis in either lower extremity. No Dominguez's cyst can be seen on either side. Dictated by: Pablo Keller M.D. on 05/16/2024 at 12:57 Approved by: Pablo Keller M.D. on 05/16/2024 at 12:58
== END ==
PROVIDERS: Family Provider Internal Medicine; PCP Internal Medicine; Referring Provider Internal Medicine; Visit Provider Internal Medicine
DX: M79.89 Other specified soft tissue disorders (principal)
CPT/HCPCS: 93970

== ENCOUNTER → 2024-07-08 15:12 | Outpatient (CLI) | payer MEDICARE, OTHER, SELFPAY ==
[2024-07-08 16:58] LABS: Hemoglobin A1C% w Est Avg Glu 5.3 % (4.0-6.0)
[2024-07-08 17:17] LABS: Alanine Aminotransferase 34 IU/L (<35); Albumin 4.5 g/dL (3.5-5.0); Albumin Globulin Ratio 1.3 (1.0-2.8); Alkaline Phosphatase 119 U/L (38-126); Aspartate Aminotransferase 33 IU/L (14-36); Bilirubin Total 0.5 mg/dL (0.2-1.3); Blood Urea Nitrogen 33 mg/dL (7-17); Carbon Dioxide 28 mmol/L (22-32); Chloride 101 mmol/L (98-107); Cholesterol 208 mg/dL (140-199); Estimated Glomerular Filt Rate 49 mL/min (>60); Globulin 3.4 g/dL (1.7-4.1); Glucose 98 mg/dL (80-110); HDL Cholesterol 82 mg/dL (40-60); HEMOLYSIS < 15 (0-50); LDL Cholesterol Calculated 112 mg/dL (<100); Potassium 4.2 mmol/L (3.4-5.1); Sodium 136 mmol/L (137-145); Total Protein 7.9 g/dL (6.3-8.2); Triglycerides 72 mg/dL (35-150)
== END ==
LOC: LAB 15:13
PROVIDERS: Family Provider Internal Medicine; PCP Internal Medicine; Referring Provider Internal Medicine; Visit Provider Internal Medicine
DX: R73.01 Impaired fasting glucose (principal); E78.2 Mixed hyperlipidemia; I10 Essential (primary) hypertension
CPT/HCPCS: 80053; 80061; 83036

== ENCOUNTER → 2024-07-13 | Outpatient (CLI) | payer MEDICARE, OTHER, SELFPAY ==
--- NOTE | 2024-07-13 10:20 | DI.MG.S_ITS ---
BILATERAL DIGITAL SCREENING MAMMOGRAM 3D/2D WITH CAD: 07/13/2024 CLINICAL: Routine screening. Comparison is made to exams dated: 06/30/2023 mammogram, 06/03/2022 mammogram, and 05/29/2021 mammogram - [facility]. There are scattered areas of fibroglandular density (category b / 25%-50% glandular tissue). Current study was also evaluated with a Computer Aided Detection (CAD) system. No significant masses, calcifications, or other findings are seen in either breast. There has been no significant interval change. IMPRESSION: NEGATIVE There is no mammographic evidence of malignancy. A 1 year screening mammogram is recommended. Based on the Tyrer Cuzick model (a risk assessment model) the patient's lifetime risk is 4.7% and her 10 year risk is 3.5%. According to the ACR, ACS, and NCCN guidelines, an annual breast MRI exam along with mammogram is recommended if the patient's lifetime risk is 20% or greater. This exam was interpreted at Station ID: [id number]. NOTE: For mammograms, a report in lay terms will be sent to the patient. Approximately 15% of breast malignancies will not be visualized mammographically. In the management of a palpable breast mass, a negative mammogram must not discourage biopsy of a clinically suspicious lesion. Electronically Signed By: Conner alas/daija:07/23/2024 20:08:57 letter sent: Normal Exam ACR BI-RADS Category 1: Negative
== END ==
LOC: MAMMO 10:20
PROVIDERS: Family Provider Internal Medicine; PCP Internal Medicine; Referring Provider Internal Medicine; Visit Provider Internal Medicine
DX: Z12.31 Encounter for screening mammogram for malignant neoplasm of breast (principal)
CPT/HCPCS: 77063; 77067

== ENCOUNTER 2024-08-30 16:54 | Emergency (ER) | payer MEDICARE, OTHER, SELFPAY ==
[2024-08-30] VITALS (7 sets, daily range): BP systolic 174–205; BP diastolic 83–98; PULSE 84–100; RESP 16–20; TEMP 36.6; O2SAT 96–100; BMI 37.9
--- NOTE | 2024-08-30 17:12 | EKG_ITS ---
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
--- NOTE | 2024-08-30 17:12 | DI.RAD.S_ITS ---
PROCEDURE: XR CHEST 1V INDICATIONS: chest pain TECHNIQUE: One view of the chest was acquired. COMPARISON: [facility], CR, XR CHEST 2V, 01/11/2024, 9:09. FINDINGS: Surgical changes and devices: None. Lungs and pleura: Lungs are clear. No pleural effusions or pneumothorax. Mediastinum: Mediastinal contours appear normal. Heart size is mildly enlarged. Bones and chest wall: No suspicious bony lesions. Overlying soft tissues appear unremarkable. IMPRESSION: No acute cardiopulmonary pathology. Dictated by: Sandro Callahan M.D. on 08/30/2024 at 18:01 Approved by: Sandro Callahan M.D. on 08/30/2024 at 18:02
[2024-08-30 17:41] LABS: Add Manual Diff / Slide Review NO; Basophils Absolute Auto 100 /uL (0-100); Eosinophils Absolute Auto 100 /uL (0-450); Eosinophils Percent Auto 1.7 % (2-4); Hematocrit 38.8 % (36-46); Lymphocytes Absolute Auto 2600 /uL (1100-4500); Lymphocytes Percent Auto 30.9 % (25-40); Mean Corpuscular HGB Conc 33.5 % (30-36); Mean Corpuscular Hemoglobin 32.7 PG (26-34); Mean Corpuscular Volume 97.6 fL (80-100); Monocytes Absolute Auto 800 /uL (0-900); Monocytes Percent Auto 9.6 % (3-14); Neutrophils Absolute Auto 4800 /uL (1500-7000); Neutrophils Percent Auto 56.8 % (50-75); Platelet Count 256 X10^3/uL (150-400); Red Blood Cell Count 3.98 X10^6/uL (4.0-5.2); Red Cell Distribution Width 13.5 % (11.6-14.8); White Blood Cell Count 8.5 X10^3/uL (4.5-11.0)
[2024-08-30 17:49] LABS: INR 0.9 (0.9-1.3); Prothrombin Time 10.1 SECONDS (9.4-12.5)
[2024-08-30 17:51] LABS: PTT Partial Thromboplastin Tim 35 SECONDS (25.1-36.5)
[2024-08-30 17:54] LABS: Alanine Aminotransferase 30 IU/L (<35); Albumin 4.6 g/dL (3.5-5.0); Albumin Globulin Ratio 1.3 (1.0-2.8); Alkaline Phosphatase 111 U/L (38-126); Aspartate Aminotransferase 31 IU/L (14-36); BUN Creatinine Ratio 25.2 (6-22); Bilirubin Total 0.3 mg/dL (0.2-1.3); Blood Urea Nitrogen 27 mg/dL (7-17); Calcium 9.8 mg/dL (8.4-10.2); Carbon Dioxide 27 mmol/L (22-32); Chloride 101 mmol/L (98-107); Creatine Kinase 75 U/L (30-135); Estimated Glomerular Filt Rate 55 mL/min (>60); Globulin 3.5 g/dL (1.7-4.1); Glucose 115 mg/dL (80-110); HEMOLYSIS < 15 (0-50); Lipase 102 U/L (23-300); Magnesium 1.8 mg/dL (1.6-2.3); Potassium 3.8 mmol/L (3.4-5.1); Sodium 136 mmol/L (137-145); Total Protein 8.1 g/dL (6.3-8.2)
[2024-08-30 18:05] LABS: NT-proBNP (BNP-Adult 18+) 130 pg/mL (<125); Troponin I < 0.012 ng/mL (0.01-0.034)
[2024-08-30] MEDS: ACETAMINOPHEN 325 MG TABLET 650 MG PO (21:11)
--- NOTE | 2024-08-30 22:06 | ED_ITS ---
HPI - Extremity Problem General Chief complaint: Extremity Problem,Nontraumatic Stated complaint: feet and leg swelling Time Seen by Provider: 08/30/24 22:06 Source: patient Mode of arrival: Ambulatory History of Present Illness HPI Narrative: 74-year-old female past medical history of peripheral venous insufficiency, hypertension hyperlipidemia comes into the ED from home for evaluation of bilateral lower extremity swelling ongoing persistent for the past 2 weeks. Patient also pressing shortness of breath with exertion states that she is gained approximately 6 lb in a proximally 1 week. She states that she does have a history of lower extremity swelling ongoing persistent for the past several months but given the worsening of this over the past 2 weeks called her primary care doctor and was instructed to come into the ED for further evaluation treatment. Patient states that her symptoms are significantly improved after elevation and compression, she denies any other symptoms such as headache visual disturbances chest pain fever chills nausea vomiting abdominal pain or any other GI/ symptoms time Related Data Home Medications Medication Instructions Recorded Confirmed Resmed Airsense 10 CPAP #1 ea 01/01/19 08/07/24 omeprazole 20 mg tablet,delayed 20 mg PO DAILY PRN 05/04/22 08/07/24 release tamsulosin 0.4 mg capsule 0.4 mg PO DAILY PRN 05/04/22 08/07/24 ursodiol 300 mg capsule 300 mg PO TID PBC 05/04/22 08/07/24 acetaminophen 500 mg tablet 500 mg PO Q6H PRN 09/12/23 08/07/24 (Tylenol Extra Strength) calcium carbonate (Calcium 600) 600 mg PO DAILY 09/12/23 08/07/24 cholecalciferol (vitamin D3) 50 50 mcg PO DAILY 09/12/23 08/07/24 mcg (2,000 unit) capsule coenzyme Q10 300 mg capsule (Co 300 mg PO DAILY 09/12/23 08/07/24 Q-10) mecobalamin (vitamin B12) 1,000 1,000 mcg PO DAILY 09/12/23 08/07/24 mcg chewable tablet baclofen 5 mg tablet 5 mg PO TID PRN 12/04/23 08/07/24 metronidazole 0.75 % topical gel 1 applic topical ONCE PM PRN 12/04/23 08/07/24 Previous Rx's Medication Instructions Recorded amlodipine 2.5 mg tablet 2.5 mg PO DAILY #90 tabs 10/03/23 hydrochlorothiazide 25 mg tablet 25 mg PO DAILY #90 tabs 10/26/23 losartan 50 mg tablet 50 mg PO BID #180 tabs 07/09/24 valacyclovir 1 gram tablet 1,000 mg PO BID #30 tabs 07/23/24 valacyclovir 500 mg tablet 500 mg PO DAILY #90 tabs 08/07/24 Allergies Allergy/AdvReac Type Severity Reaction Status Date / Time meloxicam Allergy Severe Diarrhea Verified 08/07/24 11:33 butalbital Allergy Intermediate Hives Verified 08/07/24 11:33 Iodinated Contrast Media Allergy Mild Hives Verified 08/07/24 11:33 adhesive tape AdvReac Mild skin Verified 08/07/24 11:33 irritation Review of Systems Review of Systems Narrative: General: Denies fever, chills, weight loss HEENT: Denies headache, eye drainage, eye irritation, head trauma, sore throat, voice change Cardiovascular: Denies any chest pain, palpitations, shortness of breath, tachycardia Respiratory: Positive shortness of breath, denies cough, wheeze, stridor GI/: Denies any abdominal pain, nausea, vomiting, diarrhea, bright red blood per rectum, melanotic stools, urinary frequency, urinary retention, dysuria, hematuria MSK: Denies any joint pain, muscle pains, positive bilateral lower extremity swelling Skin: Denies any rashes, lesions, discoloration Neuro: Denies any headache, lightheadedness, dizziness, fainting, weakness Psych: Denies SI/HI Patient History Medical History (Updated 08/30/24 @ 22:47 by Yfn Rucker DO) Venous (peripheral) insufficiency Impaired fasting glucose Depression, major, recurrent Lumbar spondylosis Lumbar spinal stenosis Lumbar foraminal stenosis Annular tear of lumbar disc Chronic low back pain Right carpal tunnel syndrome History of colonic polyps Obesity (BMI 30.0-34.9) Herpesviral infection, 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 Mixed hyperlipidemia Essential hypertension Osteopenia (~1999) Carpal tunnel syndrome (~2018) Chicken pox (~1954) Gout (~1979) Foot pain (~2017) Rubella (~1952) Chronic back pain (Unknown) Neck pain (1999) Ankle pain (2009) Allergic rhinitis (1951) Sleep apnea (2015) Interstitial cystitis (Unknown) GERD (gastroesophageal reflux disease) (Unknown) Hearing loss (2009) Vertigo (2015) Kidney stones (1979) Multiple sclerosis (2006) Thyroid nodule (2003) Hepatitis C (~1979) Hypertension (1989) Colon polyps (2011) Diverticular disease (2011) Hemorrhoids (2011) History of hepatitis C virus infection (07/06/17) Surgical History Anesthesia Hx of breast biopsy (1999) Hx of tonsillectomy (Unknown) Hx of lithotripsy (Unknown) Family History Unknown No problems noted. Social History marital status: unmarried,single number of children: 0 household members: none lives independently: Yes caregiver/support person: No pets and animals: Yes education level: college Smoking Status: Former smoker second hand exposure: No alcohol intake: never substance use type: does not use Smoking Status: Former smoker alcohol intake frequency: 0-2 drinks per day Exam Narrative Exam Narrative: General: Cooperative, comfortable, well-developed, not in acute distress HEENT: Normocephalic, atraumatic, PERRLA, normal sclera, eyelids normal, Neck: Active full range of motion, atraumatic Chest: Normal to inspection, negative crepitus, no overlying erythema ecchymosis Respiratory: Normal respiratory effort, not in acute respiratory distress, clear to auscultation bilaterally negative cough, wheeze, tachypnea, rhonchi, rales Cardiology: Regular rate rhythm negative gallop, murmur, rubs GI/: Normal to inspection, soft, nonrigid, no tenderness to palpation, exam deferred MSK: Full range of active range of motion of all 4 extremities, atraumatic, +1 bilateral pitting edema no overlying erythema ecchymosis no tenderness to palpation Skin: No rashes lesions noted Neuro: Alert awake oriented x3, moves all 4 extremities spontaneously, cranial nerves intact, able to answer all questions appropriately follows commands appropriately Psych: Cooperative, negative suicidal or homicidal ideations Initial Vital Signs Initial Vital Signs: Vital Signs Temperature 98 F 08/30/24 17:01 Pulse Rate 96 H 08/30/24 17:01 Respiratory Rate 20 08/30/24 17:01 Blood Pressure 174/83 H 08/30/24 17:01 Pulse Oximetry 97 08/30/24 17:01 Oxygen Delivery Method Room Air 08/30/24 17:01 Course Orders Ordered: ED Orders 08/30/24 17:12 XR chest 1V Stat EKG-12 Lead Stat 08/30/24 17:23 Complete Blood Count AUTO DIFF Stat Comprehensive Metabolic Panel Stat Lipase Stat Magnesium Stat NT-proBNP (BNP-Adult 18+) Stat PTT Partial Thromboplastin Martinez Stat Prothrombin Time INR Stat Troponin & CK Cardiac Panel Stat Discontinued Medications Acetaminophen (Acetaminophen 325 Mg Tablet) 650 mg PO NOW ONE Stop: 08/30/24 21:05 Last Admin: 08/30/24 21:11 Dose: 650 mg Documented By: CARRINGTON Vital Signs Vital signs: Vital Signs - 8 hr 08/30/24 17:01 08/30/24 21:05 08/30/24 21:15 Temperature 98 F Pulse Rate 96 H 100 H 98 H Respiratory Rate 20 20 16 Blood Pressure 174/83 H 198/98 H 205/98 H Pulse Oximetry 97 99 99 Oxygen Delivery Method Room Air Room Air 08/30/24 21:30 Temperature Pulse Rate 84 Respiratory Rate 20 Blood Pressure 190/85 H Pulse Oximetry 100 Oxygen Delivery Method Room Air MDM - Extremity (Nontraumatic) Differential Diagnosis Differential diagnosis: Likely cellulitis and other (ACS, CHF exacerbation, pneumonia, electrolyte abnormality) Lab Data 08/30/24 17:23 08/30/24 17:23 Labs: Lab Results 08/30/24 Range/Units 17:23 WBC 8.5 (4.5-11.0) X10^3/uL RBC 3.98 L (4.0-5.2) X10^6/uL Hgb 13.0 (12.0-16.0) g/dL Hct 38.8 (36-46) % MCV 97.6 (80-100) fL MCH 32.7 (26-34) PG MCHC 33.5 (30-36) % RDW 13.5 (11.6-14.8) % Plt Count 256 (150-400) X10^3/uL Neut % (Auto) 56.8 (50-75) % Lymph % (Auto) 30.9 (25-40) % Bryan % (Auto) 9.6 (3-14) % Eos % (Auto) 1.7 L (2-4) % Baso % (Auto) 1.0 (0-2) % Neut # (Auto) 4800 (8565-3273) /uL Lymph # (Auto) 2600 (7371-3158) /uL Bryan # (Auto) 800 (0-900) /uL Eos # (Auto) 100 (0-450) /uL Baso # (Auto) 100 (0-100) /uL PT 10.1 (9.4-12.5) SECONDS INR 0.9 (0.9-1.3) APTT 35 (25.1-36.5) SECONDS Sodium 136 L (137-145) mmol/L Potassium 3.8 (3.4-5.1) mmol/L Chloride 101 (98-107) mmol/L Carbon Dioxide 27 (22-32) mmol/L BUN 27 H (7-17) mg/dL Creatinine 1.07 H (0.52-1.04) mg/dL Estimated GFR 55 L (>60) mL/min BUN/Creatinine Ratio 25.2 H (6-22) Glucose 115 H (80-110) mg/dL Calcium 9.8 (8.4-10.2) mg/dL Magnesium 1.8 (1.6-2.3) mg/dL Total Bilirubin 0.3 (0.2-1.3) mg/dL AST 31 (14-36) IU/L ALT 30 (<35) IU/L Alkaline Phosphatase 111 (38-126) U/L Total Creatine Kinase 75 (30-135) U/L Troponin I < 0.012 (0.01-0.034) ng/mL NT-Pro-B Natriuret Pep 130 H (<125) pg/mL Total Protein 8.1 (6.3-8.2) g/dL Albumin 4.6 (3.5-5.0) g/dL Globulin 3.5 (1.7-4.1) g/dL Albumin/Globulin Ratio 1.3 (1.0-2.8) Lipase 102 (23-300) U/L Urine Dip Bedside Urine Glucose Negative Bedside Urine Bilirubin - Negative Bedside Urine Ketone - Negative Urine Specific [place] 1.005 Bedside Urine Occult Blood - Negative Bedside Urine pH 6.0 Bedside Urine Protein - Negative Bedside Urine Urobilinogen - Negative Bedside Urine Nitrite - Negative Bedside Urine Leukocytes - Negative Esterase Imaging Data Chest x-ray: Radiologist's Impression: [address] [address] XRay Report Signed Patient: Bettie Murdock MR#: [id number] : 1950 Acct:[id number] Age/Sex: 74 / F Date of Service: 08/30/24 Loc: ED Accession Number: [id number] Procedure: XR chest 1V Ordering Provider: Kaila Schwab D.O. PROCEDURE: XR CHEST 1V INDICATIONS: chest pain TECHNIQUE: One view of the chest was acquired. COMPARISON: [facility], CR, XR CHEST 2V, 01/11/2024, 9:09. FINDINGS: Surgical changes and devices: None. Lungs and pleura: Lungs are clear. No pleural effusions or pneumothorax. Mediastinum: Mediastinal contours appear normal. Heart size is mildly enlarged. Bones and chest wall: No suspicious bony lesions. Overlying soft tissues appear unremarkable. IMPRESSION: No acute cardiopulmonary pathology. ECG Data Interpretation: EKG interpreted ED physician sinus at 81 beats per minute QTC [address] changes no STEMI MDM Narrative Medical decision making narrative: 74-year-old female history of hyperlipidemia hypertension referral vascular disease presents to the emergency department for lower extremity swelling worsening over the past 2 weeks but has had this issue for the past several months. Patient was instructed come into the ED after informing her primary care doctor. On exam patient with +1 pitting edema bilaterally however no overlying erythema ecchymosis gross deformities no other signs indication for DVT. Patient had lab work performed no leukocytosis troponin negative EKG nonischemic in nature BNP only slightly elevated at 130 chest x-ray without any signs of pneumonia pulmonary infiltrates or effusions. Patient not requiring any supplemental oxygen. 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 Disease processes change and evolve, if your symptoms worsen or if you develop any new symptoms that are concerning to you please return for evaluation. Your evaluation today does not show any evidence of any life- threatening/serious illnesses requiring admission to the hospital or surgery. Please follow-up with your doctor for re-evaluation in approximately 1 day. Seek immediate medical attention for any worrisome symptoms. *If you do not have a primary care provider please contact the [facility] Resource line at [phone]. They will ask some questions about your medical history and help get you set up with a doctor in the community. Prescriptions: No Action (DME) Resmed Airsense 10 CPAP Qty: 1 Dose Instruction: As directed Patient Comments: Pressure: 5-15 cmH2O DME: [facility] Rx Instructions: As directed amlodipine 2.5 mg tablet 2.5 mg PO DAILY Qty: 90 3RF hydrochlorothiazide 25 mg tablet 25 mg PO DAILY Qty: 90 3RF losartan 50 mg tablet 50 mg PO BID Qty: 180 3RF valacyclovir 1 gram tablet 1,000 mg PO BID Qty: 30 0RF Rx Instructions: f/u with primary dr after trying this dose ursodiol 300 mg capsule 300 mg PO TID tamsulosin 0.4 mg capsule 0.4 mg PO DAILY PRN Patient Comments: TAKE 1 CAPSULE BY MOUTH AT BEDTIME. TAKE IF YOU FEEL LIKE YOU ARE PASSING A KIDNEY STONE omeprazole 20 mg tablet,delayed release (DR/EC) 20 mg PO DAILY PRN baclofen 5 mg tablet 5 mg PO TID PRN metronidazole 0.75 % gel 1 applic topical ONCE PM PRN valacyclovir 500 mg tablet 500 mg PO DAILY Qty: 90 3RF cholecalciferol (vitamin D3) 50 mcg (2,000 unit) capsule 50 mcg PO DAILY Co Q-10 300 mg capsule 300 mg PO DAILY mecobalamin (vitamin B12) 1,000 mcg tablet,chewable 1,000 mcg PO DAILY calcium carbonate [Calcium 600] 600 mg calcium (1,500 mg) tablet 600 mg PO DAILY acetaminophen [Tylenol Extra Strength] 500 mg tablet 500 mg PO Q6H PRN Referrals: Tanvir Worthy MD [Primary Care Provider] - Rolando Callahan MD [Physician] - Stand Alone Forms: Patient Portal/API/Survey
== END 2024-08-30 22:50 | disposition home or self-care (01) ==
PROVIDERS: Emergency Medicine; Emergency Provider Student in an Organized Health Care Education/Training Program; Family Provider Internal Medicine; PCP Internal Medicine
DX: R60.0 Localized edema (principal); E78.5 Hyperlipidemia, unspecified; I10 Essential (primary) hypertension; I73.9 Peripheral vascular disease, unspecified; Z87.891 Personal history of nicotine dependence
CPT/HCPCS: 36415; 71045; 80053; 81003; 82550; 83690; 83735; 83880; 84484; 85025; 85610; 85730; 93005; 99284

== ENCOUNTER → 2024-09-09 12:41 | Outpatient (CLI) | payer MEDICARE, OTHER, SELFPAY ==
[2024-09-09 13:46] LABS: Add Manual Diff / Slide Review NO; Basophils Absolute Auto 100 /uL (0-100); Basophils Percent Auto 0.7 % (0-2); Eosinophils Absolute Auto 100 /uL (0-450); Hematocrit 38.3 % (36-46); Lymphocytes Absolute Auto 2000 /uL (1100-4500); Mean Corpuscular HGB Conc 33.9 % (30-36); Mean Corpuscular Hemoglobin 32.7 PG (26-34); Mean Corpuscular Volume 96.7 fL (80-100); Monocytes Absolute Auto 700 /uL (0-900); Monocytes Percent Auto 9.1 % (3-14); Neutrophils Absolute Auto 4900 /uL (1500-7000); Neutrophils Percent Auto 63.2 % (50-75); Platelet Count 237 X10^3/uL (150-400); Red Blood Cell Count 3.96 X10^6/uL (4.0-5.2); Red Cell Distribution Width 13.6 % (11.6-14.8); White Blood Cell Count 7.8 X10^3/uL (4.5-11.0)
[2024-09-09 14:04] LABS: Alanine Aminotransferase 25 IU/L (<35); Albumin 4.6 g/dL (3.5-5.0); Albumin Globulin Ratio 1.6 (1.0-2.8); Alkaline Phosphatase 125 U/L (38-126); Aspartate Aminotransferase 25 IU/L (14-36); Bilirubin Total 0.6 mg/dL (0.2-1.3); Blood Urea Nitrogen 29 mg/dL (7-17); Calcium 10.1 mg/dL (8.4-10.2); Carbon Dioxide 26 mmol/L (22-32); Chloride 102 mmol/L (98-107); Estimated Glomerular Filt Rate 60 mL/min (>60); Globulin 2.9 g/dL (1.7-4.1); Glucose 92 mg/dL (80-110); HEMOLYSIS < 15 (0-50); Potassium 4.6 mmol/L (3.4-5.1); Sodium 138 mmol/L (137-145); Total Protein 7.5 g/dL (6.3-8.2)
[2024-10-08 12:54] LABS: Fibrosis Score 0.08
[2024-10-08 12:55] LABS: Alpha 2-Macroglobulins, QN 220; Necroinflammat Act Grade A0-No Activity; Necroinflammat Act Score 0.05
[2024-10-08 12:56] LABS: ALT (SGPT) 19; Apolipoprotein A-1 184; Bilirubin,Total 0.4; GGT 6; Haptoglobin 221
== END ==
PROVIDERS: Family Provider Internal Medicine; PCP Internal Medicine; Referring Provider Internal Medicine Gastroenterology; Visit Provider Internal Medicine Gastroenterology
DX: K74.3 Primary biliary cirrhosis (principal)
CPT/HCPCS: 36415; 80053; 81596; 85025

== ENCOUNTER → 2024-09-23 14:27 | Outpatient (CLI) | payer MEDICARE, OTHER, SELFPAY | PROVIDERS: Family Provider Internal Medicine; PCP Internal Medicine; Referring Provider Internal Medicine Cardiovascular Disease; Visit Provider Internal Medicine Cardiovascular Disease | DX: I10 Essential (primary) hypertension (principal); I51.89 Other ill-defined heart diseases; R06.02 Shortness of breath | CPT/HCPCS: 36415 ==

== ENCOUNTER → 2024-09-24 11:34 | Outpatient (CLI) | payer MEDICARE, OTHER, SELFPAY ==
[2024-09-24 13:54] LABS: BUN Creatinine Ratio 29.8 (6-22); Blood Urea Nitrogen 28 mg/dL (7-17); Calcium 9.6 mg/dL (8.4-10.2); Carbon Dioxide 24 mmol/L (22-32); Chloride 100 mmol/L (98-107); Estimated Glomerular Filt Rate > 60 mL/min (>60); Glucose 85 mg/dL (80-110); HEMOLYSIS < 15 (0-50); Potassium 4.9 mmol/L (3.4-5.1); Sodium 136 mmol/L (137-145)
[2024-09-24 14:00] LABS: NT-proBNP (BNP-Adult 18+) 52 pg/mL (<125)
== END ==
PROVIDERS: Family Provider Internal Medicine; PCP Internal Medicine; Referring Provider Internal Medicine Cardiovascular Disease; Visit Provider Internal Medicine Cardiovascular Disease
DX: R06.02 Shortness of breath (principal); I10 Essential (primary) hypertension; I51.89 Other ill-defined heart diseases
CPT/HCPCS: 36415; 80048; 83880

== ENCOUNTER → 2024-09-25 14:17 | Outpatient (CLI) | payer MEDICARE, OTHER, SELFPAY ==
--- NOTE | 2024-09-25 14:18 | DI.CT.S_ITS ---
PROCEDURE: CT KIDNEY URETER BLADDER (KUB) INDICATIONS: 74 y/o F w/ h/o nephrolithiasis, eval current stone burden TECHNIQUE: Axial sections were acquired from the lung bases to the pubic symphysis. Coronal and sagittal reformats were performed. For radiation dose reduction, the following was used: automated exposure control, adjustment of mA and/or kV according to patient size. COMPARISON: [facility], CT, CT KIDNEY URETER BLADDER (KUB), 03/05/2022, 10:00. FINDINGS: Image quality: Diagnostic. Lower Chest: No significant findings. URINARY: Right Kidney: Previously present nonobstructive calculi seen 03/05/22 are virtually unchanged, measuring between 3 and 6 mm and approximately 300-600 Hounsfield units. Right Ureter: No hydroureter. Left Kidney: Left-sided previously present calculi remain, with 1 significant change. A lower 3rd left renal collecting system calculus measuring 6 mm has progressed inferiorly to set adjacent to a previously present left renal pelvis calculus, where now the 2 are adjacent. Mild prominence of the left renal pelvis remains but the calculi do not appear currently obstructive. A left upper renal rounded fatty structure is stable at 11 mm. Left Ureter: No hydroureter. Bladder: Normal wall thickness. No stones. ABDOMEN: Liver: No contour-deforming solid mass. Gallbladder: No radiopaque gallstones or wall thickening. Biliary ducts: No biliary dilation. Pancreas: No ductal dilation. Spleen: Size is within normal limits. Adrenal Glands: No adrenal nodules. Stomach and Bowel: Normal colonic caliber, without significant wall thickening. Peritoneum: No abnormal intraperitoneal fluid. No free air. Ventral Wall: No hernia. Abdominal Nodes: No enlarged retroperitoneal or mesenteric lymph nodes. Vessels: Aorta and inferior vena cava are normal in size. PELVIS: Pelvic Organs: Unremarkable. Pelvic Nodes: Unremarkable. Miscellaneous: No inguinal hernias are seen. Bones: Unremarkable. IMPRESSION: No obstructing stones or hydronephrosis, and overall the single significant change from the 03/05/22 CT scan is migration of 1 of the nonobstructive calculi present at the left renal collecting system into the left renal pelvis so that it now lies immediately adjacent to a calculus that had been in that position in 2021. Again, no current ureteropelvic junction obstruction is present on the left as a result. Dictated by: Coleman Vera M.D. on 09/26/2024 at 10:36 Approved by: Coleman Vera M.D. on 09/26/2024 at 10:45
== END ==
PROVIDERS: Family Provider Internal Medicine; PCP Internal Medicine; Referring Provider Urology; Visit Provider Urology
DX: Z87.442 Personal history of urinary calculi (principal); N20.0 Calculus of kidney
CPT/HCPCS: 74176

== ENCOUNTER 2024-12-25 14:30 | Outpatient (RCR) | payer MEDICARE, OTHER, SELFPAY ==
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
== END 2025-01-13 10:43 | disposition home or self-care (01) ==
LOC: PHYS 14:30
PROVIDERS: Family Provider Internal Medicine; PCP Internal Medicine; Referring Provider Internal Medicine; Visit Provider Internal Medicine
DX: R26.89 Other abnormalities of gait and mobility (principal); R42 Dizziness and giddiness
CPT/HCPCS: 97110; 97112; 97163; 97535

== ENCOUNTER → 2025-04-29 15:01 | Outpatient (CLI) | payer MEDICARE, OTHER, SELFPAY ==
[2025-04-29 16:27] LABS: Hematocrit 40.0 % (36-46); Hemoglobin 13.4 g/dL (12.0-16.0); Mean Corpuscular HGB Conc 33.6 % (30-36); Mean Corpuscular Hemoglobin 33.5 PG (26-34); Mean Corpuscular Volume 99.8 fL (80-100); Platelet Count 265 X10^3/uL (150-400)
[2025-04-29 16:54] LABS: Blood Urea Nitrogen 33 mg/dL (7-17); Calcium 10.2 mg/dL (8.4-10.2); Carbon Dioxide 27 mmol/L (22-32); Chloride 100 mmol/L (98-107); Estimated Glomerular Filt Rate 52 mL/min (>60); Glucose 97 mg/dL (70-99); HEMOLYSIS < 15 (0-50); Potassium 5.0 mmol/L (3.4-5.1); Sodium 136 mmol/L (137-145)
[2025-04-29 17:01] LABS: NT-proBNP (BNP-Adult 18+) 42 pg/mL (<125)
== END ==
PROVIDERS: PCP Internal Medicine; Referring Provider Internal Medicine; Visit Provider Internal Medicine Cardiovascular Disease
DX: I50.32 Chronic diastolic (congestive) heart failure (principal); R06.09 Other forms of dyspnea
CPT/HCPCS: 36415; 80048; 83880; 85027

== ENCOUNTER → 2025-05-23 11:34 | Outpatient (CLI) | payer MEDICARE, OTHER, SELFPAY ==
[2025-05-23 12:46] LABS: Hemoglobin A1C% w Est Avg Glu 5.2 % (4.0-6.0)
[2025-05-23 12:52] LABS: Blood Urea Nitrogen 24 mg/dL (7-17); Calcium 10.0 mg/dL (8.4-10.2); Carbon Dioxide 26 mmol/L (22-32); Chloride 98 mmol/L (98-107); Cholesterol 175 mg/dL (140-199); Estimated Glomerular Filt Rate > 60 mL/min (>60); Glucose 83 mg/dL (70-99); HDL Cholesterol 79 mg/dL (40-60); HEMOLYSIS < 15 (0-50); Potassium 4.5 mmol/L (3.4-5.1); Sodium 133 mmol/L (137-145); Triglycerides 75 mg/dL (35-150)
== END ==
PROVIDERS: PCP Internal Medicine; Referring Provider Internal Medicine; Visit Provider Internal Medicine
DX: R73.01 Impaired fasting glucose (principal); E78.2 Mixed hyperlipidemia
CPT/HCPCS: 36415; 80048; 80061; 83036; 84450